=== PATIENT | male | born 1955 | race Caucasian/White ===

== ENCOUNTER 2016-08-08 22:10 | Inpatient (IN) | payer MEDICARE, MEDICAID ==
[~2016-08-08] VITALS: Ht 170.2 cm; Wt 73.7 kg
--- NOTE | 2016-08-08 22:36 | ED.ADGEN ---
Adult General HPI HPI Patient is a 61-year-old male brought to emergency department for medical clearance prior to admission to the geriatric psychiatric unit. Patient himself has no complaints. He does have a history of dementia. Review of Systems Review of Systems Constitutional: Denies fever or chills [] Eyes: Denies change in visual acuity, redness, or eye pain [] HENT: Denies nasal congestion or sore throat [] Respiratory: Denies cough or shortness of breath [] Cardiovascular: No additional information not addressed in HPI [] GI: Denies abdominal pain, nausea, vomiting, bloody stools or diarrhea [] : Denies dysuria or hematuria [] Musculoskeletal: Denies back pain or joint pain [] Integument: Denies rash or skin lesions [] Neurologic: Denies headache, focal weakness or sensory changes [] Endocrine: Denies polyuria or polydipsia [] Allergies Allergies Allergies Coded Allergies Type Severity Reaction Last Updated Verified No Known Drug Allergies 08/08/16 No Physical Exam Physical Exam Constitutional: Well developed, well nourished, no acute distress, non-toxic appearance. [] HENT: Normocephalic, atraumatic, bilateral external ears normal, oropharynx moist, no oral exudates, nose normal. [] Eyes: PERRLA, EOMI, conjunctiva normal, no discharge. [] Neck: Normal range of motion, no tenderness, supple, no stridor. [] Cardiovascular:Heart rate regular rhythm, no murmur [] Lungs & Thorax: Bilateral breath sounds clear to auscultation [] Abdomen: Bowel sounds normal, soft, no tenderness, no masses, no pulsatile masses. [] Skin: Warm, dry, no erythema, no rash. [] Back: No tenderness, no CVA tenderness. [] Extremities: No tenderness, no cyanosis, no clubbing, ROM intact, no edema. [] Neurologic: Alert and oriented X 1, normal motor function, normal sensory function, no focal deficits noted. [] Psychologic: Affect normal, judgement normal, mood normal. [] Current Patient Data Lab Results Laboratory Tests Test 08/08/16 22:57 08/08/16 23:05 08/08/16 23:24 Sodium Level 139mmol/L (136-145) Potassium Level 4.0mmol/L (3.5-5.1) Chloride Level 103mmol/L (98-107) Carbon Dioxide Level 27mmol/L (21-32) Anion Gap 9 (6-14) Blood Urea Nitrogen 11mg/dL (8-26) Creatinine 0.8mg/dL (0.7-1.3) Estimated GFR (Cockcroft-Gault) 98.9 Glucose Level 228mg/dL (70-99) H Calcium Level 8.7mg/dL (8.5-10.1) Magnesium Level 1.6mg/dL (1.8-2.4) L Troponin I Quantitative < 0.017ng/mL (0-0.055) White Blood Count 4.3x10^3/uL (4.0-11.0) Red Blood Count 4.41x10^6/uL (4.30-5.70) Hemoglobin 13.9g/dL (13.0-17.5) Hematocrit 41.0% (39.0-53.0) Mean Corpuscular Volume 93fL (79-100) Mean Corpuscular Hemoglobin 32pg (25-35) Mean Corpuscular Hemoglobin Concent 34g/dL (31-37) Red Cell Distribution Width 13.2% (11.5-14.5) Platelet Count 210x10^3/uL (140-400) Neutrophils (%) (Auto) 45% (31-73) Lymphocytes (%) (Auto) 40% (24-48) Monocytes (%) (Auto) 11% (0-9) H Eosinophils (%) (Auto) 4% (0-3) H Basophils (%) (Auto) 1% (0-3) Neutrophils # (Auto) 1.9x10^3uL (1.8-7.7) Lymphocytes # (Auto) 1.7x10^3/uL (1.0-4.8) Monocytes # (Auto) 0.5x10^3/uL (0.0-1.1) Eosinophils # (Auto) 0.1x10^3/uL (0.0-0.7) Basophils # (Auto) 0.0x10^3/uL (0.0-0.2) Urine Collection Type Unknown Urine Color Yellow Urine Clarity Clear Urine pH 8.5 Urine Specific [place] 1.015 Urine Protein Neg (NEG-TRACE) Urine Glucose (UA) Negmg/dL (NEG) Urine Ketones (Stick) Negmg/dL (NEG) Urine Blood Neg (NEG) Urine Nitrite Neg (NEG) Urine Bilirubin Neg (NEG) Urine Urobilinogen Dipstick 0.2mg/dL (0.2 mg/dL) Urine Leukocyte Esterase Neg (NEG) Urine RBC 0/HPF (0-2) Urine WBC Rare/HPF (0-4) Urine Squamous Epithelial Cells Occ/LPF Urine Bacteria 0/HPF (0-FEW) EKG EKG EKG interpreted by me, normal sinus rhythm, 89 bpm, no ST segment elevation, normal axis. [] Radiology/Procedures Radiology/Procedures [] Course & Med Decision Making Course & Med Decision Making Pertinent Labs and Imaging studies reviewed. (See chart for details) [] Final Impression Final Impression Dementia with behavioral disturbance [] Problems: Dragon Disclaimer Dragon Disclaimer This electronic medical record was generated, in whole or in part, using a voice recognition dictation system. YAO RASMUSSEN MD Aug 08, 2016 22:35
--- NOTE | 2016-08-08 22:42 | EKG ---
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
[2016-08-08 23:37] LABS: BASO % 1 % (0-3); EOS # 0.1 x10^3/uL (0.0-0.7); EOS % 4 % (0-3); HEMOGLOBIN 13.9 g/dL (13.0-17.5); LYMPH # 1.7 x10^3/uL (1.0-4.8); LYMPH % 40 % (24-48); MEAN CORPUSCULAR HEMOGLOBIN 32 pg (25-35); MEAN CORPUSCULAR HGB CONC 34 g/dL (31-37); MEAN CORPUSCULAR VOLUME 93 fL (79-100); MONO # 0.5 x10^3/uL (0.0-1.1); MONO % 11 % (0-9); NEUT # 1.9 x10^3uL (1.8-7.7); NEUT % 45 % (31-73); PLATELET COUNT 210 x10^3/uL (140-400); RED BLOOD COUNT 4.41 x10^6/uL (4.30-5.70); RED CELL DISTRIBUTION WIDTH 13.2 % (11.5-14.5); WHITE BLOOD COUNT 4.3 x10^3/uL (4.0-11.0)
[2016-08-08 23:49] LABS: CALCIUM 8.7 mg/dL (8.5-10.1); CREATININE 0.8 mg/dL (0.7-1.3); GFR 98.9
[2016-08-09 00:19] LABS: BILIRUBIN,URINE NEG (NEG); CLARITY,URINE CLEAR; COLOR,URINE YELLOW; GLUCOSE,URINE NEG (NEG); NITRITE,URINE NEG (NEG); UROBILINOGEN,URINE 0.2 mg/dL (0.2 mg/dL)
[2016-08-09 00:20] LABS: BACTERIA,URINE 0 /HPF (0-FEW); RBC,URINE 0 /HPF (0-2); SQUAMOUS EPITHELIAL CELL,UR OCC /LPF; WBC,URINE RARE /HPF (0-4)
[2016-08-09] MEDS ORDERED: ACETAMINOPHEN 325 MG TABLET PO PRN ×2 (01:30→09:15)
[2016-08-09] MEDS ORDERED: MAG HYDROX/AL HYDROX/SIMETH 30 ML ORAL.SUSP PO PRN (01:30)
[2016-08-09] MEDS ORDERED: METHYL SALICYLATE/MENTHOL TOPICAL OINTMENT 29GM TUBE. TP PRN (01:30)
--- NOTE | 2016-08-09 01:51 | ACF ---
Admission Criteria Forms PSYCHIATRIC DISORDERS Clinical Indications for Inpatient Care (Place 'X' for any and all applicable criteria): Ongoing inpatient care may be needed for ANY ONE of the following(1)(2)(3)(4)(6) (7)(8): [X]I. Danger to self or others not manageable at lower level of care. [ ]II. Grave disability (eg, inability to perform self care necessary at lower level of care) [ ]III. Agitation or inappropriate behavior interfering with care for primary condition (eg, attempting to discontinue lines or drains prematurely, unable to cooperate with respiratory care) [ ]IV. Severe disability or disorder indicated by ALL of the following: [ ]a) Severe behavioral health disorder-related symptoms or condition indicated by ANY ONE of the following: [ ]i) Severe problem with cognition, memory, judgment, or impulse control [ ]ii) Severe clinical manifestations (eg, hallucinations, delusions, other acute psychotic symptoms, varsha, extreme agitation or anxiety) [ ]b) Patient management at lower level of care is not feasible until acute intervention or modification is initiated. Extended stay beyond goal length of stay for the primary condition may be indicated when ANY ONE of the following is present: (1)(2)(3)(4): [ ]a) Patient is a danger to self or others and not manageable at lower level of care. [ ]b) Behavior crisis management, including physical or chemical restraints, is required and is not available at a lower level of care. [ ]c) Behavioral symptoms (e.g., agitation, somnolence, inappropriate behavior) are present, and are not manageable at a lower level of care. [ ]d) Patient cannot understand follow-up treatment and crisis plan. [ ]e) Provider and supports are not sufficiently available at lower level of care. [ ]f) Patient cannot participate (e.g., verify absence of plan for harm) and is in needed of monitoring. The original [facility] content created by [employer] has been revised. The portions of the content which have been revised are identified through the use of italic text or in bold, and [facility] has neither reviewed nor approved the modified material. All other unmodified content is copyright [facility] [employer]. Please see references footnoted in the original [facility] edition 2016 Admission Criteria Met?: Yes MATHEW BAREKR Aug 09, 2016 01:51
[2016-08-09] MEDS ORDERED: ESCI10TA PEG (01:59)
[2016-08-09] MEDS ORDERED: TAMS0.4C97 PEG (01:59)
[2016-08-09] MEDS ORDERED: LORA0.5T PEG ×2 (01:59)
[2016-08-09] MEDS ORDERED: INSU100I17 SQ (01:59)
[2016-08-09] MEDS ORDERED: RISP0.2519 PEG (01:59)
[2016-08-09] MEDS ORDERED: LOSA25TA PEG (01:59)
[2016-08-09] MEDS ORDERED: MIRT15TA PEG (01:59)
[2016-08-09] MEDS ORDERED: HYDR-971 PEG (01:59)
[2016-08-09] MEDS ORDERED: RANI150T6 PEG (01:59)
[2016-08-09] MEDS ORDERED: ONDA4TAB12 PEG (01:59)
[2016-08-09] MEDS ORDERED: VALP250D PEG (01:59)
[2016-08-09] MEDS ORDERED: MULT-245 PEG (01:59)
[2016-08-09] MEDS ORDERED: TRAZ100T12 PEG (01:59)
[2016-08-09] MEDS ORDERED: INSU100I27 SQ (01:59)
[2016-08-09] MEDS ORDERED: ACET325T21 PEG (01:59)
[2016-08-09] MEDS ORDERED: ERGO500012 PEG (01:59)
[2016-08-09 02:00] LABS: DIRECT BILIRUBIN 0.1 mg/dL (0.0-0.2); TOTAL BILIRUBIN 0.4 mg/dL (0.2-1.0)
[2016-08-09 02:15] LABS: VAL ACID 53 mcg/mL (50-100)
[2016-08-09] MEDS ORDERED: LORAZEPAM 0.5 MG TABLET PEG PRN (04:30)
[2016-08-09 06:24] VITALS: BP 123/65
[2016-08-09] MEDS ORDERED: HYDROCODONE/APAP 5/325MG TABLET. PEG PRN (09:15)
[2016-08-09] MEDS ORDERED: ONDANSETRON ODT 4 MG TAB.RAPDIS PEG PRN (09:15)
[2016-08-09] MEDS ORDERED: CHOLECALCIFEROL (VITAMIN D3) 50,000 UNIT CAPSULE PEG SCH (09:30)
[2016-08-09] MEDS: VALPROATE ACID 250 MG/5 ML ORAL SOLUTION PEG SCH ×2 (09:48→21:50)
[2016-08-09] MEDS: LOSARTAN 25 MG TABLET. PEG SCH (09:49)
[2016-08-09] MEDS: FAMOTIDINE 20 MG TABLET PEG SCH ×2 (09:49→21:54)
[2016-08-09] MEDS: MULTIVITAMIN with MINERAL TABLET. PEG SCH (09:49)
[2016-08-09] MEDS: MIRTAZAPINE 15 MG TABLET PEG SCH ×2 (09:49→21:50)
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
[2016-08-09] MEDS: INSULIN ASPART 300 UNITS/3 ML INSULN.PEN SQ SCH ×2 (12:57→17:20)
[2016-08-09 13:36] LABS: IRON,SERUM 85 ug/dL (65-175)
[2016-08-09 13:55] LABS: THYROID STIM HORMONE (TSH) 10.8 uIU/mL (0.358-3.740)
[2016-08-09 15:55] VITALS: BP 116/83
[2016-08-09] MEDS: ESCITALOPRAM 10 MG TABLET. PEG SCH ×2 (18:00→21:50)
[2016-08-09 18:10] LABS: T3 TOTAL 95 ng/dL (71-180); THYROXINE 6.8 ug/dL (4.5-12.0)
--- NOTE | 2016-08-09 20:50 | PDOC ---
Exam Chauncey Demential Exam: Chauncey Note: Please also refer to the separate dictated note~for this date of service dictated separately.~Patient seen individually. Discussed the patient with Nursing staff reviewed the chart.~Reviewed interim history and current functioning. Reviewed vital signs,~Labs/ Radiology~and current medications noted below. Continue current treatment with the changes noted in the dictated addendum note Assessment: Vital Signs: Vital Signs Date Time Temp Pulse Resp B/P Pulse Ox O2 Delivery O2 Flow Rate FiO2 08/09/16 15:55 97.8 74 18 116/83 98 08/08/16 22:10 Room Air Labs: Laboratory Tests Test 08/08/16 22:57 08/08/16 23:05 08/08/16 23:24 08/09/16 12:00 Sodium Level 139mmol/L (136-145) Potassium Level 4.0mmol/L (3.5-5.1) Chloride Level 103mmol/L (98-107) Carbon Dioxide Level 27mmol/L (21-32) Anion Gap 9 (6-14) Blood Urea Nitrogen 11mg/dL (8-26) Creatinine 0.8mg/dL (0.7-1.3) Estimated GFR (Cockcroft-Gault) 98.9 Glucose Level 228mg/dL (70-99) H Calcium Level 8.7mg/dL (8.5-10.1) Magnesium Level 1.6mg/dL (1.8-2.4) L Troponin I Quantitative < 0.017ng/mL (0-0.055) White Blood Count 4.3x10^3/uL (4.0-11.0) Red Blood Count 4.41x10^6/uL (4.30-5.70) Hemoglobin 13.9g/dL (13.0-17.5) Hematocrit 41.0% (39.0-53.0) Mean Corpuscular Volume 93fL (79-100) Mean Corpuscular Hemoglobin 32pg (25-35) Mean Corpuscular Hemoglobin Concent 34g/dL (31-37) Red Cell Distribution Width 13.2% (11.5-14.5) Platelet Count 210x10^3/uL (140-400) Neutrophils (%) (Auto) 45% (31-73) Lymphocytes (%) (Auto) 40% (24-48) Monocytes (%) (Auto) 11% (0-9) H Eosinophils (%) (Auto) 4% (0-3) H Basophils (%) (Auto) 1% (0-3) Neutrophils # (Auto) 1.9x10^3uL (1.8-7.7) Lymphocytes # (Auto) 1.7x10^3/uL (1.0-4.8) Monocytes # (Auto) 0.5x10^3/uL (0.0-1.1) Eosinophils # (Auto) 0.1x10^3/uL (0.0-0.7) Basophils # (Auto) 0.0x10^3/uL (0.0-0.2) Iron Level 85ug/dL (65-175) Total Iron Binding Capacity 259ug/dL (250-450) Iron Saturation 33% (15-34) Total Bilirubin 0.4mg/dL (0.2-1.0) Direct Bilirubin 0.1mg/dL (0.0-0.2) Aspartate Amino Transferase (AST) 37U/L (15-37) Alanine Aminotransferase (ALT) 42U/L (16-63) Alkaline Phosphatase 84U/L (46-116) Total Protein 7.0g/dL (6.4-8.2) Albumin 3.0g/dL (3.4-5.0) L Triglycerides Level 138mg/dL (0-150) Cholesterol Level 126mg/dL (0-200) LDL Cholesterol, Calculated 58mg/dL (0-100) VLDL Cholesterol, Calculated 27mg/dL (0-40) HDL Cholesterol 41mg/dL (40-60) Cholesterol/HDL Ratio 3.0 25-Hydroxy Vitamin D Total Pending Thyroid Stimulating Hormone (TSH) 10.800uIU/mL (0.358-3.740) Thyroxine (T4) 6.8ug/dL (4.5-12.0) Total Triiodothyronine (TT3) 95ng/dL (71-180) Valproic Acid Level 53mcg/mL (50-100) Valproic Acid Last Dose Date 08/08/2016 Valproic Acid Last Dose Time 0600 RPR Titer Additional Testing Pending Urine Collection Type Unknown Urine Color Yellow Urine Clarity Clear Urine pH 8.5 Urine Specific [place] 1.015 Urine Protein Neg (NEG-TRACE) Urine Glucose (UA) Negmg/dL (NEG) Urine Ketones (Stick) Negmg/dL (NEG) Urine Blood Neg (NEG) Urine Nitrite Neg (NEG) Urine Bilirubin Neg (NEG) Urine Urobilinogen Dipstick 0.2mg/dL (0.2 mg/dL) Urine Leukocyte Esterase Neg (NEG) Urine RBC 0/HPF (0-2) Urine WBC Rare/HPF (0-4) Urine Squamous Epithelial Cells Occ/LPF Urine Bacteria 0/HPF (0-FEW) Glucose (Fingerstick) 168mg/dL (70-99) H Test 08/09/16 16:14 08/09/16 19:08 Glucose (Fingerstick) 176mg/dL (70-99) H 178mg/dL (70-99) H Current Medications: Meds: Current Medications Acetaminophen (Tylenol) 650 mg PRN Q6HRS PRN PO PAIN / TEMP; Start 08/09/16 at 01:30; Status Cancel Multi-Ingredient Ointment (Analgesic [place]) 1 crispin PRN QID PRN TP MUSCLE PAIN; Start 08/09/16 at 01:30 Al Hydroxide/Mg Hydroxide (Mylanta Plus Xs) 15 ml PRN AFTMEALHC PRN PO DYSPEPSIA; Start 08/09/16 at 01:30 Magnesium Hydroxide (Milk Of Magnesia) 2,400 mg PRN QHS PRN PO CONSTIPATION; Start 08/09/16 at 01:30 Escitalopram Oxalate (Lexapro) 10 mg QEVNG PEG Last administered on 08/09/16 18:00; Start 08/09/16 at 18:00 Lorazepam (Ativan) 0.5 mg PRN Q6HRS PRN PEG ANXIETY; Start 08/09/16 at 04:30 Lorazepam (Ativan) 0.5 mg QHS PEG ; Start 08/09/16 at 21:00 Mirtazapine (Remeron) 15 mg BID PEG Last administered on 08/09/16 09:49; Start 08/09/16 at 09:00 Risperidone (Risperdal) 0.25 mg QHS PEG ; Start 08/09/16 at 21:00 Trazodone HCl (Desyrel) 100 mg QHS PEG ; Start 08/09/16 at 21:00 Valproic Acid (Depakene) 500 mg BID PEG convulsions Last administered on 09:48; Start 08/09/16 at 09:00 Acetaminophen (Tylenol) 650 mg PRN Q4HRS PRN PO PAIN / TEMP; Start 08/09/16 at 09:15 Vitamin D (Vitamin D3) 50,000 unit QMONTH PEG Last administered on 08/09/16 09 :50; Start 08/09/16 at 09:30 Acetaminophen/ Hydrocodone Bitart (Lortab 5/325) 1 tab PRN Q4HRS PRN PEG PAIN; Start 08/09/16 at 09:15 Insulin Aspart (Novolog) 4 units TIDBFRMEAL SQ Last administered on 08/09/16 17:20; Start 08/09/16 at 11:30 Insulin Detemir (Levemir) 40 units HS SQ ; Start 08/09/16 at 21:00 Losartan Potassium (Cozaar) 25 mg DAILY PEG Last administered on 08/09/16 09: 49; Start 08/09/16 at 09:30 Ondansetron HCl (Zofran Odt) 4 mg PRN Q8HRS PRN PEG NAUSEA/VOMITING; Start at 09:15 Tamsulosin HCl (Flomax) 0.4 mg QHS PO ; Start 08/09/16 at 21:00 Multivitamins/ Calcium (Thera-M Plus) 1 tab DAILY PEG Last administered on 08/09 09:49; Start 08/09/16 at 09:30 Famotidine (Pepcid) 20 mg BID PEG Last administered on 08/09/16 09:49; Start 08/09/16 at 09:30 Active Scripts Active Reported Valproic Acid (Valproate Sodium) 250 Mg/5 Ml Disp.syrin 10 Ml PEG BID Trazodone Hcl 100 Mg Tablet 100 Mg PEG QHS Lorazepam 0.5 Mg Tablet 0.5 Mg PEG QHS Escitalopram Oxalate 10 Mg Tablet 10 Mg PEG QEVNG Lorazepam 0.5 Mg Tablet 0.5 Mg PEG PRN Q6HRS PRN [place] 5-325 Tablet (Hydrocodone Bit/Acetaminophen) 1 Each Tablet 1 Tab PEG PRN Q4HRS PRN Flomax (Tamsulosin Hcl) 0.4 Mg Cap.er.24h 0.4 Mg PEG Remeron (Mirtazapine) 15 Mg Tablet 15 Mg PEG BID Risperdal (Risperidone) 0.25 Mg Tablet 0.25 Mg PEG QHS Ondansetron Odt (Ondansetron) 4 Mg Tab.rapdis 4 Mg PEG PRN Q8HRS PRN Acetaminophen 325 Mg Tablet 650 Mg PEG PRN Q4HRS PRN Multi Vitamin Daily (Multivitamin) 1 Each Tablet 1 Tab PEG DAILY Zantac (Ranitidine Hcl) 150 Mg Tablet 150 Mg PEG BID Cozaar (Losartan Potassium) 25 Mg Tablet 25 Mg PEG DAILY Levemir Flextouch (Insulin Detemir) 100 Unit/1 Ml Insuln.pen 40 Unit SQ HS Novolog Flexpen (Insulin Aspart) 100 Unit/1 Ml Insuln.pen 4 Unit SQ TIDBFRMEAL Diagnosis: Problems: (1) Dementia with behavioral disturbance VIANCA RODGERS MD Aug 09, 2016 20:50
[2016-08-09] MEDS ORDERED: risperiDONE 0.25 MG TABLET. PEG SCH (21:00)
[2016-08-09] MEDS: TAMSULOSIN 0.4 MG CAP.ER.24H. PO SCH (21:50)
[2016-08-09] MEDS: LORAZEPAM 0.5 MG TABLET PEG SCH (21:50)
[2016-08-09] MEDS: traZODone 100 MG TABLET. PEG SCH (21:50)
[2016-08-09] MEDS: INSULIN DETEMIR 300 UNITS/3 ML INSULN.PEN. SQ SCH (22:04)
[2016-08-10 01:11] LABS: VITAMIN D25(OH)TOTAL 36.4 ng/mL (30.0-100.0)
[2016-08-10 06:07] VITALS: BP 106/67
[2016-08-10] MEDS: INSULIN ASPART 300 UNITS/3 ML INSULN.PEN SQ SCH ×3 (07:30→16:30)
[2016-08-10] MEDS: MULTIVITAMIN with MINERAL TABLET. PEG SCH (07:40)
[2016-08-10] MEDS: FAMOTIDINE 20 MG TABLET PEG SCH ×2 (07:40→21:20)
[2016-08-10] MEDS: VALPROATE ACID 250 MG/5 ML ORAL SOLUTION PEG SCH ×2 (07:40→21:20)
[2016-08-10] MEDS: MIRTAZAPINE 15 MG TABLET PEG SCH (07:40)
[2016-08-10] MEDS: LOSARTAN 25 MG TABLET. PEG SCH (07:40)
[2016-08-10] MEDS ORDERED: ACETAMINOPHEN 650 MG/20.3 ML SOLUTION. PEG PRN (09:15)
--- NOTE | 2016-08-10 17:01 | HP ---
ADMIT DATE: 08/09/2016 PSYCHIATRIC ADMISSION HISTORY/EVALUATION This is a late entry for 08/09/2016 IDENTIFYING DATA: The patient is a 61-year-old male referred to us from [facility] by Dr. Field, his primary care physician Dr. Navarro, psychiatrist on account of increasing aggression towards other residents. Reportedly, he "singles out female residents." He has been pushing, aggressive, disruptive, potentially dangerous, having failed outpatient psychiatric interventions. He is referred for inpatient psychiatric stabilization for his impulse control disorder/intermittent explosive disorder within the context of his vascular dementia, status post CVA with depression, delusions. The patient seen individually evening of 08/09/2016. Discussed with nursing staff several times during the day, reviewed current past records. CHIEF COMPLAINT: "Okay." It is very difficult to hear the patient as he speaks in a very low tone, almost inaudible, at times seems oriented just to himself, but it is unclear at this stage. His above response was when I asked him if he knew where he was. He did respond that he was in [place] when I asked him where he came from. HISTORY OF PRESENT ILLNESS: The patient has a history of CVA and vascular dementia. He has been residing at the [facility] for some time. Over the past 7 to 10 days he is getting increasingly agitated, aggressive as noted above. This is particularly towards certain female residents. He has had some sleep and appetite changes. Appeared paranoid, depressed, angry, irritable, impulsive and explosive. No history of bipolar disorder, suicidal or homicidal ideation. PAST PSYCHIATRIC HISTORY: As above. PAST MEDICAL HISTORY: The patient was seen at the [facility] Emergency Room prior to admission by and found to be medically stable to be on a unit. EKG was unremarkable. He does have a G-tube in place since 05/2016, status post CVA, history of seizure disorder, hypertension, hyperlipidemia, diabetes mellitus, GERD. He has no teeth, history of chronic constipation, vitamin D deficiency, dysphagia, edema, insomnia. Diet, n.p.o., tube feeding, 8 ounces t.i.d. 175 mL, q. 4 hours, meds via G-tube, ambulates with a walker. UA was negative. DRUG ALLERGIES: Negative. CURRENT PSYCHOTROPICS: Lexapro 10 mg a day, vitamin D 50,000 units by PEG tube every month, Ativan 0.5 mg q.6h. p.r.n. PEG tube and 0.5 mg at bedtime PEG tube, Remeron 15 mg by PEG tube b.i.d., Risperdal 0.25 mg by PEG tube at bedtime, trazodone 100 mg at bedtime PEG tube, Depakene 500 b.i.d. by PEG tube. FAMILY HISTORY: Noncontributory. SOCIAL HISTORY: No alcohol, drug abuse, physical, sexual or elder abuse history is noted. He is not known to be a perpetrator. MENTAL STATUS EXAMINATION: The patient was seen individually the evening of 08/09/2016. He seems oriented to himself and perhaps to situation at times. He is not very verbal, very difficult to understand. Speech slow and rate and rhythm low in volume, often responses monosyllabic, difficult to assess his orientation. We will reassess as the hospitalization progresses. No active suicidal or homicidal ideation. No psychotic symptoms. Insight, judgment, recent memory is impaired. Language function intact. Mood and affect depressed. VITAL SIGNS: Temperature 97.8, pulse 74, BP 116/83. REVIEW OF SYSTEMS: Impaired ambulation, difficulty swallowing, tiredness, sedation. No CV, , GI, pulmonary, eye, ENT system symptoms on review, but the patient not very responsive for this questioning. IMPRESSION: Major neurocognitive disorder, probably vascular with depression, delusion, behavioral disturbance; anxiety disorder, unspecified; impulse control disorder, unspecified. Rest diagnoses as above. PLAN: Admit to geropsychiatry unit at [facility]. I will see the patient daily individually from a psychiatric standpoint, medical followup with Dr. Martins/Dr. Sullivan/Dr. Jameson. Continue current psychotropics. Check a valproic acid level, observe baseline and adjust psychotropics further as clinically indicated. MAN Theron RODGERS MD DR: VERENA/pily JOB#: [id number] / [id number]
[2016-08-10] MEDS: ESCITALOPRAM 5 MG/5 ML PEG SCH (17:11)
[2016-08-10] MEDS ORDERED: MIRTAZAPINE 15 MG TAB.RAPDIS PEG SCH (21:00)
[2016-08-10] MEDS: TAMSULOSIN 0.4 MG CAP.ER.24H. PO SCH (21:20)
[2016-08-10] MEDS: LORAZEPAM 0.5 MG TABLET PEG SCH (21:20)
[2016-08-10] MEDS: traZODone 100 MG TABLET. PEG SCH (21:20)
[2016-08-10] MEDS: risperiDONE ORAL 1 MG/ML 30ml BOTTLE. PEG SCH (21:22)
[2016-08-10] MEDS: MIRTAZAPINE 15 MG TAB.RAPDIS PEG SCH (21:24)
[2016-08-10] MEDS: INSULIN DETEMIR 300 UNITS/3 ML INSULN.PEN. SQ SCH (22:03)
--- NOTE | 2016-08-10 22:31 | PDOC ---
Exam Chauncey Demential Exam: Chauncey Note: Please also refer to the separate dictated note~for this date of service dictated separately.~Patient seen individually. Discussed the patient with Nursing staff reviewed the chart.~Reviewed interim history and current functioning. Reviewed vital signs,~Labs/ Radiology~and current medications noted below. Continue current treatment with the changes noted in the dictated addendum note Assessment: Vital Signs: Vital Signs Date Time Temp Pulse Resp B/P Pulse Ox O2 Delivery O2 Flow Rate FiO2 08/10/16 07:40 60 106/67 08/10/16 06:07 97.2 16 99 08/08/16 22:10 Room Air I&O Intake and Output 08/10/16 07:00 Intake Total 375 ml Balance 375 ml Intake Oral 0 ml Tube Feeding 375 ml Labs: Laboratory Tests Test 08/10/16 07:35 08/10/16 08:17 08/10/16 09:01 08/10/16 11:34 Glucose (Fingerstick) 50mg/dL (70-99) L 79mg/dL (70-99) 193mg/dL (70-99) H 231mg/dL (70-99) H Test 08/10/16 16:57 08/10/16 19:08 Glucose (Fingerstick) 204mg/dL (70-99) H 250mg/dL (70-99) H Current Medications: Meds: Current Medications Acetaminophen (Tylenol) 650 mg PRN Q6HRS PRN PO PAIN / TEMP; Start 08/09/16 at 01:30; Status Cancel Multi-Ingredient Ointment (Analgesic [place]) 1 crispin PRN QID PRN TP MUSCLE PAIN; Start 08/09/16 at 01:30 Al Hydroxide/Mg Hydroxide (Mylanta Plus Xs) 15 ml PRN AFTMEALHC PRN PO DYSPEPSIA; Start 08/09/16 at 01:30 Magnesium Hydroxide (Milk Of Magnesia) 2,400 mg PRN QHS PRN PO CONSTIPATION; Start 08/09/16 at 01:30 Escitalopram Oxalate (Lexapro) 10 mg QEVNG PEG Last administered on 08/09/16t 21:50; Start 08/09/16 at 18:00; Stop 08/10/16 at 09:08; Status DC Lorazepam (Ativan) 0.5 mg PRN Q6HRS PRN PEG ANXIETY; Start 08/09/16 at 04:30 Lorazepam (Ativan) 0.5 mg QHS PEG Last administered on 08/10/16 21:20; Start 08/09/16 at 21:00 Mirtazapine (Remeron) 15 mg BID PEG Last administered on 08/10/16 07:40; Start 08/09/16 at 09:00; Stop 08/10/16 at 09:09; Status DC Risperidone (Risperdal) 0.25 mg QHS PEG Last administered on 08/09/16 21:49; Start 08/09/16 at 21:00; Stop 08/10/16 at 09:09; Status DC Trazodone HCl (Desyrel) 100 mg QHS PEG Last administered on 08/10/16 21:20; Start 08/09/16 at 21:00 Valproic Acid (Depakene) 500 mg BID PEG convulsions Last administered on 21:20; Start 08/09/16 at 09:00 Acetaminophen (Tylenol) 650 mg PRN Q4HRS PRN PO PAIN / TEMP; Start 08/09/16 at 09:15; Stop 08/10/16 at 09:09; Status DC Vitamin D (Vitamin D3) 50,000 unit QMONTH PEG Last administered on 08/09/16 09 :50; Start 08/09/16 at 09:30 Acetaminophen/ Hydrocodone Bitart (Lortab 5/325) 1 tab PRN Q4HRS PRN PEG PAIN; Start 08/09/16 at 09:15 Insulin Aspart (Novolog) 4 units TIDBFRMEAL SQ Last administered on 08/10/16 16:30; Start 08/09/16 at 11:30 Insulin Detemir (Levemir) 40 units HS SQ Last administered on 08/10/16 22:03; Start 08/09/16 at 21:00 Losartan Potassium (Cozaar) 25 mg DAILY PEG Last administered on 08/10/16 07: 40; Start 08/09/16 at 09:30 Ondansetron HCl (Zofran Odt) 4 mg PRN Q8HRS PRN PEG NAUSEA/VOMITING; Start at 09:15 Tamsulosin HCl (Flomax) 0.4 mg QHS PO Last administered on 08/10/16 21:20; Start 08/09/16 at 21:00 Multivitamins/ Calcium (Thera-M Plus) 1 tab DAILY PEG Last administered on 08/10 07:40; Start 08/09/16 at 09:30; Stop 08/10/16 at 09:09; Status DC Famotidine (Pepcid) 20 mg BID PEG Last administered on 08/10/16 21:20; Start 08/09/16 at 09:30 Acetaminophen (Tylenol) 650 mg PRN Q4HRS PRN PEG PAIN / TEMP; Start 08/10/16 at 09:15 Escitalopram Oxalate (Lexapro) 10 mg QEVNG PEG Last administered on 08/10/16 17:11; Start 08/10/16 at 18:00 Mirtazapine (Remeron Debbie-Tab) 15 mg BID PEG ; Start 08/10/16 at 21:00; Stop at 21:00; Status DC Multivitamins (Thera-Plus) 5 ml DAILY PEG ; Start 08/11/16 at 09:00 Risperidone (Risperdal) 0.25 mg HS PEG Last administered on 08/10/16 21:22; Start 08/10/16 at 21:00 Mirtazapine (Remeron Debbie-Tab) 15 mg HS PEG Last administered on 08/10/16 21:24 ; Start 08/10/16 at 21:00 Levothyroxine Sodium (Synthroid) 25 mcg DAILY07 PEG ; Start 08/11/16 at 07:00 Active Scripts Active Reported Valproic Acid (Valproate Sodium) 250 Mg/5 Ml Disp.syrin 10 Ml PEG BID Trazodone Hcl 100 Mg Tablet 100 Mg PEG QHS Lorazepam 0.5 Mg Tablet 0.5 Mg PEG QHS Escitalopram Oxalate 10 Mg Tablet 10 Mg PEG QEVNG Lorazepam 0.5 Mg Tablet 0.5 Mg PEG PRN Q6HRS PRN [place] 5-325 Tablet (Hydrocodone Bit/Acetaminophen) 1 Each Tablet 1 Tab PEG PRN Q4HRS PRN Flomax (Tamsulosin Hcl) 0.4 Mg Cap.er.24h 0.4 Mg PEG Remeron (Mirtazapine) 15 Mg Tablet 15 Mg PEG BID Risperdal (Risperidone) 0.25 Mg Tablet 0.25 Mg PEG QHS Ondansetron Odt (Ondansetron) 4 Mg Tab.rapdis 4 Mg PEG PRN Q8HRS PRN Acetaminophen 325 Mg Tablet 650 Mg PEG PRN Q4HRS PRN Multi Vitamin Daily (Multivitamin) 1 Each Tablet 1 Tab PEG DAILY Zantac (Ranitidine Hcl) 150 Mg Tablet 150 Mg PEG BID Cozaar (Losartan Potassium) 25 Mg Tablet 25 Mg PEG DAILY Levemir Flextouch (Insulin Detemir) 100 Unit/1 Ml Insuln.pen 40 Unit SQ HS Novolog Flexpen (Insulin Aspart) 100 Unit/1 Ml Insuln.pen 4 Unit SQ TIDBFRMEAL Diagnosis: Problems: (1) Dementia with behavioral disturbance (2) Anxiety disorder (3) Dementia, vascular, with delusions (4) Dementia, vascular, with depression (5) Impulse control disorder VIANCA RODGERS MD Aug 10, 2016 22:31
[2016-08-11] MEDS: LEVOTHYROXINE 25 MCG TABLET. PEG SCH (05:36)
[2016-08-11 05:58] VITALS: BP 104/67
[2016-08-11] MEDS: INSULIN ASPART 300 UNITS/3 ML INSULN.PEN SQ SCH ×3 (07:30→16:30)
[2016-08-11] MEDS: LOSARTAN 25 MG TABLET. PEG SCH (07:42)
[2016-08-11] MEDS: MULTIVITAMINS,THERAPEUTIC 5 ML ORAL LIQUID. PEG SCH (07:43)
[2016-08-11] MEDS: FAMOTIDINE 20 MG TABLET PEG SCH ×2 (07:43→19:28)
[2016-08-11] MEDS: VALPROATE ACID 250 MG/5 ML ORAL SOLUTION PEG SCH ×2 (07:43→19:27)
--- NOTE | 2016-08-11 10:14 | PN ---
DATE: 08/10/2016 PSYCHIATRIC PROGRESS NOTE This is a late entry for 08/10/2016 covers elements not covered in my initial note. SUBJECTIVE: Nursing staff have called me a couple of times since my last visit with the patient on 08/09/2016. The patient fell the morning of 08/10/2016 as he tripped on his PEG tube. No injuries noted. REVIEW OF SYSTEMS: Difficulty with the swallowing. He is on G-tube feeding, impaired ambulation. No CV, , pulmonary, eye system symptoms on review. Reliability poor. MENTAL STATUS EXAM: Oriented to himself. Speech slow in rate and rhythm, low volume, often responses monosyllabic. Abstraction fair, computation impaired, language function intact. Attention span short. IMPRESSION: Major neurocognitive disorder, vascular with depression, delusions behavioral disturbance; anxiety disorder, unspecified; impulse control disorder, unspecified. PLAN: Reviewed patient's current psychotropics at length. Maintain Depakote, Lexapro at current dosage, Remeron is b.i.d. The daytime dosage sedates him we will stop it, continue with the h.s. dosage. Valproic acid level is 53, therapeutic will not change Depakote dosage for now. Adjust further as clinically indicated. MAN Theron RODGERS MD DR: VERENA/pily JOB#: [id number] / [id number]
--- NOTE | 2016-08-11 13:19 | PDOC ---
PROGRESS NOTES Assessment DM2 w/ hypoglycemia: BG down to 43 this AM. Pt on tube feeds, consistent calorie. Will decrease Levemir to 30 units nightly. Problems: Objective Vital Signs Date Time Temp Pulse Resp B/P Pulse Ox O2 Delivery O2 Flow Rate FiO2 08/11/16 07:42 74 104/67 08/11/16 05:58 97.3 17 99 08/08/16 22:10 Room Air Intake and Output 08/11/16 07:00 Intake Total 2285 ml Balance 2285 ml Intake Oral 120 ml Tube Feeding 2165 ml Review of Relevant I have reviewed the following items jhonny (where applicable) has been applied. Labs Laboratory Tests Test 08/09/16 16:14 08/09/16 19:08 08/10/16 07:35 08/10/16 08:17 Glucose (Fingerstick) 176mg/dL (70-99) 178mg/dL (70-99) 50mg/dL (70-99) 79mg/dL (70-99) Test 08/10/16 09:01 08/10/16 11:34 08/10/16 16:57 08/10/16 19:08 Glucose (Fingerstick) 193mg/dL (70-99) 231mg/dL (70-99) 204mg/dL (70-99) 250mg/dL (70-99) Test 08/11/16 07:07 08/11/16 07:47 08/11/16 11:22 Glucose (Fingerstick) 43mg/dL (70-99) 87mg/dL (70-99) 174mg/dL (70-99) Medications Current Medications Acetaminophen (Tylenol) 650 mg PRN Q6HRS PRN PO PAIN / TEMP; Start 08/09/16 at 01:30; Status Cancel Multi-Ingredient Ointment (Analgesic [place]) 1 crispin PRN QID PRN TP MUSCLE PAIN; Start 08/09/16 at 01:30 Al Hydroxide/Mg Hydroxide (Mylanta Plus Xs) 15 ml PRN AFTMEALHC PRN PO DYSPEPSIA; Start 08/09/16 at 01:30 Magnesium Hydroxide (Milk Of Magnesia) 2,400 mg PRN QHS PRN PO CONSTIPATION; Start 08/09/16 at 01:30 Escitalopram Oxalate (Lexapro) 10 mg QEVNG PEG Last administered on 08/09/16 21:50; Start 08/09/16 at 18:00; Stop 08/10/16 at 09:08; Status DC Lorazepam (Ativan) 0.5 mg PRN Q6HRS PRN PEG ANXIETY; Start 08/09/16 at 04:30 Lorazepam (Ativan) 0.5 mg QHS PEG Last administered on 08/10/16 21:20; Start 08/09/16 at 21:00 Mirtazapine (Remeron) 15 mg BID PEG Last administered on 08/10/16 07:40; Start 08/09/16 at 09:00; Stop 08/10/16 at 09:09; Status DC Risperidone (Risperdal) 0.25 mg QHS PEG Last administered on 08/09/16 21:49; Start 08/09/16 at 21:00; Stop 08/10/16 at 09:09; Status DC Trazodone HCl (Desyrel) 100 mg QHS PEG Last administered on 08/10/16 21:20; Start 08/09/16 at 21:00 Valproic Acid (Depakene) 500 mg BID PEG convulsions Last administered on 07:43; Start 08/09/16 at 09:00 Acetaminophen (Tylenol) 650 mg PRN Q4HRS PRN PO PAIN / TEMP; Start 08/09/16 at 09:15; Stop 08/10/16 at 09:09; Status DC Vitamin D (Vitamin D3) 50,000 unit QMONTH PEG Last administered on 08/09/16 09 :50; Start 08/09/16 at 09:30 Acetaminophen/ Hydrocodone Bitart (Lortab 5/325) 1 tab PRN Q4HRS PRN PEG PAIN; Start 08/09/16 at 09:15 Insulin Aspart (Novolog) 4 units TIDBFRMEAL SQ Last administered on 08/11/16 12:14; Start 08/09/16 at 11:30 Insulin Detemir (Levemir) 40 units HS SQ Last administered on 08/10/16 22:03; Start 08/09/16 at 21:00; Stop 08/11/16 at 13:15; Status DC Losartan Potassium (Cozaar) 25 mg DAILY PEG Last administered on 08/11/16 07: 42; Start 08/09/16 at 09:30 Ondansetron HCl (Zofran Odt) 4 mg PRN Q8HRS PRN PEG NAUSEA/VOMITING; Start at 09:15 Tamsulosin HCl (Flomax) 0.4 mg QHS PO Last administered on 08/10/16 21:20; Start 08/09/16 at 21:00 Multivitamins/ Calcium (Thera-M Plus) 1 tab DAILY PEG Last administered on 08/10 07:40; Start 08/09/16 at 09:30; Stop 08/10/16 at 09:09; Status DC Famotidine (Pepcid) 20 mg BID PEG Last administered on 08/11/16 07:43; Start 08/09/16 at 09:30 Acetaminophen (Tylenol) 650 mg PRN Q4HRS PRN PEG PAIN / TEMP; Start 08/10/16 at 09:15 Escitalopram Oxalate (Lexapro) 10 mg QEVNG PEG Last administered on 08/10/16 17:11; Start 08/10/16 at 18:00 Mirtazapine (Remeron Debbie-Tab) 15 mg BID PEG ; Start 08/10/16 at 21:00; Stop at 21:00; Status DC Multivitamins (Thera-Plus) 5 ml DAILY PEG Last administered on 08/11/16 07:43 ; Start 08/11/16 at 09:00 Risperidone (Risperdal) 0.25 mg HS PEG Last administered on 08/10/16 21:22; Start 08/10/16 at 21:00 Mirtazapine (Remeron Debbie-Tab) 15 mg HS PEG Last administered on 08/10/16 21:24 ; Start 08/10/16 at 21:00 Levothyroxine Sodium (Synthroid) 25 mcg DAILY07 PEG Last administered on 05:36; Start 08/11/16 at 07:00 Insulin Detemir (Levemir) 30 units HS SQ ; Start 08/11/16 at 21:00; Status UNV Active Scripts Active Reported Valproic Acid (Valproate Sodium) 250 Mg/5 Ml Disp.syrin 10 Ml PEG BID Trazodone Hcl 100 Mg Tablet 100 Mg PEG QHS Lorazepam 0.5 Mg Tablet 0.5 Mg PEG QHS Escitalopram Oxalate 10 Mg Tablet 10 Mg PEG QEVNG Lorazepam 0.5 Mg Tablet 0.5 Mg PEG PRN Q6HRS PRN [place] 5-325 Tablet (Hydrocodone Bit/Acetaminophen) 1 Each Tablet 1 Tab PEG PRN Q4HRS PRN Flomax (Tamsulosin Hcl) 0.4 Mg Cap.er.24h 0.4 Mg PEG Remeron (Mirtazapine) 15 Mg Tablet 15 Mg PEG BID Risperdal (Risperidone) 0.25 Mg Tablet 0.25 Mg PEG QHS Ondansetron Odt (Ondansetron) 4 Mg Tab.rapdis 4 Mg PEG PRN Q8HRS PRN Acetaminophen 325 Mg Tablet 650 Mg PEG PRN Q4HRS PRN Multi Vitamin Daily (Multivitamin) 1 Each Tablet 1 Tab PEG DAILY Zantac (Ranitidine Hcl) 150 Mg Tablet 150 Mg PEG BID Cozaar (Losartan Potassium) 25 Mg Tablet 25 Mg PEG DAILY Levemir Flextouch (Insulin Detemir) 100 Unit/1 Ml Insuln.pen 40 Unit SQ HS Novolog Flexpen (Insulin Aspart) 100 Unit/1 Ml Insuln.pen 4 Unit SQ TIDBFRMEAL Vitals/I & O Vital Sign - Last 24 Hours 08/11/16 08/11/16 05:58 07:42 Temp 97.3 Pulse 74 74 Resp 17 B/P 104/67 104/67 Pulse Ox 99 Intake and Output 08/10/16 08/10/16 08/11/16 15:00 23:00 07:00 Intake Total 1430 ml 855 ml Balance 1430 ml 855 ml PORSHA SARKAR MD Aug 11, 2016 13:19
[2016-08-11 15:50] VITALS: BP 119/77
[2016-08-11] MEDS: ESCITALOPRAM 5 MG/5 ML PEG SCH (16:58)
[2016-08-11] MEDS: MIRTAZAPINE 15 MG TAB.RAPDIS PEG SCH (19:28)
[2016-08-11] MEDS: LORAZEPAM 0.5 MG TABLET PEG SCH (19:28)
[2016-08-11] MEDS: traZODone 100 MG TABLET. PEG SCH (19:28)
[2016-08-11] MEDS: TAMSULOSIN 0.4 MG CAP.ER.24H. PO SCH (19:28)
[2016-08-11] MEDS: MAGNESIUM HYDROXIDE 2,400 MG/30 ML ORAL.SUSP. PO PRN (19:30)
[2016-08-11] MEDS: INSULIN DETEMIR 300 UNITS/3 ML INSULN.PEN. SQ SCH ×2 (19:33→21:00)
[2016-08-11] MEDS: risperiDONE ORAL 1 MG/ML 30ml BOTTLE. PEG SCH (19:35)
--- NOTE | 2016-08-11 20:50 | PDOC ---
Exam Chauncey Demential Exam: Chauncey Note: Please also refer to the separate dictated note~for this date of service dictated separately.~Patient seen individually. Discussed the patient with Nursing staff reviewed the chart.~Reviewed interim history and current functioning. Reviewed vital signs,~Labs/ Radiology~and current medications noted below. Continue current treatment with the changes noted in the dictated addendum note Assessment: Vital Signs: Vital Signs Date Time Temp Pulse Resp B/P Pulse Ox O2 Delivery O2 Flow Rate FiO2 08/11/16 15:50 97.5 78 18 119/77 98 08/08/16 22:10 Room Air I&O Intake and Output 08/11/16 07:00 Intake Total 2285 ml Balance 2285 ml Intake Oral 120 ml Tube Feeding 2165 ml Labs: Laboratory Tests Test 08/11/16 07:07 08/11/16 07:47 08/11/16 11:22 08/11/16 16:37 Glucose (Fingerstick) 43mg/dL (70-99) L 87mg/dL (70-99) 174mg/dL (70-99) H 164mg/dL (70-99) H Test 08/11/16 19:07 Glucose (Fingerstick) 222mg/dL (70-99) H Current Medications: Meds: Current Medications Acetaminophen (Tylenol) 650 mg PRN Q6HRS PRN PO PAIN / TEMP; Start 08/09/16 at 01:30; Status Cancel Multi-Ingredient Ointment (Analgesic [place]) 1 crispin PRN QID PRN TP MUSCLE PAIN; Start 08/09/16 at 01:30 Al Hydroxide/Mg Hydroxide (Mylanta Plus Xs) 15 ml PRN AFTMEALHC PRN PO DYSPEPSIA; Start 08/09/16 at 01:30 Magnesium Hydroxide (Milk Of Magnesia) 2,400 mg PRN QHS PRN PO CONSTIPATION Last administered on 08/11/16 19:30; Start 08/09/16 at 01:30 Escitalopram Oxalate (Lexapro) 10 mg QEVNG PEG Last administered on 08/09/16 21:50; Start 08/09/16 at 18:00; Stop 08/10/16 at 09:08; Status DC Lorazepam (Ativan) 0.5 mg PRN Q6HRS PRN PEG ANXIETY; Start 08/09/16 at 04:30 Lorazepam (Ativan) 0.5 mg QHS PEG Last administered on 08/11/16 19:28; Start 08/09/16 at 21:00 Mirtazapine (Remeron) 15 mg BID PEG Last administered on 08/10/16 07:40; Start 08/09/16 at 09:00; Stop 08/10/16 at 09:09; Status DC Risperidone (Risperdal) 0.25 mg QHS PEG Last administered on 08/09/16 21:49; Start 08/09/16 at 21:00; Stop 08/10/16 at 09:09; Status DC Trazodone HCl (Desyrel) 100 mg QHS PEG Last administered on 08/11/16 19:28; Start 08/09/16 at 21:00 Valproic Acid (Depakene) 500 mg BID PEG convulsions Last administered on 19:27; Start 08/09/16 at 09:00 Acetaminophen (Tylenol) 650 mg PRN Q4HRS PRN PO PAIN / TEMP; Start 08/09/16 at 09:15; Stop 08/10/16 at 09:09; Status DC Vitamin D (Vitamin D3) 50,000 unit QMONTH PEG Last administered on 08/09/16 09 :50; Start 08/09/16 at 09:30 Acetaminophen/ Hydrocodone Bitart (Lortab 5/325) 1 tab PRN Q4HRS PRN PEG PAIN; Start 08/09/16 at 09:15 Insulin Aspart (Novolog) 4 units TIDBFRMEAL SQ Last administered on 08/11/16 16:30; Start 08/09/16 at 11:30 Insulin Detemir (Levemir) 40 units HS SQ Last administered on 08/10/16 22:03; Start 08/09/16 at 21:00; Stop 08/11/16 at 13:15; Status DC Losartan Potassium (Cozaar) 25 mg DAILY PEG Last administered on 08/11/16 07: 42; Start 08/09/16 at 09:30 Ondansetron HCl (Zofran Odt) 4 mg PRN Q8HRS PRN PEG NAUSEA/VOMITING; Start at 09:15 Tamsulosin HCl (Flomax) 0.4 mg QHS PO Last administered on 08/11/16 19:28; Start 08/09/16 at 21:00 Multivitamins/ Calcium (Thera-M Plus) 1 tab DAILY PEG Last administered on 08/10 07:40; Start 08/09/16 at 09:30; Stop 08/10/16 at 09:09; Status DC Famotidine (Pepcid) 20 mg BID PEG Last administered on 08/11/16 19:28; Start 08/09/16 at 09:30 Acetaminophen (Tylenol) 650 mg PRN Q4HRS PRN PEG PAIN / TEMP; Start 08/10/16 at 09:15 Escitalopram Oxalate (Lexapro) 10 mg QEVNG PEG Last administered on 08/11/16 16:58; Start 08/10/16 at 18:00 Mirtazapine (Remeron Debbie-Tab) 15 mg BID PEG ; Start 08/10/16 at 21:00; Stop at 21:00; Status DC Multivitamins (Thera-Plus) 5 ml DAILY PEG Last administered on 08/11/16 07:43 ; Start 08/11/16 at 09:00 Risperidone (Risperdal) 0.25 mg HS PEG Last administered on 08/11/16 19:35; Start 08/10/16 at 21:00 Mirtazapine (Remeron Debbie-Tab) 15 mg HS PEG Last administered on 08/11/16 19:28 ; Start 08/10/16 at 21:00 Levothyroxine Sodium (Synthroid) 25 mcg DAILY07 PEG Last administered on 05:36; Start 08/11/16 at 07:00 Insulin Detemir (Levemir) 30 units HS SQ Last administered on 08/11/16 19:33; Start 08/11/16 at 21:00 Active Scripts Active Reported Valproic Acid (Valproate Sodium) 250 Mg/5 Ml Disp.syrin 10 Ml PEG BID Trazodone Hcl 100 Mg Tablet 100 Mg PEG QHS Lorazepam 0.5 Mg Tablet 0.5 Mg PEG QHS Escitalopram Oxalate 10 Mg Tablet 10 Mg PEG QEVNG Lorazepam 0.5 Mg Tablet 0.5 Mg PEG PRN Q6HRS PRN [place] 5-325 Tablet (Hydrocodone Bit/Acetaminophen) 1 Each Tablet 1 Tab PEG PRN Q4HRS PRN Flomax (Tamsulosin Hcl) 0.4 Mg Cap.er.24h 0.4 Mg PEG Remeron (Mirtazapine) 15 Mg Tablet 15 Mg PEG BID Risperdal (Risperidone) 0.25 Mg Tablet 0.25 Mg PEG QHS Ondansetron Odt (Ondansetron) 4 Mg Tab.rapdis 4 Mg PEG PRN Q8HRS PRN Acetaminophen 325 Mg Tablet 650 Mg PEG PRN Q4HRS PRN Multi Vitamin Daily (Multivitamin) 1 Each Tablet 1 Tab PEG DAILY Zantac (Ranitidine Hcl) 150 Mg Tablet 150 Mg PEG BID Cozaar (Losartan Potassium) 25 Mg Tablet 25 Mg PEG DAILY Levemir Flextouch (Insulin Detemir) 100 Unit/1 Ml Insuln.pen 40 Unit SQ HS Novolog Flexpen (Insulin Aspart) 100 Unit/1 Ml Insuln.pen 4 Unit SQ TIDBFRMEAL Diagnosis: Problems: (1) Dementia with behavioral disturbance (2) Anxiety disorder (3) Dementia, vascular, with delusions (4) Dementia, vascular, with depression (5) Impulse control disorder VIANCA RODGERS MD Aug 11, 2016 20:50
[2016-08-12] MEDS: LEVOTHYROXINE 25 MCG TABLET. PEG SCH (05:44)
[2016-08-12 06:12] VITALS: BP 120/89
[2016-08-12] MEDS: LOSARTAN 25 MG TABLET. PEG SCH (09:19)
[2016-08-12] MEDS: FAMOTIDINE 20 MG TABLET PEG SCH ×2 (09:19→20:35)
[2016-08-12] MEDS: VALPROATE ACID 250 MG/5 ML ORAL SOLUTION PEG SCH ×2 (09:19→20:35)
[2016-08-12] MEDS: ESCITALOPRAM 5 MG/5 ML PEG SCH (09:20)
[2016-08-12] MEDS: MULTIVITAMINS,THERAPEUTIC 5 ML ORAL LIQUID. PEG SCH (09:20)
[2016-08-12] MEDS: INSULIN ASPART 300 UNITS/3 ML INSULN.PEN SQ SCH ×3 (09:21→16:59)
--- NOTE | 2016-08-12 15:47 | RAD ---
EXAM: Chest, single view. HISTORY: Aspiration. COMPARISON: None. FINDINGS: A frontal view of the chest is obtained. There is increased opacity overlying the right upper lobe due to overlying soft tissue and osseous shadows. There is no infiltrate, effusion or pneumothorax. There is nodular density overlying the left upper lobe possibly due to a granuloma and overlying osseous shadows. There is a healed right rib fracture. IMPRESSION: No acute pulmonary finding.
--- NOTE | 2016-08-12 15:48 | RAD ---
EXAM: Abdomen, single view. HISTORY: Constipation. COMPARISON: None. FINDINGS: A frontal view of the abdomen is obtained. There is a moderate amount of stool within the distal colon extending to the rectal vault. There is no evidence of small bowel obstruction. IMPRESSION: Moderate distal colonic stool extending to the rectal vault, suggesting constipation.
[2016-08-12 16:08] VITALS: BP 129/79
[2016-08-12] MEDS: MAGNESIUM HYDROXIDE 2,400 MG/30 ML ORAL.SUSP. PO PRN (16:59)
[2016-08-12] MEDS: traZODone 100 MG TABLET. PEG SCH (20:35)
[2016-08-12] MEDS: MIRTAZAPINE 15 MG TAB.RAPDIS PEG SCH (20:35)
[2016-08-12] MEDS: TAMSULOSIN 0.4 MG CAP.ER.24H. PO SCH (20:36)
[2016-08-12] MEDS: risperiDONE ORAL 1 MG/ML 30ml BOTTLE. PEG SCH (20:37)
[2016-08-12] MEDS: INSULIN DETEMIR 300 UNITS/3 ML INSULN.PEN. SQ SCH (20:38)
--- NOTE | 2016-08-12 20:50 | PDOC ---
Exam Chauncey Demential Exam: Chauncey Note: Please also refer to the separate dictated note~for this date of service dictated separately.~Patient seen individually. Discussed the patient with Nursing staff reviewed the chart.~Reviewed interim history and current functioning. Reviewed vital signs,~Labs/ Radiology~and current medications noted below. Continue current treatment with the changes noted in the dictated addendum note Assessment: Vital Signs: Vital Signs Date Time Temp Pulse Resp B/P Pulse Ox O2 Delivery O2 Flow Rate FiO2 08/12/16 16:08 96.3 83 17 129/79 100 08/08/16 22:10 Room Air I&O Intake and Output 08/12/16 07:00 Intake Total 2820 ml Balance 2820 ml Intake Oral 200 ml Tube Feeding 2620 ml Labs: Laboratory Tests Test 08/12/16 05:34 08/12/16 07:20 08/12/16 11:32 08/12/16 16:18 Glucose (Fingerstick) 161mg/dL (70-99) H 170mg/dL (70-99) H 241mg/dL (70-99) H 234mg/dL (70-99) H Test 08/12/16 19:12 Glucose (Fingerstick) 272mg/dL (70-99) H Current Medications: Meds: Current Medications Acetaminophen (Tylenol) 650 mg PRN Q6HRS PRN PO PAIN / TEMP; Start 08/09/16 at 01:30; Status Cancel Multi-Ingredient Ointment (Analgesic [place]) 1 crispin PRN QID PRN TP MUSCLE PAIN; Start 08/09/16 at 01:30 Al Hydroxide/Mg Hydroxide (Mylanta Plus Xs) 15 ml PRN AFTMEALHC PRN PO DYSPEPSIA; Start 08/09/16 at 01:30 Magnesium Hydroxide (Milk Of Magnesia) 2,400 mg PRN QHS PRN PO CONSTIPATION Last administered on 08/12/16 16:59; Start 08/09/16 at 01:30 Escitalopram Oxalate (Lexapro) 10 mg QEVNG PEG Last administered on 08/09/16 21:50; Start 08/09/16 at 18:00; Stop 08/10/16 at 09:08; Status DC Lorazepam (Ativan) 0.5 mg PRN Q6HRS PRN PEG ANXIETY; Start 08/09/16 at 04:30 Lorazepam (Ativan) 0.5 mg QHS PEG Last administered on 08/11/16 19:28; Start 08/09/16 at 21:00; Stop 08/12/16 at 18:22; Status DC Mirtazapine (Remeron) 15 mg BID PEG Last administered on 08/10/16 07:40; Start 08/09/16 at 09:00; Stop 08/10/16 at 09:09; Status DC Risperidone (Risperdal) 0.25 mg QHS PEG Last administered on 08/09/16 21:49; Start 08/09/16 at 21:00; Stop 08/10/16 at 09:09; Status DC Trazodone HCl (Desyrel) 100 mg QHS PEG Last administered on 08/12/16 20:35; Start 08/09/16 at 21:00 Valproic Acid (Depakene) 500 mg BID PEG convulsions Last administered on 20:35; Start 08/09/16 at 09:00 Acetaminophen (Tylenol) 650 mg PRN Q4HRS PRN PO PAIN / TEMP; Start 08/09/16 at 09:15; Stop 08/10/16 at 09:09; Status DC Vitamin D (Vitamin D3) 50,000 unit QMONTH PEG Last administered on 08/09/16 09 :50; Start 08/09/16 at 09:30 Acetaminophen/ Hydrocodone Bitart (Lortab 5/325) 1 tab PRN Q4HRS PRN PEG PAIN; Start 08/09/16 at 09:15 Insulin Aspart (Novolog) 4 units TIDBFRMEAL SQ Last administered on 08/12/16 16:59; Start 08/09/16 at 11:30 Insulin Detemir (Levemir) 40 units HS SQ Last administered on 08/10/16 22:03; Start 08/09/16 at 21:00; Stop 08/11/16 at 13:15; Status DC Losartan Potassium (Cozaar) 25 mg DAILY PEG Last administered on 08/12/16 09: 19; Start 08/09/16 at 09:30 Ondansetron HCl (Zofran Odt) 4 mg PRN Q8HRS PRN PEG NAUSEA/VOMITING; Start at 09:15 Tamsulosin HCl (Flomax) 0.4 mg QHS PO Last administered on 08/12/16 20:36; Start 08/09/16 at 21:00 Multivitamins/ Calcium (Thera-M Plus) 1 tab DAILY PEG Last administered on 08/10 07:40; Start 08/09/16 at 09:30; Stop 08/10/16 at 09:09; Status DC Famotidine (Pepcid) 20 mg BID PEG Last administered on 08/12/16 20:35; Start 08/09/16 at 09:30 Acetaminophen (Tylenol) 650 mg PRN Q4HRS PRN PEG PAIN / TEMP; Start 08/10/16 at 09:15 Escitalopram Oxalate (Lexapro) 10 mg QEVNG PEG Last administered on 08/12/16 09:20; Start 08/10/16 at 18:00 Mirtazapine (Remeron Debbie-Tab) 15 mg BID PEG ; Start 08/10/16 at 21:00; Stop at 21:00; Status DC Multivitamins (Thera-Plus) 5 ml DAILY PEG Last administered on 08/12/16 09:20 ; Start 08/11/16 at 09:00 Risperidone (Risperdal) 0.25 mg HS PEG Last administered on 08/12/16 20:37; Start 08/10/16 at 21:00 Mirtazapine (Remeron Debbie-Tab) 15 mg HS PEG Last administered on 08/12/16 20:35 ; Start 08/10/16 at 21:00 Levothyroxine Sodium (Synthroid) 25 mcg DAILY07 PEG Last administered on 05:44; Start 08/11/16 at 07:00 Insulin Detemir (Levemir) 30 units HS SQ ; Start 08/11/16 at 21:00; Stop at 09:55; Status DC Insulin Detemir (Levemir) 20 units HS SQ Last administered on 08/12/16 20:38; Start 08/12/16 at 21:00 Active Scripts Active Reported Valproic Acid (Valproate Sodium) 250 Mg/5 Ml Disp.syrin 10 Ml PEG BID Trazodone Hcl 100 Mg Tablet 100 Mg PEG QHS Lorazepam 0.5 Mg Tablet 0.5 Mg PEG QHS Escitalopram Oxalate 10 Mg Tablet 10 Mg PEG QEVNG Lorazepam 0.5 Mg Tablet 0.5 Mg PEG PRN Q6HRS PRN [place] 5-325 Tablet (Hydrocodone Bit/Acetaminophen) 1 Each Tablet 1 Tab PEG PRN Q4HRS PRN Flomax (Tamsulosin Hcl) 0.4 Mg Cap.er.24h 0.4 Mg PEG Remeron (Mirtazapine) 15 Mg Tablet 15 Mg PEG BID Risperdal (Risperidone) 0.25 Mg Tablet 0.25 Mg PEG QHS Ondansetron Odt (Ondansetron) 4 Mg Tab.rapdis 4 Mg PEG PRN Q8HRS PRN Acetaminophen 325 Mg Tablet 650 Mg PEG PRN Q4HRS PRN Multi Vitamin Daily (Multivitamin) 1 Each Tablet 1 Tab PEG DAILY Zantac (Ranitidine Hcl) 150 Mg Tablet 150 Mg PEG BID Cozaar (Losartan Potassium) 25 Mg Tablet 25 Mg PEG DAILY Levemir Flextouch (Insulin Detemir) 100 Unit/1 Ml Insuln.pen 40 Unit SQ HS Novolog Flexpen (Insulin Aspart) 100 Unit/1 Ml Insuln.pen 4 Unit SQ TIDBFRMEAL Diagnosis: Problems: (1) Dementia with behavioral disturbance (2) Anxiety disorder (3) Dementia, vascular, with delusions (4) Dementia, vascular, with depression (5) Impulse control disorder VIANCA RODGERS MD Aug 12, 2016 20:50
--- NOTE | 2016-08-12 22:24 | PN ---
DATE: 08/11/2016 PSYCHIATRIC PROGRESS NOTE This is a late entry for 08/11/2016 covers elements not covered in my initial note. SUBJECTIVE: Per nursing report, the patient has been more awake during the day, had a good day, less agitated, but somewhat compulsive the previous night. Diet is n.p.o. and is on tube feeding boost for glucose control. REVIEW OF SYSTEMS: Ambulation impaired, difficulty with his swallowing. No CV, , pulmonary, eye system symptoms on review. Reliability poor. MENTAL STATUS EXAM: Oriented to himself. Speech slow in rate and rhythm, often responses monosyllabic. Abstraction fair, computation impaired, language function intact. Attention span short. Mood and affect somewhat withdrawn. LABORATORY DATA: Reviewed. 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 Rest diagnosis unchanged. PLAN: Valproic acid level is 53, continue Depakene 500 b.i.d., Ativan 0.5 at bedtime, trazodone, Remeron, Risperdal, and Lexapro along with Ativan p.r.n. Adjust further as clinically indicated. MAN Theron RODGERS MD DR: VERENA/pily JOB#: [id number] / [id number]
[2016-08-13 02:07] LABS: RPR REFLEX Non Reactive (Non Reactive)
[2016-08-13] MEDS: LEVOTHYROXINE 25 MCG TABLET. PEG SCH (05:46)
[2016-08-13 06:56] LABS: HEMATOCRIT 46.2 % (39.0-53.0); HEMOGLOBIN 15.5 g/dL (13.0-17.5); RED BLOOD COUNT 4.94 x10^6/uL (4.30-5.70); RED CELL DISTRIBUTION WIDTH 13.6 % (11.5-14.5); WHITE BLOOD COUNT 5.7 x10^3/uL (4.0-11.0)
[2016-08-13 07:05] LABS: ALBUMIN 3.1 g/dL (3.4-5.0); ALBUMIN/GLOBULIN RATIO 0.8 (1.0-1.7); CALCIUM 8.9 mg/dL (8.5-10.1); CREATININE 0.7 mg/dL (0.7-1.3); GFR 115.4; POTASSIUM 4.4 mmol/L (3.5-5.1); TOTAL BILIRUBIN 0.3 mg/dL (0.2-1.0); TOTAL PROTEIN 7.1 g/dL (6.4-8.2)
[2016-08-13] MEDS: ESCITALOPRAM 5 MG/5 ML PEG SCH (07:41)
[2016-08-13] MEDS: FAMOTIDINE 20 MG TABLET PEG SCH ×2 (07:42→22:09)
[2016-08-13] MEDS: VALPROATE ACID 250 MG/5 ML ORAL SOLUTION PEG SCH ×2 (07:42→22:09)
[2016-08-13] MEDS: MULTIVITAMINS,THERAPEUTIC 5 ML ORAL LIQUID. PEG SCH (07:42)
[2016-08-13] MEDS: LOSARTAN 25 MG TABLET. PEG SCH (07:42)
[2016-08-13] MEDS: INSULIN ASPART 300 UNITS/3 ML INSULN.PEN SQ SCH ×3 (07:44→17:01)
[2016-08-13 10:53] VITALS: BP 118/73
--- NOTE | 2016-08-13 14:17 | PN ---
DATE: 08/12/2016 PSYCHIATRIC PROGRESS NOTE This is a late entry 08/12/2016, covers elements not covered in my initial note. SUBJECTIVE: Per nursing report, the patient was drowsy till about 3:00 p.m. He has been somewhat constipated, received milk of magnesia, was having a cough. Chest x-ray was negative other than some nodules, KUB showed constipation. REVIEW OF SYSTEMS: Ambulation impaired, in a Broda chair, difficulty with his swallowing, is on PEG tube feeding. No CV, , pulmonary, eye system symptoms on review. Reliability poor. MENTAL STATUS EXAM: Oriented to himself, at times to situation. Speech, often responses monosyllabic. Abstraction fair, computation impaired, language function intact. Memory is impaired. He slept hours previous night. LABORATORY DATA: Reviewed. IMPRESSION: Major neurocognitive disorder, probably vascular with depression, delusion, behavioral disturbance; anxiety disorder, unspecified; impulse control disorder, unspecified. PLAN: Stop the Ativan 0.5 mg at bedtime. Continue Depakene 500 b.i.d., level therapeutic at 53, trazodone 100 at bedtime, Remeron 15 at bedtime, Risperdal 0.25 mg at bedtime, Lexapro 10 mg a day, Ativan p.r.n. Adjust further as clinically indicated. MAN Theron RODGERS MD DR: VERENA/pily JOB#: [id number] / [id number]
[2016-08-13 15:51] VITALS: BP 109/62
--- NOTE | 2016-08-13 21:03 | PDOC ---
Exam Chauncey Demential Exam: Chauncey Note: Please also refer to the separate dictated note~for this date of service dictated separately.~Patient seen individually. Discussed the patient with Nursing staff reviewed the chart.~Reviewed interim history and current functioning. Reviewed vital signs,~Labs/ Radiology~and current medications noted below. Continue current treatment with the changes noted in the dictated addendum note Assessment: Vital Signs: Vital Signs Date Time Temp Pulse Resp B/P Pulse Ox O2 Delivery O2 Flow Rate FiO2 08/13/16 15:51 97.5 83 18 109/62 100 08/08/16 22:10 Room Air I&O Intake and Output 08/13/16 07:00 Intake Total 1965 ml Balance 1965 ml Tube Feeding 1965 ml # Bowel Movements 1 Labs: Laboratory Tests Test 08/13/16 06:22 08/13/16 07:16 08/13/16 11:12 08/13/16 16:50 White Blood Count 5.7x10^3/uL (4.0-11.0) Red Blood Count 4.94x10^6/uL (4.30-5.70) Hemoglobin 15.5g/dL (13.0-17.5) Hematocrit 46.2% (39.0-53.0) Mean Corpuscular Volume 94fL (79-100) Mean Corpuscular Hemoglobin 31pg (25-35) Mean Corpuscular Hemoglobin Concent 34g/dL (31-37) Red Cell Distribution Width 13.6% (11.5-14.5) Platelet Count 202x10^3/uL (140-400) Sodium Level 140mmol/L (136-145) Potassium Level 4.4mmol/L (3.5-5.1) Chloride Level 103mmol/L (98-107) Carbon Dioxide Level 28mmol/L (21-32) Anion Gap 9 (6-14) Blood Urea Nitrogen 15mg/dL (8-26) Creatinine 0.7mg/dL (0.7-1.3) Estimated GFR (Cockcroft-Gault) 115.4 BUN/Creatinine Ratio 21 (6-20) H Glucose Level 179mg/dL (70-99) H Calcium Level 8.9mg/dL (8.5-10.1) Magnesium Level 2.1mg/dL (1.8-2.4) Total Bilirubin 0.3mg/dL (0.2-1.0) Aspartate Amino Transferase (AST) 35U/L (15-37) Alanine Aminotransferase (ALT) 55U/L (16-63) Alkaline Phosphatase 86U/L (46-116) Total Protein 7.1g/dL (6.4-8.2) Albumin 3.1g/dL (3.4-5.0) L Albumin/Globulin Ratio 0.8 (1.0-1.7) L Glucose (Fingerstick) 178mg/dL (70-99) H 290mg/dL (70-99) H 264mg/dL (70-99) H Current Medications: Meds: Current Medications Acetaminophen (Tylenol) 650 mg PRN Q6HRS PRN PO PAIN / TEMP; Start 08/09/16 at 01:30; Status Cancel Multi-Ingredient Ointment (Analgesic [place]) 1 crispin PRN QID PRN TP MUSCLE PAIN; Start 08/09/16 at 01:30 Al Hydroxide/Mg Hydroxide (Mylanta Plus Xs) 15 ml PRN AFTMEALHC PRN PO DYSPEPSIA; Start 08/09/16 at 01:30 Magnesium Hydroxide (Milk Of Magnesia) 2,400 mg PRN QHS PRN PO CONSTIPATION Last administered on 08/12/16 16:59; Start 08/09/16 at 01:30 Escitalopram Oxalate (Lexapro) 10 mg QEVNG PEG Last administered on 08/09/16 21:50; Start 08/09/16 at 18:00; Stop 08/10/16 at 09:08; Status DC Lorazepam (Ativan) 0.5 mg PRN Q6HRS PRN PEG ANXIETY; Start 08/09/16 at 04:30 Lorazepam (Ativan) 0.5 mg QHS PEG Last administered on 08/11/16 19:28; Start 08/09/16 at 21:00; Stop 08/12/16 at 18:22; Status DC Mirtazapine (Remeron) 15 mg BID PEG Last administered on 08/10/16 07:40; Start 08/09/16 at 09:00; Stop 08/10/16 at 09:09; Status DC Risperidone (Risperdal) 0.25 mg QHS PEG Last administered on 08/09/16 21:49; Start 08/09/16 at 21:00; Stop 08/10/16 at 09:09; Status DC Trazodone HCl (Desyrel) 100 mg QHS PEG Last administered on 08/12/16 20:35; Start 08/09/16 at 21:00 Valproic Acid (Depakene) 500 mg BID PEG convulsions Last administered on 07:42; Start 08/09/16 at 09:00 Acetaminophen (Tylenol) 650 mg PRN Q4HRS PRN PO PAIN / TEMP; Start 08/09/16 at 09:15; Stop 08/10/16 at 09:09; Status DC Vitamin D (Vitamin D3) 50,000 unit QMONTH PEG Last administered on 08/09/16 09 :50; Start 08/09/16 at 09:30 Acetaminophen/ Hydrocodone Bitart (Lortab 5/325) 1 tab PRN Q4HRS PRN PEG PAIN; Start 08/09/16 at 09:15 Insulin Aspart (Novolog) 4 units TIDBFRMEAL SQ Last administered on 08/13/16 17:01; Start 08/09/16 at 11:30 Insulin Detemir (Levemir) 40 units HS SQ Last administered on 08/10/16 22:03; Start 08/09/16 at 21:00; Stop 08/11/16 at 13:15; Status DC Losartan Potassium (Cozaar) 25 mg DAILY PEG Last administered on 08/13/16 07: 42; Start 08/09/16 at 09:30 Ondansetron HCl (Zofran Odt) 4 mg PRN Q8HRS PRN PEG NAUSEA/VOMITING; Start at 09:15 Tamsulosin HCl (Flomax) 0.4 mg QHS PO Last administered on 08/12/16 20:36; Start 08/09/16 at 21:00 Multivitamins/ Calcium (Thera-M Plus) 1 tab DAILY PEG Last administered on 08/10 07:40; Start 08/09/16 at 09:30; Stop 08/10/16 at 09:09; Status DC Famotidine (Pepcid) 20 mg BID PEG Last administered on 08/13/16 07:42; Start 08/09/16 at 09:30 Acetaminophen (Tylenol) 650 mg PRN Q4HRS PRN PEG PAIN / TEMP; Start 08/10/16 at 09:15 Escitalopram Oxalate (Lexapro) 10 mg QEVNG PEG Last administered on 08/13/16 07:41; Start 08/10/16 at 18:00 Mirtazapine (Remeron Debbie-Tab) 15 mg BID PEG ; Start 08/10/16 at 21:00; Stop at 21:00; Status DC Multivitamins (Thera-Plus) 5 ml DAILY PEG Last administered on 08/13/16 07:42 ; Start 08/11/16 at 09:00 Risperidone (Risperdal) 0.25 mg HS PEG Last administered on 08/12/16 20:37; Start 08/10/16 at 21:00 Mirtazapine (Remeron Debbie-Tab) 15 mg HS PEG Last administered on 08/12/16 20:35 ; Start 08/10/16 at 21:00 Levothyroxine Sodium (Synthroid) 25 mcg DAILY07 PEG Last administered on 05:46; Start 08/11/16 at 07:00 Insulin Detemir (Levemir) 30 units HS SQ ; Start 08/11/16 at 21:00; Stop at 09:55; Status DC Insulin Detemir (Levemir) 20 units HS SQ Last administered on 08/12/16 20:38; Start 08/12/16 at 21:00 Active Scripts Active Reported Valproic Acid (Valproate Sodium) 250 Mg/5 Ml Disp.syrin 10 Ml PEG BID Trazodone Hcl 100 Mg Tablet 100 Mg PEG QHS Lorazepam 0.5 Mg Tablet 0.5 Mg PEG QHS Escitalopram Oxalate 10 Mg Tablet 10 Mg PEG QEVNG Lorazepam 0.5 Mg Tablet 0.5 Mg PEG PRN Q6HRS PRN [place] 5-325 Tablet (Hydrocodone Bit/Acetaminophen) 1 Each Tablet 1 Tab PEG PRN Q4HRS PRN Flomax (Tamsulosin Hcl) 0.4 Mg Cap.er.24h 0.4 Mg PEG Remeron (Mirtazapine) 15 Mg Tablet 15 Mg PEG BID Risperdal (Risperidone) 0.25 Mg Tablet 0.25 Mg PEG QHS Ondansetron Odt (Ondansetron) 4 Mg Tab.rapdis 4 Mg PEG PRN Q8HRS PRN Acetaminophen 325 Mg Tablet 650 Mg PEG PRN Q4HRS PRN Multi Vitamin Daily (Multivitamin) 1 Each Tablet 1 Tab PEG DAILY Zantac (Ranitidine Hcl) 150 Mg Tablet 150 Mg PEG BID Cozaar (Losartan Potassium) 25 Mg Tablet 25 Mg PEG DAILY Levemir Flextouch (Insulin Detemir) 100 Unit/1 Ml Insuln.pen 40 Unit SQ HS Novolog Flexpen (Insulin Aspart) 100 Unit/1 Ml Insuln.pen 4 Unit SQ TIDBFRMEAL Diagnosis: Problems: (1) Dementia with behavioral disturbance (2) Anxiety disorder (3) Dementia, vascular, with delusions (4) Dementia, vascular, with depression (5) Impulse control disorder VIANCA RODGERS MD Aug 13, 2016 21:03
[2016-08-13] MEDS: traZODone 100 MG TABLET. PEG SCH (22:09)
[2016-08-13] MEDS: MIRTAZAPINE 15 MG TAB.RAPDIS PEG SCH (22:09)
[2016-08-13] MEDS: TAMSULOSIN 0.4 MG CAP.ER.24H. PO SCH (22:10)
[2016-08-13] MEDS: INSULIN DETEMIR 300 UNITS/3 ML INSULN.PEN. SQ SCH (22:11)
[2016-08-13] MEDS: risperiDONE ORAL 1 MG/ML 30ml BOTTLE. PEG SCH (22:11)
[2016-08-14] MEDS: LEVOTHYROXINE 25 MCG TABLET. PEG SCH (05:37)
[2016-08-14 06:10] VITALS: BP 137/96
[2016-08-14] MEDS: FAMOTIDINE 20 MG TABLET PEG SCH ×2 (08:02→20:24)
[2016-08-14] MEDS: LOSARTAN 25 MG TABLET. PEG SCH (08:02)
[2016-08-14] MEDS: VALPROATE ACID 250 MG/5 ML ORAL SOLUTION PEG SCH ×2 (08:02→20:24)
[2016-08-14] MEDS: INSULIN ASPART 300 UNITS/3 ML INSULN.PEN SQ SCH ×3 (08:04→16:54)
[2016-08-14] MEDS: ESCITALOPRAM 5 MG/5 ML PEG SCH (08:06)
[2016-08-14] MEDS: MULTIVITAMINS,THERAPEUTIC 5 ML ORAL LIQUID. PEG SCH (08:06)
[2016-08-14 16:12] VITALS: BP 106/73
[2016-08-14] MEDS: MIRTAZAPINE 15 MG TAB.RAPDIS PEG SCH (20:24)
[2016-08-14] MEDS: traZODone 100 MG TABLET. PEG SCH (20:24)
[2016-08-14] MEDS: TAMSULOSIN 0.4 MG CAP.ER.24H. PO SCH (20:24)
[2016-08-14] MEDS: risperiDONE ORAL 1 MG/ML 30ml BOTTLE. PEG SCH (20:25)
[2016-08-14] MEDS: INSULIN DETEMIR 300 UNITS/3 ML INSULN.PEN. SQ SCH (20:26)
--- NOTE | 2016-08-15 00:39 | PN ---
DATE: 08/13/2016 PSYCHIATRIC PROGRESS NOTE This is a late entry for 08/13/2016 covers elements not covered in my initial note. SUBJECTIVE: Overall, the patient is somewhat withdrawn, drowsy, does better with his agitation with headphones and music did have a bowel movement, slept 7 hours. REVIEW OF SYSTEMS: Ambulation impaired in a Broda chair. No CV, , pulmonary, eye, ENT system symptoms on review. Swallowing problems are evident he is on G-tube feeding. MENTAL STATUS EXAM: Oriented to himself. Insight, judgment, recent and remote memory, attention, concentration, fund of knowledge poor, consistent with his diagnoses mentioned in my initial note. PLAN: Continue current psychotropics. Ativan was discontinued. Continued Depakene, trazodone, Remeron, Risperdal, Lexapro, Ativan p.r.n. Adjust further as clinically indicated. MAN Theron RODGERS MD DR: VERENA/pily JOB#: [id number] / [id number]
[2016-08-15] MEDS: LEVOTHYROXINE 25 MCG TABLET. PEG SCH (05:27)
[2016-08-15 06:11] VITALS: BP 119/68
[2016-08-15 07:48] LABS: VAL ACID 45 mcg/mL (50-100)
[2016-08-15] MEDS: FAMOTIDINE 20 MG TABLET PEG SCH ×2 (08:40→20:32)
[2016-08-15] MEDS: VALPROATE ACID 250 MG/5 ML ORAL SOLUTION PEG SCH ×2 (08:40→20:31)
[2016-08-15] MEDS: INSULIN ASPART 300 UNITS/3 ML INSULN.PEN SQ SCH ×3 (08:40→17:11)
[2016-08-15] MEDS: LOSARTAN 25 MG TABLET. PEG SCH (08:41)
[2016-08-15] MEDS: MULTIVITAMINS,THERAPEUTIC 5 ML ORAL LIQUID. PEG SCH (08:42)
[2016-08-15 16:19] VITALS: BP 127/74
[2016-08-15] MEDS: ESCITALOPRAM 5 MG/5 ML PEG SCH (17:13)
[2016-08-15] MEDS: traZODone 100 MG TABLET. PEG SCH (20:32)
[2016-08-15] MEDS: MIRTAZAPINE 15 MG TAB.RAPDIS PEG SCH (20:32)
[2016-08-15] MEDS: TAMSULOSIN 0.4 MG CAP.ER.24H. PO SCH (20:32)
[2016-08-15] MEDS: risperiDONE ORAL 1 MG/ML 30ml BOTTLE. PEG SCH (20:34)
[2016-08-15] MEDS: INSULIN DETEMIR 300 UNITS/3 ML INSULN.PEN. SQ SCH (20:36)
[2016-08-16 05:44] VITALS: BP 161/88
[2016-08-16] MEDS: LEVOTHYROXINE 25 MCG TABLET. PEG SCH (05:46)
[2016-08-16] MEDS: LOSARTAN 25 MG TABLET. PEG SCH (09:13)
[2016-08-16] MEDS: FAMOTIDINE 20 MG TABLET PEG SCH ×2 (09:13→21:30)
[2016-08-16] MEDS: INSULIN ASPART 300 UNITS/3 ML INSULN.PEN SQ SCH ×3 (09:13→17:40)
[2016-08-16] MEDS: MULTIVITAMINS,THERAPEUTIC 5 ML ORAL LIQUID. PEG SCH (09:14)
[2016-08-16] MEDS: VALPROATE ACID 250 MG/5 ML ORAL SOLUTION PEG SCH ×2 (09:14→21:31)
--- NOTE | 2016-08-16 09:14 | PDOC ---
Exam Chauncey Demential Exam: Chauncey Note: Please also refer to the separate dictated note~for this date of service dictated separately.~Patient seen individually. Discussed the patient with Nursing staff reviewed the chart.~Reviewed interim history and current functioning. Reviewed vital signs,~Labs/ Radiology~and current medications noted below. Continue current treatment with the changes noted in the dictated addendum note Assessment: Vital Signs: Vital Signs Date Time Temp Pulse Resp B/P Pulse Ox O2 Delivery O2 Flow Rate FiO2 08/16/16 05:44 97.0 80 18 161/88 100 08/14/16 16:12 Room Air I&O Intake and Output 08/16/16 07:00 Intake Total 2185 ml Balance 2185 ml Tube Feeding 2185 ml # Bowel Movements 2 Labs: Laboratory Tests Test 08/15/16 11:28 08/15/16 16:38 08/15/16 19:08 08/16/16 07:24 Glucose (Fingerstick) 175mg/dL (70-99) H 219mg/dL (70-99) H 218mg/dL (70-99) H 106mg/dL (70-99) H Current Medications: Meds: Current Medications Acetaminophen (Tylenol) 650 mg PRN Q6HRS PRN PO PAIN / TEMP; Start 08/09/16 at 01:30; Status Cancel Multi-Ingredient Ointment (Analgesic [place]) 1 crispin PRN QID PRN TP MUSCLE PAIN; Start 08/09/16 at 01:30 Al Hydroxide/Mg Hydroxide (Mylanta Plus Xs) 15 ml PRN AFTMEALHC PRN PO DYSPEPSIA; Start 08/09/16 at 01:30 Magnesium Hydroxide (Milk Of Magnesia) 2,400 mg PRN QHS PRN PO CONSTIPATION Last administered on 08/12/16 16:59; Start 08/09/16 at 01:30 Escitalopram Oxalate (Lexapro) 10 mg QEVNG PEG Last administered on 08/09/16 21:50; Start 08/09/16 at 18:00; Stop 08/10/16 at 09:08; Status DC Lorazepam (Ativan) 0.5 mg PRN Q6HRS PRN PEG ANXIETY; Start 08/09/16 at 04:30 Lorazepam (Ativan) 0.5 mg QHS PEG Last administered on 08/11/16 19:28; Start 08/09/16 at 21:00; Stop 08/12/16 at 18:22; Status DC Mirtazapine (Remeron) 15 mg BID PEG Last administered on 08/10/16 07:40; Start 08/09/16 at 09:00; Stop 08/10/16 at 09:09; Status DC Risperidone (Risperdal) 0.25 mg QHS PEG Last administered on 08/09/16 21:49; Start 08/09/16 at 21:00; Stop 08/10/16 at 09:09; Status DC Trazodone HCl (Desyrel) 100 mg QHS PEG Last administered on 08/15/16 20:32; Start 08/09/16 at 21:00 Valproic Acid (Depakene) 500 mg BID PEG convulsions Last administered on 20:31; Start 08/09/16 at 09:00 Acetaminophen (Tylenol) 650 mg PRN Q4HRS PRN PO PAIN / TEMP; Start 08/09/16 at 09:15; Stop 08/10/16 at 09:09; Status DC Vitamin D (Vitamin D3) 50,000 unit QMONTH PEG Last administered on 08/09/16 09 :50; Start 08/09/16 at 09:30 Acetaminophen/ Hydrocodone Bitart (Lortab 5/325) 1 tab PRN Q4HRS PRN PEG PAIN; Start 08/09/16 at 09:15 Insulin Aspart (Novolog) 4 units TIDBFRMEAL SQ Last administered on 08/15/16 17:11; Start 08/09/16 at 11:30 Insulin Detemir (Levemir) 40 units HS SQ Last administered on 08/10/16 22:03; Start 08/09/16 at 21:00; Stop 08/11/16 at 13:15; Status DC Losartan Potassium (Cozaar) 25 mg DAILY PEG Last administered on 08/15/16 08: 41; Start 08/09/16 at 09:30 Ondansetron HCl (Zofran Odt) 4 mg PRN Q8HRS PRN PEG NAUSEA/VOMITING; Start at 09:15 Tamsulosin HCl (Flomax) 0.4 mg QHS PO Last administered on 08/15/16 20:32; Start 08/09/16 at 21:00 Multivitamins/ Calcium (Thera-M Plus) 1 tab DAILY PEG Last administered on 08/10 07:40; Start 08/09/16 at 09:30; Stop 08/10/16 at 09:09; Status DC Famotidine (Pepcid) 20 mg BID PEG Last administered on 08/15/16 20:32; Start 08/09/16 at 09:30 Acetaminophen (Tylenol) 650 mg PRN Q4HRS PRN PEG PAIN / TEMP; Start 08/10/16 at 09:15 Escitalopram Oxalate (Lexapro) 10 mg QEVNG PEG Last administered on 08/15/16 17:13; Start 08/10/16 at 18:00 Mirtazapine (Remeron Debbie-Tab) 15 mg BID PEG ; Start 08/10/16 at 21:00; Stop at 21:00; Status DC Multivitamins (Thera-Plus) 5 ml DAILY PEG Last administered on 08/15/16 08:42 ; Start 08/11/16 at 09:00 Risperidone (Risperdal) 0.25 mg HS PEG Last administered on 08/15/16 20:34; Start 08/10/16 at 21:00 Mirtazapine (Remeron Debbie-Tab) 15 mg HS PEG Last administered on 08/15/16 20:32 ; Start 08/10/16 at 21:00 Levothyroxine Sodium (Synthroid) 25 mcg DAILY07 PEG Last administered on 05:46; Start 08/11/16 at 07:00 Insulin Detemir (Levemir) 30 units HS SQ ; Start 08/11/16 at 21:00; Stop at 09:55; Status DC Insulin Detemir (Levemir) 20 units HS SQ Last administered on 08/15/16 20:36; Start 08/12/16 at 21:00 Active Scripts Active Reported Valproic Acid (Valproate Sodium) 250 Mg/5 Ml Disp.syrin 10 Ml PEG BID Trazodone Hcl 100 Mg Tablet 100 Mg PEG QHS Lorazepam 0.5 Mg Tablet 0.5 Mg PEG QHS Escitalopram Oxalate 10 Mg Tablet 10 Mg PEG QEVNG Lorazepam 0.5 Mg Tablet 0.5 Mg PEG PRN Q6HRS PRN [place] 5-325 Tablet (Hydrocodone Bit/Acetaminophen) 1 Each Tablet 1 Tab PEG PRN Q4HRS PRN Flomax (Tamsulosin Hcl) 0.4 Mg Cap.er.24h 0.4 Mg PEG Remeron (Mirtazapine) 15 Mg Tablet 15 Mg PEG BID Risperdal (Risperidone) 0.25 Mg Tablet 0.25 Mg PEG QHS Ondansetron Odt (Ondansetron) 4 Mg Tab.rapdis 4 Mg PEG PRN Q8HRS PRN Acetaminophen 325 Mg Tablet 650 Mg PEG PRN Q4HRS PRN Multi Vitamin Daily (Multivitamin) 1 Each Tablet 1 Tab PEG DAILY Zantac (Ranitidine Hcl) 150 Mg Tablet 150 Mg PEG BID Cozaar (Losartan Potassium) 25 Mg Tablet 25 Mg PEG DAILY Levemir Flextouch (Insulin Detemir) 100 Unit/1 Ml Insuln.pen 40 Unit SQ HS Novolog Flexpen (Insulin Aspart) 100 Unit/1 Ml Insuln.pen 4 Unit SQ TIDBFRMEAL Diagnosis: Problems: (1) Dementia with behavioral disturbance (2) Anxiety disorder (3) Dementia, vascular, with delusions (4) Dementia, vascular, with depression (5) Impulse control disorder VIANCA RODGERS MD Aug 16, 2016 09:14
[2016-08-16 15:58] VITALS: BP 117/58
[2016-08-16] MEDS: ESCITALOPRAM 5 MG/5 ML PEG SCH (17:40)
[2016-08-16] MEDS: TAMSULOSIN 0.4 MG CAP.ER.24H. PO SCH (21:30)
[2016-08-16] MEDS: traZODone 100 MG TABLET. PEG SCH (21:30)
[2016-08-16] MEDS: MIRTAZAPINE 15 MG TAB.RAPDIS PEG SCH (21:30)
[2016-08-16] MEDS: INSULIN DETEMIR 300 UNITS/3 ML INSULN.PEN. SQ SCH (21:36)
[2016-08-17] MEDS: risperiDONE ORAL 1 MG/ML 30ml BOTTLE. PEG SCH ×2 (00:10→20:53)
--- NOTE | 2016-08-17 01:38 | PN ---
DATE: 08/14/2016 PSYCHIATRIC PROGRESS NOTE This is a late entry for 08/14/2016, covers elements not covered in my initial note. SUBJECTIVE: The patient was seen individually on 08/14/2016. Also, staffed at treatment team meeting with the entire team and reviewed the patient's history, diagnosis, medications, progress, discharge, aftercare plans at length. He remains confused, withdrawn, less sedated during the day. REVIEW OF SYSTEMS: Ambulation impaired, in a Broda chair, difficulty expressing himself and the swallowing remains on G-tube feeding. No CV, , Pulmonary, eye system symptoms on review. MENTAL STATUS EXAM: Oriented to himself. Insight, judgment, recent memory is impaired. Language function intact. Attention span short. Mood and affect showing improvement. LABORATORY DATA: Reviewed. IMPRESSION: Unchanged from initial note. PLAN: Continue current psychotropics mentioned in my initial note. Valproic acid level is therapeutic. We will repeat it on 08/15/2016. Adjust further as clinically indicated. MAN Theron RODGERS MD DR: VERENA/pily JOB#: [id number] / [id number]
--- NOTE | 2016-08-17 01:42 | PN ---
DATE: 08/15/2016 PSYCHIATRIC PROGRESS NOTE This is a late entry of 08/15/2016. Covers elements not covered in my initial note. SUBJECTIVE: Temperature 96.8, pulse 85, BP 119/68. No CV, , pulmonary, eye, ENT system symptoms on review. Reliability poor. 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 He calms down when he walks with assistance from staff and after bowel movements. No PRNs were given. REVIEW OF SYSTEMS: Ambulation impaired, in a Broda chair, difficulty swallowing. No CV, , pulmonary, eye system symptoms on review. Reliability poor. MENTAL STATUS EXAM: Oriented to himself. Insight, judgment, recent memory is impaired. Language function is intact. Speech low in rate and rhythm, low in volume, often responses monosyllabic. No suicidal or homicidal ideation. LABORATORY DATA: Reviewed. IMPRESSION: Major neurocognitive disorder, vascular with depression, delusions; anxiety disorder, unspecified. Rest diagnoses unchanged. PLAN: Continue current psychotropics. Adjust further as clinically indicated. Valproic acid repeated 08/15/2016, level is awaited, may need to increase Lexapro depressive symptoms evident. MAN Theron RODGERS MD DR: VERENA/pily JOB#: [id number] / [id number]
[2016-08-17 05:57] VITALS: BP 130/88
[2016-08-17] MEDS: LEVOTHYROXINE 25 MCG TABLET. PEG SCH (06:05)
[2016-08-17] MEDS: INSULIN ASPART 300 UNITS/3 ML INSULN.PEN SQ SCH ×3 (07:30→16:30)
[2016-08-17] MEDS: LOSARTAN 25 MG TABLET. PEG SCH (08:05)
[2016-08-17] MEDS: VALPROATE ACID 250 MG/5 ML ORAL SOLUTION PEG SCH ×2 (08:05→20:53)
[2016-08-17] MEDS: FAMOTIDINE 20 MG TABLET PEG SCH ×2 (08:05→20:48)
[2016-08-17] MEDS: MULTIVITAMINS,THERAPEUTIC 5 ML ORAL LIQUID. PEG SCH (08:06)
[2016-08-17 16:09] VITALS: BP 95/63
[2016-08-17] MEDS: ESCITALOPRAM 5 MG/5 ML PEG SCH (18:00)
[2016-08-17] MEDS: traZODone 100 MG TABLET. PEG SCH (20:48)
[2016-08-17] MEDS: TAMSULOSIN 0.4 MG CAP.ER.24H. PO SCH (20:48)
[2016-08-17] MEDS: MIRTAZAPINE 15 MG TAB.RAPDIS PEG SCH (20:48)
[2016-08-17] MEDS: INSULIN DETEMIR 300 UNITS/3 ML INSULN.PEN. SQ SCH (21:06)
--- NOTE | 2016-08-17 21:55 | PDOC ---
Exam Chauncey Demential Exam: Chauncey Note: Please also refer to the separate dictated note~for this date of service dictated separately.~Patient seen individually. Discussed the patient with Nursing staff reviewed the chart.~Reviewed interim history and current functioning. Reviewed vital signs,~Labs/ Radiology~and current medications noted below. Continue current treatment with the changes noted in the dictated addendum note Assessment: Vital Signs: Vital Signs Date Time Temp Pulse Resp B/P Pulse Ox O2 Delivery O2 Flow Rate FiO2 08/17/16 16:09 97.5 82 18 95/63 99 08/17/16 05:57 Room Air I&O Intake and Output 08/17/16 07:00 Intake Total 1550 ml Balance 1550 ml Tube Feeding 1550 ml Labs: Laboratory Tests Test 08/17/16 07:15 08/17/16 07:58 08/17/16 11:46 08/17/16 17:13 Glucose (Fingerstick) 55mg/dL (70-99) L 91mg/dL (70-99) 199mg/dL (70-99) H 128mg/dL (70-99) H Test 08/17/16 19:31 Glucose (Fingerstick) 173mg/dL (70-99) H Current Medications: Meds: Current Medications Acetaminophen (Tylenol) 650 mg PRN Q6HRS PRN PO PAIN / TEMP; Start 08/09/16 at 01:30; Status Cancel Multi-Ingredient Ointment (Analgesic [place]) 1 crispin PRN QID PRN TP MUSCLE PAIN; Start 08/09/16 at 01:30 Al Hydroxide/Mg Hydroxide (Mylanta Plus Xs) 15 ml PRN AFTMEALHC PRN PO DYSPEPSIA; Start 08/09/16 at 01:30 Magnesium Hydroxide (Milk Of Magnesia) 2,400 mg PRN QHS PRN PO CONSTIPATION Last administered on 08/12/16 16:59; Start 08/09/16 at 01:30 Escitalopram Oxalate (Lexapro) 10 mg QEVNG PEG Last administered on 08/09/16 21:50; Start 08/09/16 at 18:00; Stop 08/10/16 at 09:08; Status DC Lorazepam (Ativan) 0.5 mg PRN Q6HRS PRN PEG ANXIETY; Start 08/09/16 at 04:30 Lorazepam (Ativan) 0.5 mg QHS PEG Last administered on 08/11/16 19:28; Start 08/09/16 at 21:00; Stop 08/12/16 at 18:22; Status DC Mirtazapine (Remeron) 15 mg BID PEG Last administered on 08/10/16 07:40; Start 08/09/16 at 09:00; Stop 08/10/16 at 09:09; Status DC Risperidone (Risperdal) 0.25 mg QHS PEG Last administered on 08/09/16 21:49; Start 08/09/16 at 21:00; Stop 08/10/16 at 09:09; Status DC Trazodone HCl (Desyrel) 100 mg QHS PEG Last administered on 08/17/16 20:48; Start 08/09/16 at 21:00 Valproic Acid (Depakene) 500 mg BID PEG convulsions Last administered on 08:05; Start 08/09/16 at 09:00; Stop 08/17/16 at 13:26; Status DC Acetaminophen (Tylenol) 650 mg PRN Q4HRS PRN PO PAIN / TEMP; Start 08/09/16 at 09:15; Stop 08/10/16 at 09:09; Status DC Vitamin D (Vitamin D3) 50,000 unit QMONTH PEG Last administered on 08/09/16 09 :50; Start 08/09/16 at 09:30 Acetaminophen/ Hydrocodone Bitart (Lortab 5/325) 1 tab PRN Q4HRS PRN PEG PAIN; Start 08/09/16 at 09:15 Insulin Aspart (Novolog) 4 units TIDBFRMEAL SQ Last administered on 08/17/16 16 :30; Start 08/09/16 at 11:30 Insulin Detemir (Levemir) 40 units HS SQ Last administered on 08/10/16 22:03; Start 08/09/16 at 21:00; Stop 08/11/16 at 13:15; Status DC Losartan Potassium (Cozaar) 25 mg DAILY PEG Last administered on 08/17/16 08:05 ; Start 08/09/16 at 09:30 Ondansetron HCl (Zofran Odt) 4 mg PRN Q8HRS PRN PEG NAUSEA/VOMITING; Start at 09:15 Tamsulosin HCl (Flomax) 0.4 mg QHS PO Last administered on 08/17/16 20:48; Start 08/09/16 at 21:00 Multivitamins/ Calcium (Thera-M Plus) 1 tab DAILY PEG Last administered on 08/10 07:40; Start 08/09/16 at 09:30; Stop 08/10/16 at 09:09; Status DC Famotidine (Pepcid) 20 mg BID PEG Last administered on 08/17/16 20:48; Start at 09:30 Acetaminophen (Tylenol) 650 mg PRN Q4HRS PRN PEG PAIN / TEMP; Start 08/10/16 at 09:15 Escitalopram Oxalate (Lexapro) 10 mg QEVNG PEG Last administered on 08/17/16 18 :00; Start 08/10/16 at 18:00 Mirtazapine (Remeron Debbie-Tab) 15 mg BID PEG ; Start 08/10/16 at 21:00; Stop at 21:00; Status DC Multivitamins (Thera-Plus) 5 ml DAILY PEG Last administered on 08/17/16 08:06; Start 08/11/16 at 09:00 Risperidone (Risperdal) 0.25 mg HS PEG Last administered on 08/17/16 20:53; Start 08/10/16 at 21:00 Mirtazapine (Remeron Debbie-Tab) 15 mg HS PEG Last administered on 08/17/16 20:48 ; Start 08/10/16 at 21:00 Levothyroxine Sodium (Synthroid) 25 mcg DAILY07 PEG Last administered on 06:05; Start 08/11/16 at 07:00 Insulin Detemir (Levemir) 30 units HS SQ ; Start 08/11/16 at 21:00; Stop at 09:55; Status DC Insulin Detemir (Levemir) 20 units HS SQ Last administered on 08/17/16 21:06; Start 08/12/16 at 21:00 Valproic Acid (Depakene) 650 mg BID PEG convulsions Last administered on 4/1/ 17at 20:53; Start 08/17/16 at 21:00 Active Scripts Active Reported Valproic Acid (Valproate Sodium) 250 Mg/5 Ml Disp.syrin 10 Ml PEG BID Trazodone Hcl 100 Mg Tablet 100 Mg PEG QHS Lorazepam 0.5 Mg Tablet 0.5 Mg PEG QHS Escitalopram Oxalate 10 Mg Tablet 10 Mg PEG QEVNG Lorazepam 0.5 Mg Tablet 0.5 Mg PEG PRN Q6HRS PRN [place] 5-325 Tablet (Hydrocodone Bit/Acetaminophen) 1 Each Tablet 1 Tab PEG PRN Q4HRS PRN Flomax (Tamsulosin Hcl) 0.4 Mg Cap.er.24h 0.4 Mg PEG Remeron (Mirtazapine) 15 Mg Tablet 15 Mg PEG BID Risperdal (Risperidone) 0.25 Mg Tablet 0.25 Mg PEG QHS Ondansetron Odt (Ondansetron) 4 Mg Tab.rapdis 4 Mg PEG PRN Q8HRS PRN Acetaminophen 325 Mg Tablet 650 Mg PEG PRN Q4HRS PRN Multi Vitamin Daily (Multivitamin) 1 Each Tablet 1 Tab PEG DAILY Zantac (Ranitidine Hcl) 150 Mg Tablet 150 Mg PEG BID Cozaar (Losartan Potassium) 25 Mg Tablet 25 Mg PEG DAILY Levemir Flextouch (Insulin Detemir) 100 Unit/1 Ml Insuln.pen 40 Unit SQ HS Novolog Flexpen (Insulin Aspart) 100 Unit/1 Ml Insuln.pen 4 Unit SQ TIDBFRMEAL Diagnosis: Problems: (1) Dementia with behavioral disturbance (2) Anxiety disorder (3) Dementia, vascular, with delusions (4) Dementia, vascular, with depression (5) Impulse control disorder VIANCA RODGERS MD Aug 17, 2016 21:55
[2016-08-18] MEDS: LEVOTHYROXINE 25 MCG TABLET. PEG SCH (05:23)
[2016-08-18 06:04] VITALS: BP 162/82
[2016-08-18] MEDS: INSULIN ASPART 300 UNITS/3 ML INSULN.PEN SQ SCH ×3 (07:30→16:30)
[2016-08-18] MEDS: LOSARTAN 25 MG TABLET. PEG SCH (08:46)
[2016-08-18] MEDS: FAMOTIDINE 20 MG TABLET PEG SCH ×2 (08:47→22:23)
[2016-08-18] MEDS: VALPROATE ACID 250 MG/5 ML ORAL SOLUTION PEG SCH ×2 (08:47→22:23)
[2016-08-18] MEDS: MULTIVITAMINS,THERAPEUTIC 5 ML ORAL LIQUID. PEG SCH (08:47)
[2016-08-18 15:41] VITALS: BP 122/73
[2016-08-18] MEDS: ESCITALOPRAM 5 MG/5 ML PEG SCH (17:17)
--- NOTE | 2016-08-18 20:33 | PDOC ---
Exam Chauncey Demential Exam: [place] Note: Please also refer to the separate dictated note~for this date of service dictated separately.~Patient seen individually. Discussed the patient with Nursing staff reviewed the chart.~Reviewed interim history and current functioning. Reviewed vital signs,~Labs/ Radiology~and current medications noted below. Continue current treatment with the changes noted in the dictated addendum note Assessment: Vital Signs: Vital Signs Date Time Temp Pulse Resp B/P Pulse Ox O2 Delivery O2 Flow Rate FiO2 08/18/16 15:41 97.2 87 19 122/73 99 08/17/16 05:57 Room Air I&O Intake and Output 08/18/16 07:00 Intake Total 2605 ml Balance 2605 ml Tube Feeding 2605 ml # Bowel Movements 1 Labs: Laboratory Tests Test 08/18/16 07:53 08/18/16 11:12 08/18/16 16:20 08/18/16 19:34 Glucose (Fingerstick) 63mg/dL (70-99) L 164mg/dL (70-99) H 94mg/dL (70-99) 208mg/dL (70-99) H Current Medications: Meds: Current Medications Acetaminophen (Tylenol) 650 mg PRN Q6HRS PRN PO PAIN / TEMP; Start 08/09/16 at 01:30; Status Cancel Multi-Ingredient Ointment (Analgesic [place]) 1 crispin PRN QID PRN TP MUSCLE PAIN; Start 08/09/16 at 01:30 Al Hydroxide/Mg Hydroxide (Mylanta Plus Xs) 15 ml PRN AFTMEALHC PRN PO DYSPEPSIA; Start 08/09/16 at 01:30 Magnesium Hydroxide (Milk Of Magnesia) 2,400 mg PRN QHS PRN PO CONSTIPATION Last administered on 08/12/16 16:59; Start 08/09/16 at 01:30 Escitalopram Oxalate (Lexapro) 10 mg QEVNG PEG Last administered on 08/09/16 21:50; Start 08/09/16 at 18:00; Stop 08/10/16 at 09:08; Status DC Lorazepam (Ativan) 0.5 mg PRN Q6HRS PRN PEG ANXIETY; Start 08/09/16 at 04:30 Lorazepam (Ativan) 0.5 mg QHS PEG Last administered on 08/11/16 19:28; Start 08/09/16 at 21:00; Stop 08/12/16 at 18:22; Status DC Mirtazapine (Remeron) 15 mg BID PEG Last administered on 08/10/16 07:40; Start 08/09/16 at 09:00; Stop 08/10/16 at 09:09; Status DC Risperidone (Risperdal) 0.25 mg QHS PEG Last administered on 08/09/16 21:49; Start 08/09/16 at 21:00; Stop 08/10/16 at 09:09; Status DC Trazodone HCl (Desyrel) 100 mg QHS PEG Last administered on 08/17/16 20:48; Start 08/09/16 at 21:00 Valproic Acid (Depakene) 500 mg BID PEG convulsions Last administered on 08:05; Start 08/09/16 at 09:00; Stop 08/17/16 at 13:26; Status DC Acetaminophen (Tylenol) 650 mg PRN Q4HRS PRN PO PAIN / TEMP; Start 08/09/16 at 09:15; Stop 08/10/16 at 09:09; Status DC Vitamin D (Vitamin D3) 50,000 unit QMONTH PEG Last administered on 08/09/16 09 :50; Start 08/09/16 at 09:30 Acetaminophen/ Hydrocodone Bitart (Lortab 5/325) 1 tab PRN Q4HRS PRN PEG PAIN; Start 08/09/16 at 09:15 Insulin Aspart (Novolog) 4 units TIDBFRMEAL SQ Last administered on 08/18/16 11 :30; Start 08/09/16 at 11:30 Insulin Detemir (Levemir) 40 units HS SQ Last administered on 08/10/16 22:03; Start 08/09/16 at 21:00; Stop 08/11/16 at 13:15; Status DC Losartan Potassium (Cozaar) 25 mg DAILY PEG Last administered on 08/18/16 08:46 ; Start 08/09/16 at 09:30 Ondansetron HCl (Zofran Odt) 4 mg PRN Q8HRS PRN PEG NAUSEA/VOMITING; Start at 09:15 Tamsulosin HCl (Flomax) 0.4 mg QHS PO Last administered on 08/17/16 20:48; Start 08/09/16 at 21:00 Multivitamins/ Calcium (Thera-M Plus) 1 tab DAILY PEG Last administered on 08/10 07:40; Start 08/09/16 at 09:30; Stop 08/10/16 at 09:09; Status DC Famotidine (Pepcid) 20 mg BID PEG Last administered on 08/18/16 08:47; Start at 09:30 Acetaminophen (Tylenol) 650 mg PRN Q4HRS PRN PEG PAIN / TEMP; Start 08/10/16 at 09:15 Escitalopram Oxalate (Lexapro) 10 mg QEVNG PEG Last administered on 08/18/16 17 :17; Start 08/10/16 at 18:00 Mirtazapine (Remeron Debbie-Tab) 15 mg BID PEG ; Start 08/10/16 at 21:00; Stop at 21:00; Status DC Multivitamins (Thera-Plus) 5 ml DAILY PEG Last administered on 08/18/16 08:47; Start 08/11/16 at 09:00 Risperidone (Risperdal) 0.25 mg HS PEG Last administered on 08/17/16 20:53; Start 08/10/16 at 21:00 Mirtazapine (Remeron Debbie-Tab) 15 mg HS PEG Last administered on 08/17/16 20:48 ; Start 08/10/16 at 21:00 Levothyroxine Sodium (Synthroid) 25 mcg DAILY07 PEG Last administered on 05:23; Start 08/11/16 at 07:00 Insulin Detemir (Levemir) 30 units HS SQ ; Start 08/11/16 at 21:00; Stop at 09:55; Status DC Insulin Detemir (Levemir) 20 units HS SQ Last administered on 08/17/16 21:06; Start 08/12/16 at 21:00 Valproic Acid (Depakene) 650 mg BID PEG convulsions Last administered on 08:47; Start 08/17/16 at 21:00 Active Scripts Active Reported Valproic Acid (Valproate Sodium) 250 Mg/5 Ml Disp.syrin 10 Ml PEG BID Trazodone Hcl 100 Mg Tablet 100 Mg PEG QHS Lorazepam 0.5 Mg Tablet 0.5 Mg PEG QHS Escitalopram Oxalate 10 Mg Tablet 10 Mg PEG QEVNG Lorazepam 0.5 Mg Tablet 0.5 Mg PEG PRN Q6HRS PRN [place] 5-325 Tablet (Hydrocodone Bit/Acetaminophen) 1 Each Tablet 1 Tab PEG PRN Q4HRS PRN Flomax (Tamsulosin Hcl) 0.4 Mg Cap.er.24h 0.4 Mg PEG Remeron (Mirtazapine) 15 Mg Tablet 15 Mg PEG BID Risperdal (Risperidone) 0.25 Mg Tablet 0.25 Mg PEG QHS Ondansetron Odt (Ondansetron) 4 Mg Tab.rapdis 4 Mg PEG PRN Q8HRS PRN Acetaminophen 325 Mg Tablet 650 Mg PEG PRN Q4HRS PRN Multi Vitamin Daily (Multivitamin) 1 Each Tablet 1 Tab PEG DAILY Zantac (Ranitidine Hcl) 150 Mg Tablet 150 Mg PEG BID Cozaar (Losartan Potassium) 25 Mg Tablet 25 Mg PEG DAILY Levemir Flextouch (Insulin Detemir) 100 Unit/1 Ml Insuln.pen 40 Unit SQ HS Novolog Flexpen (Insulin Aspart) 100 Unit/1 Ml Insuln.pen 4 Unit SQ TIDBFRMEAL Diagnosis: Problems: (1) Dementia with behavioral disturbance (2) Anxiety disorder (3) Dementia, vascular, with delusions (4) Dementia, vascular, with depression (5) Impulse control disorder VIANCA RODGERS MD Aug 18, 2016 20:33
[2016-08-18] MEDS: MIRTAZAPINE 15 MG TAB.RAPDIS PEG SCH (22:23)
[2016-08-18] MEDS: traZODone 100 MG TABLET. PEG SCH (22:23)
[2016-08-18] MEDS: TAMSULOSIN 0.4 MG CAP.ER.24H. PO SCH (22:26)
[2016-08-18] MEDS: risperiDONE ORAL 1 MG/ML 30ml BOTTLE. PEG SCH (22:26)
[2016-08-18] MEDS: INSULIN DETEMIR 300 UNITS/3 ML INSULN.PEN. SQ SCH (23:18)
[2016-08-19] MEDS: LEVOTHYROXINE 25 MCG TABLET. PEG SCH (05:40)
[2016-08-19 06:27] VITALS: BP 127/73
[2016-08-19] MEDS: INSULIN ASPART 300 UNITS/3 ML INSULN.PEN SQ SCH ×3 (07:30→16:30)
[2016-08-19] MEDS: LOSARTAN 25 MG TABLET. PEG SCH (07:56)
[2016-08-19] MEDS: VALPROATE ACID 250 MG/5 ML ORAL SOLUTION PEG SCH ×2 (07:57→20:02)
[2016-08-19] MEDS: FAMOTIDINE 20 MG TABLET PEG SCH ×2 (07:57→20:02)
[2016-08-19] MEDS: MULTIVITAMINS,THERAPEUTIC 5 ML ORAL LIQUID. PEG SCH (07:57)
--- NOTE | 2016-08-19 09:46 | PN ---
DATE: 08/17/2016 SUBJECTIVE: This is a late entry 08/17/2016 covers elements not covered in my initial note. The patient continues to get out of his Broda chair and walks on his own. Gait unsteady. Still has dysphagia and remains on PEG tube feeding. REVIEW OF SYSTEMS: No CV, , pulmonary, or eye system symptoms on review. MENTAL STATUS EXAM: Oriented to himself and situation. Speech often responses monosyllabic. Insight, judgment, recent and memory is impaired. Language function is intact. Attention span short. Mood and affect still anxious and labile. LABORATORY DATA: Reviewed. IMPRESSION: Unchanged from initial note. PLAN: Increase Depakene from 500 b.i.d. to 625 twice a day ____. Check labs level in 3 days. Maintain Ativan, trazodone, Remeron, Risperdal, and Lexapro along with Ativan p.r.n. for now. VIANCA RODGERS MD DR: VERENA/pily JOB#: [id number] / [id number]
--- NOTE | 2016-08-19 09:46 | PN ---
DATE: 08/16/2016 This is a late entry for 08/16/2016, covers elements not covered in my initial note. Per nursing report, the patient has been restless in his chair trying to get out and walk. Gait is unsteady. He remains on PEG tube feeding, not physically aggressive. REVIEW OF SYSTEMS: Impaired ambulation and difficulty with his swallowing. No CV, , Pulmonary, or eye system symptoms on review. Reliability poor. MENTAL STATUS EXAM: Oriented to himself and situations. Speech coherent. Insight, judgment, recent and remote memory, attention, concentration, fund of knowledge poor, consistent with his diagnosis. LABORATORY DATA: Reviewed. IMPRESSION: Unchanged from initial note. PLAN: Continue current psychotropics. Check valproic acid level and then adjust Depakote for mood lability and irritability. MAN Theron RODGERS MD DR: VERENA/pily JOB#: [id number] / [id number]
[2016-08-19 16:35] VITALS: BP 119/72
[2016-08-19] MEDS: ESCITALOPRAM 5 MG/5 ML PEG SCH (17:10)
[2016-08-19] MEDS: TAMSULOSIN 0.4 MG CAP.ER.24H. PO SCH (20:01)
[2016-08-19] MEDS: MIRTAZAPINE 15 MG TAB.RAPDIS PEG SCH (20:01)
[2016-08-19] MEDS: traZODone 100 MG TABLET. PEG SCH (20:02)
[2016-08-19] MEDS: INSULIN DETEMIR 300 UNITS/3 ML INSULN.PEN. SQ SCH (20:02)
[2016-08-19] MEDS: risperiDONE ORAL 1 MG/ML 30ml BOTTLE. PEG SCH (20:03)
--- NOTE | 2016-08-19 20:29 | PN ---
DATE: 08/18/2016 PSYCHIATRIC PROGRESS NOTE This is a late entry for 08/18/2016, covers elements not covered in my initial note. SUBJECTIVE: The patient has been compliant, picking up food and drinks from others. Remains n.p.o. on G-tube feeding. Another patient keeps giving him drinks, which he should not be having. Staff is addressing this. Valproic acid level will be repeated on 08/19/2016 together with CBC and CMP. REVIEW OF SYSTEMS: Ambulation impaired. Not very verbal. No CV, , pulmonary, eye, ENT system symptoms on review. Reliability poor. MENTAL STATUS EXAM: Oriented to himself. Insight, judgment, recent and remote memory, attention, concentration, fund of knowledge poor, consistent with his diagnosis mentioned in my initial note. PLAN: Continue current psychotropics. Check labs level for valproic acid 08/19/2016. Adjust further as clinically indicated. MAN Theron RODGERS MD DR: VERENA/pily JOB#: [id number] / [id number]
--- NOTE | 2016-08-19 21:01 | PDOC ---
Exam Chauncey Demential Exam: Chauncey Note: Please also refer to the separate dictated note~for this date of service dictated separately.~Patient seen individually. Discussed the patient with Nursing staff reviewed the chart.~Reviewed interim history and current functioning. Reviewed vital signs,~Labs/ Radiology~and current medications noted below. Continue current treatment with the changes noted in the dictated addendum note Assessment: Vital Signs: Vital Signs Date Time Temp Pulse Resp B/P Pulse Ox O2 Delivery O2 Flow Rate FiO2 08/19/16 16:35 97.9 80 18 119/72 97 08/17/16 05:57 Room Air I&O Intake and Output 08/19/16 06:59 Intake Total 2040 ml Balance 2040 ml Intake Oral 120 ml Tube Feeding 1920 ml # Voids 1 Labs: Laboratory Tests Test 08/19/16 07:23 08/19/16 08:19 08/19/16 10:02 08/19/16 11:44 Glucose (Fingerstick) 41mg/dL (70-99) L 101mg/dL (70-99) H 252mg/dL (70-99) H 201mg/dL (70-99) H Test 08/19/16 17:03 08/19/16 19:04 Glucose (Fingerstick) 111mg/dL (70-99) H 193mg/dL (70-99) H Current Medications: Meds: Current Medications Acetaminophen (Tylenol) 650 mg PRN Q6HRS PRN PO PAIN / TEMP; Start 08/09/16 at 01:30; Status Cancel Multi-Ingredient Ointment (Analgesic [place]) 1 crispin PRN QID PRN TP MUSCLE PAIN; Start 08/09/16 at 01:30 Al Hydroxide/Mg Hydroxide (Mylanta Plus Xs) 15 ml PRN AFTMEALHC PRN PO DYSPEPSIA; Start 08/09/16 at 01:30 Magnesium Hydroxide (Milk Of Magnesia) 2,400 mg PRN QHS PRN PO CONSTIPATION Last administered on 08/12/16 16:59; Start 08/09/16 at 01:30 Escitalopram Oxalate (Lexapro) 10 mg QEVNG PEG Last administered on 08/09/16 21:50; Start 08/09/16 at 18:00; Stop 08/10/16 at 09:08; Status DC Lorazepam (Ativan) 0.5 mg PRN Q6HRS PRN PEG ANXIETY; Start 08/09/16 at 04:30 Lorazepam (Ativan) 0.5 mg QHS PEG Last administered on 08/11/16 19:28; Start 08/09/16 at 21:00; Stop 08/12/16 at 18:22; Status DC Mirtazapine (Remeron) 15 mg BID PEG Last administered on 08/10/16 07:40; Start 08/09/16 at 09:00; Stop 08/10/16 at 09:09; Status DC Risperidone (Risperdal) 0.25 mg QHS PEG Last administered on 08/09/16 21:49; Start 08/09/16 at 21:00; Stop 08/10/16 at 09:09; Status DC Trazodone HCl (Desyrel) 100 mg QHS PEG Last administered on 08/19/16 20:02; Start 08/09/16 at 21:00 Valproic Acid (Depakene) 500 mg BID PEG convulsions Last administered on 08:05; Start 08/09/16 at 09:00; Stop 08/17/16 at 13:26; Status DC Acetaminophen (Tylenol) 650 mg PRN Q4HRS PRN PO PAIN / TEMP; Start 08/09/16 at 09:15; Stop 08/10/16 at 09:09; Status DC Vitamin D (Vitamin D3) 50,000 unit QMONTH PEG Last administered on 08/09/16 09 :50; Start 08/09/16 at 09:30 Acetaminophen/ Hydrocodone Bitart (Lortab 5/325) 1 tab PRN Q4HRS PRN PEG PAIN; Start 08/09/16 at 09:15 Insulin Aspart (Novolog) 4 units TIDBFRMEAL SQ Last administered on 08/19/16 16 :30; Start 08/09/16 at 11:30 Insulin Detemir (Levemir) 40 units HS SQ Last administered on 08/10/16 22:03; Start 08/09/16 at 21:00; Stop 08/11/16 at 13:15; Status DC Losartan Potassium (Cozaar) 25 mg DAILY PEG Last administered on 08/19/16 07:56 ; Start 08/09/16 at 09:30 Ondansetron HCl (Zofran Odt) 4 mg PRN Q8HRS PRN PEG NAUSEA/VOMITING; Start at 09:15 Tamsulosin HCl (Flomax) 0.4 mg QHS PO Last administered on 08/19/16 20:01; Start 08/09/16 at 21:00 Multivitamins/ Calcium (Thera-M Plus) 1 tab DAILY PEG Last administered on 08/10 07:40; Start 08/09/16 at 09:30; Stop 08/10/16 at 09:09; Status DC Famotidine (Pepcid) 20 mg BID PEG Last administered on 08/19/16 20:02; Start at 09:30 Acetaminophen (Tylenol) 650 mg PRN Q4HRS PRN PEG PAIN / TEMP; Start 08/10/16 at 09:15 Escitalopram Oxalate (Lexapro) 10 mg QEVNG PEG Last administered on 08/19/16 17 :10; Start 08/10/16 at 18:00 Mirtazapine (Remeron Debbie-Tab) 15 mg BID PEG ; Start 08/10/16 at 21:00; Stop at 21:00; Status DC Multivitamins (Thera-Plus) 5 ml DAILY PEG Last administered on 08/19/16 07:57; Start 08/11/16 at 09:00 Risperidone (Risperdal) 0.25 mg HS PEG Last administered on 08/19/16 20:03; Start 08/10/16 at 21:00 Mirtazapine (Remeron Debbie-Tab) 15 mg HS PEG Last administered on 08/19/16 20:01 ; Start 08/10/16 at 21:00 Levothyroxine Sodium (Synthroid) 25 mcg DAILY07 PEG Last administered on 05:40; Start 08/11/16 at 07:00 Insulin Detemir (Levemir) 30 units HS SQ ; Start 08/11/16 at 21:00; Stop at 09:55; Status DC Insulin Detemir (Levemir) 20 units HS SQ Last administered on 08/18/16 23:18; Start 08/12/16 at 21:00; Stop 08/19/16 at 08:57; Status DC Valproic Acid (Depakene) 650 mg BID PEG convulsions Last administered on 20:02; Start 08/17/16 at 21:00 Insulin Detemir (Levemir) 15 units HS SQ Last administered on 08/19/16 20:02; Start 08/19/16 at 21:00 Active Scripts Active Reported Valproic Acid (Valproate Sodium) 250 Mg/5 Ml Disp.syrin 10 Ml PEG BID Trazodone Hcl 100 Mg Tablet 100 Mg PEG QHS Lorazepam 0.5 Mg Tablet 0.5 Mg PEG QHS Escitalopram Oxalate 10 Mg Tablet 10 Mg PEG QEVNG Lorazepam 0.5 Mg Tablet 0.5 Mg PEG PRN Q6HRS PRN [place] 5-325 Tablet (Hydrocodone Bit/Acetaminophen) 1 Each Tablet 1 Tab PEG PRN Q4HRS PRN Flomax (Tamsulosin Hcl) 0.4 Mg Cap.er.24h 0.4 Mg PEG Remeron (Mirtazapine) 15 Mg Tablet 15 Mg PEG BID Risperdal (Risperidone) 0.25 Mg Tablet 0.25 Mg PEG QHS Ondansetron Odt (Ondansetron) 4 Mg Tab.rapdis 4 Mg PEG PRN Q8HRS PRN Acetaminophen 325 Mg Tablet 650 Mg PEG PRN Q4HRS PRN Multi Vitamin Daily (Multivitamin) 1 Each Tablet 1 Tab PEG DAILY Zantac (Ranitidine Hcl) 150 Mg Tablet 150 Mg PEG BID Cozaar (Losartan Potassium) 25 Mg Tablet 25 Mg PEG DAILY Levemir Flextouch (Insulin Detemir) 100 Unit/1 Ml Insuln.pen 40 Unit SQ HS Novolog Flexpen (Insulin Aspart) 100 Unit/1 Ml Insuln.pen 4 Unit SQ TIDBFRMEAL Diagnosis: Problems: (1) Dementia with behavioral disturbance (2) Anxiety disorder (3) Dementia, vascular, with delusions (4) Dementia, vascular, with depression (5) Impulse control disorder VIANCA RODGERS MD Aug 19, 2016 21:01
[2016-08-20] MEDS: LEVOTHYROXINE 25 MCG TABLET. PEG SCH (04:42)
[2016-08-20 05:41] VITALS: BP 136/83
[2016-08-20] MEDS: INSULIN ASPART 300 UNITS/3 ML INSULN.PEN SQ SCH ×3 (07:30→17:26)
[2016-08-20] MEDS: LOSARTAN 25 MG TABLET. PEG SCH (07:57)
[2016-08-20] MEDS: FAMOTIDINE 20 MG TABLET PEG SCH ×2 (07:59→21:04)
[2016-08-20] MEDS: VALPROATE ACID 250 MG/5 ML ORAL SOLUTION PEG SCH ×2 (08:01→21:02)
[2016-08-20] MEDS: MULTIVITAMINS,THERAPEUTIC 5 ML ORAL LIQUID. PEG SCH (08:06)
[2016-08-20 09:58] LABS: BASO # 0.1 x10^3/uL (0.0-0.2); BASO % 2 % (0-3); EOS # 0.2 x10^3/uL (0.0-0.7); EOS % 3 % (0-3); HEMATOCRIT 43.3 % (39.0-53.0); HEMOGLOBIN 14.5 g/dL (13.0-17.5); LYMPH # 2.1 x10^3/uL (1.0-4.8); LYMPH % 42 % (24-48); MEAN CORPUSCULAR HEMOGLOBIN 31 pg (25-35); MEAN CORPUSCULAR HGB CONC 34 g/dL (31-37); MEAN CORPUSCULAR VOLUME 94 fL (79-100); MONO # 0.5 x10^3/uL (0.0-1.1); MONO % 9 % (0-9); NEUT # 2.2 x10^3uL (1.8-7.7); NEUT % 44 % (31-73); PLATELET COUNT 180 x10^3/uL (140-400); RED BLOOD COUNT 4.64 x10^6/uL (4.30-5.70); RED CELL DISTRIBUTION WIDTH 13.4 % (11.5-14.5)
[2016-08-20 10:10] LABS: ALBUMIN 3.5 g/dL (3.4-5.0); ALBUMIN/GLOBULIN RATIO 0.9 (1.0-1.7); CREATININE 0.7 mg/dL (0.7-1.3); GFR 115.4; POTASSIUM 4.2 mmol/L (3.5-5.1); TOTAL BILIRUBIN 0.4 mg/dL (0.2-1.0); TOTAL PROTEIN 7.6 g/dL (6.4-8.2)
[2016-08-20 10:18] LABS: VAL ACID 89 mcg/mL (50-100)
[2016-08-20 16:12] VITALS: BP 114/81
[2016-08-20] MEDS: ESCITALOPRAM 5 MG/5 ML PEG SCH (17:25)
--- NOTE | 2016-08-20 20:59 | PDOC ---
Exam Chauncey Demential Exam: Chauncey Note: Please also refer to the separate dictated note~for this date of service dictated separately.~Patient seen individually. Discussed the patient with Nursing staff reviewed the chart.~Reviewed interim history and current functioning. Reviewed vital signs,~Labs/ Radiology~and current medications noted below. Continue current treatment with the changes noted in the dictated addendum note Assessment: Vital Signs: Vital Signs Date Time Temp Pulse Resp B/P Pulse Ox O2 Delivery O2 Flow Rate FiO2 08/20/16 16:12 98.0 71 18 114/81 98 08/17/16 05:57 Room Air I&O Intake and Output 08/20/16 07:00 Intake Total 1090 ml Balance 1090 ml Tube Feeding 1090 ml # Voids 2 Labs: Laboratory Tests Test 08/20/16 07:13 08/20/16 09:45 08/20/16 11:14 08/20/16 16:21 Glucose (Fingerstick) 76mg/dL (70-99) 214mg/dL (70-99) H 168mg/dL (70-99) H White Blood Count 5.0x10^3/uL (4.0-11.0) Red Blood Count 4.64x10^6/uL (4.30-5.70) Hemoglobin 14.5g/dL (13.0-17.5) Hematocrit 43.3% (39.0-53.0) Mean Corpuscular Volume 94fL (79-100) Mean Corpuscular Hemoglobin 31pg (25-35) Mean Corpuscular Hemoglobin Concent 34g/dL (31-37) Red Cell Distribution Width 13.4% (11.5-14.5) Platelet Count 180x10^3/uL (140-400) Neutrophils (%) (Auto) 44% (31-73) Lymphocytes (%) (Auto) 42% (24-48) Monocytes (%) (Auto) 9% (0-9) Eosinophils (%) (Auto) 3% (0-3) Basophils (%) (Auto) 2% (0-3) Neutrophils # (Auto) 2.2x10^3uL (1.8-7.7) Lymphocytes # (Auto) 2.1x10^3/uL (1.0-4.8) Monocytes # (Auto) 0.5x10^3/uL (0.0-1.1) Eosinophils # (Auto) 0.2x10^3/uL (0.0-0.7) Basophils # (Auto) 0.1x10^3/uL (0.0-0.2) Sodium Level 144mmol/L (136-145) Potassium Level 4.2mmol/L (3.5-5.1) Chloride Level 105mmol/L (98-107) Carbon Dioxide Level 32mmol/L (21-32) Anion Gap 7 (6-14) Blood Urea Nitrogen 16mg/dL (8-26) Creatinine 0.7mg/dL (0.7-1.3) Estimated GFR (Cockcroft-Gault) 115.4 BUN/Creatinine Ratio 23 (6-20) H Glucose Level 142mg/dL (70-99) H Calcium Level 9.0mg/dL (8.5-10.1) Magnesium Level 2.0mg/dL (1.8-2.4) Total Bilirubin 0.4mg/dL (0.2-1.0) Aspartate Amino Transferase (AST) 41U/L (15-37) H Alanine Aminotransferase (ALT) 67U/L (16-63) H Alkaline Phosphatase 87U/L (46-116) Total Protein 7.6g/dL (6.4-8.2) Albumin 3.5g/dL (3.4-5.0) Albumin/Globulin Ratio 0.9 (1.0-1.7) L Valproic Acid Level 89mcg/mL (50-100) Valproic Acid Last Dose Date 08/19/16 Valproic Acid Last Dose Time 2100 Test 08/20/16 19:11 Glucose (Fingerstick) 230mg/dL (70-99) H Current Medications: Meds: Current Medications Acetaminophen (Tylenol) 650 mg PRN Q6HRS PRN PO PAIN / TEMP; Start 08/09/16 at 01:30; Status Cancel Multi-Ingredient Ointment (Analgesic [place]) 1 crispin PRN QID PRN TP MUSCLE PAIN; Start 08/09/16 at 01:30 Al Hydroxide/Mg Hydroxide (Mylanta Plus Xs) 15 ml PRN AFTMEALHC PRN PO DYSPEPSIA; Start 08/09/16 at 01:30 Magnesium Hydroxide (Milk Of Magnesia) 2,400 mg PRN QHS PRN PO CONSTIPATION Last administered on 08/12/16 16:59; Start 08/09/16 at 01:30 Escitalopram Oxalate (Lexapro) 10 mg QEVNG PEG Last administered on 08/09/16 21:50; Start 08/09/16 at 18:00; Stop 08/10/16 at 09:08; Status DC Lorazepam (Ativan) 0.5 mg PRN Q6HRS PRN PEG ANXIETY; Start 08/09/16 at 04:30 Lorazepam (Ativan) 0.5 mg QHS PEG Last administered on 08/11/16 19:28; Start 08/09/16 at 21:00; Stop 08/12/16 at 18:22; Status DC Mirtazapine (Remeron) 15 mg BID PEG Last administered on 08/10/16 07:40; Start 08/09/16 at 09:00; Stop 08/10/16 at 09:09; Status DC Risperidone (Risperdal) 0.25 mg QHS PEG Last administered on 08/09/16 21:49; Start 08/09/16 at 21:00; Stop 08/10/16 at 09:09; Status DC Trazodone HCl (Desyrel) 100 mg QHS PEG Last administered on 08/19/16 20:02; Start 08/09/16 at 21:00 Valproic Acid (Depakene) 500 mg BID PEG convulsions Last administered on 08:05; Start 08/09/16 at 09:00; Stop 08/17/16 at 13:26; Status DC Acetaminophen (Tylenol) 650 mg PRN Q4HRS PRN PO PAIN / TEMP; Start 08/09/16 at 09:15; Stop 08/10/16 at 09:09; Status DC Vitamin D (Vitamin D3) 50,000 unit QMONTH PEG Last administered on 08/09/16 09 :50; Start 08/09/16 at 09:30 Acetaminophen/ Hydrocodone Bitart (Lortab 5/325) 1 tab PRN Q4HRS PRN PEG PAIN; Start 08/09/16 at 09:15 Insulin Aspart (Novolog) 4 units TIDBFRMEAL SQ Last administered on 08/20/16 17 :26; Start 08/09/16 at 11:30 Insulin Detemir (Levemir) 40 units HS SQ Last administered on 08/10/16 22:03; Start 08/09/16 at 21:00; Stop 08/11/16 at 13:15; Status DC Losartan Potassium (Cozaar) 25 mg DAILY PEG Last administered on 08/20/16 07:57 ; Start 08/09/16 at 09:30 Ondansetron HCl (Zofran Odt) 4 mg PRN Q8HRS PRN PEG NAUSEA/VOMITING; Start at 09:15 Tamsulosin HCl (Flomax) 0.4 mg QHS PO Last administered on 08/19/16 20:01; Start 08/09/16 at 21:00 Multivitamins/ Calcium (Thera-M Plus) 1 tab DAILY PEG Last administered on 08/10 07:40; Start 08/09/16 at 09:30; Stop 08/10/16 at 09:09; Status DC Famotidine (Pepcid) 20 mg BID PEG Last administered on 08/20/16 07:59; Start at 09:30 Acetaminophen (Tylenol) 650 mg PRN Q4HRS PRN PEG PAIN / TEMP; Start 08/10/16 at 09:15 Escitalopram Oxalate (Lexapro) 10 mg QEVNG PEG Last administered on 08/20/16 17 :25; Start 08/10/16 at 18:00 Mirtazapine (Remeron Debbie-Tab) 15 mg BID PEG ; Start 08/10/16 at 21:00; Stop at 21:00; Status DC Multivitamins (Thera-Plus) 5 ml DAILY PEG Last administered on 08/20/16 08:06; Start 08/11/16 at 09:00 Risperidone (Risperdal) 0.25 mg HS PEG Last administered on 08/19/16 20:03; Start 08/10/16 at 21:00 Mirtazapine (Remeron Debbie-Tab) 15 mg HS PEG Last administered on 08/19/16 20:01 ; Start 08/10/16 at 21:00 Levothyroxine Sodium (Synthroid) 25 mcg DAILY07 PEG Last administered on 04:42; Start 08/11/16 at 07:00 Insulin Detemir (Levemir) 30 units HS SQ ; Start 08/11/16 at 21:00; Stop at 09:55; Status DC Insulin Detemir (Levemir) 20 units HS SQ Last administered on 08/18/16 23:18; Start 08/12/16 at 21:00; Stop 08/19/16 at 08:57; Status DC Valproic Acid (Depakene) 650 mg BID PEG convulsions Last administered on 08:01; Start 08/17/16 at 21:00 Insulin Detemir (Levemir) 15 units HS SQ Last administered on 08/19/16 20:02; Start 08/19/16 at 21:00 Active Scripts Active Reported Valproic Acid (Valproate Sodium) 250 Mg/5 Ml Disp.syrin 10 Ml PEG BID Trazodone Hcl 100 Mg Tablet 100 Mg PEG QHS Lorazepam 0.5 Mg Tablet 0.5 Mg PEG QHS Escitalopram Oxalate 10 Mg Tablet 10 Mg PEG QEVNG Lorazepam 0.5 Mg Tablet 0.5 Mg PEG PRN Q6HRS PRN [place] 5-325 Tablet (Hydrocodone Bit/Acetaminophen) 1 Each Tablet 1 Tab PEG PRN Q4HRS PRN Flomax (Tamsulosin Hcl) 0.4 Mg Cap.er.24h 0.4 Mg PEG Remeron (Mirtazapine) 15 Mg Tablet 15 Mg PEG BID Risperdal (Risperidone) 0.25 Mg Tablet 0.25 Mg PEG QHS Ondansetron Odt (Ondansetron) 4 Mg Tab.rapdis 4 Mg PEG PRN Q8HRS PRN Acetaminophen 325 Mg Tablet 650 Mg PEG PRN Q4HRS PRN Multi Vitamin Daily (Multivitamin) 1 Each Tablet 1 Tab PEG DAILY Zantac (Ranitidine Hcl) 150 Mg Tablet 150 Mg PEG BID Cozaar (Losartan Potassium) 25 Mg Tablet 25 Mg PEG DAILY Levemir Flextouch (Insulin Detemir) 100 Unit/1 Ml Insuln.pen 40 Unit SQ HS Novolog Flexpen (Insulin Aspart) 100 Unit/1 Ml Insuln.pen 4 Unit SQ TIDBFRMEAL Diagnosis: Problems: (1) Dementia with behavioral disturbance (2) Anxiety disorder (3) Dementia, vascular, with delusions (4) Dementia, vascular, with depression (5) Impulse control disorder VIANCA RODGERS MD Aug 20, 2016 20:59
[2016-08-20] MEDS: MIRTAZAPINE 15 MG TAB.RAPDIS PEG SCH (21:02)
[2016-08-20] MEDS: traZODone 100 MG TABLET. PEG SCH (21:02)
[2016-08-20] MEDS: TAMSULOSIN 0.4 MG CAP.ER.24H. PO SCH (21:03)
[2016-08-20] MEDS: risperiDONE ORAL 1 MG/ML 30ml BOTTLE. PEG SCH (21:04)
[2016-08-20] MEDS: INSULIN DETEMIR 300 UNITS/3 ML INSULN.PEN. SQ SCH (21:05)
[2016-08-21 05:42] VITALS: BP 144/89
[2016-08-21] MEDS: LEVOTHYROXINE 25 MCG TABLET. PEG SCH (05:53)
[2016-08-21] MEDS: INSULIN ASPART 300 UNITS/3 ML INSULN.PEN SQ SCH ×3 (08:14→18:08)
[2016-08-21] MEDS: ESCITALOPRAM 5 MG/5 ML PEG SCH (08:15)
[2016-08-21] MEDS: FAMOTIDINE 20 MG TABLET PEG SCH ×2 (08:15→20:41)
[2016-08-21] MEDS: LOSARTAN 25 MG TABLET. PEG SCH (08:15)
[2016-08-21] MEDS: MULTIVITAMINS,THERAPEUTIC 5 ML ORAL LIQUID. PEG SCH (08:15)
[2016-08-21] MEDS: VALPROATE ACID 250 MG/5 ML ORAL SOLUTION PEG SCH ×2 (08:16→20:42)
--- NOTE | 2016-08-21 09:19 | PN ---
DATE: 08/19/2016 This is a late entry for 08/19/2016, covers elements not covered in my initial note. SUBJECTIVE: Overall, the patient put himself on the floor taking things from others trays to eat; oblivious of what he is doing that he is n.p.o. REVIEW OF SYSTEMS: Ambulation impaired, in a Broda chair. No CV, , pulmonary, or eye system symptoms on review. MENTAL STATUS EXAM: Oriented to himself. Insight, judgment, recent and remote memory, attention, concentration, fund of knowledge poor, consistent with his diagnosis mentioned in my initial note. PLAN: Continue current psychotropics. Check valproic acid level morning 08/20/2016. Adjust further as clinically indicated. MAN Theron RODGERS MD DR: VERENA/pily JOB#: [id number] / [id number]
[2016-08-21 16:17] VITALS: BP 129/79
[2016-08-21] MEDS: TAMSULOSIN 0.4 MG CAP.ER.24H. PO SCH (20:41)
[2016-08-21] MEDS: MIRTAZAPINE 15 MG TAB.RAPDIS PEG SCH (20:41)
[2016-08-21] MEDS: traZODone 100 MG TABLET. PEG SCH (20:41)
[2016-08-21] MEDS: risperiDONE ORAL 1 MG/ML 30ml BOTTLE. PEG SCH (20:42)
[2016-08-21] MEDS: INSULIN DETEMIR 300 UNITS/3 ML INSULN.PEN. SQ SCH (20:45)
--- NOTE | 2016-08-21 21:03 | PDOC ---
Exam Chauncey Demential Exam: Chauncey Note: Please also refer to the separate dictated note~for this date of service dictated separately.~Patient seen individually. Discussed the patient with Nursing staff reviewed the chart.~Reviewed interim history and current functioning. Reviewed vital signs,~Labs/ Radiology~and current medications noted below. Continue current treatment with the changes noted in the dictated addendum note Assessment: Vital Signs: Vital Signs Date Time Temp Pulse Resp B/P Pulse Ox O2 Delivery O2 Flow Rate FiO2 08/21/16 16: 98.3 78 16 129/79 99 08/17/16 05:57 Room Air I&O Intake and Output 08/21/16 07:00 Intake Total 2535 ml Balance 2535 ml Tube Feeding 2535 ml # Voids 1 Labs: Laboratory Tests Test 08/21/16 07:11 08/21/16 11:36 08/21/16 16:47 08/21/16 19:19 Glucose (Fingerstick) 84mg/dL (70-99) 198mg/dL (70-99) H 165mg/dL (70-99) H 188mg/dL (70-99) H Current Medications: Meds: Current Medications Acetaminophen (Tylenol) 650 mg PRN Q6HRS PRN PO PAIN / TEMP; Start 08/09/16 at 01:30; Status Cancel Multi-Ingredient Ointment (Analgesic [place]) 1 crispin PRN QID PRN TP MUSCLE PAIN; Start 08/09/16 at 01:30 Al Hydroxide/Mg Hydroxide (Mylanta Plus Xs) 15 ml PRN AFTMEALHC PRN PO DYSPEPSIA; Start 08/09/16 at 01:30 Magnesium Hydroxide (Milk Of Magnesia) 2,400 mg PRN QHS PRN PO CONSTIPATION Last administered on 08/12/16 16:59; Start 08/09/16 at 01:30 Escitalopram Oxalate (Lexapro) 10 mg QEVNG PEG Last administered on 08/09/16 21:50; Start 08/09/16 at 18:00; Stop 08/10/16 at 09:08; Status DC Lorazepam (Ativan) 0.5 mg PRN Q6HRS PRN PEG ANXIETY; Start 08/09/16 at 04:30 Lorazepam (Ativan) 0.5 mg QHS PEG Last administered on 08/11/16 19:28; Start 08/09/16 at 21:00; Stop 08/12/16 at 18:22; Status DC Mirtazapine (Remeron) 15 mg BID PEG Last administered on 08/10/16 07:40; Start 08/09/16 at 09:00; Stop 08/10/16 at 09:09; Status DC Risperidone (Risperdal) 0.25 mg QHS PEG Last administered on 08/09/16 21:49; Start 08/09/16 at 21:00; Stop 08/10/16 at 09:09; Status DC Trazodone HCl (Desyrel) 100 mg QHS PEG Last administered on 08/21/16 20:41; Start 08/09/16 at 21:00 Valproic Acid (Depakene) 500 mg BID PEG convulsions Last administered on 08:05; Start 08/09/16 at 09:00; Stop 08/17/16 at 13:26; Status DC Acetaminophen (Tylenol) 650 mg PRN Q4HRS PRN PO PAIN / TEMP; Start 08/09/16 at 09:15; Stop 08/10/16 at 09:09; Status DC Vitamin D (Vitamin D3) 50,000 unit QMONTH PEG Last administered on 08/09/16 09 :50; Start 08/09/16 at 09:30 Acetaminophen/ Hydrocodone Bitart (Lortab 5/325) 1 tab PRN Q4HRS PRN PEG PAIN; Start 08/09/16 at 09:15 Insulin Aspart (Novolog) 4 units TIDBFRMEAL SQ Last administered on 08/21/16 18 :08; Start 08/09/16 at 11:30 Insulin Detemir (Levemir) 40 units HS SQ Last administered on 08/10/16 22:03; Start 08/09/16 at 21:00; Stop 08/11/16 at 13:15; Status DC Losartan Potassium (Cozaar) 25 mg DAILY PEG Last administered on 08/21/16 08:15 ; Start 08/09/16 at 09:30 Ondansetron HCl (Zofran Odt) 4 mg PRN Q8HRS PRN PEG NAUSEA/VOMITING; Start at 09:15 Tamsulosin HCl (Flomax) 0.4 mg QHS PO Last administered on 08/21/16 20:41; Start 08/09/16 at 21:00 Multivitamins/ Calcium (Thera-M Plus) 1 tab DAILY PEG Last administered on 08/10 07:40; Start 08/09/16 at 09:30; Stop 08/10/16 at 09:09; Status DC Famotidine (Pepcid) 20 mg BID PEG Last administered on 08/21/16 20:41; Start at 09:30 Acetaminophen (Tylenol) 650 mg PRN Q4HRS PRN PEG PAIN / TEMP; Start 08/10/16 at 09:15 Escitalopram Oxalate (Lexapro) 10 mg QEVNG PEG Last administered on 08/21/16 08 :15; Start 08/10/16 at 18:00 Mirtazapine (Remeron Debbie-Tab) 15 mg BID PEG ; Start 08/10/16 at 21:00; Stop at 21:00; Status DC Multivitamins (Thera-Plus) 5 ml DAILY PEG Last administered on 08/21/16 08:15; Start 08/11/16 at 09:00 Risperidone (Risperdal) 0.25 mg HS PEG Last administered on 08/21/16 20:42; Start 08/10/16 at 21:00 Mirtazapine (Remeron Debbie-Tab) 15 mg HS PEG Last administered on 08/21/16 20:41 ; Start 08/10/16 at 21:00 Levothyroxine Sodium (Synthroid) 25 mcg DAILY07 PEG Last administered on 05:53; Start 08/11/16 at 07:00 Insulin Detemir (Levemir) 30 units HS SQ ; Start 08/11/16 at 21:00; Stop at 09:55; Status DC Insulin Detemir (Levemir) 20 units HS SQ Last administered on 08/18/16 23:18; Start 08/12/16 at 21:00; Stop 08/19/16 at 08:57; Status DC Valproic Acid (Depakene) 650 mg BID PEG convulsions Last administered on 20:42; Start 08/17/16 at 21:00 Insulin Detemir (Levemir) 15 units HS SQ Last administered on 08/21/16t 20:45; Start 08/19/16 at 21:00 Active Scripts Active Reported Valproic Acid (Valproate Sodium) 250 Mg/5 Ml Disp.syrin 10 Ml PEG BID Trazodone Hcl 100 Mg Tablet 100 Mg PEG QHS Lorazepam 0.5 Mg Tablet 0.5 Mg PEG QHS Escitalopram Oxalate 10 Mg Tablet 10 Mg PEG QEVNG Lorazepam 0.5 Mg Tablet 0.5 Mg PEG PRN Q6HRS PRN [place] 5-325 Tablet (Hydrocodone Bit/Acetaminophen) 1 Each Tablet 1 Tab PEG PRN Q4HRS PRN Flomax (Tamsulosin Hcl) 0.4 Mg Cap.er.24h 0.4 Mg PEG Remeron (Mirtazapine) 15 Mg Tablet 15 Mg PEG BID Risperdal (Risperidone) 0.25 Mg Tablet 0.25 Mg PEG QHS Ondansetron Odt (Ondansetron) 4 Mg Tab.rapdis 4 Mg PEG PRN Q8HRS PRN Acetaminophen 325 Mg Tablet 650 Mg PEG PRN Q4HRS PRN Multi Vitamin Daily (Multivitamin) 1 Each Tablet 1 Tab PEG DAILY Zantac (Ranitidine Hcl) 150 Mg Tablet 150 Mg PEG BID Cozaar (Losartan Potassium) 25 Mg Tablet 25 Mg PEG DAILY Levemir Flextouch (Insulin Detemir) 100 Unit/1 Ml Insuln.pen 40 Unit SQ HS Novolog Flexpen (Insulin Aspart) 100 Unit/1 Ml Insuln.pen 4 Unit SQ TIDBFRMEAL Diagnosis: Problems: (1) Dementia with behavioral disturbance (2) Anxiety disorder (3) Dementia, vascular, with delusions (4) Dementia, vascular, with depression (5) Impulse control disorder VIANCA RODGERS MD Aug 21, 2016 21:03
--- NOTE | 2016-08-21 22:35 | PN ---
DATE: 08/20/2016 PSYCHIATRIC PROGRESS NOTE This is a late entry 08/20/2016 covers elements not covered in my initial note. SUBJECTIVE: Per nursing report, the patient remains confused, restless, anxious at times, takes his clothes off wearing an onesie. Trying to steal food of the tray of other patients and he is n.p.o. Slept about 5 hours. REVIEW OF SYSTEMS: Ambulation impaired. No CV, , pulmonary, eye, ENT system symptoms on review. Reliability poor. MENTAL STATUS EXAM: Oriented to himself. Insight, judgment, recent and remote memory, attention, concentration, fund of knowledge poor, consistent with his diagnosis. He is not very verbal. Speech low in rate and rhythm, often responses monosyllabic. LABORATORY DATA: Reviewed. IMPRESSION: Unchanged from initial note. PLAN: Continue psychotropics mentioned in my initial note. Adjust further as clinically indicated. VIANCA RODGERS MD DR: VERENA/pily JOB#: [id number] / [id number]
[2016-08-22 05:05] VITALS: BP 117/69
[2016-08-22] MEDS: LEVOTHYROXINE 25 MCG TABLET. PEG SCH (05:31)
[2016-08-22] MEDS: INSULIN ASPART 300 UNITS/3 ML INSULN.PEN SQ SCH ×3 (07:30→17:02)
[2016-08-22] MEDS: MULTIVITAMINS,THERAPEUTIC 5 ML ORAL LIQUID. PEG SCH (08:35)
[2016-08-22] MEDS: FAMOTIDINE 20 MG TABLET PEG SCH ×2 (08:35→19:56)
[2016-08-22] MEDS: LOSARTAN 25 MG TABLET. PEG SCH (08:35)
[2016-08-22] MEDS: VALPROATE ACID 250 MG/5 ML ORAL SOLUTION PEG SCH ×2 (08:35→19:55)
[2016-08-22 15:42] VITALS: BP 119/77
[2016-08-22] MEDS: ESCITALOPRAM 5 MG/5 ML PEG SCH (17:01)
[2016-08-22] MEDS: traZODone 100 MG TABLET. PEG SCH (19:55)
[2016-08-22] MEDS: risperiDONE ORAL 1 MG/ML 30ml BOTTLE. PEG SCH (19:56)
[2016-08-22] MEDS: TAMSULOSIN 0.4 MG CAP.ER.24H. PO SCH (19:56)
[2016-08-22] MEDS: MIRTAZAPINE 15 MG TAB.RAPDIS PEG SCH (19:56)
[2016-08-22] MEDS: INSULIN DETEMIR 300 UNITS/3 ML INSULN.PEN. SQ SCH (20:00)
--- NOTE | 2016-08-22 21:17 | PDOC ---
Exam Chauncey Demential Exam: Chauncey Note: Please also refer to the separate dictated note~for this date of service dictated separately.~Patient seen individually. Discussed the patient with Nursing staff reviewed the chart.~Reviewed interim history and current functioning. Reviewed vital signs,~Labs/ Radiology~and current medications noted below. Continue current treatment with the changes noted in the dictated addendum note Assessment: Vital Signs: Vital Signs Date Time Temp Pulse Resp B/P Pulse Ox O2 Delivery O2 Flow Rate FiO2 08/22/16 15:42 97.8 77 20 119/77 96 08/17/16 05:57 Room Air I&O Intake and Output 08/22/16 07:00 Intake Total 2560 ml Balance 2560 ml Intake Oral 0 ml Tube Feeding 2560 ml Labs: Laboratory Tests Test 08/22/16 07:06 08/22/16 11:33 08/22/16 16:51 08/22/16 19:06 Glucose (Fingerstick) 97mg/dL (70-99) 163mg/dL (70-99) H 131mg/dL (70-99) H 183mg/dL (70-99) H Current Medications: Meds: Current Medications Acetaminophen (Tylenol) 650 mg PRN Q6HRS PRN PO PAIN / TEMP; Start 08/09/16 at 01:30; Status Cancel Multi-Ingredient Ointment (Analgesic [place]) 1 crispin PRN QID PRN TP MUSCLE PAIN; Start 08/09/16 at 01:30 Al Hydroxide/Mg Hydroxide (Mylanta Plus Xs) 15 ml PRN AFTMEALHC PRN PO DYSPEPSIA; Start 08/09/16 at 01:30 Magnesium Hydroxide (Milk Of Magnesia) 2,400 mg PRN QHS PRN PO CONSTIPATION Last administered on 08/12/16 16:59; Start 08/09/16 at 01:30 Escitalopram Oxalate (Lexapro) 10 mg QEVNG PEG Last administered on 08/09/16 21:50; Start 08/09/16 at 18:00; Stop 08/10/16 at 09:08; Status DC Lorazepam (Ativan) 0.5 mg PRN Q6HRS PRN PEG ANXIETY; Start 08/09/16 at 04:30 Lorazepam (Ativan) 0.5 mg QHS PEG Last administered on 08/11/16 19:28; Start 08/09/16 at 21:00; Stop 08/12/16 at 18:22; Status DC Mirtazapine (Remeron) 15 mg BID PEG Last administered on 08/10/16 07:40; Start 08/09/16 at 09:00; Stop 08/10/16 at 09:09; Status DC Risperidone (Risperdal) 0.25 mg QHS PEG Last administered on 08/09/16 21:49; Start 08/09/16 at 21:00; Stop 08/10/16 at 09:09; Status DC Trazodone HCl (Desyrel) 100 mg QHS PEG Last administered on 08/22/16 19:55; Start 08/09/16 at 21:00 Valproic Acid (Depakene) 500 mg BID PEG convulsions Last administered on 08:05; Start 08/09/16 at 09:00; Stop 08/17/16 at 13:26; Status DC Acetaminophen (Tylenol) 650 mg PRN Q4HRS PRN PO PAIN / TEMP; Start 08/09/16 at 09:15; Stop 08/10/16 at 09:09; Status DC Vitamin D (Vitamin D3) 50,000 unit QMONTH PEG Last administered on 08/09/16 09 :50; Start 08/09/16 at 09:30 Acetaminophen/ Hydrocodone Bitart (Lortab 5/325) 1 tab PRN Q4HRS PRN PEG PAIN; Start 08/09/16 at 09:15 Insulin Aspart (Novolog) 4 units TIDBFRMEAL SQ Last administered on 08/22/16 17 :02; Start 08/09/16 at 11:30 Insulin Detemir (Levemir) 40 units HS SQ Last administered on 08/10/16 22:03; Start 08/09/16 at 21:00; Stop 08/11/16 at 13:15; Status DC Losartan Potassium (Cozaar) 25 mg DAILY PEG Last administered on 08/22/16 08:35 ; Start 08/09/16 at 09:30 Ondansetron HCl (Zofran Odt) 4 mg PRN Q8HRS PRN PEG NAUSEA/VOMITING; Start at 09:15 Tamsulosin HCl (Flomax) 0.4 mg QHS PO Last administered on 08/22/16 19:56; Start 08/09/16 at 21:00 Multivitamins/ Calcium (Thera-M Plus) 1 tab DAILY PEG Last administered on 08/10 07:40; Start 08/09/16 at 09:30; Stop 08/10/16 at 09:09; Status DC Famotidine (Pepcid) 20 mg BID PEG Last administered on 08/22/16 19:56; Start at 09:30 Acetaminophen (Tylenol) 650 mg PRN Q4HRS PRN PEG PAIN / TEMP; Start 08/10/16 at 09:15 Escitalopram Oxalate (Lexapro) 10 mg QEVNG PEG Last administered on 08/22/16 17 :01; Start 08/10/16 at 18:00 Mirtazapine (Remeron Debbie-Tab) 15 mg BID PEG ; Start 08/10/16 at 21:00; Stop at 21:00; Status DC Multivitamins (Thera-Plus) 5 ml DAILY PEG Last administered on 08/22/16 08:35; Start 08/11/16 at 09:00 Risperidone (Risperdal) 0.25 mg HS PEG Last administered on 08/22/16 19:56; Start 08/10/16 at 21:00 Mirtazapine (Remeron Debbie-Tab) 15 mg HS PEG Last administered on 08/22/16 19:56 ; Start 08/10/16 at 21:00 Levothyroxine Sodium (Synthroid) 25 mcg DAILY07 PEG Last administered on 05:31; Start 08/11/16 at 07:00 Insulin Detemir (Levemir) 30 units HS SQ ; Start 08/11/16 at 21:00; Stop at 09:55; Status DC Insulin Detemir (Levemir) 20 units HS SQ Last administered on 08/18/16 23:18; Start 08/12/16 at 21:00; Stop 08/19/16 at 08:57; Status DC Valproic Acid (Depakene) 650 mg BID PEG convulsions Last administered on 19:55; Start 08/17/16 at 21:00 Insulin Detemir (Levemir) 15 units HS SQ Last administered on 08/22/16t 20:00; Start 08/19/16 at 21:00 Active Scripts Active Reported Valproic Acid (Valproate Sodium) 250 Mg/5 Ml Disp.syrin 10 Ml PEG BID Trazodone Hcl 100 Mg Tablet 100 Mg PEG QHS Lorazepam 0.5 Mg Tablet 0.5 Mg PEG QHS Escitalopram Oxalate 10 Mg Tablet 10 Mg PEG QEVNG Lorazepam 0.5 Mg Tablet 0.5 Mg PEG PRN Q6HRS PRN [place] 5-325 Tablet (Hydrocodone Bit/Acetaminophen) 1 Each Tablet 1 Tab PEG PRN Q4HRS PRN Flomax (Tamsulosin Hcl) 0.4 Mg Cap.er.24h 0.4 Mg PEG Remeron (Mirtazapine) 15 Mg Tablet 15 Mg PEG BID Risperdal (Risperidone) 0.25 Mg Tablet 0.25 Mg PEG QHS Ondansetron Odt (Ondansetron) 4 Mg Tab.rapdis 4 Mg PEG PRN Q8HRS PRN Acetaminophen 325 Mg Tablet 650 Mg PEG PRN Q4HRS PRN Multi Vitamin Daily (Multivitamin) 1 Each Tablet 1 Tab PEG DAILY Zantac (Ranitidine Hcl) 150 Mg Tablet 150 Mg PEG BID Cozaar (Losartan Potassium) 25 Mg Tablet 25 Mg PEG DAILY Levemir Flextouch (Insulin Detemir) 100 Unit/1 Ml Insuln.pen 40 Unit SQ HS Novolog Flexpen (Insulin Aspart) 100 Unit/1 Ml Insuln.pen 4 Unit SQ TIDBFRMEAL Diagnosis: Problems: (1) Dementia with behavioral disturbance (2) Anxiety disorder (3) Dementia, vascular, with delusions (4) Dementia, vascular, with depression (5) Impulse control disorder VIANCA RODGERS MD Aug 22, 2016 21:17
[2016-08-23] MEDS: LEVOTHYROXINE 25 MCG TABLET. PEG SCH (05:23)
[2016-08-23 05:45] VITALS: BP 110/71
[2016-08-23] MEDS: INSULIN ASPART 300 UNITS/3 ML INSULN.PEN SQ SCH ×3 (07:30→16:30)
[2016-08-23] MEDS: MULTIVITAMINS,THERAPEUTIC 5 ML ORAL LIQUID. PEG SCH (07:46)
[2016-08-23] MEDS: VALPROATE ACID 250 MG/5 ML ORAL SOLUTION PEG SCH ×2 (07:46→20:30)
[2016-08-23] MEDS: FAMOTIDINE 20 MG TABLET PEG SCH ×2 (07:46→20:30)
[2016-08-23] MEDS: LOSARTAN 25 MG TABLET. PEG SCH (07:46)
[2016-08-23] MEDS ORDERED: INSULIN DETEMIR 300 UNITS/3 ML INSULN.PEN. SQ ONE (13:00)
[2016-08-23 16:14] VITALS: BP 122/83
[2016-08-23] MEDS: ESCITALOPRAM 5 MG/5 ML PEG SCH (16:43)
[2016-08-23] MEDS: MIRTAZAPINE 15 MG TAB.RAPDIS PEG SCH (20:30)
[2016-08-23] MEDS: traZODone 100 MG TABLET. PEG SCH (20:31)
[2016-08-23] MEDS: TAMSULOSIN 0.4 MG CAP.ER.24H. PO SCH (20:31)
[2016-08-23] MEDS: risperiDONE ORAL 1 MG/ML 30ml BOTTLE. PEG SCH (20:36)
--- NOTE | 2016-08-23 21:09 | PDOC ---
Exam Chauncey Demential Exam: Chauncey Note: Please also refer to the separate dictated note~for this date of service dictated separately.~Patient seen individually. Discussed the patient with Nursing staff reviewed the chart.~Reviewed interim history and current functioning. Reviewed vital signs,~Labs/ Radiology~and current medications noted below. Continue current treatment with the changes noted in the dictated addendum note Assessment: Vital Signs: Vital Signs Date Time Temp Pulse Resp B/P Pulse Ox O2 Delivery O2 Flow Rate FiO2 08/23/16 16:14 97.4 79 18 122/83 100 08/23/16 05:45 Room Air I&O Intake and Output 08/23/16 07:00 Intake Total 1125 ml Balance 1125 ml Intake Oral 0 ml Tube Feeding 1125 ml # Voids 3 Labs: Laboratory Tests Test 08/23/16 07:13 08/23/16 08:48 08/23/16 11:33 08/23/16 16:16 Glucose (Fingerstick) 65mg/dL (70-99) L 223mg/dL (70-99) H 276mg/dL (70-99) H 150mg/dL (70-99) H Test 08/23/16 19:11 Glucose (Fingerstick) 177mg/dL (70-99) H Current Medications: Meds: Current Medications Acetaminophen (Tylenol) 650 mg PRN Q6HRS PRN PO PAIN / TEMP; Start 08/09/16 at 01:30; Status Cancel Multi-Ingredient Ointment (Analgesic [place]) 1 crispin PRN QID PRN TP MUSCLE PAIN; Start 08/09/16 at 01:30 Al Hydroxide/Mg Hydroxide (Mylanta Plus Xs) 15 ml PRN AFTMEALHC PRN PO DYSPEPSIA; Start 08/09/16 at 01:30 Magnesium Hydroxide (Milk Of Magnesia) 2,400 mg PRN QHS PRN PO CONSTIPATION Last administered on 08/12/16 16:59; Start 08/09/16 at 01:30 Escitalopram Oxalate (Lexapro) 10 mg QEVNG PEG Last administered on 08/09/16 21:50; Start 08/09/16 at 18:00; Stop 08/10/16 at 09:08; Status DC Lorazepam (Ativan) 0.5 mg PRN Q6HRS PRN PEG ANXIETY; Start 08/09/16 at 04:30 Lorazepam (Ativan) 0.5 mg QHS PEG Last administered on 08/11/16 19:28; Start 08/09/16 at 21:00; Stop 08/12/16 at 18:22; Status DC Mirtazapine (Remeron) 15 mg BID PEG Last administered on 08/10/16 07:40; Start 08/09/16 at 09:00; Stop 08/10/16 at 09:09; Status DC Risperidone (Risperdal) 0.25 mg QHS PEG Last administered on 08/09/16 21:49; Start 08/09/16 at 21:00; Stop 08/10/16 at 09:09; Status DC Trazodone HCl (Desyrel) 100 mg QHS PEG Last administered on 08/23/16 20:31; Start 08/09/16 at 21:00 Valproic Acid (Depakene) 500 mg BID PEG convulsions Last administered on 08:05; Start 08/09/16 at 09:00; Stop 08/17/16 at 13:26; Status DC Acetaminophen (Tylenol) 650 mg PRN Q4HRS PRN PO PAIN / TEMP; Start 08/09/16 at 09:15; Stop 08/10/16 at 09:09; Status DC Vitamin D (Vitamin D3) 50,000 unit QMONTH PEG Last administered on 08/09/16 09 :50; Start 08/09/16 at 09:30 Acetaminophen/ Hydrocodone Bitart (Lortab 5/325) 1 tab PRN Q4HRS PRN PEG PAIN; Start 08/09/16 at 09:15 Insulin Aspart (Novolog) 4 units TIDBFRMEAL SQ Last administered on 08/23/16 16 :30; Start 08/09/16 at 11:30 Insulin Detemir (Levemir) 40 units HS SQ Last administered on 08/10/16 22:03; Start 08/09/16 at 21:00; Stop 08/11/16 at 13:15; Status DC Losartan Potassium (Cozaar) 25 mg DAILY PEG Last administered on 08/23/16 07:46 ; Start 08/09/16 at 09:30 Ondansetron HCl (Zofran Odt) 4 mg PRN Q8HRS PRN PEG NAUSEA/VOMITING; Start at 09:15 Tamsulosin HCl (Flomax) 0.4 mg QHS PO Last administered on 08/23/16 20:31; Start 08/09/16 at 21:00 Multivitamins/ Calcium (Thera-M Plus) 1 tab DAILY PEG Last administered on 08/10 07:40; Start 08/09/16 at 09:30; Stop 08/10/16 at 09:09; Status DC Famotidine (Pepcid) 20 mg BID PEG Last administered on 08/23/16 20:30; Start at 09:30 Acetaminophen (Tylenol) 650 mg PRN Q4HRS PRN PEG PAIN / TEMP; Start 08/10/16 at 09:15 Escitalopram Oxalate (Lexapro) 10 mg QEVNG PEG Last administered on 08/23/16 16 :43; Start 08/10/16 at 18:00 Mirtazapine (Remeron Debbie-Tab) 15 mg BID PEG ; Start 08/10/16 at 21:00; Stop at 21:00; Status DC Multivitamins (Thera-Plus) 5 ml DAILY PEG Last administered on 08/23/16 07:46; Start 08/11/16 at 09:00 Risperidone (Risperdal) 0.25 mg HS PEG Last administered on 08/23/16 20:36; Start 08/10/16 at 21:00 Mirtazapine (Remeron Debbie-Tab) 15 mg HS PEG Last administered on 08/23/16 20:30 ; Start 08/10/16 at 21:00 Levothyroxine Sodium (Synthroid) 25 mcg DAILY07 PEG Last administered on 05:23; Start 08/11/16 at 07:00 Insulin Detemir (Levemir) 30 units HS SQ ; Start 08/11/16 at 21:00; Stop at 09:55; Status DC Insulin Detemir (Levemir) 20 units HS SQ Last administered on 08/18/16 23:18; Start 08/12/16 at 21:00; Stop 08/19/16 at 08:57; Status DC Valproic Acid (Depakene) 650 mg BID PEG convulsions Last administered on 20:30; Start 08/17/16 at 21:00 Insulin Detemir (Levemir) 15 units HS SQ Last administered on 08/22/16 20:00; Start 08/19/16 at 21:00; Stop 08/23/16 at 12:55; Status DC Insulin Detemir (Levemir) 15 units DAILY SQ ; Start 08/24/16 at 09:00 Insulin Detemir (Levemir) 15 units 1X ONCE SQ Last administered on 08/23/16 13 :00; Start 08/23/16 at 13:00; Stop 08/23/16 at 13:01; Status DC Active Scripts Active Reported Valproic Acid (Valproate Sodium) 250 Mg/5 Ml Disp.syrin 10 Ml PEG BID Trazodone Hcl 100 Mg Tablet 100 Mg PEG QHS Lorazepam 0.5 Mg Tablet 0.5 Mg PEG QHS Escitalopram Oxalate 10 Mg Tablet 10 Mg PEG QEVNG Lorazepam 0.5 Mg Tablet 0.5 Mg PEG PRN Q6HRS PRN [place] 5-325 Tablet (Hydrocodone Bit/Acetaminophen) 1 Each Tablet 1 Tab PEG PRN Q4HRS PRN Flomax (Tamsulosin Hcl) 0.4 Mg Cap.er.24h 0.4 Mg PEG Remeron (Mirtazapine) 15 Mg Tablet 15 Mg PEG BID Risperdal (Risperidone) 0.25 Mg Tablet 0.25 Mg PEG QHS Ondansetron Odt (Ondansetron) 4 Mg Tab.rapdis 4 Mg PEG PRN Q8HRS PRN Acetaminophen 325 Mg Tablet 650 Mg PEG PRN Q4HRS PRN Multi Vitamin Daily (Multivitamin) 1 Each Tablet 1 Tab PEG DAILY Zantac (Ranitidine Hcl) 150 Mg Tablet 150 Mg PEG BID Cozaar (Losartan Potassium) 25 Mg Tablet 25 Mg PEG DAILY Levemir Flextouch (Insulin Detemir) 100 Unit/1 Ml Insuln.pen 40 Unit SQ HS Novolog Flexpen (Insulin Aspart) 100 Unit/1 Ml Insuln.pen 4 Unit SQ TIDBFRMEAL Diagnosis: Problems: (1) Dementia with behavioral disturbance (2) Anxiety disorder (3) Dementia, vascular, with delusions (4) Dementia, vascular, with depression (5) Impulse control disorder VIANCA RODGERS MD Aug 23, 2016 21:09
[2016-08-24] MEDS: LEVOTHYROXINE 25 MCG TABLET. PEG SCH (04:02)
[2016-08-24 05:30] VITALS: BP 110/76
[2016-08-24] MEDS: INSULIN ASPART 300 UNITS/3 ML INSULN.PEN SQ SCH ×3 (07:30→17:21)
[2016-08-24] MEDS: MULTIVITAMINS,THERAPEUTIC 5 ML ORAL LIQUID. PEG SCH (07:36)
[2016-08-24] MEDS: VALPROATE ACID 250 MG/5 ML ORAL SOLUTION PEG SCH ×2 (07:36→19:47)
[2016-08-24] MEDS: FAMOTIDINE 20 MG TABLET PEG SCH ×2 (07:36→19:48)
[2016-08-24] MEDS: LOSARTAN 25 MG TABLET. PEG SCH (07:36)
[2016-08-24] MEDS: INSULIN DETEMIR 300 UNITS/3 ML INSULN.PEN. SQ SCH (07:38)
[2016-08-24 15:38] VITALS: BP 114/72
[2016-08-24] MEDS: ESCITALOPRAM 5 MG/5 ML PEG SCH (16:21)
[2016-08-24] MEDS: traZODone 100 MG TABLET. PEG SCH (19:47)
[2016-08-24] MEDS: risperiDONE ORAL 1 MG/ML 30ml BOTTLE. PEG SCH (19:48)
[2016-08-24] MEDS: MIRTAZAPINE 15 MG TAB.RAPDIS PEG SCH (19:48)
[2016-08-24] MEDS: TAMSULOSIN 0.4 MG CAP.ER.24H. PO SCH (19:48)
--- NOTE | 2016-08-24 21:56 | PDOC ---
Exam Chauncey Demential Exam: Chauncey Note: Please also refer to the separate dictated note~for this date of service dictated separately.~Patient seen individually. Discussed the patient with Nursing staff reviewed the chart.~Reviewed interim history and current functioning. Reviewed vital signs,~Labs/ Radiology~and current medications noted below. Continue current treatment with the changes noted in the dictated addendum note Assessment: Vital Signs: Vital Signs Date Time Temp Pulse Resp B/P Pulse Ox O2 Delivery O2 Flow Rate FiO2 08/24/16 15:38 98.7 84 20 114/72 100 08/23/16 05:45 Room Air I&O Intake and Output 08/24/16 07:00 Intake Total 865 ml Balance 865 ml Intake Oral 240 ml Tube Feeding 625 ml Labs: Laboratory Tests Test 08/24/16 07:05 08/24/16 08:03 08/24/16 11:05 08/24/16 16:58 Glucose (Fingerstick) 60mg/dL (70-99) L 83mg/dL (70-99) 113mg/dL (70-99) H 139mg/dL (70-99) H Test 08/24/16 18:59 Glucose (Fingerstick) 118mg/dL (70-99) H Current Medications: Meds: Current Medications Acetaminophen (Tylenol) 650 mg PRN Q6HRS PRN PO PAIN / TEMP; Start 08/09/16 at 01:30; Status Cancel Multi-Ingredient Ointment (Analgesic [place]) 1 crispin PRN QID PRN TP MUSCLE PAIN; Start 08/09/16 at 01:30 Al Hydroxide/Mg Hydroxide (Mylanta Plus Xs) 15 ml PRN AFTMEALHC PRN PO DYSPEPSIA; Start 08/09/16 at 01:30 Magnesium Hydroxide (Milk Of Magnesia) 2,400 mg PRN QHS PRN PO CONSTIPATION Last administered on 08/12/16 16:59; Start 08/09/16 at 01:30 Escitalopram Oxalate (Lexapro) 10 mg QEVNG PEG Last administered on 08/09/16 21:50; Start 08/09/16 at 18:00; Stop 08/10/16 at 09:08; Status DC Lorazepam (Ativan) 0.5 mg PRN Q6HRS PRN PEG ANXIETY; Start 08/09/16 at 04:30 Lorazepam (Ativan) 0.5 mg QHS PEG Last administered on 08/11/16 19:28; Start 08/09/16 at 21:00; Stop 08/12/16 at 18:22; Status DC Mirtazapine (Remeron) 15 mg BID PEG Last administered on 08/10/16 07:40; Start 08/09/16 at 09:00; Stop 08/10/16 at 09:09; Status DC Risperidone (Risperdal) 0.25 mg QHS PEG Last administered on 08/09/16 21:49; Start 08/09/16 at 21:00; Stop 08/10/16 at 09:09; Status DC Trazodone HCl (Desyrel) 100 mg QHS PEG Last administered on 08/24/16 19:47; Start 08/09/16 at 21:00 Valproic Acid (Depakene) 500 mg BID PEG convulsions Last administered on 08:05; Start 08/09/16 at 09:00; Stop 08/17/16 at 13:26; Status DC Acetaminophen (Tylenol) 650 mg PRN Q4HRS PRN PO PAIN / TEMP; Start 08/09/16 at 09:15; Stop 08/10/16 at 09:09; Status DC Vitamin D (Vitamin D3) 50,000 unit QMONTH PEG Last administered on 08/09/16 09 :50; Start 08/09/16 at 09:30 Acetaminophen/ Hydrocodone Bitart (Lortab 5/325) 1 tab PRN Q4HRS PRN PEG PAIN; Start 08/09/16 at 09:15 Insulin Aspart (Novolog) 4 units TIDBFRMEAL SQ Last administered on 08/24/16 17 :21; Start 08/09/16 at 11:30 Insulin Detemir (Levemir) 40 units HS SQ Last administered on 08/10/16 22:03; Start 08/09/16 at 21:00; Stop 08/11/16 at 13:15; Status DC Losartan Potassium (Cozaar) 25 mg DAILY PEG Last administered on 08/24/16 07:36 ; Start 08/09/16 at 09:30 Ondansetron HCl (Zofran Odt) 4 mg PRN Q8HRS PRN PEG NAUSEA/VOMITING; Start at 09:15 Tamsulosin HCl (Flomax) 0.4 mg QHS PO Last administered on 08/24/16 19:48; Start 08/09/16 at 21:00 Multivitamins/ Calcium (Thera-M Plus) 1 tab DAILY PEG Last administered on 08/10 07:40; Start 08/09/16 at 09:30; Stop 08/10/16 at 09:09; Status DC Famotidine (Pepcid) 20 mg BID PEG Last administered on 08/24/16 19:48; Start at 09:30 Acetaminophen (Tylenol) 650 mg PRN Q4HRS PRN PEG PAIN / TEMP Last administered on 08/24/16 04:02; Start 08/10/16 at 09:15 Escitalopram Oxalate (Lexapro) 10 mg QEVNG PEG Last administered on 08/24/16 16 :21; Start 08/10/16 at 18:00 Mirtazapine (Remeron Debbie-Tab) 15 mg BID PEG ; Start 08/10/16 at 21:00; Stop at 21:00; Status DC Multivitamins (Thera-Plus) 5 ml DAILY PEG Last administered on 08/24/16 07:36; Start 08/11/16 at 09:00 Risperidone (Risperdal) 0.25 mg HS PEG Last administered on 08/24/16 19:48; Start 08/10/16 at 21:00 Mirtazapine (Remeron Debbie-Tab) 15 mg HS PEG Last administered on 08/24/16 19:48 ; Start 08/10/16 at 21:00 Levothyroxine Sodium (Synthroid) 25 mcg DAILY07 PEG Last administered on 04:02; Start 08/11/16 at 07:00 Insulin Detemir (Levemir) 30 units HS SQ ; Start 08/11/16 at 21:00; Stop at 09:55; Status DC Insulin Detemir (Levemir) 20 units HS SQ Last administered on 08/18/16 23:18; Start 08/12/16 at 21:00; Stop 08/19/16 at 08:57; Status DC Valproic Acid (Depakene) 650 mg BID PEG convulsions Last administered on 19:47; Start 08/17/16 at 21:00 Insulin Detemir (Levemir) 15 units HS SQ Last administered on 08/22/16 20:00; Start 08/19/16 at 21:00; Stop 08/23/16 at 12:55; Status DC Insulin Detemir (Levemir) 15 units DAILY SQ Last administered on 08/24/16 07:38 ; Start 08/24/16 at 09:00 Insulin Detemir (Levemir) 15 units 1X ONCE SQ Last administered on 08/23/16 13 :00; Start 08/23/16 at 13:00; Stop 08/23/16 at 13:01; Status DC Active Scripts Active Reported Valproic Acid (Valproate Sodium) 250 Mg/5 Ml Disp.syrin 10 Ml PEG BID Trazodone Hcl 100 Mg Tablet 100 Mg PEG QHS Lorazepam 0.5 Mg Tablet 0.5 Mg PEG QHS Escitalopram Oxalate 10 Mg Tablet 10 Mg PEG QEVNG Lorazepam 0.5 Mg Tablet 0.5 Mg PEG PRN Q6HRS PRN [place] 5-325 Tablet (Hydrocodone Bit/Acetaminophen) 1 Each Tablet 1 Tab PEG PRN Q4HRS PRN Flomax (Tamsulosin Hcl) 0.4 Mg Cap.er.24h 0.4 Mg PEG Remeron (Mirtazapine) 15 Mg Tablet 15 Mg PEG BID Risperdal (Risperidone) 0.25 Mg Tablet 0.25 Mg PEG QHS Ondansetron Odt (Ondansetron) 4 Mg Tab.rapdis 4 Mg PEG PRN Q8HRS PRN Acetaminophen 325 Mg Tablet 650 Mg PEG PRN Q4HRS PRN Multi Vitamin Daily (Multivitamin) 1 Each Tablet 1 Tab PEG DAILY Zantac (Ranitidine Hcl) 150 Mg Tablet 150 Mg PEG BID Cozaar (Losartan Potassium) 25 Mg Tablet 25 Mg PEG DAILY Levemir Flextouch (Insulin Detemir) 100 Unit/1 Ml Insuln.pen 40 Unit SQ HS Novolog Flexpen (Insulin Aspart) 100 Unit/1 Ml Insuln.pen 4 Unit SQ TIDBFRMEAL Diagnosis: Problems: (1) Dementia with behavioral disturbance (2) Anxiety disorder (3) Dementia, vascular, with delusions (4) Dementia, vascular, with depression (5) Impulse control disorder VIANCA RODGERS MD Aug 24, 2016 21:56
[2016-08-25] MEDS: LEVOTHYROXINE 25 MCG TABLET. PEG SCH (05:18)
[2016-08-25 05:40] VITALS: BP 123/75
[2016-08-25] MEDS: VALPROATE ACID 250 MG/5 ML ORAL SOLUTION PEG SCH ×2 (07:20→20:32)
[2016-08-25] MEDS: FAMOTIDINE 20 MG TABLET PEG SCH ×2 (07:21→20:32)
[2016-08-25] MEDS: MULTIVITAMINS,THERAPEUTIC 5 ML ORAL LIQUID. PEG SCH (07:22)
[2016-08-25] MEDS: LOSARTAN 25 MG TABLET. PEG SCH (07:22)
[2016-08-25] MEDS: INSULIN DETEMIR 300 UNITS/3 ML INSULN.PEN. SQ SCH (08:06)
[2016-08-25] MEDS: INSULIN ASPART 300 UNITS/3 ML INSULN.PEN SQ SCH ×3 (08:07→16:30)
[2016-08-25 16:17] VITALS: BP 115/73
[2016-08-25] MEDS: ESCITALOPRAM 5 MG/5 ML PEG SCH (17:45)
[2016-08-25] MEDS: MIRTAZAPINE 15 MG TAB.RAPDIS PEG SCH (20:32)
[2016-08-25] MEDS: traZODone 100 MG TABLET. PEG SCH (20:32)
[2016-08-25] MEDS: TAMSULOSIN 0.4 MG CAP.ER.24H. PO SCH (20:33)
[2016-08-25] MEDS: risperiDONE ORAL 1 MG/ML 30ml BOTTLE. PEG SCH (20:37)
--- NOTE | 2016-08-25 20:54 | PDOC ---
Exam Chauncey Demential Exam: Chauncey Note: Please also refer to the separate dictated note~for this date of service dictated separately.~Patient seen individually. Discussed the patient with Nursing staff reviewed the chart.~Reviewed interim history and current functioning. Reviewed vital signs,~Labs/ Radiology~and current medications noted below. Continue current treatment with the changes noted in the dictated addendum note Assessment: Vital Signs: Vital Signs Date Time Temp Pulse Resp B/P Pulse Ox O2 Delivery O2 Flow Rate FiO2 08/25/16 16:17 97.8 73 16 115/73 99 Room Air I&O Intake and Output 08/25/16 07:00 Intake Total 1745 ml Balance 1745 ml Intake Oral 0 ml Tube Feeding 1745 ml # Voids 5 # Bowel Movements 2 Labs: Laboratory Tests Test 08/25/16 07:03 08/25/16 11:28 08/25/16 16:53 08/25/16 18:59 Glucose (Fingerstick) 117mg/dL (70-99) H 197mg/dL (70-99) H 118mg/dL (70-99) H 168mg/dL (70-99) H Current Medications: Meds: Current Medications Acetaminophen (Tylenol) 650 mg PRN Q6HRS PRN PO PAIN / TEMP; Start 08/09/16 at 01:30; Status Cancel Multi-Ingredient Ointment (Analgesic [place]) 1 crispin PRN QID PRN TP MUSCLE PAIN; Start 08/09/16 at 01:30 Al Hydroxide/Mg Hydroxide (Mylanta Plus Xs) 15 ml PRN AFTMEALHC PRN PO DYSPEPSIA; Start 08/09/16 at 01:30 Magnesium Hydroxide (Milk Of Magnesia) 2,400 mg PRN QHS PRN PO CONSTIPATION Last administered on 08/12/16 16:59; Start 08/09/16 at 01:30 Escitalopram Oxalate (Lexapro) 10 mg QEVNG PEG Last administered on 08/09/16 21:50; Start 08/09/16 at 18:00; Stop 08/10/16 at 09:08; Status DC Lorazepam (Ativan) 0.5 mg PRN Q6HRS PRN PEG ANXIETY; Start 08/09/16 at 04:30 Lorazepam (Ativan) 0.5 mg QHS PEG Last administered on 08/11/16 19:28; Start 08/09/16 at 21:00; Stop 08/12/16 at 18:22; Status DC Mirtazapine (Remeron) 15 mg BID PEG Last administered on 08/10/16 07:40; Start 08/09/16 at 09:00; Stop 08/10/16 at 09:09; Status DC Risperidone (Risperdal) 0.25 mg QHS PEG Last administered on 08/09/16 21:49; Start 08/09/16 at 21:00; Stop 08/10/16 at 09:09; Status DC Trazodone HCl (Desyrel) 100 mg QHS PEG Last administered on 08/25/16 20:32; Start 08/09/16 at 21:00 Valproic Acid (Depakene) 500 mg BID PEG convulsions Last administered on 08:05; Start 08/09/16 at 09:00; Stop 08/17/16 at 13:26; Status DC Acetaminophen (Tylenol) 650 mg PRN Q4HRS PRN PO PAIN / TEMP; Start 08/09/16 at 09:15; Stop 08/10/16 at 09:09; Status DC Vitamin D (Vitamin D3) 50,000 unit QMONTH PEG Last administered on 08/09/16 09 :50; Start 08/09/16 at 09:30 Acetaminophen/ Hydrocodone Bitart (Lortab 5/325) 1 tab PRN Q4HRS PRN PEG PAIN; Start 08/09/16 at 09:15 Insulin Aspart (Novolog) 4 units TIDBFRMEAL SQ Last administered on 08/25/16 16 :30; Start 08/09/16 at 11:30 Insulin Detemir (Levemir) 40 units HS SQ Last administered on 08/10/16 22:03; Start 08/09/16 at 21:00; Stop 08/11/16 at 13:15; Status DC Losartan Potassium (Cozaar) 25 mg DAILY PEG Last administered on 08/25/16 07:22 ; Start 08/09/16 at 09:30 Ondansetron HCl (Zofran Odt) 4 mg PRN Q8HRS PRN PEG NAUSEA/VOMITING; Start at 09:15 Tamsulosin HCl (Flomax) 0.4 mg QHS PO Last administered on 08/25/16 20:33; Start 08/09/16 at 21:00 Multivitamins/ Calcium (Thera-M Plus) 1 tab DAILY PEG Last administered on 08/10 07:40; Start 08/09/16 at 09:30; Stop 08/10/16 at 09:09; Status DC Famotidine (Pepcid) 20 mg BID PEG Last administered on 08/25/16 20:32; Start at 09:30 Acetaminophen (Tylenol) 650 mg PRN Q4HRS PRN PEG PAIN / TEMP Last administered on 08/24/16 04:02; Start 08/10/16 at 09:15 Escitalopram Oxalate (Lexapro) 10 mg QEVNG PEG Last administered on 08/25/16 17 :45; Start 08/10/16 at 18:00 Mirtazapine (Remeron Debbie-Tab) 15 mg BID PEG ; Start 08/10/16 at 21:00; Stop at 21:00; Status DC Multivitamins (Thera-Plus) 5 ml DAILY PEG Last administered on 08/25/16 07:22; Start 08/11/16 at 09:00 Risperidone (Risperdal) 0.25 mg HS PEG Last administered on 08/25/16 20:37; Start 08/10/16 at 21:00 Mirtazapine (Remeron Debbie-Tab) 15 mg HS PEG Last administered on 08/25/16 20:32 ; Start 08/10/16 at 21:00 Levothyroxine Sodium (Synthroid) 25 mcg DAILY07 PEG Last administered on 05:18; Start 08/11/16 at 07:00 Insulin Detemir (Levemir) 30 units HS SQ ; Start 08/11/16 at 21:00; Stop at 09:55; Status DC Insulin Detemir (Levemir) 20 units HS SQ Last administered on 08/18/16 23:18; Start 08/12/16 at 21:00; Stop 08/19/16 at 08:57; Status DC Valproic Acid (Depakene) 650 mg BID PEG convulsions Last administered on 20:32; Start 08/17/16 at 21:00 Insulin Detemir (Levemir) 15 units HS SQ Last administered on 08/22/16 20:00; Start 08/19/16 at 21:00; Stop 08/23/16 at 12:55; Status DC Insulin Detemir (Levemir) 15 units DAILY SQ Last administered on 08/25/16 08:06 ; Start 08/24/16 at 09:00 Insulin Detemir (Levemir) 15 units 1X ONCE SQ Last administered on 08/23/16 13 :00; Start 08/23/16 at 13:00; Stop 08/23/16 at 13:01; Status DC Active Scripts Active Reported Valproic Acid (Valproate Sodium) 250 Mg/5 Ml Disp.syrin 10 Ml PEG BID Trazodone Hcl 100 Mg Tablet 100 Mg PEG QHS Lorazepam 0.5 Mg Tablet 0.5 Mg PEG QHS Escitalopram Oxalate 10 Mg Tablet 10 Mg PEG QEVNG Lorazepam 0.5 Mg Tablet 0.5 Mg PEG PRN Q6HRS PRN [place] 5-325 Tablet (Hydrocodone Bit/Acetaminophen) 1 Each Tablet 1 Tab PEG PRN Q4HRS PRN Flomax (Tamsulosin Hcl) 0.4 Mg Cap.er.24h 0.4 Mg PEG Remeron (Mirtazapine) 15 Mg Tablet 15 Mg PEG BID Risperdal (Risperidone) 0.25 Mg Tablet 0.25 Mg PEG QHS Ondansetron Odt (Ondansetron) 4 Mg Tab.rapdis 4 Mg PEG PRN Q8HRS PRN Acetaminophen 325 Mg Tablet 650 Mg PEG PRN Q4HRS PRN Multi Vitamin Daily (Multivitamin) 1 Each Tablet 1 Tab PEG DAILY Zantac (Ranitidine Hcl) 150 Mg Tablet 150 Mg PEG BID Cozaar (Losartan Potassium) 25 Mg Tablet 25 Mg PEG DAILY Levemir Flextouch (Insulin Detemir) 100 Unit/1 Ml Insuln.pen 40 Unit SQ HS Novolog Flexpen (Insulin Aspart) 100 Unit/1 Ml Insuln.pen 4 Unit SQ TIDBFRMEAL Diagnosis: Problems: (1) Dementia with behavioral disturbance (2) Anxiety disorder (3) Dementia, vascular, with delusions (4) Dementia, vascular, with depression (5) Impulse control disorder VIANCA RODGERS MD Aug 25, 2016 20:54
[2016-08-26] MEDS: LEVOTHYROXINE 25 MCG TABLET. PEG SCH (05:29)
[2016-08-26 05:54] VITALS: BP 147/82
[2016-08-26] MEDS: VALPROATE ACID 250 MG/5 ML ORAL SOLUTION PEG SCH ×2 (08:20→21:17)
[2016-08-26] MEDS: LOSARTAN 25 MG TABLET. PEG SCH (08:21)
[2016-08-26] MEDS: FAMOTIDINE 20 MG TABLET PEG SCH ×2 (08:21→21:18)
[2016-08-26] MEDS: MULTIVITAMINS,THERAPEUTIC 5 ML ORAL LIQUID. PEG SCH (08:22)
[2016-08-26] MEDS: INSULIN ASPART 300 UNITS/3 ML INSULN.PEN SQ SCH ×3 (08:25→16:30)
[2016-08-26] MEDS: INSULIN DETEMIR 300 UNITS/3 ML INSULN.PEN. SQ SCH (08:26)
--- NOTE | 2016-08-26 10:36 | PN ---
DATE: 08/21/2016 Psychiatric Progress Note This is late entry for 08/21/2016 covers elements not covered in my initial note. SUBJECTIVE: The patient was staffed at a treatment team meeting with the entire team and also seen individually. Social service staff indicated the patient may be transferred to assisted facility in [place]. He got agitated morning of 08/21/2016 when his blood sugars were being drawn. He gets somewhat obsessive about his feeding times and obsesses about food, grabs it of the table of others. REVIEW OF SYSTEMS: Ambulation impaired. Difficulty swallowing. No CV, , pulmonary, eye system symptoms on review. MENTAL STATUS EXAMINATION: Oriented to himself. Insight, judgment, recent and remote memory, attention, concentration, fund of knowledge poor, and consistent with his diagnosis mentioned in my initial note. PLAN: Continue psychotropics mentioned in my initial note. Adjust further as clinically indicated. MAN Theron RODGERS MD DR: VERENA/pily JOB#: [id number] / [id number]
--- NOTE | 2016-08-26 10:44 | PN ---
DATE: 08/22/2016 Psychiatric Progress Note This is late entry of 08/22/2016 covers elements not covered in my initial note. Per nursing report, the patient has been restless in the [place] chair, tries to walk on his own. Gait is unsteady. At times, he throws "mild fits" per nursing report for example he threw his pencil at one time and frustrated about blood sugar draws. Rest of the time, he has done better. REVIEW OF SYSTEMS: No CV, , pulmonary, eye system symptoms on review. Reliability poor. He does have significant dysphagia. Ambulation impaired. MENTAL STATUS EXAMINATION: Oriented to himself. Insight, judgment, recent and remote memory, attention, concentration, fund of knowledge poor, and consistent with his diagnosis. LABORATORY DATA: Reviewed. IMPRESSION: Unchanged from initial note. PLAN: Continue current psychotropics. Valproic acid level therapeutic at 89 on Depakene 650 b.i.d. Adjust further as clinically indicated. VIANCA RODGERS MD DR: VERENA/pily JOB#: [id number] / [id number]
--- NOTE | 2016-08-26 10:55 | PN ---
DATE: 08/24/2016 PSYCHIATRIC PROGRESS NOTE This is a late entry of 08/24/2016, covers elements not covered in my initial note. Per nursing report, the patient is on one-on-one status because of his fall risk. He fell morning of 08/24/2016, hit his head, no injuries noted, compliant, had a good night, remains anxious. REVIEW OF SYSTEMS: Ambulation impaired. No CV, , pulmonary, eye, ENT system symptoms on review. Reliability poor. MENTAL STATUS EXAMINATION: Oriented to himself. Insight, judgment, recent and remote memory, attention, concentration, fund of knowledge poor, consistent with his diagnosis as mentioned in my initial note. PLAN: Continue current psychotropics. Defer adding BuSpar for now, we will reassess later. Medications mentioned in my initial note. MAN Theron RODGERS MD DR: VERENA/pily JOB#: [id number] / [id number]
[2016-08-26 15:23] VITALS: BP 108/69
[2016-08-26] MEDS: ESCITALOPRAM 5 MG/5 ML PEG SCH (17:18)
--- NOTE | 2016-08-26 20:51 | PDOC ---
Exam Chauncey Demential Exam: Chauncey Note: Please also refer to the separate dictated note~for this date of service dictated separately.~Patient seen individually. Discussed the patient with Nursing staff reviewed the chart.~Reviewed interim history and current functioning. Reviewed vital signs,~Labs/ Radiology~and current medications noted below. Continue current treatment with the changes noted in the dictated addendum note Assessment: Vital Signs: Vital Signs Date Time Temp Pulse Resp B/P Pulse Ox O2 Delivery O2 Flow Rate FiO2 08/26/16 15:23 97.6 69 20 108/69 99 Room Air I&O Intake and Output 08/26/16 07:00 Intake Total 1735 ml Balance 1735 ml Intake Oral 0 ml Tube Feeding 1735 ml # Voids 5 # Bowel Movements 3 Labs: Laboratory Tests Test 08/26/16 07:15 08/26/16 10:58 08/26/16 16:36 08/26/16 19:12 Glucose (Fingerstick) 132mg/dL (70-99) H 229mg/dL (70-99) H 129mg/dL (70-99) H 218mg/dL (70-99) H Current Medications: Meds: Current Medications Acetaminophen (Tylenol) 650 mg PRN Q6HRS PRN PO PAIN / TEMP; Start 08/09/16 at 01:30; Status Cancel Multi-Ingredient Ointment (Analgesic [place]) 1 crispin PRN QID PRN TP MUSCLE PAIN; Start 08/09/16 at 01:30 Al Hydroxide/Mg Hydroxide (Mylanta Plus Xs) 15 ml PRN AFTMEALHC PRN PO DYSPEPSIA; Start 08/09/16 at 01:30 Magnesium Hydroxide (Milk Of Magnesia) 2,400 mg PRN QHS PRN PO CONSTIPATION Last administered on 08/12/16 16:59; Start 08/09/16 at 01:30 Escitalopram Oxalate (Lexapro) 10 mg QEVNG PEG Last administered on 08/09/16 21:50; Start 08/09/16 at 18:00; Stop 08/10/16 at 09:08; Status DC Lorazepam (Ativan) 0.5 mg PRN Q6HRS PRN PEG ANXIETY; Start 08/09/16 at 04:30 Lorazepam (Ativan) 0.5 mg QHS PEG Last administered on 08/11/16 19:28; Start 08/09/16 at 21:00; Stop 08/12/16 at 18:22; Status DC Mirtazapine (Remeron) 15 mg BID PEG Last administered on 08/10/16 07:40; Start 08/09/16 at 09:00; Stop 08/10/16 at 09:09; Status DC Risperidone (Risperdal) 0.25 mg QHS PEG Last administered on 08/09/16 21:49; Start 08/09/16 at 21:00; Stop 08/10/16 at 09:09; Status DC Trazodone HCl (Desyrel) 100 mg QHS PEG Last administered on 08/25/16 20:32; Start 08/09/16 at 21:00 Valproic Acid (Depakene) 500 mg BID PEG convulsions Last administered on 08:05; Start 08/09/16 at 09:00; Stop 08/17/16 at 13:26; Status DC Acetaminophen (Tylenol) 650 mg PRN Q4HRS PRN PO PAIN / TEMP; Start 08/09/16 at 09:15; Stop 08/10/16 at 09:09; Status DC Vitamin D (Vitamin D3) 50,000 unit QMONTH PEG Last administered on 08/09/16 09 :50; Start 08/09/16 at 09:30 Acetaminophen/ Hydrocodone Bitart (Lortab 5/325) 1 tab PRN Q4HRS PRN PEG PAIN; Start 08/09/16 at 09:15 Insulin Aspart (Novolog) 4 units TIDBFRMEAL SQ Last administered on 08/26/16 16:30; Start 08/09/16 at 11:30 Insulin Detemir (Levemir) 40 units HS SQ Last administered on 08/10/16 22:03; Start 08/09/16 at 21:00; Stop 08/11/16 at 13:15; Status DC Losartan Potassium (Cozaar) 25 mg DAILY PEG Last administered on 08/26/16 08: 21; Start 08/09/16 at 09:30 Ondansetron HCl (Zofran Odt) 4 mg PRN Q8HRS PRN PEG NAUSEA/VOMITING; Start at 09:15 Tamsulosin HCl (Flomax) 0.4 mg QHS PO Last administered on 08/25/16 20:33; Start 08/09/16 at 21:00 Multivitamins/ Calcium (Thera-M Plus) 1 tab DAILY PEG Last administered on 08/10 07:40; Start 08/09/16 at 09:30; Stop 08/10/16 at 09:09; Status DC Famotidine (Pepcid) 20 mg BID PEG Last administered on 08/26/16 08:21; Start 08/09/16 at 09:30 Acetaminophen (Tylenol) 650 mg PRN Q4HRS PRN PEG PAIN / TEMP Last administered on 08/24/16 04:02; Start 08/10/16 at 09:15 Escitalopram Oxalate (Lexapro) 10 mg QEVNG PEG Last administered on 08/26/16 17:18; Start 08/10/16 at 18:00 Mirtazapine (Remeron Debbie-Tab) 15 mg BID PEG ; Start 08/10/16 at 21:00; Stop at 21:00; Status DC Multivitamins (Thera-Plus) 5 ml DAILY PEG Last administered on 08/26/16 08:22 ; Start 08/11/16 at 09:00 Risperidone (Risperdal) 0.25 mg HS PEG Last administered on 08/25/16 20:37; Start 08/10/16 at 21:00 Mirtazapine (Remeron Debbie-Tab) 15 mg HS PEG Last administered on 08/25/16 20:32 ; Start 08/10/16 at 21:00 Levothyroxine Sodium (Synthroid) 25 mcg DAILY07 PEG Last administered on 05:29; Start 08/11/16 at 07:00 Insulin Detemir (Levemir) 30 units HS SQ ; Start 08/11/16 at 21:00; Stop at 09:55; Status DC Insulin Detemir (Levemir) 20 units HS SQ Last administered on 08/18/16 23:18; Start 08/12/16 at 21:00; Stop 08/19/16 at 08:57; Status DC Valproic Acid (Depakene) 650 mg BID PEG convulsions Last administered on 08:20; Start 08/17/16 at 21:00 Insulin Detemir (Levemir) 15 units HS SQ Last administered on 08/22/16 20:00; Start 08/19/16 at 21:00; Stop 08/23/16 at 12:55; Status DC Insulin Detemir (Levemir) 15 units DAILY SQ Last administered on 08/26/16 08: 26; Start 08/24/16 at 09:00 Insulin Detemir (Levemir) 15 units 1X ONCE SQ Last administered on 08/23/16 13 :00; Start 08/23/16 at 13:00; Stop 08/23/16 at 13:01; Status DC Active Scripts Active Reported Valproic Acid (Valproate Sodium) 250 Mg/5 Ml Disp.syrin 10 Ml PEG BID Trazodone Hcl 100 Mg Tablet 100 Mg PEG QHS Lorazepam 0.5 Mg Tablet 0.5 Mg PEG QHS Escitalopram Oxalate 10 Mg Tablet 10 Mg PEG QEVNG Lorazepam 0.5 Mg Tablet 0.5 Mg PEG PRN Q6HRS PRN [place] 5-325 Tablet (Hydrocodone Bit/Acetaminophen) 1 Each Tablet 1 Tab PEG PRN Q4HRS PRN Flomax (Tamsulosin Hcl) 0.4 Mg Cap.er.24h 0.4 Mg PEG Remeron (Mirtazapine) 15 Mg Tablet 15 Mg PEG BID Risperdal (Risperidone) 0.25 Mg Tablet 0.25 Mg PEG QHS Ondansetron Odt (Ondansetron) 4 Mg Tab.rapdis 4 Mg PEG PRN Q8HRS PRN Acetaminophen 325 Mg Tablet 650 Mg PEG PRN Q4HRS PRN Multi Vitamin Daily (Multivitamin) 1 Each Tablet 1 Tab PEG DAILY Zantac (Ranitidine Hcl) 150 Mg Tablet 150 Mg PEG BID Cozaar (Losartan Potassium) 25 Mg Tablet 25 Mg PEG DAILY Levemir Flextouch (Insulin Detemir) 100 Unit/1 Ml Insuln.pen 40 Unit SQ HS Novolog Flexpen (Insulin Aspart) 100 Unit/1 Ml Insuln.pen 4 Unit SQ TIDBFRMEAL Diagnosis: Problems: (1) Dementia with behavioral disturbance (2) Anxiety disorder (3) Dementia, vascular, with delusions (4) Dementia, vascular, with depression (5) Impulse control disorder VIANCA RODGERS MD Aug 26, 2016 20:51
[2016-08-26] MEDS: TAMSULOSIN 0.4 MG CAP.ER.24H. PO SCH (21:17)
[2016-08-26] MEDS: risperiDONE ORAL 1 MG/ML 30ml BOTTLE. PEG SCH (21:17)
[2016-08-26] MEDS: MIRTAZAPINE 15 MG TAB.RAPDIS PEG SCH (21:17)
[2016-08-26] MEDS: traZODone 100 MG TABLET. PEG SCH (21:18)
[2016-08-27] MEDS: LEVOTHYROXINE 25 MCG TABLET. PEG SCH (05:52)
[2016-08-27 06:09] VITALS: BP 114/72
[2016-08-27] MEDS: INSULIN ASPART 300 UNITS/3 ML INSULN.PEN SQ SCH ×3 (07:32→16:34)
[2016-08-27] MEDS: LOSARTAN 25 MG TABLET. PEG SCH (07:58)
[2016-08-27] MEDS: VALPROATE ACID 250 MG/5 ML ORAL SOLUTION PEG SCH ×2 (07:59→19:43)
[2016-08-27] MEDS: MULTIVITAMINS,THERAPEUTIC 5 ML ORAL LIQUID. PEG SCH (07:59)
[2016-08-27] MEDS: FAMOTIDINE 20 MG TABLET PEG SCH ×2 (08:00→19:43)
[2016-08-27] MEDS: INSULIN DETEMIR 300 UNITS/3 ML INSULN.PEN. SQ SCH (08:02)
--- NOTE | 2016-08-27 08:33 | PN ---
DATE: 08/25/2016 PSYCHIATRIC PROGRESS NOTE This is late entry of 08/25/2016, covers elements not covered in my initial note. SUBJECTIVE: Per nursing report, the patient has been anxious, restless, trying to get out of his Broda chair, remains on one-on-one status for ambulation since he is a fall risk. We have requested a swallow study since he has been stealing food of the tray of others, has had no aspiration problems. REVIEW OF SYSTEMS: Impaired ambulation. No CV, , pulmonary, eye, ENT system symptoms on review. Reliability poor. As I met with him, he was watching a television show and when I asked him what show it was, he was able to respond accurately. He is less confused than he might appear on this surface. MENTAL STATUS EXAMINATION: Oriented to himself and situation. Speech low in rate and rhythm, low in volume. Abstraction fair. Computation impaired. Language function intact. Attention span short. Mood and affect somewhat withdrawn. LABORATORY DATA: Reviewed. IMPRESSION: Unchanged from initial note. PLAN: Continue current psychotropics. Valproic acid level therapeutic at 89. Adjust further as clinically indicated. MAN Theron RODGERS MD DR: VERENA/pily JOB#: [id number] / [id number]
[2016-08-27 15:39] VITALS: BP 117/78
[2016-08-27] MEDS: ESCITALOPRAM 5 MG/5 ML PEG SCH (16:54)
--- NOTE | 2016-08-27 17:08 | PN ---
DATE: 08/23/2016 PSYCHIATRIC PROGRESS NOTE This is a late entry of 08/23/2016, covers elements not covered in my initial note. Per nursing report, the patient has been disrobing, taking food and fluids from other's trays, more resistive. He does redirect. Gait somewhat unsteady. REVIEW OF SYSTEMS: No CV, , pulmonary, eye system symptoms on review. Reliability poor. MENTAL STATUS EXAMINATION: Oriented to himself. Insight, judgment, recent and remote memory, attention, concentration, fund of knowledge poor, consistent with his diagnosis mentioned in my initial note. PLAN: Continue current psychotropics. Valproic acid level therapeutic at 89, adjust as clinically indicated, may add BuSpar for anxiety. MAN Theron RODGERS MD DR: VERENA/pily JOB#: [id number] / [id number]
[2016-08-27] MEDS: MIRTAZAPINE 15 MG TAB.RAPDIS PEG SCH (19:43)
[2016-08-27] MEDS: traZODone 100 MG TABLET. PEG SCH (19:43)
[2016-08-27] MEDS: risperiDONE ORAL 1 MG/ML 30ml BOTTLE. PEG SCH (19:44)
[2016-08-27] MEDS: TAMSULOSIN 0.4 MG CAP.ER.24H. PO SCH (19:46)
--- NOTE | 2016-08-27 20:54 | PDOC ---
Exam Chauncey Demential Exam: Chauncey Note: Please also refer to the separate dictated note~for this date of service dictated separately.~Patient seen individually. Discussed the patient with Nursing staff reviewed the chart.~Reviewed interim history and current functioning. Reviewed vital signs,~Labs/ Radiology~and current medications noted below. Continue current treatment with the changes noted in the dictated addendum note Assessment: Vital Signs: Vital Signs Date Time Temp Pulse Resp B/P Pulse Ox O2 Delivery O2 Flow Rate FiO2 08/27/16 15:39 97.5 67 18 117/78 97 08/27/16 06:09 Room Air I&O Intake and Output 08/27/16 07:00 Intake Total 1880 ml Balance 1880 ml Intake Oral 0 ml Tube Feeding 1880 ml # Voids 2 Labs: Laboratory Tests Test 08/27/16 07:19 08/27/16 11:09 08/27/16 16:19 08/27/16 18:54 Glucose (Fingerstick) 112mg/dL (70-99) H 211mg/dL (70-99) H 184mg/dL (70-99) H 219mg/dL (70-99) H Current Medications: Meds: Current Medications Acetaminophen (Tylenol) 650 mg PRN Q6HRS PRN PO PAIN / TEMP; Start 08/09/16 at 01:30; Status Cancel Multi-Ingredient Ointment (Analgesic [place]) 1 crispin PRN QID PRN TP MUSCLE PAIN; Start 08/09/16 at 01:30 Al Hydroxide/Mg Hydroxide (Mylanta Plus Xs) 15 ml PRN AFTMEALHC PRN PO DYSPEPSIA; Start 08/09/16 at 01:30 Magnesium Hydroxide (Milk Of Magnesia) 2,400 mg PRN QHS PRN PO CONSTIPATION Last administered on 08/12/16 16:59; Start 08/09/16 at 01:30 Escitalopram Oxalate (Lexapro) 10 mg QEVNG PEG Last administered on 08/09/16 21:50; Start 08/09/16 at 18:00; Stop 08/10/16 at 09:08; Status DC Lorazepam (Ativan) 0.5 mg PRN Q6HRS PRN PEG ANXIETY; Start 08/09/16 at 04:30 Lorazepam (Ativan) 0.5 mg QHS PEG Last administered on 08/11/16 19:28; Start 08/09/16 at 21:00; Stop 08/12/16 at 18:22; Status DC Mirtazapine (Remeron) 15 mg BID PEG Last administered on 08/10/16 07:40; Start 08/09/16 at 09:00; Stop 08/10/16 at 09:09; Status DC Risperidone (Risperdal) 0.25 mg QHS PEG Last administered on 08/09/16 21:49; Start 08/09/16 at 21:00; Stop 08/10/16 at 09:09; Status DC Trazodone HCl (Desyrel) 100 mg QHS PEG Last administered on 08/27/16 19:43; Start 08/09/16 at 21:00 Valproic Acid (Depakene) 500 mg BID PEG convulsions Last administered on 08:05; Start 08/09/16 at 09:00; Stop 08/17/16 at 13:26; Status DC Acetaminophen (Tylenol) 650 mg PRN Q4HRS PRN PO PAIN / TEMP; Start 08/09/16 at 09:15; Stop 08/10/16 at 09:09; Status DC Vitamin D (Vitamin D3) 50,000 unit QMONTH PEG Last administered on 08/09/16 09 :50; Start 08/09/16 at 09:30 Acetaminophen/ Hydrocodone Bitart (Lortab 5/325) 1 tab PRN Q4HRS PRN PEG PAIN; Start 08/09/16 at 09:15 Insulin Aspart (Novolog) 4 units TIDBFRMEAL SQ Last administered on 08/27/16 16:34; Start 08/09/16 at 11:30 Insulin Detemir (Levemir) 40 units HS SQ Last administered on 08/10/16 22:03; Start 08/09/16 at 21:00; Stop 08/11/16 at 13:15; Status DC Losartan Potassium (Cozaar) 25 mg DAILY PEG Last administered on 08/27/16 07: 58; Start 08/09/16 at 09:30 Ondansetron HCl (Zofran Odt) 4 mg PRN Q8HRS PRN PEG NAUSEA/VOMITING; Start at 09:15 Tamsulosin HCl (Flomax) 0.4 mg QHS PO Last administered on 08/27/16 19:46; Start 08/09/16 at 21:00 Multivitamins/ Calcium (Thera-M Plus) 1 tab DAILY PEG Last administered on 08/10 07:40; Start 08/09/16 at 09:30; Stop 08/10/16 at 09:09; Status DC Famotidine (Pepcid) 20 mg BID PEG Last administered on 08/27/16 19:43; Start 08/09/16 at 09:30 Acetaminophen (Tylenol) 650 mg PRN Q4HRS PRN PEG PAIN / TEMP Last administered on 08/24/16 04:02; Start 08/10/16 at 09:15 Escitalopram Oxalate (Lexapro) 10 mg QEVNG PEG Last administered on 08/27/16 16:54; Start 08/10/16 at 18:00 Mirtazapine (Remeron Debbie-Tab) 15 mg BID PEG ; Start 08/10/16 at 21:00; Stop at 21:00; Status DC Multivitamins (Thera-Plus) 5 ml DAILY PEG Last administered on 08/27/16 07:59 ; Start 08/11/16 at 09:00 Risperidone (Risperdal) 0.25 mg HS PEG Last administered on 08/27/16 19:44; Start 08/10/16 at 21:00 Mirtazapine (Remeron Debbie-Tab) 15 mg HS PEG Last administered on 08/27/16 19:43 ; Start 08/10/16 at 21:00 Levothyroxine Sodium (Synthroid) 25 mcg DAILY07 PEG Last administered on 05:52; Start 08/11/16 at 07:00 Insulin Detemir (Levemir) 30 units HS SQ ; Start 08/11/16 at 21:00; Stop at 09:55; Status DC Insulin Detemir (Levemir) 20 units HS SQ Last administered on 08/18/16 23:18; Start 08/12/16 at 21:00; Stop 08/19/16 at 08:57; Status DC Valproic Acid (Depakene) 650 mg BID PEG convulsions Last administered on 19:43; Start 08/17/16 at 21:00 Insulin Detemir (Levemir) 15 units HS SQ Last administered on 08/22/16 20:00; Start 08/19/16 at 21:00; Stop 08/23/16 at 12:55; Status DC Insulin Detemir (Levemir) 15 units DAILY SQ Last administered on 08/27/16 08: 02; Start 08/24/16 at 09:00 Insulin Detemir (Levemir) 15 units 1X ONCE SQ Last administered on 08/23/16 13 :00; Start 08/23/16 at 13:00; Stop 08/23/16 at 13:01; Status DC Active Scripts Active Reported Valproic Acid (Valproate Sodium) 250 Mg/5 Ml Disp.syrin 10 Ml PEG BID Trazodone Hcl 100 Mg Tablet 100 Mg PEG QHS Lorazepam 0.5 Mg Tablet 0.5 Mg PEG QHS Escitalopram Oxalate 10 Mg Tablet 10 Mg PEG QEVNG Lorazepam 0.5 Mg Tablet 0.5 Mg PEG PRN Q6HRS PRN [place] 5-325 Tablet (Hydrocodone Bit/Acetaminophen) 1 Each Tablet 1 Tab PEG PRN Q4HRS PRN Flomax (Tamsulosin Hcl) 0.4 Mg Cap.er.24h 0.4 Mg PEG Remeron (Mirtazapine) 15 Mg Tablet 15 Mg PEG BID Risperdal (Risperidone) 0.25 Mg Tablet 0.25 Mg PEG QHS Ondansetron Odt (Ondansetron) 4 Mg Tab.rapdis 4 Mg PEG PRN Q8HRS PRN Acetaminophen 325 Mg Tablet 650 Mg PEG PRN Q4HRS PRN Multi Vitamin Daily (Multivitamin) 1 Each Tablet 1 Tab PEG DAILY Zantac (Ranitidine Hcl) 150 Mg Tablet 150 Mg PEG BID Cozaar (Losartan Potassium) 25 Mg Tablet 25 Mg PEG DAILY Levemir Flextouch (Insulin Detemir) 100 Unit/1 Ml Insuln.pen 40 Unit SQ HS Novolog Flexpen (Insulin Aspart) 100 Unit/1 Ml Insuln.pen 4 Unit SQ TIDBFRMEAL Diagnosis: Problems: (1) Dementia with behavioral disturbance (2) Anxiety disorder (3) Dementia, vascular, with delusions (4) Dementia, vascular, with depression (5) Impulse control disorder ANA MARIA,MAN M MD Aug 27, 2016 20:54
[2016-08-28 05:05] VITALS: BP 123/67
[2016-08-28] MEDS: LEVOTHYROXINE 25 MCG TABLET. PEG SCH (05:51)
[2016-08-28 06:52] LABS: BASO # 0.1 x10^3/uL (0.0-0.2); BASO % 1 % (0-3); EOS # 0.1 x10^3/uL (0.0-0.7); EOS % 1 % (0-3); HEMATOCRIT 45.2 % (39.0-53.0); HEMOGLOBIN 15.2 g/dL (13.0-17.5); LYMPH # 0.7 x10^3/uL (1.0-4.8); LYMPH % 9 % (24-48); MEAN CORPUSCULAR HEMOGLOBIN 31 pg (25-35); MEAN CORPUSCULAR HGB CONC 34 g/dL (31-37); MEAN CORPUSCULAR VOLUME 94 fL (79-100); MONO # 0.5 x10^3/uL (0.0-1.1); MONO % 6 % (0-9); NEUT # 6.6 x10^3uL (1.8-7.7); NEUT % 83 % (31-73); PLATELET COUNT 130 x10^3/uL (140-400); RED BLOOD COUNT 4.83 x10^6/uL (4.30-5.70); RED CELL DISTRIBUTION WIDTH 13.1 % (11.5-14.5)
[2016-08-28 07:07] LABS: ALBUMIN 3.5 g/dL (3.4-5.0); ALBUMIN/GLOBULIN RATIO 0.9 (1.0-1.7); CALCIUM 9.2 mg/dL (8.5-10.1); CREATININE 0.9 mg/dL (0.7-1.3); GFR 86.4; POTASSIUM 4.1 mmol/L (3.5-5.1); TOTAL BILIRUBIN 0.5 mg/dL (0.2-1.0); TOTAL PROTEIN 7.6 g/dL (6.4-8.2)
[2016-08-28] MEDS: LOSARTAN 25 MG TABLET. PEG SCH (07:44)
[2016-08-28] MEDS: FAMOTIDINE 20 MG TABLET PEG SCH (07:44)
[2016-08-28] MEDS: VALPROATE ACID 250 MG/5 ML ORAL SOLUTION PEG SCH (07:44)
[2016-08-28] MEDS: MULTIVITAMINS,THERAPEUTIC 5 ML ORAL LIQUID. PEG SCH (07:45)
[2016-08-28] MEDS: INSULIN ASPART 300 UNITS/3 ML INSULN.PEN SQ SCH (07:47)
[2016-08-28] MEDS: INSULIN DETEMIR 300 UNITS/3 ML INSULN.PEN. SQ SCH (07:48)
[2016-08-28 08:42] VITALS: BP 108/69
--- NOTE | 2016-08-28 08:44 | PN ---
DATE: 08/26/2016 PSYCHIATRIC PROGRESS NOTE This is late entry of 08/26/2016, covers elements not covered in my initial note. SUBJECTIVE: Per nursing report, the patient picks up food from others table and has not had any aspiration problems. Swallow study will be done on 08/27/2016 to decide further and I will defer to Dr. Martins. He remains confused, withdrawn, but at times tends to ambulate with some assistance. REVIEW OF SYSTEMS: Ambulation impaired, difficulty with the swallowing, though less so than before. No CV, , pulmonary, eye system symptoms on review. Reliability poor. MENTAL STATUS EXAMINATION: Oriented to himself. Insight, judgment, recent and remote memory, attention, concentration, fund of knowledge poor, consistent with his diagnosis mentioned in my initial note. PLAN: Continue current psychotropics mentioned in my initial note. Await swallow study, adjust further as clinically indicated. MAN Theron RODGERS MD DR: VERENA/pily JOB#: [id number] / [id number]
--- NOTE | 2016-08-28 09:29 | RAD ---
Portable chest, 08/28/2016: History: Possible aspiration Comparison is made to a study from 08/12/2016. The heart size and pulmonary vascularity are normal. A nodular density projected over the left upper chest on the previous study is again identified. It has changed relationship relative to the first rib end and therefore is not costochondral. It is likely due to old granulomatous disease. There are calcified mediastinal lymph nodes. No acute infiltrate is seen. There is no evidence of pleural fluid. IMPRESSION: 1. Persistent left upper lobe nodule which is probably a granuloma. Comparison with previous chest radiographs if available and/or radiographic follow-up is suggested to confirm stability. CT scanning would be a reasonable alternative. 2. No acute cardiopulmonary abnormality is detected.
[2016-08-28 09:30] VITALS: BP 95/50
[2016-08-28 10:50] LABS: BGAS PH 7.45 (7.35-7.46)
[2016-08-28 10:55] VITALS: BP 78/50
[2016-08-28] MEDS ORDERED: LEVO25TA4 PO (11:14)
[2016-08-28] MEDS ORDERED: MAG-83 PEG (11:19)
[2016-08-28] MEDS ORDERED: MAGN2400 PO (11:20)
[2016-08-28] MEDS ORDERED: METH29OI TP (11:21)
--- NOTE | 2016-08-28 21:09 | PN ---
DATE: 08/27/2016 PSYCHIATRIC PROGRESS NOTE This is late entry of 08/27/2016, covers elements not covered in my initial note. SUBJECTIVE: Overall, the patient remains somewhat withdrawn, drowsy, confused. REVIEW OF SYSTEMS: Ambulation impaired, in his Broda chair. No CV, , pulmonary, eye system symptoms on review. He has difficulties swallowing, but repeat swallow study is awaited. MENTAL STATUS EXAMINATION: Oriented to himself. Insight, judgment, recent and remote memory, attention, concentration, fund of knowledge poor, consistent with his diagnosis. LABORATORY DATA: Valproic acid level is 89, therapeutic. IMPRESSION: Unchanged from initial note. PLAN: Continue current psychotropics mentioned in my initial note. MAN Theron RODGERS MD DR: VERENA/pily JOB#: [id number] / [id number]
--- NOTE | 2016-08-29 19:32 | DS ---
DATE OF DISCHARGE: 08/28/2016 DISCHARGE SUMMARY/PSYCHIATRIC PROGRESS NOTE REASON FOR ADMISSION: Please refer to the admission history for details. Briefly, the patient is a 61-year-old male referred to us from [facility] by Dr. Field, his primary care physician, Dr. Navarro, psychiatrist on account of increasing aggression towards other residents. Reportedly, he would single out female residents. He was pushing aggressive, disruptive, potentially dangerous, having failed outpatient psychiatric interventions, was referred for inpatient stabilization. He has a past diagnosis of impulse control disorder, intermittent explosive disorder within the context of his vascular dementia, status post CVA with depression, delusions. SIGNIFICANT FINDINGS AND CLINICAL COURSE: Following admission, the patient was seen daily individually by myself, followed medically per Dr. Martins/Dr. Sullivan. Adjustments were made in the patient's psychotropics and he seemed to respond to a combination of Lexapro 10 mg a day, Risperdal, Ativan, Depakene and Remeron. At about this stage of his hospitalization, he was noted to be tachycardic, hypotensive, relatively unresponsive. He was therefore transferred to the ICU per Dr. Sullivan for workup and management medically. We may consider readmitting him once he is medically stable. Prior to discharge on 08/28/2016, temperature 99.5, pulse 104, BP 78/50 and O2 sats 96% on 2.5 liters. He remained in a Broda chair with PEG tube feeding, impaired ambulation. No specific CV, , pulmonary, eye system symptoms on review. Reliability poor. MENTAL STATUS EXAMINATION: The patient is oriented to himself, at times to situation, not very verbal. Speech, low in rate and rhythm, low in volume. Abstraction fair, computation impaired, language function intact. Mood and affect withdrawn. LABORATORY DATA: Reviewed. 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 Rest diagnoses as mentioned in my admission note. DISCHARGE MEDICATIONS: Please refer to the MRAD. We would be happy to reassess whether the patient needs to be back on the psychiatric unit once he is medically stable. If this is not felt necessary, [facility] after he is medically stable from [address] [place] [address]. Time for discharge day management greater than 30 minutes. VIANCA RODGERS MD DR: VERENA/pily JOB#: [id number] / [id number]
[2016-08-30] MEDS ORDERED: AMOX1TAB61 PO (12:54)
== END 2016-08-28 11:32 | disposition short-term general hospital (02) | DRG 884 ==
LOC: ER 22:10 → GEROPSY 08-09 00:10
PROVIDERS: ADMIT Psychiatry & Neurology Psychiatry; ATTEND Psychiatry & Neurology Psychiatry
DX: F01.51 Vascular dementia, unspecified severity, with behavioral disturbance (principal); E11.649 Type 2 diabetes mellitus with hypoglycemia without coma; E78.5 Hyperlipidemia, unspecified; F32.9 Major depressive disorder, single episode, unspecified; F41.9 Anxiety disorder, unspecified; F63.9 Impulse disorder, unspecified; G40.909 Epilepsy, unspecified, not intractable, without status epilepticus; I10 Essential (primary) hypertension; K21.9 Gastro-esophageal reflux disease without esophagitis; K59.00 Constipation, unspecified; N40.0 Benign prostatic hyperplasia without lower urinary tract symptoms; R13.10 Dysphagia, unspecified; Z91.81 History of falling; Z93.1 Gastrostomy status
CPT/HCPCS: 36415; 71010; 74000; 80048; 80053; 80061; 80076; 80164; 81001; 82306; 82607; 82803; 82947; 83036; 83540; 83550; 83735; 84436; 84443; 84480; 84484; 85027; 86592; 86593; 93005; J1815; 92610; 97116; 97530; 99285-25

== ENCOUNTER 2016-08-28 11:49 | Inpatient (IN) | payer MEDICARE, MEDICAID ==
[~2016-08-28] VITALS: Ht 177.8 cm; Wt 76.5 kg
[2016-08-28] VITALS (21 sets, daily range): BP systolic 72–124; BP diastolic 43–65
[~2016-08-28 11:49] MED LIST: ACET325T21 PEG; ERGO500012 PEG; ESCI10TA PEG; HYDR-971 PEG; INSU100I17 SQ; INSU100I27 SQ; LEVO25TA4 PO; LORA0.5T PEG; LOSA25TA PEG; MAG-83 PEG; MAGN2400 PO; METH29OI TP; MIRT15TA PEG; MULT-245 PEG; ONDA4TAB12 PEG; RANI150T6 PEG; RISP0.2519 PEG; TAMS0.4C97 PEG; TRAZ100T12 PEG; VALP250D PEG
[2016-08-28] MEDS ORDERED: IV NORMAL SALINE 1,000ML 1,000 ML ONE (11:58)
[2016-08-28 12:30] LABS: BASO # 0.1 x10^3/uL (0.0-0.2); BASO % 0 % (0-3); EOS % 0 % (0-3); HEMATOCRIT 43.4 % (39.0-53.0); HEMOGLOBIN 14.6 g/dL (13.0-17.5); LYMPH # 0.6 x10^3/uL (1.0-4.8); LYMPH % 6 % (24-48); MEAN CORPUSCULAR HEMOGLOBIN 31 pg (25-35); MEAN CORPUSCULAR HGB CONC 34 g/dL (31-37); MEAN CORPUSCULAR VOLUME 93 fL (79-100); MONO # 1.1 x10^3/uL (0.0-1.1); MONO % 10 % (0-9); NEUT # 9.8 x10^3uL (1.8-7.7); NEUT % 84 % (31-73); PLATELET COUNT 144 x10^3/uL (140-400); RED BLOOD COUNT 4.65 x10^6/uL (4.30-5.70); RED CELL DISTRIBUTION WIDTH 13.5 % (11.5-14.5); WHITE BLOOD COUNT 11.7 x10^3/uL (4.0-11.0)
[2016-08-28] MEDS ORDERED: NALOXONE 0.4 MG/ML VIAL. ONE (12:30)
[2016-08-28 12:43] LABS: ALBUMIN 3.3 g/dL (3.4-5.0); CALCIUM 8.7 mg/dL (8.5-10.1); CREATININE 1.3 mg/dL (0.7-1.3); GFR 56.5; POTASSIUM 4.3 mmol/L (3.5-5.1); TOTAL BILIRUBIN 0.5 mg/dL (0.2-1.0); TOTAL PROTEIN 6.7 g/dL (6.4-8.2)
[2016-08-28] MEDS ORDERED: NALOXONE 0.4 MG/ML VIAL. IV PRN (12:45)
[2016-08-28] MEDS ORDERED: ONDANSETRON PF 4 MG/2 ML VIAL. IV PRN (13:00)
[2016-08-28] MEDS ORDERED: PIP/TAZO PER PHARMACY MC PRN (13:15)
[2016-08-28] MEDS ORDERED: IV NORMAL SALINE 1,000ML 1,000 ML IV ONE ×2 (13:15)
[2016-08-28] MEDS ORDERED: IV NORMAL SALINE 250ML 250 ML ONE ×2 (13:29→15:20)
[2016-08-28] MEDS ORDERED: VANCOMYCIN 2 GM in IV NORMAL SALINE 500ML 500 ML IV ONE (13:30)
[2016-08-28] MEDS: PIPERACILLIN/TAZOBACTAM 4.5 GM in IV NORMAL SALINE 50ML 50 ML IV SCH ×3 (13:38→23:24)
[2016-08-28] MEDS: IV NORMAL SALINE 1,000ML 2,190 ML IV SCH ×7 (13:38→18:28)
[2016-08-28 13:42] LABS: % BANDS 15 % (0-9); % BASOS 1 % (0-3); % METAS 1 % (0-0); % SEGS 62 % (35-66)
[2016-08-28 13:43] LABS: % LYMPHS 8 % (24-48); % MONOS 13 % (0-10)
[2016-08-28 13:44] LABS: PLT ESTIMATE DECREASED (ADEQUATE)
[2016-08-28] MEDS ORDERED: INSULIN ASPART 300 UNITS/3 ML INSULN.PEN SQ PRN (13:45)
[2016-08-28] MEDS ORDERED: ACETAMINOPHEN 650 MG/20.3 ML SOLUTION. ONE (14:49)
[2016-08-28] MEDS ORDERED: ACETAMINOPHEN 650 MG/20.3 ML SOLUTION. PEG PRN (15:15)
[2016-08-28] MEDS: VANCOMYCIN PER PHARMACY MC PRN (15:35)
[2016-08-28] MEDS: IV NORMAL SALINE 1,000ML 1,000 ML IV SCH ×2 (15:54→20:00)
[2016-08-28] MEDS: INSULIN ASPART 300 UNITS/3 ML INSULN.PEN SQ SCH (16:51)
--- NOTE | 2016-08-28 17:11 | HP ---
ADMIT DATE: 08/28/2016 HISTORY OF PRESENT ILLNESS: The patient is a 61-year-old male patient with multiple medical problems, who was admitted recently to [facility] as a transfer from [facility] by his primary care physician, Dr. Navarro, his psychiatrist, on account of increasing aggression towards other resident. He reportedly single out female resident. He been pushing, aggressive, disruptive, potentially dangerous. Having failed outpatient psychiatric intervention and he was referred to [facility] for inpatient psychiatric stabilization for his impulse control disorder, intermittent explosive disorder within the context of his vascular dementia, status post CVA with depression and delusion. He was admitted there on 08/09/2016. This morning the nursing staff noted that he is tachycardic, hypotensive and he was unresponsive, so a decision was made to do some lab work and he was actually transferred to ICU despite the fact that all his lab works were within acceptable range. We did actually a CBC, a CMP, blood gases, and chest x-ray and none of them showed any abnormality. Given that he has CVA and he is also on valproic acid, a decision was made to transfer him down with also severity of sepsis given the hypotension and tachycardia. By the time he arrived to the ICU, he continues to be unresponsive. In fact, he has not responded to Narcan. He was given a liter of normal saline and we did repeat his labs and apparently his lactic acid was high. His white cell count also has risen to 11,700. His lactic acid was high at 3.5. His creatinine has risen slightly and basically we will continue with treating him for sepsis. He has received about 2 liters of fluid. We will continue at 100 mL per hour. We will start him on IV Zosyn and vancomycin as per pharmacy recommendations. We would also consult the neurology team and arrangement to have a CT scan of the head without contrast. PAST MEDICAL HISTORY: Significant for hyperlipidemia, cerebrovascular accident with seizure disorder, has gastroesophageal reflux disease, type 2 diabetes, benign prostatic hypertrophy. He has also had dysphagia. PAST SURGICAL HISTORY: Significant for percutaneous endoscopic gastrostomy tube placement. FAMILY HISTORY: Unremarkable. SOCIAL HISTORY: He is a [place] [facility] resident. He does not smoke, drink alcohol or use any recreational drugs. REVIEW OF SYSTEMS: Unobtainable. ALLERGIES: He has no known drug allergies. MEDICATIONS: He was on following medications: Acetaminophen 650 mg every 4 hours, ergocalciferol, vitamin D 50,000 units, feeding tube once a month, escitalopram oxalate 10 mg per feeding tube once a day, NovoLog insulin 4 units before meals and Levemir insulin 14 units subcutaneously at bedtime, levothyroxine sodium 25 mcg once a day, losartan potassium 25 mg once a day, Mylanta 15 mL every 4 hours, milk of magnesia 30 mL per feeding tube daily p.r.n. for constipation, mirtazapine 15 mg at bedtime, multivitamin 1 tablet once a day, ondansetron 4 mg every feeding tube every 8 hours, ranitidine 150 mg twice a day, Flomax 0.4 mg per feeding tube at bedtime and valproic acid 650 mg per feeding tube twice a day. PHYSICAL EXAMINATION: GENERAL: On arrival to the ICU, he was resting slightly propped up in bed, in no apparent respiratory distress, slightly pale. No jaundice, cyanosis, or thyromegaly. No jugular venous distension. No lower limb edema. VITAL SIGNS: His heart rate was 96, blood pressure was 72/50, temperature was 98.9, respiratory rate 24 and oxygen saturation was 94% on 2 liters of oxygen. HEAD, EYES, EARS, NOSE, THROAT: Showed normocephalic, atraumatic. NECK: Supple. HEART: Showed normal first and second heart sounds. No gallop, rub or murmur. CHEST: Shows central trachea, equal bilateral expansion, air entry, vesicular sounds. No crepitation or rhonchi. NEUROLOGIC: He is unresponsive. He did not open his eyes spontaneously but did move his left arm in response attempt with an IV line. LABORATORY DATA: His lab work done showed a white cell count of 11,700, hemoglobin 14.6, hematocrit 43.4, MCV 93, and platelet count 144,000 with differential showed 84% polymorphs, 6% lymphocytes, 10% monocytes. Serum sodium was 157, potassium 4.3, chloride 102, bicarbonate 27, and anion gap of 8. BUN 22, creatinine 1.3. Estimated GFR was 56 mL per minute. His blood sugar was 322 mg/dL. Lactic acid was 3.5. Calcium was 8.7. Total bilirubin, alkaline phosphatase are normal. AST, ALT were slightly elevated. His ammonia was only 29. Total protein was 6.7, albumin 3.3. His prothrombin time was 10.9 and INR 1.1. He has had a chest x-ray done, which showed upper lobe nodule, which is probably a granuloma comparison with previous chest radiograph is available and/or radiographic followup is suggested to confirm stability. CT scanning would be a reasonable alternative; however, there is no acute cardiopulmonary abnormalities detected. ASSESSMENT AND PLAN: The patient was admitted to the ICU with: 1. Altered mental status, most likely due to toxic metabolic encephalopathy and sepsis, the source of which is not clear. He is hypotensive, tachycardic. Has also lactic acidosis for which we will treat with IV fluid. Sent blood and urine for culture and sensitivity. Start him empirically on IV vancomycin and Zosyn. We and will continue with IV fluid at 100 mL per hour. We will consult Dr. Sterling for possible nonconvulsive seizures given the fact that he has had a seizure before. I will hold all the sedatives and will follow him closely and decide on further management according to the response. We will also arrange for him to have a CT scan of the head without contrast. KAELA MEAD MD DR: FRANCISCA/pily JOB#: [id number] / [id number]
[2016-08-28] MEDS ORDERED: PIPERACILLIN/TAZOBACTAM 4.5 GM in IV NORMAL SALINE 50ML 50 ML IV SCH (18:00)
[2016-08-28] MEDS: ESCITALOPRAM 5 MG/5 ML PEG SCH (18:13)
[2016-08-28] MEDS: FAMOTIDINE 20 MG TABLET PEG SCH (19:59)
[2016-08-28] MEDS: VALPROATE ACID 250 MG/5 ML ORAL SOLUTION PEG SCH (20:11)
[2016-08-28 20:47] LABS: VAL ACID 36 mcg/mL (50-100)
--- NOTE | 2016-08-28 20:53 | PDOC ---
Exam Chauncey Demential Exam: Chauncey Note: Please also refer to the separate dictated note~for this date of service dictated separately.~Patient seen individually. Discussed the patient with Nursing staff reviewed the chart.~Reviewed interim history and current functioning. Reviewed vital signs,~Labs/ Radiology~and current medications noted below. Continue current treatment with the changes noted in the dictated addendum note Assessment: Vital Signs: Vital Signs Date Time Temp Pulse Resp B/P Pulse Ox O2 Delivery O2 Flow Rate FiO2 08/28/16 19:00 102.3 95 28 112/54 95 Nasal Cannula 2.0 Labs: Laboratory Tests Test 08/28/16 12:15 08/28/16 16:33 08/28/16 16:55 08/28/16 20:20 White Blood Count 11.7x10^3/uL (4.0-11.0) H Red Blood Count 4.65x10^6/uL (4.30-5.70) Hemoglobin 14.6g/dL (13.0-17.5) Hematocrit 43.4% (39.0-53.0) Mean Corpuscular Volume 93fL (79-100) Mean Corpuscular Hemoglobin 31pg (25-35) Mean Corpuscular Hemoglobin Concent 34g/dL (31-37) Red Cell Distribution Width 13.5% (11.5-14.5) Platelet Count 144x10^3/uL (140-400) Neutrophils (%) (Auto) 84% (31-73) H Lymphocytes (%) (Auto) 6% (24-48) L Monocytes (%) (Auto) 10% (0-9) H Eosinophils (%) (Auto) 0% (0-3) Basophils (%) (Auto) 0% (0-3) Neutrophils # (Auto) 9.8x10^3uL (1.8-7.7) H Lymphocytes # (Auto) 0.6x10^3/uL (1.0-4.8) L Monocytes # (Auto) 1.1x10^3/uL (0.0-1.1) Eosinophils # (Auto) 0.0x10^3/uL (0.0-0.7) Basophils # (Auto) 0.1x10^3/uL (0.0-0.2) Segmented Neutrophils % 62% (35-66) Band Neutrophils % 15% (0-9) H Lymphocytes % 8% (24-48) L Monocytes % 13% (0-10) H Basophils % 1% (0-3) Metamyelocytes % 1% (0-0) H Platelet Estimate Decreased (ADEQUATE) Prothrombin Time 10.9SEC (9.4-11.4) Prothrombin Time INR 1.1 (0.9-1.1) Sodium Level 137mmol/L (136-145) Potassium Level 4.3mmol/L (3.5-5.1) Chloride Level 102mmol/L (98-107) Carbon Dioxide Level 27mmol/L (21-32) Anion Gap 8 (6-14) Blood Urea Nitrogen 22mg/dL (8-26) # Creatinine 1.3mg/dL (0.7-1.3) Estimated GFR (Cockcroft-Gault) 56.5 BUN/Creatinine Ratio 17 (6-20) Glucose Level 322mg/dL (70-99) H Lactic Acid Level 3.5mmol/L (0.4-2.0) H 3.5mmol/L (0.4-2.0) H Calcium Level 8.7mg/dL (8.5-10.1) Total Bilirubin 0.5mg/dL (0.2-1.0) Aspartate Amino Transferase (AST) 38U/L (15-37) H Alanine Aminotransferase (ALT) 64U/L (16-63) H Alkaline Phosphatase 78U/L (46-116) Ammonia 29mcmol/L (11-34) Total Protein 6.7g/dL (6.4-8.2) Albumin 3.3g/dL (3.4-5.0) L Albumin/Globulin Ratio 1.0 (1.0-1.7) Glucose (Fingerstick) 278mg/dL (70-99) H Lactate Dehydrogenase 156U/L (85-227) Valproic Acid Level 36mcg/mL (50-100) L Valproic Acid Last Dose Date 08/28/16 Valproic Acid Last Dose Time 0900 Current Medications: Meds: Current Medications Sodium Chloride (Iv Sodium Chloride 0.9% 1,000ml) 1,000 ml @ As Directed STK- MED ONCE .ROUTE Last administered on 08/28/16t 12:34; Start 08/28/16 at 11:58; Stop 08/28/16 at 11:59; Status DC Naloxone HCl 0.4 mg 0.4 mg STK-MED ONCE .ROUTE Last administered on 08/28/16 12:34; Start 08/28/16 at 12:30; Stop 08/28/16 at 12:31; Status DC Sodium Chloride (Iv Sodium Chloride 0.9% 1,000ml) 1,000 ml @ 1,000 mls/hr 1X ONCE IV ; Start 08/28/16 at 13:15; Stop 08/28/16 at 14:14; Status DC Naloxone HCl 0.4 mg 0.4 mg PRN Q2MIN PRN IV SEE COMMENTS Last administered on 13:45; Start 08/28/16 at 12:45 Sodium Chloride 1,000 ml @ 1,000 mls/hr 1X ONCE IV ; Start 08/28/16 at 13:15; Stop 08/28/16 at 14:14; Status DC Sodium Chloride 2,190 ml @ 2,190 mls/hr Q1H IV Last administered on 08/28/16 18:13; Start 08/28/16 at 13:00; Stop 08/28/16 at 18:28; Status DC Sodium Chloride (Iv Sodium Chloride 0.9% 1,000ml) 1,000 ml @ 150 mls/hr Q6H40M IV Last administered on 08/28/16 20:00; Start 08/28/16 at 15:00 Ondansetron HCl (Zofran) 4 mg PRN Q8HRS PRN IV NAUSEA/VOMITING; Start 08/28/16 at 13:00 Piperacillin Sod/ Tazobactam Sod (Zosyn Per Pharmacy) 1 each PRN DAILY PRN MC SEE COMMENTS; Start 08/28/16 at 13:15 Vancomycin HCl 1 each 1 each PRN DAILY PRN MC SEE COMMENTS Last administered on 08/28/16 15:35; Start 08/28/16 at 13:15 Piperacillin Sod/ Tazobactam Sod 4.5 gm/Sodium Chloride 50 ml @ 100 mls/hr Q6HRS IV ; Start 08/28/16 at 18:00; Stop 08/28/16 at 18:00; Status DC Vancomycin HCl 2 gm/Sodium Chloride 500 ml @ 250 mls/hr 1X ONCE IV Last administered on 08/28/16 13:38; Start 08/28/16 at 13:30; Stop 08/28/16 at 15:29 ; Status DC Piperacillin Sod/ Tazobactam Sod 4.5 gm/Sodium Chloride 50 ml @ 100 mls/hr Q6HRS IV Last administered on 08/28/16 17:23; Start 08/28/16 at 13:30 Sodium Chloride (Iv Sodium Chloride 0.9% 250ml) 250 ml @ As Directed STK-MED ONCE .ROUTE Last administered on 08/28/16 13:39; Start 08/28/16 at 13:29; Stop 08/28/16 at 13:30; Status DC Insulin Aspart (Novolog) 0-9 UNITS PRN Q4HRS PRN SQ hyperlycemia; Start at 13:45 Dextrose 12.5 gm PRN Q15MIN PRN IV SEE COMMENTS; Start 08/28/16 at 13:45 Acetaminophen (Tylenol) 650 mg PRN Q4HRS PRN PEG PAIN / TEMP Last administered on 08/28/16 19:58; Start 08/28/16 at 15:15 Ergocalciferol (Vitamin D2) 50,000 unit QMONTH PEG ; Start 09/27/16 at 09:00 Escitalopram Oxalate (Lexapro) 10 mg QEVNG PEG Last administered on 08/28/16 18:13; Start 08/28/16 at 18:00 Insulin Aspart (Novolog) 4 units TIDBFRMEAL SQ Last administered on 08/28/16 16:51; Start 08/28/16 at 16:30 Insulin Detemir (Levemir) 40 units HS SQ Last administered on 08/28/16 20:52; Start 08/28/16 at 21:00 Levothyroxine Sodium (Synthroid) 25 mcg DAILY06 PO ; Start 08/29/16 at 06:00 Losartan Potassium (Cozaar) 25 mg DAILY PEG ; Start 08/29/16 at 09:00 Famotidine (Pepcid) 20 mg BID PEG Last administered on 08/28/16 19:59; Start 08/28/16 at 21:00 Valproic Acid (Depakene) 650 mg BID PEG Last administered on 08/28/16 20:11; Start 08/28/16 at 21:00 Acetaminophen 650 mg 650 mg STK-MED ONCE .ROUTE Last administered on 08/28/16 14:51; Start 08/28/16 at 14:49; Stop 08/28/16 at 14:50; Status DC Vancomycin HCl 1 gm/Sodium Chloride 250 ml @ 250 mls/hr Q12H IV ; Start at 01:30 Sodium Chloride (Iv Sodium Chloride 0.9% 250ml) 250 ml @ As Directed STK-MED ONCE .ROUTE ; Start 08/28/16 at 15:20; Stop 08/28/16 at 15:21; Status DC Vancomycin HCl 1 each 1X ONCE MC ; Start 08/30/16 at 01:00; Stop 08/30/16 at 01 :01; Status UNV Vancomycin HCl 1 each 1X ONCE MC Last administered on 08/28/16 16:00; Start 08/28/16 at 16:00; Stop 08/28/16 at 16:01; Status DC Vancomycin HCl 1 each 1X ONCE MC ; Start 08/30/16 at 01:00; Stop 08/30/16 at 01 :01 Active Scripts Active Reported Analgesic [place] (Methyl Salicylate/Menthol) 29 Gm Oint...g. 29 Gm TP PRN QID PRN Milk Of Magnesia (Magnesium Hydroxide) 2,400 Mg/10 Ml Oral.susp 2,400 Mg PO PRN QHS PRN Adv Antacid-[place] Liquid (Mag Hydrox/Al Hydrox/Simeth) 355 Ml Oral.susp 15 Ml PEG PRN QHS PRN Levothyroxine Sodium 25 Mcg Tablet 1 Tab PO DAILY06 Vitamin D2 (Ergocalciferol (Vitamin D2)) 50,000 Unit Capsule 50,000 Unit PEG QMONTH Valproic Acid (Valproate Sodium) 250 Mg/5 Ml Disp.syrin 650 Mg PEG BID Escitalopram Oxalate 10 Mg Tablet 10 Mg PEG QEVNG Flomax (Tamsulosin Hcl) 0.4 Mg Cap.er.24h 0.4 Mg PEG Remeron (Mirtazapine) 15 Mg Tablet 15 Mg PEG HS Ondansetron Odt (Ondansetron) 4 Mg Tab.rapdis 4 Mg PEG PRN Q8HRS PRN Acetaminophen 325 Mg Tablet 650 Mg PEG PRN Q4HRS PRN Multi Vitamin Daily (Multivitamin) 1 Each Tablet 5 Ml PEG DAILY Zantac (Ranitidine Hcl) 150 Mg Tablet 150 Mg PEG BID Cozaar (Losartan Potassium) 25 Mg Tablet 25 Mg PEG DAILY Levemir Flextouch (Insulin Detemir) 100 Unit/1 Ml Insuln.pen 40 Unit SQ HS Novolog Flexpen (Insulin Aspart) 100 Unit/1 Ml Insuln.pen 4 Unit SQ TIDBFRMEAL Diagnosis: Problems: (1) Dementia with behavioral disturbance (2) Anxiety disorder (3) Dementia, vascular, with delusions (4) Dementia, vascular, with depression (5) Impulse control disorder VIANCA RODGERS MD Aug 28, 2016 20:53
[2016-08-28] MEDS ORDERED: INSULIN DETEMIR 300 UNITS/3 ML INSULN.PEN. SQ SCH (21:00)
[2016-08-29] VITALS (27 sets, daily range): BP systolic 84–146; BP diastolic 47–72
[2016-08-29] MEDS: IV NORMAL SALINE 1,000ML 1,000 ML IV SCH ×2 (00:05→12:47)
[2016-08-29] MEDS: VANCOMYCIN 1 GM in IV NORMAL SALINE 250ML 250 ML IV SCH ×2 (00:26→12:46)
[2016-08-29] MEDS: PIPERACILLIN/TAZOBACTAM 4.5 GM in IV NORMAL SALINE 50ML 50 ML IV SCH ×4 (05:42→22:59)
[2016-08-29] MEDS: LEVOTHYROXINE 25 MCG TABLET. PO SCH (05:46)
[2016-08-29 06:38] LABS: BASO % 0 % (0-3); EOS % 0 % (0-3); HEMATOCRIT 34.3 % (39.0-53.0); HEMOGLOBIN 11.6 g/dL (13.0-17.5); LYMPH # 1.3 x10^3/uL (1.0-4.8); LYMPH % 16 % (24-48); MEAN CORPUSCULAR HEMOGLOBIN 32 pg (25-35); MEAN CORPUSCULAR HGB CONC 34 g/dL (31-37); MEAN CORPUSCULAR VOLUME 94 fL (79-100); MONO # 0.7 x10^3/uL (0.0-1.1); MONO % 9 % (0-9); NEUT % 75 % (31-73); PLATELET COUNT 96 x10^3/uL (140-400); RED BLOOD COUNT 3.63 x10^6/uL (4.30-5.70); RED CELL DISTRIBUTION WIDTH 13.6 % (11.5-14.5); WHITE BLOOD COUNT 8.1 x10^3/uL (4.0-11.0)
[2016-08-29 06:48] LABS: ALBUMIN 2.3 g/dL (3.4-5.0); ALBUMIN/GLOBULIN RATIO 0.7 (1.0-1.7); CALCIUM 7.4 mg/dL (8.5-10.1); CREATININE 0.9 mg/dL (0.7-1.3); GFR 86.4; MAGNESIUM 1.7 mg/dL (1.8-2.4); POTASSIUM 3.4 mmol/L (3.5-5.1); TOTAL BILIRUBIN 0.7 mg/dL (0.2-1.0); TOTAL PROTEIN 5.5 g/dL (6.4-8.2)
[2016-08-29] MEDS: INSULIN ASPART 300 UNITS/3 ML INSULN.PEN SQ SCH ×3 (07:30→16:30)
--- NOTE | 2016-08-29 08:04 | CONS ---
DATE OF CONSULTATION: 08/28/2016 NEURO CONSULT REFERRING PHYSICIAN: Dr. Sullivan. REASON FOR CONSULTATION: Acute mental status changes and history of seizure disorder. HISTORY OF PRESENT ILLNESS: This is a 61-year-old male, who was transferred from [facility] today after he was found unresponsive with tachycardia and hypotension. Lab workup revealed evidence of mild leukocytosis with high lactic acid suggestive of possible systemic infections. Neuro consult was requested. The patient has acute mental status changes and has had longstanding history of seizure disorder of unknown etiology. The patient has not had any seizures since admission to [facility] on 08/09/2016. Currently, the patient responds to painful stimuli and unable to a carry on any conversation or answer any questions. PAST MEDICAL HISTORY: Significant for stroke, probably of vascular type affecting his left upper and lower extremities and possible speech, history of seizure disorder of unknown etiology, status post feeding tube placement, GERD, diabetes mellitus type 2, hyperlipidemia, benign prostate hypertrophy, and hypothyroidism. PAST SURGICAL HISTORY: Significant for feeding tube placement. FAMILY HISTORY: Not obtainable. SOCIAL HISTORY: The patient is a group home resident. There is no history of smoking, alcohol drinking, or illicit drug use. REVIEW OF SYSTEMS: Not obtainable. ALLERGIES: No known drug allergies. CURRENT MEDICATIONS: Currently, the patient is on intravenous antibiotics for possible sepsis, antibiotics of Zosyn and vancomycin, losartan 25 mg daily via G-tube, levothyroxine 25 mcg daily, valproic acid 650 mg b.i.d. per feeding tube, Pepcid 20 mg b.i.d., insulin , Lexapro 10 mg daily, insulin Humalog, Tylenol, and Zofran on p.r.n. PHYSICAL EXAMINATION: GENERAL: Well-developed, well-nourished male, not in acute distress. VITAL SIGNS: Blood pressure 102/44, respiratory rate is 31, pulse is 102, temperature is 99.5, and oxygen saturation 92% on 3 liters via nasal cannula. HEENT: Normocephalic, atraumatic; otherwise, unremarkable. NECK: Supple. Negative for carotid bruit, lymphadenopathy or thyromegaly. LUNGS: Diminished breath sounds. CARDIOVASCULAR: Regular rhythm, normal S1, S2. ABDOMEN: Soft. Bowel sounds positive. EXTREMITIES: Negative for cyanosis, clubbing or pitting edema. NEUROLOGICAL EXAM: MENTAL STATUS: The patient is drowsy and responsive only to painful stimuli and verbal commands, but does not follow any commands. The speech is garbled at this time. There is a left facial asymmetry, probably secondary to old stroke. Gag reflex is weak. The pupils are equal at 2 mm, sluggishly reactive to light. The extraocular movements are slow without nystagmus. There is left facial asymmetry of central type. The rest of cranial nerves evaluation is limited. MOTOR: The patient moves his upper extremities. The strength is 4/5. The patient squeezes my hands equally in both hands. He does not move his lower extremities. . SENSORY: Revealed normal pinprick senses throughout. The patient to noxious stimuli; otherwise, the deep tendon reflexes is 1/4 throughout. Deep tendon reflexes are symmetric and hypoactive without pathology responses. Gait not tested. LABORATORY DATA: CBC revealed white blood cells 11.7 thousand, hemoglobin 14.6, hematocrit 43.4, and platelet count 144,000, neutrophil is high with low lymphocytes. Chemistry: Sodium 137, potassium 4.3, chloride 102, CO2 of 23, BUN 22.4, creatinine 1.3, glucose 322. Hemoglobin A1c is elevated at 8. Lactic acid is high at 3.5. AST and ALT are elevated with normal troponin level and a normal lipid profile. TSH is markedly elevated consistent with hypothyroidism. Valproic acid level of 89. DIAGNOSTIC DATA: Chest x-ray revealed left upper lobe nodule suggestive of a granuloma; otherwise, no acute changes. KUB performed on 08/12/2016 revealed moderate distal colonic stool expanding. IMPRESSION: 1. Acute encephalopathy, probably metabolic and infectious type. 2. History of seizure disorder of unknown etiology -- stable with normal valproic acid. 3. Multiple medical problems include sepsis, history of stroke, gastroesophageal reflux disease, dementia, depressions, diabetes mellitus, anxiety, and history of alcohol in the past. RECOMMENDATIONS: 1. We will continue with current management initiated by Dr. Sullivan. 2. Await for head CT scan. M Fatoumata CHAPIN MD DR: SIMEON/pily JOB#: [id number] / [id number]
[2016-08-29] MEDS: FAMOTIDINE 20 MG TABLET PEG SCH ×2 (08:08→20:36)
[2016-08-29] MEDS: VALPROATE ACID 250 MG/5 ML ORAL SOLUTION PEG SCH ×2 (08:08→20:37)
[2016-08-29] MEDS ORDERED: LOSARTAN 25 MG TABLET. PEG SCH (09:00)
[2016-08-29] MEDS: DEXTROSE 50% 25 GM / 50ML DISP.SYRIN. IV PRN (11:14)
[2016-08-29] MEDS: IV 1/2 NORMAL SALINE 1,000 ML IV SCH (13:16)
[2016-08-29] MEDS ORDERED: POTASSIUM CHLORIDE 20 MEQ TABLET.ER. PO SCH (14:00)
[2016-08-29] MEDS ORDERED: POTASSIUM CHLORIDE 20 MEQ/15 ML ORAL LIQUID. ONE (14:22)
[2016-08-29] MEDS: POTASSIUM CHLORIDE 20 MEQ/15 ML ORAL LIQUID. PEG SCH ×2 (14:45→20:36)
[2016-08-29] MEDS ORDERED: OLANZAPINE ZYDIS 5 MG TAB.RAPDIS PO PRN ×2 (18:15→18:22)
[2016-08-29] MEDS: ESCITALOPRAM 5 MG/5 ML PEG SCH (18:20)
--- NOTE | 2016-08-29 20:14 | PN ---
DATE: SUBJECTIVE: The patient denies any new medical or neurological complaints. OBJECTIVE: GENERAL: Well-developed, well-nourished white male, not in acute distress. VITAL SIGNS: Afebrile, temperature 98.3, blood pressure 115/60, respiratory rate 20, pulse is 80 and oxygen saturation 94% on room air. HEENT: Normocephalic, atraumatic, otherwise unremarkable. NECK: Supple. Negative for carotid bruit, lymphadenopathy or thyromegaly. LUNGS: Clear to A and P. CARDIOVASCULAR: Regular rate and rhythm, normal S1 and S2. ABDOMEN: Soft, bowel sounds positive. EXTREMITIES: Negative for cyanosis, clubbing or pitting edema. NEUROLOGICAL EXAMINATION: 1. Mental Status: The patient is awake and follows commands. Speech is still gabbed and noncoherent. Further evaluation of his mental status is limited. 2. Cranial nerves: Pupils are equal and sluggishly reactive to light and accommodation. Extraocular movements are intact. There is no nystagmus. No facial motor or sensory deficit. Hearing is intact bilaterally. The palate is elevated symmetrically. Sternocleidomastoid muscles are powerful bilaterally. The patient shrugs his shoulders symmetrically, protrudes his tongue in the midline without fasciculation or atrophy. 3. Motor examination: Motor examination revealed no focal muscle bulk was seen. The tone is normal. The strength is 4/5 throughout. 4. Sensory examination: Revealed normal pinprick and light touch senses throughout. 5. Deep tendon reflexes are symmetric and hypoactive with absent Achilles responses. 6. Gait not tested. LABORATORY DATA: CBC revealed white blood cells of 8100, hemoglobin 11.6, hematocrit 34.3 and platelet count 96,000. Chemistry revealed sodium of 146, potassium 3.4, chloride 114. BUN 14, creatinine 0.9, glucose 105 and calcium is 7.4. Valproic acid is low at 36. IMPRESSION: 1. Acute encephalopathy, probably metabolic versus infectious type. 2. History of seizure disorder of unknown etiology with subtherapeutic valproic acid at 36. 3. Multiple medical problems include possible sepsis, history of stroke, GERD, depression, dementia, diabetes mellitus and anxiety. 4. Hypernatremia and hypokalemia. RECOMMENDATIONS: 1. Adjust valproic acid to the therapeutic level. 2. Treat the underlying metabolic derangement for hypernatremia and hypokalemia. 3. Continue with current management initiated by Dr. Sullivan. 4. We will hold on head CT scan as the patient shows some neurological improvements. M Fatoumata CHAPIN MD DR: SIMEON/pily JOB#: [id number] / [id number]
--- NOTE | 2016-08-29 20:58 | PDOC ---
Exam Chauncey Demential Exam: Chauncey Note: Please also refer to the separate dictated note~for this date of service dictated separately.~Patient seen individually. Discussed the patient with Nursing staff reviewed the chart.~Reviewed interim history and current functioning. Reviewed vital signs,~Labs/ Radiology~and current medications noted below. Continue current treatment with the changes noted in the dictated addendum note Assessment: Vital Signs: Vital Signs Date Time Temp Pulse Resp B/P Pulse Ox O2 Delivery O2 Flow Rate FiO2 08/29/16 20:39 84 20 146/70 97 Room Air 08/29/16 19:05 99.3 08/29/16 16:05 3.0 I&O Intake and Output 08/29/16 07:00 Intake Total 6550 ml Output Total 1100 ml Balance 5450 ml Intake Oral 0 ml IV Total 6100 ml Tube Feeding 250 ml Other 200 ml Output Urine Total 1100 ml # Bowel Movements 2 Labs: Laboratory Tests Test 08/29/16 06:05 08/29/16 07:12 08/29/16 11:11 08/29/16 15:58 White Blood Count 8.1x10^3/uL (4.0-11.0) Red Blood Count 3.63x10^6/uL (4.30-5.70) L Hemoglobin 11.6g/dL (13.0-17.5) L Hematocrit 34.3% (39.0-53.0) L Mean Corpuscular Volume 94fL (79-100) Mean Corpuscular Hemoglobin 32pg (25-35) Mean Corpuscular Hemoglobin Concent 34g/dL (31-37) Red Cell Distribution Width 13.6% (11.5-14.5) Platelet Count 96x10^3/uL (140-400) L Neutrophils (%) (Auto) 75% (31-73) H Lymphocytes (%) (Auto) 16% (24-48) L Monocytes (%) (Auto) 9% (0-9) Eosinophils (%) (Auto) 0% (0-3) Basophils (%) (Auto) 0% (0-3) Neutrophils # (Auto) 6.0x10^3uL (1.8-7.7) Lymphocytes # (Auto) 1.3x10^3/uL (1.0-4.8) Monocytes # (Auto) 0.7x10^3/uL (0.0-1.1) Eosinophils # (Auto) 0.0x10^3/uL (0.0-0.7) Basophils # (Auto) 0.0x10^3/uL (0.0-0.2) Sodium Level 146mmol/L (136-145) H Potassium Level 3.4mmol/L (3.5-5.1) L Chloride Level 114mmol/L (98-107) H Carbon Dioxide Level 25mmol/L (21-32) Anion Gap 7 (6-14) Blood Urea Nitrogen 14mg/dL (8-26) Creatinine 0.9mg/dL (0.7-1.3) Estimated GFR (Cockcroft-Gault) 86.4 BUN/Creatinine Ratio 16 (6-20) Glucose Level 105mg/dL (70-99) H Lactic Acid Level 1.4mmol/L (0.4-2.0) Calcium Level 7.4mg/dL (8.5-10.1) #L Magnesium Level 1.7mg/dL (1.8-2.4) L Total Bilirubin 0.7mg/dL (0.2-1.0) Aspartate Amino Transferase (AST) 29U/L (15-37) Alanine Aminotransferase (ALT) 41U/L (16-63) Alkaline Phosphatase 50U/L (46-116) Total Protein 5.5g/dL (6.4-8.2) L Albumin 2.3g/dL (3.4-5.0) L Albumin/Globulin Ratio 0.7 (1.0-1.7) L Glucose (Fingerstick) 84mg/dL (70-99) 59mg/dL (70-99) L 105mg/dL (70-99) H Test 08/29/16 18:52 08/29/16 20:54 Glucose (Fingerstick) 102mg/dL (70-99) H 141mg/dL (70-99) H Current Medications: Meds: Current Medications Sodium Chloride (Iv Sodium Chloride 0.9% 1,000ml) 1,000 ml @ As Directed STK- MED ONCE .ROUTE Last administered on 08/28/16t 12:34; Start 08/28/16 at 11:58; Stop 08/28/16 at 11:59; Status DC Naloxone HCl 0.4 mg 0.4 mg STK-MED ONCE .ROUTE Last administered on 08/28/16 12:34; Start 08/28/16 at 12:30; Stop 08/28/16 at 12:31; Status DC Sodium Chloride (Iv Sodium Chloride 0.9% 1,000ml) 1,000 ml @ 1,000 mls/hr 1X ONCE IV ; Start 08/28/16 at 13:15; Stop 08/28/16 at 14:14; Status DC Naloxone HCl 0.4 mg 0.4 mg PRN Q2MIN PRN IV SEE COMMENTS Last administered on 13:45; Start 08/28/16 at 12:45 Sodium Chloride 1,000 ml @ 1,000 mls/hr 1X ONCE IV ; Start 08/28/16 at 13:15; Stop 08/28/16 at 14:14; Status DC Sodium Chloride 2,190 ml @ 2,190 mls/hr Q1H IV Last administered on 08/28/16 18:13; Start 08/28/16 at 13:00; Stop 08/28/16 at 18:28; Status DC Sodium Chloride (Iv Sodium Chloride 0.9% 1,000ml) 1,000 ml @ 150 mls/hr Q6H40M IV Last administered on 08/29/16 12:47; Start 08/28/16 at 15:00; Stop at 13:10; Status DC Ondansetron HCl (Zofran) 4 mg PRN Q8HRS PRN IV NAUSEA/VOMITING; Start 08/28/16 at 13:00 Piperacillin Sod/ Tazobactam Sod (Zosyn Per Pharmacy) 1 each PRN DAILY PRN MC SEE COMMENTS; Start 08/28/16 at 13:15 Vancomycin HCl 1 each 1 each PRN DAILY PRN MC SEE COMMENTS Last administered on 08/28/16 15:35; Start 08/28/16 at 13:15 Piperacillin Sod/ Tazobactam Sod 4.5 gm/Sodium Chloride 50 ml @ 100 mls/hr Q6HRS IV ; Start 08/28/16 at 18:00; Stop 08/28/16 at 18:00; Status DC Vancomycin HCl 2 gm/Sodium Chloride 500 ml @ 250 mls/hr 1X ONCE IV Last administered on 08/28/16 13:38; Start 08/28/16 at 13:30; Stop 08/28/16 at 15:29 ; Status DC Piperacillin Sod/ Tazobactam Sod 4.5 gm/Sodium Chloride 50 ml @ 100 mls/hr Q6HRS IV Last administered on 08/29/16 18:20; Start 08/28/16 at 13:30 Sodium Chloride (Iv Sodium Chloride 0.9% 250ml) 250 ml @ As Directed STK-MED ONCE .ROUTE Last administered on 08/28/16 13:39; Start 08/28/16 at 13:29; Stop 08/28/16 at 13:30; Status DC Insulin Aspart (Novolog) 0-9 UNITS PRN Q4HRS PRN SQ hyperlycemia; Start at 13:45 Dextrose 12.5 gm PRN Q15MIN PRN IV SEE COMMENTS Last administered on 08/29/16 11:14; Start 08/28/16 at 13:45 Acetaminophen (Tylenol) 650 mg PRN Q4HRS PRN PEG PAIN / TEMP Last administered on 08/28/16 19:58; Start 08/28/16 at 15:15 Ergocalciferol (Vitamin D2) 50,000 unit QMONTH PEG ; Start 09/27/16 at 09:00 Escitalopram Oxalate (Lexapro) 10 mg QEVNG PEG Last administered on 08/29/16 18:20; Start 08/28/16 at 18:00 Insulin Aspart (Novolog) 4 units TIDBFRMEAL SQ Last administered on 08/28/16 16:51; Start 08/28/16 at 16:30 Insulin Detemir (Levemir) 40 units HS SQ Last administered on 08/28/16 20:52; Start 08/28/16 at 21:00; Stop 08/29/16 at 13:05; Status DC Levothyroxine Sodium (Synthroid) 25 mcg DAILY06 PO Last administered on 05:46; Start 08/29/16 at 06:00 Losartan Potassium (Cozaar) 25 mg DAILY PEG Last administered on 08/29/16 08: 08; Start 08/29/16 at 09:00; Stop 08/29/16 at 13:04; Status DC Famotidine (Pepcid) 20 mg BID PEG Last administered on 08/29/16 20:36; Start 08/28/16 at 21:00 Valproic Acid (Depakene) 650 mg BID PEG Last administered on 08/29/16 08:08; Start 08/28/16 at 21:00; Stop 08/29/16 at 13:09; Status DC Acetaminophen 650 mg 650 mg STK-MED ONCE .ROUTE Last administered on 08/28/16 14:51; Start 08/28/16 at 14:49; Stop 08/28/16 at 14:50; Status DC Vancomycin HCl 1 gm/Sodium Chloride 250 ml @ 250 mls/hr Q12H IV Last administered on 08/29/16 12:46; Start 08/29/16 at 01:30 Sodium Chloride (Iv Sodium Chloride 0.9% 250ml) 250 ml @ As Directed STK-MED ONCE .ROUTE ; Start 08/28/16 at 15:20; Stop 08/28/16 at 15:21; Status DC Vancomycin HCl 1 each 1X ONCE MC ; Start 08/30/16 at 01:00; Stop 08/30/16 at 01 :01; Status UNV Vancomycin HCl 1 each 1X ONCE MC Last administered on 08/28/16 16:00; Start 08/28/16 at 16:00; Stop 08/28/16 at 16:01; Status DC Vancomycin HCl 1 each 1X ONCE MC ; Start 08/30/16 at 01:00; Stop 08/30/16 at 01 :01 Insulin Detemir (Levemir) 25 units HS SQ ; Start 08/29/16 at 21:00 Valproic Acid 750 mg 750 mg BID PEG Last administered on 08/29/16 20:37; Start 08/29/16 at 21:00 Sodium Chloride (Iv Sodium Chloride 0.45%) 1,000 ml @ 75 mls/hr [id number] IV Last administered on 08/29/16 13:16; Start 08/29/16 at 13:40 Potassium Chloride (Klor-Con) 20 meq TID PO ; Start 08/29/16 at 14:00; Stop at 14:25; Status DC Potassium Chloride (KCl Oral Soln) 20 meq STK-MED ONCE .ROUTE ; Start 08/29/16 at 14:22; Stop 08/29/16 at 14:23; Status DC Potassium Chloride (KCl Oral Soln) 20 meq TID PEG Last administered on 20:36; Start 08/29/16 at 14:45 Risperidone (Risperdal) 0.25 mg HS PEG Last administered on 08/29/16 20:36; Start 08/29/16 at 21:00 Olanzapine (Zyprexa Zydis) 1.25 mg Q2HR PRN PO agitation Last administered on 18:20; Start 08/29/16 at 18:15; Stop 08/29/16 at 18:23; Status DC Olanzapine (Zyprexa Zydis) 1.25 mg PRN Q2HR PRN PO agitation; Start 08/29/16 at 18:22 Active Scripts Active Reported Analgesic [place] (Methyl Salicylate/Menthol) 29 Gm Oint...g. 29 Gm TP PRN QID PRN Milk Of Magnesia (Magnesium Hydroxide) 2,400 Mg/10 Ml Oral.susp 2,400 Mg PO PRN QHS PRN Adv Antacid-[place] Liquid (Mag Hydrox/Al Hydrox/Simeth) 355 Ml Oral.susp 15 Ml PEG PRN QHS PRN Levothyroxine Sodium 25 Mcg Tablet 1 Tab PO DAILY06 Vitamin D2 (Ergocalciferol (Vitamin D2)) 50,000 Unit Capsule 50,000 Unit PEG QMONTH Valproic Acid (Valproate Sodium) 250 Mg/5 Ml Disp.syrin 650 Mg PEG BID Escitalopram Oxalate 10 Mg Tablet 10 Mg PEG QEVNG Flomax (Tamsulosin Hcl) 0.4 Mg Cap.er.24h 0.4 Mg PEG Remeron (Mirtazapine) 15 Mg Tablet 15 Mg PEG HS Ondansetron Odt (Ondansetron) 4 Mg Tab.rapdis 4 Mg PEG PRN Q8HRS PRN Acetaminophen 325 Mg Tablet 650 Mg PEG PRN Q4HRS PRN Multi Vitamin Daily (Multivitamin) 1 Each Tablet 5 Ml PEG DAILY Zantac (Ranitidine Hcl) 150 Mg Tablet 150 Mg PEG BID Cozaar (Losartan Potassium) 25 Mg Tablet 25 Mg PEG DAILY Levemir Flextouch (Insulin Detemir) 100 Unit/1 Ml Insuln.pen 40 Unit SQ HS Novolog Flexpen (Insulin Aspart) 100 Unit/1 Ml Insuln.pen 4 Unit SQ TIDBFRMEAL Diagnosis: Problems: (1) Dementia with behavioral disturbance (2) Anxiety disorder (3) Dementia, vascular, with delusions (4) Dementia, vascular, with depression (5) Impulse control disorder VIANCA RODGERS MD Aug 29, 2016 20:58
[2016-08-29] MEDS ORDERED: risperiDONE ORAL 1 MG/ML 30ml BOTTLE. PEG SCH (21:00)
[2016-08-29] MEDS ORDERED: INSULIN DETEMIR 300 UNITS/3 ML INSULN.PEN. SQ SCH (21:00)
--- NOTE | 2016-08-29 21:27 | PN ---
DATE: 08/29/2016 SUBJECTIVE: The patient is sitting in his recliner, definitely more awake, alert, although somewhat confused. OBJECTIVE: GENERAL: On examining him, he looked pale, no jaundice, cyanosis, or thyromegaly. No jugular venous distention. No limb edema. VITAL SIGNS: His heart rate was 60, blood pressure was 96/49, temperature was 97.4, respiratory rate was 20 and oxygen saturation was 94% on room air. HEAD, EYES, EARS, NOSE AND THROAT: Normocephalic, atraumatic. NECK: Supple. HEART: Showed normal first and second heart sounds with no gallop, rub or murmur. CHEST: Clear to auscultation. No crepitation or rhonchi. ABDOMEN: Distended, soft, nontender. No guarding or rigidity. No organomegaly. Hernial orifices intact. Bowel sounds normal. NEUROLOGIC: He was definitely more awake, alert, responding at times appropriately. Cranial nerves intact. He continues to be mostly bedbound, chair bound. His intake over the last 24 hours was 6500, output was 1100. LABORATORY DATA: His lab work this morning showed a white cell count of 8100, hemoglobin 11.6, hematocrit 34.3, MCV 94 and platelet count of 96,000. Chemistry showed a serum sodium 146, potassium 3.4, chloride 114, anion gap of 7, BUN 14, creatinine 0.9, estimated GFR was 86 mL per minute. His glucose was 105. His lactic acid was down to 1.4 from 3.5. His calcium was 7.4. Magnesium was 1.7. Total bilirubin, AST, ALT, alkaline phosphatase were normal. Total protein was 5.5, albumin 2.3. His prothrombin time was 10.9, INR 1.1. Toxic screen showed that his valproic acid was low, 36. His blood cultures are so far negative. Urine culture is still pending at the time of this dictation. Did have a chest x-ray done yesterday, which basically showed that there is persistent left upper lobe nodule which is probably a granuloma comparison with the previous chest radiograph available and/or radiographic followup is suggested to confirm stability. CT scan would be reasonable alternative. No acute cardiopulmonary abnormalities detected. PLAN: My plan is to increase his valproic acid to 750 mg twice a day and discontinue his losartan as his blood pressure continued to be somewhat low ____ all the amount of fluid that we have given him. He has also hypernatremia and I will change his fluid to half normal saline. We will supplement his potassium by giving the potassium through his gastrostomy tube. We will repeat all his labs tomorrow. KAELA MEAD MD DR: FRANCISCA/pily JOB#: [id number] / [id number]
[2016-08-30] VITALS (9 sets, daily range): BP systolic 107–159; BP diastolic 57–84
[2016-08-30] MEDS: VANCOMYCIN 1 GM in IV NORMAL SALINE 250ML 250 ML IV SCH (01:16)
[2016-08-30 01:46] LABS: CALCIUM 7.9 mg/dL (8.5-10.1); CREATININE 0.7 mg/dL (0.7-1.3); GFR 115.4; POTASSIUM 3.3 mmol/L (3.5-5.1)
[2016-08-30 01:52] LABS: VANC TR 8.5 mcg/mL (10.0-20.0)
[2016-08-30] MEDS: IV 1/2 NORMAL SALINE 1,000 ML IV SCH (03:15)
[2016-08-30] MEDS: LEVOTHYROXINE 25 MCG TABLET. PO SCH (05:20)
[2016-08-30] MEDS: PIPERACILLIN/TAZOBACTAM 4.5 GM in IV NORMAL SALINE 50ML 50 ML IV SCH ×2 (05:20→12:00)
[2016-08-30] MEDS: DEXTROSE 50% 25 GM / 50ML DISP.SYRIN. IV PRN (05:57)
[2016-08-30 06:48] LABS: BASO % 0 % (0-3); EOS # 0.3 x10^3/uL (0.0-0.7); EOS % 4 % (0-3); HEMATOCRIT 36.4 % (39.0-53.0); HEMOGLOBIN 12.2 g/dL (13.0-17.5); LYMPH # 1.2 x10^3/uL (1.0-4.8); LYMPH % 14 % (24-48); MEAN CORPUSCULAR HEMOGLOBIN 32 pg (25-35); MEAN CORPUSCULAR HGB CONC 34 g/dL (31-37); MEAN CORPUSCULAR VOLUME 94 fL (79-100); MONO # 0.7 x10^3/uL (0.0-1.1); MONO % 8 % (0-9); NEUT # 6.4 x10^3uL (1.8-7.7); NEUT % 74 % (31-73); PLATELET COUNT 94 x10^3/uL (140-400); RED BLOOD COUNT 3.87 x10^6/uL (4.30-5.70); RED CELL DISTRIBUTION WIDTH 13.8 % (11.5-14.5); WHITE BLOOD COUNT 8.7 x10^3/uL (4.0-11.0)
[2016-08-30] MEDS: VANCOMYCIN PER PHARMACY MC PRN (07:53)
[2016-08-30] MEDS: POTASSIUM CHLORIDE 20 MEQ/15 ML ORAL LIQUID. PEG SCH (08:43)
[2016-08-30] MEDS: VALPROATE ACID 250 MG/5 ML ORAL SOLUTION PEG SCH (08:44)
[2016-08-30] MEDS: FAMOTIDINE 20 MG TABLET PEG SCH (08:44)
[2016-08-30] MEDS: INSULIN ASPART 300 UNITS/3 ML INSULN.PEN SQ SCH ×2 (09:07→12:12)
[2016-08-30] MEDS ORDERED: VANCOMYCIN 1 GM in IV NORMAL SALINE 250ML 250 ML IV SCH (10:00)
--- NOTE | 2016-08-30 11:24 | PN ---
DATE: SUBJECTIVE: The patient denies any new medical or neurological complains. The patient is awake, but disoriented and somewhat confused. Speech is still intelligible. He follows 1-step commands. Memory, judgment, and abstract thinking are impaired. OBJECTIVE: GENERAL: Well-developed, well-nourished white male, not in acute distress. VITAL SIGNS: Blood pressure 128/66, respiratory rate 20, pulse 72 and regular, temperature 97.8 and oxygen saturation 97% on room air. HEENT: Normocephalic, atraumatic, otherwise unremarkable. NECK: Supple. Negative for carotid bruit, lymphadenopathy or thyromegaly. LUNGS: Clear to A and P. CARDIOVASCULAR: Regular rate and rhythm, normal S1, S2. ABDOMEN: Soft. Bowel sounds positive. EXTREMITIES: Negative for cyanosis, clubbing or pitting edema. NEUROLOGICAL EXAMINATION: Mental Status: The patient is awake, but disoriented. Cranial nerves are grossly intact. The patient moves his upper and lower extremities equally. The strength is 4/5 throughout. Sensory examination revealed normal pinprick and light touch senses throughout. Deep tendon reflexes were symmetric and hypoactive without pathologic responses. Gait not tested. LABORATORY DATA: CBC revealed white blood cells of 8700, hemoglobin 12.2, hematocrit 36.4 and platelet count 94,000. Chemistry revealed sodium is 143, potassium 3.3, chloride 109, CO2 of 27, BUN 12, creatinine 0.7 and glucose ____ and calcium is 7.9. Valproic acid from 08/30/2016 is pending. IMPRESSION: 1. Acute encephalopathy. 2. Possible sepsis. 3. Multiple medical problems include stroke with mild left hemiparesis, GERD, history of seizure, depression, dementia, anxiety, diabetes mellitus and hypokalemia. RECOMMENDATION: Continue with current management initiated by Dr. Sullivan and correct the underlying metabolic derangement. M Fatoumata CHAPIN MD DR: SIMEON/pily JOB#: [id number] / [id number]
[2016-08-30] MEDS ORDERED: AMOX1TAB61 PO (12:54)
[2016-08-30] MEDS ORDERED: FAMO20TA5 PEG (13:33)
[2016-08-30] MEDS ORDERED: OLAN5TAB5 PO (13:36)
[2016-08-30] MEDS ORDERED: POTA20LI PEG (13:38)
[2016-08-30] MEDS ORDERED: RISP0.2519 PEG (13:41)
--- NOTE | 2016-08-30 18:02 | DS ---
DATE OF DISCHARGE: 08/30/2016 HOSPITAL COURSE: The patient is 61-year-old male patient who was transferred from [facility] on account of altered mental status as well as marked sepsis-induced hypotension. He was admitted to Intensive Care Unit and after obtaining appropriate blood and urine culture he was given large amount of IV fluid. His lactic acid was high at 3.5. His white cell count was also elevated and we started him empirically on IV Zosyn and vancomycin and he did actually very well. His level of consciousness improved. His lactic acid came back down to normal to 1.4. He has been afebrile. White cell count has normalized and his acute kidney injury resolved. His creatinine came down from 1.3 to 0.7 and his BUN came down from 22 down to 14 and he is back to his normal baseline. A decision was made to transfer him back to [facility] to continue with inpatient psychiatric stabilization. We did hold on admission some of his sedatives and antipsychotics ____ might be contributing to his impaired level of consciousness; however, he became very agitated, restless and we did put him back on Risperdal. We increased his valproic acid to 750 mg twice a day. PHYSICAL EXAMINATION: GENERAL: When I saw him today, he looked well and was clearly in no apparent respiratory distress, slightly pale, but no jaundice, cyanosis, or thyromegaly. No jugular venous distension. No lower limb edema. VITAL SIGNS: His heart rate was 66, blood pressure 125/57, temperature was 97.4, respiratory rate was 17 and oxygen saturation was 94%. HEAD, EYES, EARS, NOSE AND THROAT: Showed normocephalic, atraumatic. NECK: Supple. HEART: Showed normal first and second heart sounds with no gallop, rub or murmur. CHEST: Clear to auscultation. No crepitation or rhonchi. ABDOMEN: Distended, soft, nontender. No guarding or rigidity. No organomegaly. All hernial orifices intact. Bowel sounds normal. NEUROLOGIC: He is demented; however, he is definitely more awake and alert, responsive. All his cranial nerves are intact. He moves extremities without difficulty. His intake over the last 24 hours was 1200, output was 4550. LABORATORY DATA: As of this morning showed a white cell count of 8700, hemoglobin 12, hematocrit 36, MCV 94 and platelet count of 94,000. His chemistry showed a serum sodium of 143, potassium 3.3, chloride 109, bicarbonate 27, anion gap of 7, BUN 12, creatinine 0.7. Estimated GFR was 115 mL per minute. His glucose was 150. Calcium was 7.9. His blood cultures and urine culture all were negative. FINAL DISCHARGE DIAGNOSES: Sepsis with marked hypotension and lactic acidosis, resolved; acute kidney injury, resolved; toxic metabolic encephalopathy, resolved; type 2 diabetes and dysphagia, on tube feeding. KAELA MEAD MD DR: FRANCISCA/pily JOB#: [id number] / [id number]
--- NOTE | 2016-08-30 19:59 | PDOC ---
Exam Chauncey Demential Exam: Chauncey Note: Please also refer to the separate dictated note~for this date of service dictated separately.~Patient seen individually. Discussed the patient with Nursing staff reviewed the chart.~Reviewed interim history and current functioning. Reviewed vital signs,~Labs/ Radiology~and current medications noted below. Continue current treatment with the changes noted in the dictated addendum note Assessment: Vital Signs: Vital Signs Date Time Temp Pulse Resp B/P Pulse Ox O2 Delivery O2 Flow Rate FiO2 08/30/16 11:04 97.4 66 17 125/57 94 Room Air 08/29/16 23:59 3.0 I&O Intake and Output 08/30/16 07:00 Intake Total 1200 ml Output Total 4550 ml Balance -3350 ml Intake Oral 0 ml IV Total 600 ml Tube Feeding 500 ml Other 100 ml Output Urine Total 4550 ml # Bowel Movements 3 Labs: Laboratory Tests Test 08/29/16 20:54 08/29/16 23:00 08/30/16 01:15 08/30/16 02:25 Glucose (Fingerstick) 141mg/dL (70-99) H 153mg/dL (70-99) H 128mg/dL (70-99) H Sodium Level 143mmol/L (136-145) Potassium Level 3.3mmol/L (3.5-5.1) L Chloride Level 109mmol/L (98-107) H Carbon Dioxide Level 27mmol/L (21-32) Anion Gap 7 (6-14) Blood Urea Nitrogen 12mg/dL (8-26) Creatinine 0.7mg/dL (0.7-1.3) Estimated GFR (Cockcroft-Gault) 115.4 Glucose Level 150mg/dL (70-99) H Calcium Level 7.9mg/dL (8.5-10.1) L Vancomycin Level Trough 8.5mcg/mL (10.0-20.0) L Vancomycin Last Dose Date 08/29/2016 Vancomycin Last Dose Time 1330 Test 08/30/16 05:22 08/30/16 05:55 08/30/16 06:05 08/30/16 06:33 Glucose (Fingerstick) 83mg/dL (70-99) 101mg/dL (70-99) H 110mg/dL (70-99) H White Blood Count 8.7x10^3/uL (4.0-11.0) Red Blood Count 3.87x10^6/uL (4.30-5.70) L Hemoglobin 12.2g/dL (13.0-17.5) L Hematocrit 36.4% (39.0-53.0) L Mean Corpuscular Volume 94fL (79-100) Mean Corpuscular Hemoglobin 32pg (25-35) Mean Corpuscular Hemoglobin Concent 34g/dL (31-37) Red Cell Distribution Width 13.8% (11.5-14.5) Platelet Count 94x10^3/uL (140-400) L Neutrophils (%) (Auto) 74% (31-73) H Lymphocytes (%) (Auto) 14% (24-48) L Monocytes (%) (Auto) 8% (0-9) Eosinophils (%) (Auto) 4% (0-3) H Basophils (%) (Auto) 0% (0-3) Neutrophils # (Auto) 6.4x10^3uL (1.8-7.7) Lymphocytes # (Auto) 1.2x10^3/uL (1.0-4.8) Monocytes # (Auto) 0.7x10^3/uL (0.0-1.1) Eosinophils # (Auto) 0.3x10^3/uL (0.0-0.7) Basophils # (Auto) 0.0x10^3/uL (0.0-0.2) Magnesium Level 1.8mg/dL (1.8-2.4) Test 08/30/16 07:45 08/30/16 11:22 Glucose (Fingerstick) 94mg/dL (70-99) 178mg/dL (70-99) H Current Medications: Meds: Current Medications Sodium Chloride (Iv Sodium Chloride 0.9% 1,000ml) 1,000 ml @ As Directed STK- MED ONCE .ROUTE Last administered on 08/28/16 12:34; Start 08/28/16 at 11:58; Stop 08/28/16 at 11:59; Status DC Naloxone HCl 0.4 mg 0.4 mg STK-MED ONCE .ROUTE Last administered on 08/28/16 12:34; Start 08/28/16 at 12:30; Stop 08/28/16 at 12:31; Status DC Sodium Chloride (Iv Sodium Chloride 0.9% 1,000ml) 1,000 ml @ 1,000 mls/hr 1X ONCE IV ; Start 08/28/16 at 13:15; Stop 08/28/16 at 14:14; Status DC Naloxone HCl 0.4 mg 0.4 mg PRN Q2MIN PRN IV SEE COMMENTS Last administered on 13:45; Start 08/28/16 at 12:45 Sodium Chloride 1,000 ml @ 1,000 mls/hr 1X ONCE IV ; Start 08/28/16 at 13:15; Stop 08/28/16 at 14:14; Status DC Sodium Chloride 2,190 ml @ 2,190 mls/hr Q1H IV Last administered on 08/28/16 18:13; Start 08/28/16 at 13:00; Stop 08/28/16 at 18:28; Status DC Sodium Chloride (Iv Sodium Chloride 0.9% 1,000ml) 1,000 ml @ 150 mls/hr Q6H40M IV Last administered on 08/29/16 12:47; Start 08/28/16 at 15:00; Stop at 13:10; Status DC Ondansetron HCl (Zofran) 4 mg PRN Q8HRS PRN IV NAUSEA/VOMITING; Start 08/28/16 at 13:00 Piperacillin Sod/ Tazobactam Sod (Zosyn Per Pharmacy) 1 each PRN DAILY PRN MC SEE COMMENTS; Start 08/28/16 at 13:15 Vancomycin HCl 1 each 1 each PRN DAILY PRN MC SEE COMMENTS Last administered on 08/30/16 07:53; Start 08/28/16 at 13:15 Piperacillin Sod/ Tazobactam Sod 4.5 gm/Sodium Chloride 50 ml @ 100 mls/hr Q6HRS IV ; Start 08/28/16 at 18:00; Stop 08/28/16 at 18:00; Status DC Vancomycin HCl 2 gm/Sodium Chloride 500 ml @ 250 mls/hr 1X ONCE IV Last administered on 08/28/16 13:38; Start 08/28/16 at 13:30; Stop 08/28/16 at 15:29 ; Status DC Piperacillin Sod/ Tazobactam Sod 4.5 gm/Sodium Chloride 50 ml @ 100 mls/hr Q6HRS IV Last administered on 08/30/16 05:20; Start 08/28/16 at 13:30 Sodium Chloride (Iv Sodium Chloride 0.9% 250ml) 250 ml @ As Directed STK-MED ONCE .ROUTE Last administered on 08/28/16 13:39; Start 08/28/16 at 13:29; Stop 08/28/16 at 13:30; Status DC Insulin Aspart (Novolog) 0-9 UNITS PRN Q4HRS PRN SQ hyperlycemia; Start at 13:45 Dextrose 12.5 gm PRN Q15MIN PRN IV SEE COMMENTS Last administered on 08/30/16 05:57; Start 08/28/16 at 13:45 Acetaminophen (Tylenol) 650 mg PRN Q4HRS PRN PEG PAIN / TEMP Last administered on 08/28/16 19:58; Start 08/28/16 at 15:15 Ergocalciferol (Vitamin D2) 50,000 unit QMONTH PEG ; Start 09/27/16 at 09:00 Escitalopram Oxalate (Lexapro) 10 mg QEVNG PEG Last administered on 08/29/16 18:20; Start 08/28/16 at 18:00 Insulin Aspart (Novolog) 4 units TIDBFRMEAL SQ Last administered on 08/30/16 12:12; Start 08/28/16 at 16:30 Insulin Detemir (Levemir) 40 units HS SQ Last administered on 08/28/16 20:52; Start 08/28/16 at 21:00; Stop 08/29/16 at 13:05; Status DC Levothyroxine Sodium (Synthroid) 25 mcg DAILY06 PO Last administered on 05:20; Start 08/29/16 at 06:00 Losartan Potassium (Cozaar) 25 mg DAILY PEG Last administered on 08/29/16 08: 08; Start 08/29/16 at 09:00; Stop 08/29/16 at 13:04; Status DC Famotidine (Pepcid) 20 mg BID PEG Last administered on 08/30/16 08:44; Start 08/28/16 at 21:00 Valproic Acid (Depakene) 650 mg BID PEG Last administered on 08/29/16 08:08; Start 08/28/16 at 21:00; Stop 08/29/16 at 13:09; Status DC Acetaminophen 650 mg 650 mg STK-MED ONCE .ROUTE Last administered on 08/28/16 14:51; Start 08/28/16 at 14:49; Stop 08/28/16 at 14:50; Status DC Vancomycin HCl 1 gm/Sodium Chloride 250 ml @ 250 mls/hr Q12H IV Last administered on 08/30/16 01:16; Start 08/29/16 at 01:30; Stop 08/30/16 at 07:47 ; Status DC Sodium Chloride (Iv Sodium Chloride 0.9% 250ml) 250 ml @ As Directed STK-MED ONCE .ROUTE ; Start 08/28/16 at 15:20; Stop 08/28/16 at 15:21; Status DC Vancomycin HCl 1 each 1X ONCE MC ; Start 08/30/16 at 01:00; Stop 08/30/16 at 01 :01; Status UNV Vancomycin HCl 1 each 1X ONCE MC Last administered on 08/28/16 16:00; Start 08/28/16 at 16:00; Stop 08/28/16 at 16:01; Status DC Vancomycin HCl 1 each 1X ONCE MC ; Start 08/30/16 at 01:00; Stop 08/30/16 at 01 :02; Status DC Insulin Detemir (Levemir) 25 units HS SQ ; Start 08/29/16 at 21:00 Valproic Acid 750 mg 750 mg BID PEG Last administered on 08/30/16 08:44; Start 08/29/16 at 21:00 Sodium Chloride (Iv Sodium Chloride 0.45%) 1,000 ml @ 75 mls/hr [id number] IV Last administered on 08/30/16 03:15; Start 08/29/16 at 13:40 Potassium Chloride (Klor-Con) 20 meq TID PO ; Start 08/29/16 at 14:00; Stop at 14:25; Status DC Potassium Chloride (KCl Oral Soln) 20 meq STK-MED ONCE .ROUTE ; Start 08/29/16 at 14:22; Stop 08/29/16 at 14:23; Status DC Potassium Chloride (KCl Oral Soln) 20 meq TID PEG Last administered on 08:43; Start 08/29/16 at 14:45 Risperidone (Risperdal) 0.25 mg HS PEG Last administered on 08/29/16 20:36; Start 08/29/16 at 21:00 Olanzapine (Zyprexa Zydis) 1.25 mg Q2HR PRN PO agitation Last administered on 18:20; Start 08/29/16 at 18:15; Stop 08/29/16 at 18:23; Status DC Olanzapine 1.25 mg 1.25 mg PRN Q2HR PRN PO agitation; Start 08/29/16 at 18:22 Vancomycin HCl/ Sodium Chloride (Iv Sodium Chloride 0.9% 250ml) 250 ml @ 250 mls/hr Q8H IV Last administered on 08/30/16 10:39; Start 08/30/16 at 10:00 Vancomycin HCl 1 each 1X ONCE MC ; Start 08/31/16 at 09:30; Stop 08/31/16 at 09 :31 Active Scripts Active Augmentin 875-125 Tablet (Amoxicillin/Potassium Clav) 1 Each Tablet 1 Tab PO BID Reported Risperdal (Risperidone) 0.25 Mg Tablet 0.25 Mg PEG QHS Potassium Chloride Oral Liquid (Potassium Chloride) 20 Meq/15 Ml Liquid 20 Meq PEG DAILY Zyprexa Zydis (Olanzapine) 5 Mg Tab.rapdis 1.25 Mg PO PRN Q2HR PRN Famotidine 20 Mg Tablet 20 Mg PEG BID Levothyroxine Sodium 25 Mcg Tablet 25 Mcg PO DAILY06 Vitamin D2 (Ergocalciferol (Vitamin D2)) 50,000 Unit Capsule 50,000 Unit PEG QMONTH Valproic Acid (Valproate Sodium) 250 Mg/5 Ml Disp.syrin 750 Mg PEG BID Escitalopram Oxalate 10 Mg Tablet 10 Mg PEG QEVNG Acetaminophen 325 Mg Tablet 650 Mg PEG PRN Q4HRS PRN Levemir Flextouch (Insulin Detemir) 100 Unit/1 Ml Insuln.pen 25 Unit SQ HS Novolog Flexpen (Insulin Aspart) 100 Unit/1 Ml Insuln.pen 4 Unit SQ TIDBFRMEAL Diagnosis: Problems: (1) Dementia with behavioral disturbance (2) Sepsis associated hypotension (3) HCAP (healthcare-associated pneumonia) (4) Anxiety disorder (5) Dementia, vascular, with delusions (6) Dementia, vascular, with depression (7) Impulse control disorder VIANCA RODGERS MD Aug 30, 2016 19:59
--- NOTE | 2016-08-31 02:06 | PN ---
DATE: 08/29/2016 PSYCHIATRIC CONSULTATION/PSYCHIATRIC PROGRESS NOTE SUBJECTIVE: The patient is a 61-year-old male seen in ICU bed 5, as requested by Dr. Sullivan after the patient was [facility] to the ICU consequent to sepsis. The patient was initially referred to the [facility] for increased agitation, aggression, disruptive behaviors at the nursing facility. He was being psychiatrically stabilized in fact was doing better till deterioration in the transfer downstairs. I have been asked to consult and follow him from a psychiatric standpoint while he is in the ICU. Per nursing report, his psychotropics have been discontinued once he was transferred to ICU and he has been much more agitated, restless, disruptive, and anxious. REVIEW OF SYSTEMS: Ambulation impaired lying in bed. No CV, , Pulmonary, eye system symptoms on review difficult to understand him given his dementia. At times he seems cognitively more intact than at other times. MENTAL STATUS EXAM: Insight, judgment, recent memory is impaired. Language function, impaired. Mood and affect remains labile. LABORATORY DATA: Reviewed. IMPRESSION: Major depressive disorder with psychotic features; anxiety disorder, unspecified; major neurocognitive disorder, probably vascular with depression, delusions. Rest diagnosis unchanged. PLAN: From a psychiatric standpoint, we will start Zyprexa 1.25 mg q.2 hours p.r.n. psychosis, agitation, max 10 mg in 24 hours. Continue Risperdal 0.25 mg at bedtime, trazodone may not be needed for now. Once he is medically stable, we will consider whether he meets criteria to return back to the [facility]; otherwise, [facility]. MAN Theron RODGERS MD DR: VERENA/pily JOB#: [id number] / [id number]
[2016-09-27] MEDS ORDERED: ERGOCALCIFEROL (VITAMIN D2) 50,000 UNIT CAPSULE PEG SCH (09:00)
== END 2016-08-30 13:18 | DRG 871 ==
LOC: ICU 11:49
PROVIDERS: ADMIT Internal Medicine; ATTEND Internal Medicine
DX: A41.9 Sepsis, unspecified organism (principal); G92 Toxic encephalopathy; E87.0 Hyperosmolality and hypernatremia; F32.3 Major depressive disorder, single episode, severe with psychotic features; F01.51 Vascular dementia, unspecified severity, with behavioral disturbance; G81.94 Hemiplegia, unspecified affecting left nondominant side; N17.9 Acute kidney failure, unspecified; E87.2 Acidosis; E87.6 Hypokalemia; E78.5 Hyperlipidemia, unspecified; E11.9 Type 2 diabetes mellitus without complications; F41.9 Anxiety disorder, unspecified; G40.909 Epilepsy, unspecified, not intractable, without status epilepticus; K21.9 Gastro-esophageal reflux disease without esophagitis; N40.0 Benign prostatic hyperplasia without lower urinary tract symptoms; Z86.73 Personal history of transient ischemic attack (TIA), and cerebral infarction without residual deficits; R13.10 Dysphagia, unspecified; Z93.1 Gastrostomy status
CPT/HCPCS: 36415; 80048; 80053; 80164; 80202; 82140; 82947; 83605; 83615; 83735; 85007; 85027; 85610; 87040; 87086; 87641; J1815; J2310; J2543; J3370; J7030; J7040; J7050

== ENCOUNTER 2016-08-30 13:19 | Inpatient (IN) | payer MEDICARE, MEDICAID ==
[~2016-08-30] VITALS: Ht 177.8 cm; Wt 73.5 kg
[~2016-08-30 13:19] MED LIST changes: +AMOX1TAB61 PO
[2016-08-30] MEDS ORDERED: FAMO20TA5 PEG (13:33)
[2016-08-30] MEDS ORDERED: OLAN5TAB5 PO (13:36)
[2016-08-30] MEDS ORDERED: POTA20LI PEG (13:38)
[2016-08-30] MEDS ORDERED: RISP0.2519 PEG (13:41)
[2016-08-30] MEDS ORDERED: ACETAMINOPHEN 325 MG TABLET PO PRN (15:15)
[2016-08-30] MEDS ORDERED: OLANZAPINE ZYDIS 5 MG TAB.RAPDIS PO PRN (15:15)
[2016-08-30 15:50] VITALS: BP 151/71
[2016-08-30] MEDS: INSULIN ASPART 300 UNITS/3 ML INSULN.PEN SQ SCH (17:07)
[2016-08-30] MEDS: ESCITALOPRAM 10 MG TABLET. PEG SCH (17:36)
--- NOTE | 2016-08-30 20:02 | PDOC ---
Exam Chauncey Demential Exam: Chauncey Note: Please also refer to the separate dictated note~for this date of service dictated separately.~Patient seen individually. Discussed the patient with Nursing staff reviewed the chart.~Reviewed interim history and current functioning. Reviewed vital signs,~Labs/ Radiology~and current medications noted below. Continue current treatment with the changes noted in the dictated addendum note Assessment: Vital Signs: Vital Signs Date Time Temp Pulse Resp B/P Pulse Ox O2 Delivery O2 Flow Rate FiO2 08/30/16 15:50 97.0 66 16 151/71 97 Labs: Laboratory Tests Test 08/30/16 17:00 08/30/16 19:15 Glucose (Fingerstick) 177mg/dL (70-99) H 189mg/dL (70-99) H Current Medications: Meds: Current Medications Acetaminophen (Tylenol) 650 mg PRN Q4HRS PRN PO PAIN / TEMP; Start 08/30/16 at 15:15 Amoxicillin/ Clavulanate Potassium (Augmentin 875/ 125mg) 1 tab BID PO ; Start 08/30/16 at 21:00 Ergocalciferol (Vitamin D2) 50,000 unit QMONTH PEG ; Start 09/29/16 at 09:00 Escitalopram Oxalate (Lexapro) 10 mg QEVNG PEG Last administered on 08/30/16t 17:36; Start 08/30/16 at 18:00 Famotidine (Pepcid) 20 mg BID PEG ; Start 08/30/16 at 21:00 Insulin Aspart (Novolog) 4 units TIDBFRMEAL SQ Last administered on 08/30/16t 17:07; Start 08/30/16 at 16:30 Insulin Detemir (Levemir) 25 units HS SQ ; Start 08/30/16 at 21:00 Levothyroxine Sodium (Synthroid) 25 mcg DAILY06 PO ; Start 08/31/16 at 06:00 Olanzapine (Zyprexa Zydis) 1.25 mg PRN Q2HR PRN PO ANXIETY / AGITATION; Start 08/30/16 at 15:15 Potassium Chloride (KCl Oral Soln) 20 meq DAILY PEG ; Start 08/31/16 at 09:00 Risperidone (Risperdal) 0.25 mg QHS PEG ; Start 08/30/16 at 21:00 Valproic Acid (Depakene) 750 mg BID PEG ; Start 08/30/16 at 21:00 Active Scripts Active Augmentin 875-125 Tablet (Amoxicillin/Potassium Clav) 1 Each Tablet 1 Tab PO BID Reported Risperdal (Risperidone) 0.25 Mg Tablet 0.25 Mg PEG QHS Potassium Chloride Oral Liquid (Potassium Chloride) 20 Meq/15 Ml Liquid 20 Meq PEG DAILY Zyprexa Zydis (Olanzapine) 5 Mg Tab.rapdis 1.25 Mg PO PRN Q2HR PRN Famotidine 20 Mg Tablet 20 Mg PEG BID Levothyroxine Sodium 25 Mcg Tablet 25 Mcg PO DAILY06 Vitamin D2 (Ergocalciferol (Vitamin D2)) 50,000 Unit Capsule 50,000 Unit PEG QMONTH Valproic Acid (Valproate Sodium) 250 Mg/5 Ml Disp.syrin 750 Mg PEG BID Escitalopram Oxalate 10 Mg Tablet 10 Mg PEG QEVNG Acetaminophen 325 Mg Tablet 650 Mg PEG PRN Q4HRS PRN Levemir Flextouch (Insulin Detemir) 100 Unit/1 Ml Insuln.pen 25 Unit SQ HS Novolog Flexpen (Insulin Aspart) 100 Unit/1 Ml Insuln.pen 4 Unit SQ TIDBFRMEAL Diagnosis: Problems: (1) Dementia with behavioral disturbance (2) Sepsis associated hypotension (3) HCAP (healthcare-associated pneumonia) (4) Anxiety disorder (5) Dementia, vascular, with delusions (6) Dementia, vascular, with depression (7) Impulse control disorder VIANCA RODGERS MD Aug 30, 2016 20:02
[2016-08-30] MEDS: risperiDONE 0.25 MG TABLET. PEG SCH (20:56)
[2016-08-30] MEDS: FAMOTIDINE 20 MG TABLET PEG SCH (20:56)
[2016-08-30] MEDS: AMOXICILLIN/K CLAV 875/125MG TABLET. PO SCH (20:56)
[2016-08-30] MEDS: VALPROATE ACID 250 MG/5 ML ORAL SOLUTION PEG SCH (20:56)
[2016-08-30] MEDS: INSULIN DETEMIR 300 UNITS/3 ML INSULN.PEN. SQ SCH (21:00)
[2016-08-31 06:28] VITALS: BP 121/69
[2016-08-31] MEDS: INSULIN ASPART 300 UNITS/3 ML INSULN.PEN SQ SCH ×3 (07:30→17:43)
[2016-08-31] MEDS: FAMOTIDINE 20 MG TABLET PEG SCH ×2 (07:34→21:26)
[2016-08-31] MEDS: AMOXICILLIN/K CLAV 875/125MG TABLET. PO SCH ×2 (07:34→21:26)
[2016-08-31] MEDS: VALPROATE ACID 250 MG/5 ML ORAL SOLUTION PEG SCH ×2 (07:35→21:25)
[2016-08-31] MEDS: POTASSIUM CHLORIDE 20 MEQ/15 ML ORAL LIQUID. PEG SCH (07:39)
[2016-08-31] MEDS: LEVOTHYROXINE 25 MCG TABLET. PO SCH (07:39)
[2016-08-31 15:48] VITALS: BP 128/74
[2016-08-31] MEDS: ESCITALOPRAM 10 MG TABLET. PEG SCH (17:41)
[2016-08-31] MEDS: INSULIN DETEMIR 300 UNITS/3 ML INSULN.PEN. SQ SCH (20:39)
[2016-08-31] MEDS: risperiDONE 0.25 MG TABLET. PEG SCH (21:26)
--- NOTE | 2016-08-31 22:00 | PDOC ---
Exam Chauncey Demential Exam: Chauncey Note: Please also refer to the separate dictated note~for this date of service dictated separately.~Patient seen individually. Discussed the patient with Nursing staff reviewed the chart.~Reviewed interim history and current functioning. Reviewed vital signs,~Labs/ Radiology~and current medications noted below. Continue current treatment with the changes noted in the dictated addendum note Assessment: Vital Signs: Vital Signs Date Time Temp Pulse Resp B/P Pulse Ox O2 Delivery O2 Flow Rate FiO2 08/31/16 15:48 97.3 70 16 128/74 97 Room Air Labs: Laboratory Tests Test 08/31/16 07:26 08/31/16 11:46 08/31/16 17:11 08/31/16 19:51 Glucose (Fingerstick) 48mg/dL (70-99) L 161mg/dL (70-99) H 183mg/dL (70-99) H 211mg/dL (70-99) H Current Medications: Meds: Current Medications Acetaminophen (Tylenol) 650 mg PRN Q4HRS PRN PO PAIN / TEMP; Start 08/30/16 at 15:15 Amoxicillin/ Clavulanate Potassium (Augmentin 875/ 125mg) 1 tab BID PO Last administered on 08/31/16 21:26; Start 08/30/16 at 21:00 Ergocalciferol (Vitamin D2) 50,000 unit QMONTH PEG ; Start 09/29/16 at 09:00 Escitalopram Oxalate (Lexapro) 10 mg QEVNG PEG Last administered on 08/31/16 17:41; Start 08/30/16 at 18:00 Famotidine (Pepcid) 20 mg BID PEG Last administered on 08/31/16 21:26; Start 08/30/16 at 21:00 Insulin Aspart (Novolog) 4 units TIDBFRMEAL SQ Last administered on 08/31/16 17:43; Start 08/30/16 at 16:30 Insulin Detemir (Levemir) 25 units HS SQ Last administered on 08/31/16 20:39; Start 08/30/16 at 21:00 Levothyroxine Sodium (Synthroid) 25 mcg DAILY06 PO Last administered on 07:39; Start 08/31/16 at 06:00 Olanzapine (Zyprexa Zydis) 1.25 mg PRN Q2HR PRN PO ANXIETY / AGITATION; Start 08/30/16 at 15:15 Potassium Chloride (KCl Oral Soln) 20 meq DAILY PEG Last administered on 07:39; Start 08/31/16 at 09:00 Risperidone (Risperdal) 0.25 mg QHS PEG Last administered on 08/31/16 21:26; Start 08/30/16 at 21:00 Valproic Acid (Depakene) 750 mg BID PEG Last administered on 08/31/16 21:25; Start 08/30/16 at 21:00 Active Scripts Active Augmentin 875-125 Tablet (Amoxicillin/Potassium Clav) 1 Each Tablet 1 Tab PO BID Reported Risperdal (Risperidone) 0.25 Mg Tablet 0.25 Mg PEG QHS Potassium Chloride Oral Liquid (Potassium Chloride) 20 Meq/15 Ml Liquid 20 Meq PEG DAILY Zyprexa Zydis (Olanzapine) 5 Mg Tab.rapdis 1.25 Mg PO PRN Q2HR PRN Famotidine 20 Mg Tablet 20 Mg PEG BID Levothyroxine Sodium 25 Mcg Tablet 25 Mcg PO DAILY06 Vitamin D2 (Ergocalciferol (Vitamin D2)) 50,000 Unit Capsule 50,000 Unit PEG QMONTH Valproic Acid (Valproate Sodium) 250 Mg/5 Ml Disp.syrin 750 Mg PEG BID Escitalopram Oxalate 10 Mg Tablet 10 Mg PEG QEVNG Acetaminophen 325 Mg Tablet 650 Mg PEG PRN Q4HRS PRN Levemir Flextouch (Insulin Detemir) 100 Unit/1 Ml Insuln.pen 25 Unit SQ HS Novolog Flexpen (Insulin Aspart) 100 Unit/1 Ml Insuln.pen 4 Unit SQ TIDBFRMEAL Diagnosis: Problems: (1) Impulse control disorder (2) Dementia, vascular, with depression (3) Dementia, vascular, with delusions (4) Anxiety disorder (5) HCAP (healthcare-associated pneumonia) (6) Dementia with behavioral disturbance (7) Sepsis associated hypotension VIANCA RODGERS MD Aug 31, 2016 22:00
--- NOTE | 2016-08-31 23:25 | HP ---
ADMIT DATE: 08/30/2016 PSYCHIATRIC ADMISSION HISTORY/EVALUATION IDENTIFYING DATA: The patient is a 61-year-old male who returns back to us after he was medically stabilized in the ICU because he was tachycardic, hypotensive, unresponsive. Given his past CVA and sepsis consequent to hypotension and tachycardia, it was felt by Dr. Sullivan that he would be best stabilized in the ICU. He has been medically stabilized, but continues to be quite labile in his mood intermittently psychotic, agitated and returns back to us for further psychiatric stabilization. The lactic acid which was elevated has returned back to normal. CHIEF COMPLAINT: "I'm okay." She is very difficult to understand the patient because speech is low consequent to a CVA. He is in a Broda chair. HISTORY OF PRESENT ILLNESS: The patient normally resides at [facility] this is in [place], [place]. Symptoms prompting his initial admission to [facility] were physical aggression towards other residents, pushing, and targeting the female patients. He was also noted to be depressed, confused with memory deficits, status post CVA, referred for inpatient psychiatric stabilization. During that admission, he was treated and stabilized on a combination of Depakene, trazodone, Remeron, Risperdal, Lexapro along with Ativan p.r.n. He developed sepsis as noted resulting in the transfer and now back again with us. No clear symptoms of bipolar disorder, suicidal, or homicidal ideation. PAST PSYCHIATRIC HISTORY: As above. MEDICAL HISTORY: Status post sepsis, dehydration, G-tube placement in 2017, status post cerebrovascular accident, hypertension, seizure disorder, hyperlipidemia, diabetes mellitus, GERD, no teeth, chronic constipation, vitamin D deficiency, dysphagia, edema, seizures, insomnia, and history of alcohol abuse. FAMILY HISTORY: Noncontributory. SOCIAL HISTORY: Alcohol abuse noted above. No physical, sexual, or elder abuse noted. He has been physically aggressive as noted. MENTAL STATUS EXAMINATION: The patient was seen individually evening of 08/30/2016. He is oriented to himself and at times to situation. Speech low in rate and rhythm, low in volume, often responses monosyllabic. Insight, judgment, recent memory is impaired. Language function is somewhat impaired, status post CVA. No active suicidal or homicidal ideation. Attention span short. LABORATORY DATA: Reviewed. IMPRESSION: Major depressive disorder with psychotic features in partial remission: Major neurocognitive disorder, vascular with delusion, depression, behavioral disturbance; anxiety disorder, unspecified; impulse control disorder, unspecified. VITAL SIGNS: Temperature 97, pulse 66, BP 151/71. TREATMENT PLAN: Admit to the geropsychiatry unit at . I will see the patient daily individually from a psychiatric standpoint, followed medically per Dr. Martins/Dr. Sullivan. Continue current psychotropics. Make further adjustments as clinically indicated. MAN Theron RODGERS MD DR: VERENA/pily JOB#: [id number] / [id number]
[2016-09-01] MEDS: LEVOTHYROXINE 25 MCG TABLET. PO SCH (05:07)
[2016-09-01 06:11] VITALS: BP 121/73
[2016-09-01] MEDS: INSULIN ASPART 300 UNITS/3 ML INSULN.PEN SQ SCH ×3 (07:30→17:24)
[2016-09-01 07:42] LABS: ALBUMIN 2.6 g/dL (3.4-5.0); ALBUMIN/GLOBULIN RATIO 0.6 (1.0-1.7); CALCIUM 8.8 mg/dL (8.5-10.1); CREATININE 0.6 mg/dL (0.7-1.3); GFR 137.9; POTASSIUM 3.5 mmol/L (3.5-5.1); TOTAL BILIRUBIN 0.4 mg/dL (0.2-1.0); TOTAL PROTEIN 6.7 g/dL (6.4-8.2)
[2016-09-01 07:45] LABS: BASO % 1 % (0-3); EOS # 0.4 x10^3/uL (0.0-0.7); EOS % 6 % (0-3); HEMATOCRIT 39.3 % (39.0-53.0); HEMOGLOBIN 13.2 g/dL (13.0-17.5); LYMPH # 1.6 x10^3/uL (1.0-4.8); LYMPH % 25 % (24-48); MEAN CORPUSCULAR HEMOGLOBIN 31 pg (25-35); MEAN CORPUSCULAR HGB CONC 34 g/dL (31-37); MEAN CORPUSCULAR VOLUME 93 fL (79-100); MONO # 0.6 x10^3/uL (0.0-1.1); MONO % 10 % (0-9); NEUT # 3.7 x10^3uL (1.8-7.7); NEUT % 59 % (31-73); PLATELET COUNT 132 x10^3/uL (140-400); RED BLOOD COUNT 4.25 x10^6/uL (4.30-5.70); RED CELL DISTRIBUTION WIDTH 13.3 % (11.5-14.5); WHITE BLOOD COUNT 6.3 x10^3/uL (4.0-11.0)
[2016-09-01] MEDS: POTASSIUM CHLORIDE 20 MEQ/15 ML ORAL LIQUID. PEG SCH (07:47)
[2016-09-01] MEDS: FAMOTIDINE 20 MG TABLET PEG SCH ×2 (07:48→20:26)
[2016-09-01] MEDS: AMOXICILLIN/K CLAV 875/125MG TABLET. PO SCH ×2 (07:48→20:26)
[2016-09-01] MEDS: VALPROATE ACID 250 MG/5 ML ORAL SOLUTION PEG SCH ×2 (07:48→20:25)
--- NOTE | 2016-09-01 10:21 | CONS ---
DATE OF CONSULTATION: 08/31/2016 REASON FOR CONSULTATION: Medical management. HISTORY OF PRESENT ILLNESS: This is a 61-year-old male patient, who was transferred to ICU as he was unresponsive, hypotensive and he was septic with markedly elevated white cell count and lactic acidosis. He was treated with IV fluids aggressively and was also started empirically on IV antibiotic for possible healthcare-associated pneumonia. He did actually very well. His level of consciousness improved and his blood pressure normalized as well as his lactic acid and white count. All his cultures including blood and urine were all negative and as he became stable hemodynamically, afebrile with a normal white cell count a decision was made to transfer him back to [facility] to continue with the inpatient psychiatric stabilization as he was originally admitted from [facility] on the account of increasing aggression towards other residents, he reportedly he singled out female resident, he has been pushing, aggressive, disruptive, potentially dangerous, having failed outpatient psychiatric stabilization and was referred for inpatient psychiatric stabilization with impulse control disorder, intermittent explosive disorder within the context of his vascular dementia, status post CVA, depression, and delusion. PAST MEDICAL HISTORY: Significant for hyperlipidemia, type 2 diabetes, cerebrovascular accident, gastroesophageal reflux disease, seizure disorder, and benign prostatic hypertrophy. PAST SURGICAL HISTORY: Significant for percutaneous endoscopic gastrostomy tube placement. FAMILY HISTORY: Unremarkable. SOCIAL HISTORY: He is a snf resident. He does not smoke, drink alcohol or use any recreational drugs. REVIEW OF SYSTEMS: Unobtainable. ALLERGIES: He has no known drug allergies. MEDICATIONS: He is currently on acetaminophen 650 mg every 4 hours as needed, Augmentin 875 mg twice a day for 7 more days, vitamin D 50,000 units per feeding tube once a month, escitalopram oxalate 10 mg per feeding tube once a day, famotidine 20 mg twice a day, NovoLog Flexpen 4 units before meals and Levemir insulin 25 units at bedtime, levothyroxine 25 mcg once a day, olanzapine 1.25 mg every 2 hours, potassium chloride 20 mEq once a day, risperidone 0.25 mg feeding tube at bedtime, and valproic acid 750 mg per feeding tube b.i.d. PHYSICAL EXAMINATION: GENERAL: On examining him today, he looked well and was clearly in no apparent distress. He is in his chair, pale, but no jaundice, cyanosis or thyromegaly. No jugular venous distension. No limb edema. VITAL SIGNS: His heart rate was 70, blood pressure 128/74, temperature was 97.3, respiratory rate was 16, and oxygen saturation was 97% on room air. HEAD, EYES, EARS, NOSE, AND THROAT: Showed normocephalic, atraumatic. NECK: Supple. HEART: Showed normal first and second heart sounds with no gallop, rub or murmur. CHEST: Clear to auscultation. No crepitation or rhonchi. ABDOMEN: Distended, soft with gastrostomy tube in place. No guarding or rigidity. No organomegaly. All hernial orifices are intact. Bowel sounds are normal. NEUROLOGIC: He was demented. He is status post CVA and dysphagia. LABORATORY DATA: He has no lab work done today. ASSESSMENT AND PLAN: In summary, this is a 61-year-old male patient with multiple medical problems, who was admitted to our ICU with sepsis, marked hypotension, leukocytosis and lactic acidosis. He was treated aggressively with IV fluid and they started empirically on antibiotic in the form of Zosyn and vancomycin. He stabilized hemodynamically. His lactic acid has normalized as well as white cell count, although all his cultures remained negative so far and therefore, a decision was made to transfer him back to continue treatment with oral Augmentin 875 mg twice a day for 7 more days. Meanwhile, we will continue to monitor his blood sugar, continue nutritional support and obviously follow him closely medically. Thank you, Dr. Luu for allowing me to participate in the care of this patient. KAELA MEAD MD DR: FRANCISCA/pily JOB#: [id number] / [id number]
[2016-09-01 16:08] VITALS: BP 117/67
[2016-09-01] MEDS: ESCITALOPRAM 10 MG TABLET. PEG SCH (17:24)
--- NOTE | 2016-09-01 20:13 | PN ---
DATE: 08/31/2016 PSYCHIATRIC PROGRESS NOTE This is late entry of 08/31/2016, covers elements not covered in my initial note. SUBJECTIVE: The patient slept 3 hours previous night, remains somewhat withdrawn, otherwise calm, mostly nonverbal. REVIEW OF SYSTEMS: Ambulation impaired, in a Broda chair. No CV, , pulmonary, eye system symptoms on review. Reliability poor. MENTAL STATUS EXAMINATION: Oriented to himself. Speech, low in rate and rhythm, low in volume, difficult to understand. Insight, judgment, recent memory is impaired. Language function is intact. Mood and affect remains withdrawn. LABORATORY DATA: Reviewed. IMPRESSION: Unchanged from initial note. PLAN: Continue Lexapro 10 mg a day, Risperdal 0.25 mg at bedtime, Depakene 750 b.i.d., start Remeron 7.5 mg at bedtime. Adjust further as clinically indicated. VIANCA RODGERS MD DR: VERENA/pily JOB#: [id number] / [id number]
[2016-09-01] MEDS: risperiDONE 0.25 MG TABLET. PEG SCH (20:25)
[2016-09-01] MEDS: MIRTAZAPINE 7.5 MG TABLET. PO SCH (20:27)
[2016-09-01] MEDS: INSULIN DETEMIR 300 UNITS/3 ML INSULN.PEN. SQ SCH (20:38)
--- NOTE | 2016-09-01 21:20 | PDOC ---
Exam Chauncey Demential Exam: Chauncey Note: Please also refer to the separate dictated note~for this date of service dictated separately.~Patient seen individually. Discussed the patient with Nursing staff reviewed the chart.~Reviewed interim history and current functioning. Reviewed vital signs,~Labs/ Radiology~and current medications noted below. Continue current treatment with the changes noted in the dictated addendum note Assessment: Vital Signs: Vital Signs Date Time Temp Pulse Resp B/P Pulse Ox O2 Delivery O2 Flow Rate FiO2 09/01/16 16:08 97.8 64 17 117/67 97 09/01/16 06:11 Room Air I&O Intake and Output 09/01/16 07:00 Intake Total 2190 ml Balance 2190 ml Intake Oral 1500 ml Tube Feeding 690 ml # Bowel Movements 1 Labs: Laboratory Tests Test 09/01/16 07:20 09/01/16 07:25 09/01/16 08:22 09/01/16 11:21 White Blood Count 6.3x10^3/uL (4.0-11.0) Red Blood Count 4.25x10^6/uL (4.30-5.70) L Hemoglobin 13.2g/dL (13.0-17.5) Hematocrit 39.3% (39.0-53.0) Mean Corpuscular Volume 93fL (79-100) Mean Corpuscular Hemoglobin 31pg (25-35) Mean Corpuscular Hemoglobin Concent 34g/dL (31-37) Red Cell Distribution Width 13.3% (11.5-14.5) Platelet Count 132x10^3/uL (140-400) L Neutrophils (%) (Auto) 59% (31-73) Lymphocytes (%) (Auto) 25% (24-48) Monocytes (%) (Auto) 10% (0-9) H Eosinophils (%) (Auto) 6% (0-3) H Basophils (%) (Auto) 1% (0-3) Neutrophils # (Auto) 3.7x10^3uL (1.8-7.7) Lymphocytes # (Auto) 1.6x10^3/uL (1.0-4.8) Monocytes # (Auto) 0.6x10^3/uL (0.0-1.1) Eosinophils # (Auto) 0.4x10^3/uL (0.0-0.7) Basophils # (Auto) 0.0x10^3/uL (0.0-0.2) Sodium Level 142mmol/L (136-145) Potassium Level 3.5mmol/L (3.5-5.1) Chloride Level 105mmol/L (98-107) Carbon Dioxide Level 29mmol/L (21-32) Anion Gap 8 (6-14) Blood Urea Nitrogen 11mg/dL (8-26) Creatinine 0.6mg/dL (0.7-1.3) L Estimated GFR (Cockcroft-Gault) 137.9 BUN/Creatinine Ratio 18 (6-20) Glucose Level 64mg/dL (70-99) L Calcium Level 8.8mg/dL (8.5-10.1) Total Bilirubin 0.4mg/dL (0.2-1.0) Aspartate Amino Transferase (AST) 25U/L (15-37) Alanine Aminotransferase (ALT) 40U/L (16-63) Alkaline Phosphatase 74U/L (46-116) Total Protein 6.7g/dL (6.4-8.2) Albumin 2.6g/dL (3.4-5.0) L Albumin/Globulin Ratio 0.6 (1.0-1.7) L Glucose (Fingerstick) 58mg/dL (70-99) L 67mg/dL (70-99) L 146mg/dL (70-99) H Test 09/01/16 16:24 09/01/16 19:16 Glucose (Fingerstick) 138mg/dL (70-99) H 173mg/dL (70-99) H Current Medications: Meds: Current Medications Acetaminophen (Tylenol) 650 mg PRN Q4HRS PRN PO PAIN / TEMP; Start 08/30/16 at 15:15 Amoxicillin/ Clavulanate Potassium (Augmentin 875/ 125mg) 1 tab BID PO Last administered on 09/01/16t 20:26; Start 08/30/16 at 21:00 Ergocalciferol (Vitamin D2) 50,000 unit QMONTH PEG ; Start 09/29/16 at 09:00 Escitalopram Oxalate (Lexapro) 10 mg QEVNG PEG Last administered on 09/01/16t 17:24; Start 08/30/16 at 18:00 Famotidine (Pepcid) 20 mg BID PEG Last administered on 09/01/16 20:26; Start 08/30/16 at 21:00 Insulin Aspart (Novolog) 4 units TIDBFRMEAL SQ Last administered on 09/01/16 17:24; Start 08/30/16 at 16:30 Insulin Detemir (Levemir) 25 units HS SQ Last administered on 08/31/16 20:39; Start 08/30/16 at 21:00; Stop 09/01/16 at 14:23; Status DC Levothyroxine Sodium (Synthroid) 25 mcg DAILY06 PO Last administered on 05:07; Start 08/31/16 at 06:00 Olanzapine (Zyprexa Zydis) 1.25 mg PRN Q2HR PRN PO ANXIETY / AGITATION; Start 08/30/16 at 15:15 Potassium Chloride (KCl Oral Soln) 20 meq DAILY PEG Last administered on 07:47; Start 08/31/16 at 09:00 Risperidone (Risperdal) 0.25 mg QHS PEG Last administered on 09/01/16 20:25; Start 08/30/16 at 21:00 Valproic Acid (Depakene) 750 mg BID PEG Last administered on 09/01/16 20:25; Start 08/30/16 at 21:00 Mirtazapine (Remeron) 7.5 mg QHS PO Last administered on 09/01/16 20:27; Start 09/01/16 at 21:00 Insulin Detemir (Levemir) 18 units HS SQ Last administered on 09/01/16 20:38; Start 09/01/16 at 21:00 Active Scripts Active Augmentin 875-125 Tablet (Amoxicillin/Potassium Clav) 1 Each Tablet 1 Tab PO BID Reported Risperdal (Risperidone) 0.25 Mg Tablet 0.25 Mg PEG QHS Potassium Chloride Oral Liquid (Potassium Chloride) 20 Meq/15 Ml Liquid 20 Meq PEG DAILY Zyprexa Zydis (Olanzapine) 5 Mg Tab.rapdis 1.25 Mg PO PRN Q2HR PRN Famotidine 20 Mg Tablet 20 Mg PEG BID Levothyroxine Sodium 25 Mcg Tablet 25 Mcg PO DAILY06 Vitamin D2 (Ergocalciferol (Vitamin D2)) 50,000 Unit Capsule 50,000 Unit PEG QMONTH Valproic Acid (Valproate Sodium) 250 Mg/5 Ml Disp.syrin 750 Mg PEG BID Escitalopram Oxalate 10 Mg Tablet 10 Mg PEG QEVNG Acetaminophen 325 Mg Tablet 650 Mg PEG PRN Q4HRS PRN Levemir Flextouch (Insulin Detemir) 100 Unit/1 Ml Insuln.pen 25 Unit SQ HS Novolog Flexpen (Insulin Aspart) 100 Unit/1 Ml Insuln.pen 4 Unit SQ TIDBFRMEAL Diagnosis: Problems: (1) Sepsis associated hypotension (2) Dementia with behavioral disturbance (3) HCAP (healthcare-associated pneumonia) (4) Anxiety disorder (5) Dementia, vascular, with delusions (6) Dementia, vascular, with depression (7) Impulse control disorder VIANCA RODGERS MD Sep 01, 2016 21:20
[2016-09-02] MEDS: LEVOTHYROXINE 25 MCG TABLET. PO SCH (05:53)
[2016-09-02 06:16] VITALS: BP 114/57
[2016-09-02] MEDS: AMOXICILLIN/K CLAV 875/125MG TABLET. PO SCH (08:19)
[2016-09-02] MEDS: POTASSIUM CHLORIDE 20 MEQ/15 ML ORAL LIQUID. PEG SCH (08:19)
[2016-09-02] MEDS: FAMOTIDINE 20 MG TABLET PEG SCH ×2 (08:20→20:44)
[2016-09-02] MEDS: VALPROATE ACID 250 MG/5 ML ORAL SOLUTION PEG SCH ×2 (08:20→20:44)
[2016-09-02 08:52] LABS: VAL ACID 51 mcg/mL (50-100)
[2016-09-02] MEDS: INSULIN ASPART 300 UNITS/3 ML INSULN.PEN SQ SCH ×3 (09:25→17:33)
[2016-09-02 15:22] VITALS: BP 131/90
[2016-09-02] MEDS: ESCITALOPRAM 10 MG TABLET. PEG SCH (17:32)
[2016-09-02] MEDS: MIRTAZAPINE 7.5 MG TABLET. PO SCH (20:44)
[2016-09-02] MEDS: risperiDONE 0.25 MG TABLET. PEG SCH (20:45)
[2016-09-02] MEDS: INSULIN DETEMIR 300 UNITS/3 ML INSULN.PEN. SQ SCH (20:49)
--- NOTE | 2016-09-02 20:53 | PDOC ---
Exam Chauncey Demential Exam: Chauncey Note: Please also refer to the separate dictated note~for this date of service dictated separately.~Patient seen individually. Discussed the patient with Nursing staff reviewed the chart.~Reviewed interim history and current functioning. Reviewed vital signs,~Labs/ Radiology~and current medications noted below. Continue current treatment with the changes noted in the dictated addendum note Assessment: Vital Signs: Vital Signs Date Time Temp Pulse Resp B/P Pulse Ox O2 Delivery O2 Flow Rate FiO2 09/02/16 15:22 97.4 66 20 131/90 99.0 09/02/16 06:16 99 09/01/16 06:11 Room Air I&O Intake and Output 09/02/16 07:00 Intake Total 2650 ml Balance 2650 ml Tube Feeding 2650 ml # Bowel Movements 1 Labs: Laboratory Tests Test 09/02/16 07:06 09/02/16 08:24 09/02/16 08:48 09/02/16 11:50 Glucose (Fingerstick) 61mg/dL (70-99) L 85mg/dL (70-99) 158mg/dL (70-99) H Valproic Acid Level 51mcg/mL (50-100) Valproic Acid Last Dose Date 09/01/2016 Valproic Acid Last Dose Time 2100 Test 09/02/16 16:59 09/02/16 19:05 Glucose (Fingerstick) 162mg/dL (70-99) H 236mg/dL (70-99) H Current Medications: Meds: Current Medications Acetaminophen (Tylenol) 650 mg PRN Q4HRS PRN PO PAIN / TEMP; Start 08/30/16 at 15:15 Amoxicillin/ Clavulanate Potassium (Augmentin 875/ 125mg) 1 tab BID PO Last administered on 09/02/16 08:19; Start 08/30/16 at 21:00; Stop 09/02/16 at 11:09 ; Status DC Ergocalciferol (Vitamin D2) 50,000 unit QMONTH PEG ; Start 09/29/16 at 09:00 Escitalopram Oxalate (Lexapro) 10 mg QEVNG PEG Last administered on 09/02/16 17:32; Start 08/30/16 at 18:00 Famotidine (Pepcid) 20 mg BID PEG Last administered on 09/02/16 20:44; Start 08/30/16 at 21:00 Insulin Aspart (Novolog) 4 units TIDBFRMEAL SQ Last administered on 09/02/16 17:33; Start 08/30/16 at 16:30 Insulin Detemir (Levemir) 25 units HS SQ Last administered on 08/31/16 20:39; Start 08/30/16 at 21:00; Stop 09/01/16 at 14:23; Status DC Levothyroxine Sodium (Synthroid) 25 mcg DAILY06 PO Last administered on 05:53; Start 08/31/16 at 06:00 Olanzapine (Zyprexa Zydis) 1.25 mg PRN Q2HR PRN PO ANXIETY / AGITATION; Start 08/30/16 at 15:15 Potassium Chloride (KCl Oral Soln) 20 meq DAILY PEG Last administered on 08:19; Start 08/31/16 at 09:00 Risperidone (Risperdal) 0.25 mg QHS PEG Last administered on 09/02/16 20:45; Start 08/30/16 at 21:00 Valproic Acid (Depakene) 750 mg BID PEG Last administered on 09/02/16 20:44; Start 08/30/16 at 21:00 Mirtazapine (Remeron) 7.5 mg QHS PO Last administered on 09/02/16 20:44; Start 09/01/16 at 21:00 Insulin Detemir (Levemir) 18 units HS SQ Last administered on 09/02/16 20:49; Start 09/01/16 at 21:00 Active Scripts Active Augmentin 875-125 Tablet (Amoxicillin/Potassium Clav) 1 Each Tablet 1 Tab PO BID Reported Risperdal (Risperidone) 0.25 Mg Tablet 0.25 Mg PEG QHS Potassium Chloride Oral Liquid (Potassium Chloride) 20 Meq/15 Ml Liquid 20 Meq PEG DAILY Zyprexa Zydis (Olanzapine) 5 Mg Tab.rapdis 1.25 Mg PO PRN Q2HR PRN Famotidine 20 Mg Tablet 20 Mg PEG BID Levothyroxine Sodium 25 Mcg Tablet 25 Mcg PO DAILY06 Vitamin D2 (Ergocalciferol (Vitamin D2)) 50,000 Unit Capsule 50,000 Unit PEG QMONTH Valproic Acid (Valproate Sodium) 250 Mg/5 Ml Disp.syrin 750 Mg PEG BID Escitalopram Oxalate 10 Mg Tablet 10 Mg PEG QEVNG Acetaminophen 325 Mg Tablet 650 Mg PEG PRN Q4HRS PRN Levemir Flextouch (Insulin Detemir) 100 Unit/1 Ml Insuln.pen 25 Unit SQ HS Novolog Flexpen (Insulin Aspart) 100 Unit/1 Ml Insuln.pen 4 Unit SQ TIDBFRMEAL Diagnosis: Problems: (1) Impulse control disorder (2) Dementia, vascular, with depression (3) Dementia, vascular, with delusions (4) Anxiety disorder (5) HCAP (healthcare-associated pneumonia) (6) Dementia with behavioral disturbance (7) Sepsis associated hypotension VIANCA RODGERS MD Sep 02, 2016 20:53
--- NOTE | 2016-09-02 21:15 | PN ---
DATE: 09/01/2016 PSYCHIATRIC PROGRESS NOTE This is late entry of 09/01/2016, covers elements not covered in my initial note. SUBJECTIVE: Overall, the patient remains withdrawn, confused. Otherwise, calm, mostly nonverbal, still restless in Broda but redirectable. REVIEW OF SYSTEMS: Ambulation impaired. Difficulty with swallowing. No CV, , pulmonary, eye system symptoms on review. Reliability poor. MENTAL STATUS EXAMINATION: Oriented to himself, at times to situation. Insight, judgment, recent and remote memory, attention, concentration, fund of knowledge poor, consistent with his diagnosis, not very verbal. LABORATORY DATA: Reviewed. IMPRESSION: Major neurocognitive disorder, possibly vascular with depression, delusion, behavioral disturbance, rest diagnoses unchanged from initial note. PLAN: Continue Remeron 7.5 at bedtime, Lexapro 10 mg a day, Zyprexa p.r.n., Risperdal 0.25 mg at bedtime, Depakene 750 b.i.d., adjust further as clinically indicated. MAN Theron RODGERS MD DR: VERENA/pily JOB#: [id number] / [id number]
[2016-09-03] MEDS: LEVOTHYROXINE 25 MCG TABLET. PO SCH (05:15)
[2016-09-03 05:36] VITALS: BP 118/76
[2016-09-03] MEDS: FAMOTIDINE 20 MG TABLET PEG SCH ×2 (07:51→20:24)
[2016-09-03] MEDS: POTASSIUM CHLORIDE 20 MEQ/15 ML ORAL LIQUID. PEG SCH (07:51)
[2016-09-03] MEDS: VALPROATE ACID 250 MG/5 ML ORAL SOLUTION PEG SCH ×2 (07:51→20:24)
[2016-09-03] MEDS: INSULIN ASPART 300 UNITS/3 ML INSULN.PEN SQ SCH ×3 (09:03→16:50)
[2016-09-03 15:12] VITALS: BP 114/69
[2016-09-03] MEDS: ESCITALOPRAM 10 MG TABLET. PEG SCH (16:49)
--- NOTE | 2016-09-03 19:05 | PN ---
DATE: 09/02/2016 PSYCHIATRIC PROGRESS NOTE This is late entry of 09/02/2016, covers elements not covered in my initial note. SUBJECTIVE: Per nursing report, the patient remains somewhat withdrawn, difficult to understand due to his language deficits and speech deficits, still somewhat depressed, but not agitated, aggressive. He is quite redirectable, remains in a Broda chair. He continues to have difficulty with swallowing and remains on the G-tube feeding. REVIEW OF SYSTEMS: Ambulation impaired. No CV, pulmonary, eye system symptoms on review. MENTAL STATUS EXAMINATION: Oriented to himself, at times to situation. Speech slow in rate and rhythm, low in volume, often responses monosyllabic. Insight, judgment, recent memory is impaired. Language function intact. Attention span short. Mood and affect somewhat withdrawn. LABORATORY DATA: Reviewed. IMPRESSION: Unchanged from initial note. PLAN: Continue Lexapro, Zyprexa p.r.n., Risperdal, Depakene and Remeron. Adjust further as clinically indicated. VIANCA RODGERS MD DR: VERENA/pily JOB#: [id number] / [id number]
[2016-09-03] MEDS: risperiDONE 0.25 MG TABLET. PEG SCH (20:24)
[2016-09-03] MEDS: MIRTAZAPINE 7.5 MG TABLET. PO SCH (20:24)
[2016-09-03] MEDS: INSULIN DETEMIR 300 UNITS/3 ML INSULN.PEN. SQ SCH (20:26)
--- NOTE | 2016-09-03 20:52 | PDOC ---
Exam Chauncey Demential Exam: Chauncey Note: Please also refer to the separate dictated note~for this date of service dictated separately.~Patient seen individually. Discussed the patient with Nursing staff reviewed the chart.~Reviewed interim history and current functioning. Reviewed vital signs,~Labs/ Radiology~and current medications noted below. Continue current treatment with the changes noted in the dictated addendum note Assessment: Vital Signs: Vital Signs Date Time Temp Pulse Resp B/P Pulse Ox O2 Delivery O2 Flow Rate FiO2 09/03/16 15:12 97.7 66 20 114/69 96 09/02/16 15:22 99.0 09/01/16 06:11 Room Air I&O Intake and Output 09/03/16 07:00 Intake Total 2225 ml Balance 2225 ml Tube Feeding 2225 ml # Voids 3 # Bowel Movements 1 Labs: Laboratory Tests Test 09/03/16 07:01 09/03/16 08:56 09/03/16 11:03 09/03/16 16:41 Glucose (Fingerstick) 64mg/dL (70-99) L 114mg/dL (70-99) H 198mg/dL (70-99) H 125mg/dL (70-99) H Test 09/03/16 18:59 Glucose (Fingerstick) 214mg/dL (70-99) H Current Medications: Meds: Current Medications Acetaminophen (Tylenol) 650 mg PRN Q4HRS PRN PO PAIN / TEMP; Start 08/30/16 at 15:15 Amoxicillin/ Clavulanate Potassium (Augmentin 875/ 125mg) 1 tab BID PO Last administered on 09/02/16 08:19; Start 08/30/16 at 21:00; Stop 09/02/16 at 11:09 ; Status DC Ergocalciferol (Vitamin D2) 50,000 unit QMONTH PEG ; Start 09/29/16 at 09:00 Escitalopram Oxalate (Lexapro) 10 mg QEVNG PEG Last administered on 09/03/16 16:49; Start 08/30/16 at 18:00 Famotidine (Pepcid) 20 mg BID PEG Last administered on 09/03/16 20:24; Start 08/30/16 at 21:00 Insulin Aspart (Novolog) 4 units TIDBFRMEAL SQ Last administered on 09/03/16 16:50; Start 08/30/16 at 16:30 Insulin Detemir (Levemir) 25 units HS SQ Last administered on 08/31/16 20:39; Start 08/30/16 at 21:00; Stop 09/01/16 at 14:23; Status DC Levothyroxine Sodium (Synthroid) 25 mcg DAILY06 PO Last administered on 05:15; Start 08/31/16 at 06:00 Olanzapine (Zyprexa Zydis) 1.25 mg PRN Q2HR PRN PO ANXIETY / AGITATION; Start 08/30/16 at 15:15 Potassium Chloride (KCl Oral Soln) 20 meq DAILY PEG Last administered on 07:51; Start 08/31/16 at 09:00 Risperidone (Risperdal) 0.25 mg QHS PEG Last administered on 09/03/16 20:24; Start 08/30/16 at 21:00 Valproic Acid (Depakene) 750 mg BID PEG Last administered on 09/03/16 20:24; Start 08/30/16 at 21:00 Mirtazapine (Remeron) 7.5 mg QHS PO Last administered on 09/03/16 20:24; Start 09/01/16 at 21:00 Insulin Detemir (Levemir) 18 units HS SQ Last administered on 09/03/16 20:26; Start 09/01/16 at 21:00 Active Scripts Active Augmentin 875-125 Tablet (Amoxicillin/Potassium Clav) 1 Each Tablet 1 Tab PO BID Reported Risperdal (Risperidone) 0.25 Mg Tablet 0.25 Mg PEG QHS Potassium Chloride Oral Liquid (Potassium Chloride) 20 Meq/15 Ml Liquid 20 Meq PEG DAILY Zyprexa Zydis (Olanzapine) 5 Mg Tab.rapdis 1.25 Mg PO PRN Q2HR PRN Famotidine 20 Mg Tablet 20 Mg PEG BID Levothyroxine Sodium 25 Mcg Tablet 25 Mcg PO DAILY06 Vitamin D2 (Ergocalciferol (Vitamin D2)) 50,000 Unit Capsule 50,000 Unit PEG QMONTH Valproic Acid (Valproate Sodium) 250 Mg/5 Ml Disp.syrin 750 Mg PEG BID Escitalopram Oxalate 10 Mg Tablet 10 Mg PEG QEVNG Acetaminophen 325 Mg Tablet 650 Mg PEG PRN Q4HRS PRN Levemir Flextouch (Insulin Detemir) 100 Unit/1 Ml Insuln.pen 25 Unit SQ HS Novolog Flexpen (Insulin Aspart) 100 Unit/1 Ml Insuln.pen 4 Unit SQ TIDBFRMEAL Diagnosis: Problems: (1) Impulse control disorder (2) Dementia, vascular, with depression (3) Dementia, vascular, with delusions (4) Anxiety disorder (5) HCAP (healthcare-associated pneumonia) (6) Dementia with behavioral disturbance (7) Sepsis associated hypotension VIANCA RODGERS MD Sep 03, 2016 20:52
[2016-09-04] MEDS: LEVOTHYROXINE 25 MCG TABLET. PO SCH (05:39)
[2016-09-04 07:08] VITALS: BP 121/73
[2016-09-04] MEDS: INSULIN ASPART 300 UNITS/3 ML INSULN.PEN SQ SCH ×3 (07:30→17:17)
[2016-09-04] MEDS: VALPROATE ACID 250 MG/5 ML ORAL SOLUTION PEG SCH ×2 (07:37→20:02)
[2016-09-04] MEDS: FAMOTIDINE 20 MG TABLET PEG SCH ×2 (07:37→20:02)
[2016-09-04] MEDS: POTASSIUM CHLORIDE 20 MEQ/15 ML ORAL LIQUID. PEG SCH (07:38)
[2016-09-04 16:09] VITALS: BP 113/78
[2016-09-04] MEDS: ESCITALOPRAM 10 MG TABLET. PEG SCH (17:14)
--- NOTE | 2016-09-04 19:56 | PN ---
DATE: 09/03/2016 PSYCHIATRIC PROGRESS NOTE This is late entry of 09/03/2016, covers elements not covered in my initial note. SUBJECTIVE: The patient fell at 7:05 in the morning, restless, trying to get out of bed, restless in the Broda chair. No injuries noted. He is unable to ambulate, but believes he can, which is problematic. REVIEW OF SYSTEMS: Ambulation impaired, in his Broda chair. No CV, , pulmonary, eye, ENT system symptoms on review. Reliability poor. MENTAL STATUS EXAMINATION: Oriented to himself. Insight, judgment, recent and remote memory, attention, concentration, fund of knowledge poor, consistent with his diagnosis mentioned in my initial note. PLAN: Continue current psychotropics mentioned in my initial note. Adjust further as clinically indicated. MAN Theron RODGERS MD DR: VERENA/pily JOB#: [id number] / [id number]
[2016-09-04] MEDS: risperiDONE 0.25 MG TABLET. PEG SCH (20:02)
[2016-09-04] MEDS: MIRTAZAPINE 7.5 MG TABLET. PO SCH (20:02)
[2016-09-04] MEDS: INSULIN DETEMIR 300 UNITS/3 ML INSULN.PEN. SQ SCH (20:03)
--- NOTE | 2016-09-04 20:52 | PDOC ---
Exam Chauncey Demential Exam: Chauncey Note: Please also refer to the separate dictated note~for this date of service dictated separately.~Patient seen individually. Discussed the patient with Nursing staff reviewed the chart.~Reviewed interim history and current functioning. Reviewed vital signs,~Labs/ Radiology~and current medications noted below. Continue current treatment with the changes noted in the dictated addendum note Assessment: Vital Signs: Vital Signs Date Time Temp Pulse Resp B/P Pulse Ox O2 Delivery O2 Flow Rate FiO2 09/04/16 16:09 96.7 61 15 113/78 95 09/02/16 15:22 99.0 09/01/16 06:11 Room Air I&O Intake and Output 09/04/16 07:00 Intake Total 2050 ml Balance 2050 ml Intake Oral 250 ml Tube Feeding 1800 ml # Bowel Movements 1 Labs: Laboratory Tests Test 09/04/16 07:11 09/04/16 08:07 09/04/16 08:30 09/04/16 11:50 Glucose (Fingerstick) 52mg/dL (70-99) L 70mg/dL (70-99) 117mg/dL (70-99) H 186mg/dL (70-99) H Test 09/04/16 16:46 09/04/16 19:09 Glucose (Fingerstick) 141mg/dL (70-99) H 184mg/dL (70-99) H Current Medications: Meds: Current Medications Acetaminophen (Tylenol) 650 mg PRN Q4HRS PRN PO PAIN / TEMP; Start 08/30/16 at 15:15 Amoxicillin/ Clavulanate Potassium (Augmentin 875/ 125mg) 1 tab BID PO Last administered on 09/02/16 08:19; Start 08/30/16 at 21:00; Stop 09/02/16 at 11:09 ; Status DC Ergocalciferol (Vitamin D2) 50,000 unit QMONTH PEG ; Start 09/29/16 at 09:00 Escitalopram Oxalate (Lexapro) 10 mg QEVNG PEG Last administered on 09/04/16 17:14; Start 08/30/16 at 18:00 Famotidine (Pepcid) 20 mg BID PEG Last administered on 09/04/16 20:02; Start 08/30/16 at 21:00 Insulin Aspart (Novolog) 4 units TIDBFRMEAL SQ Last administered on 09/04/16 17:17; Start 08/30/16 at 16:30 Insulin Detemir (Levemir) 25 units HS SQ Last administered on 08/31/16 20:39; Start 08/30/16 at 21:00; Stop 09/01/16 at 14:23; Status DC Levothyroxine Sodium (Synthroid) 25 mcg DAILY06 PO Last administered on 05:39; Start 08/31/16 at 06:00 Olanzapine (Zyprexa Zydis) 1.25 mg PRN Q2HR PRN PO ANXIETY / AGITATION; Start 08/30/16 at 15:15 Potassium Chloride (KCl Oral Soln) 20 meq DAILY PEG Last administered on 07:38; Start 08/31/16 at 09:00 Risperidone (Risperdal) 0.25 mg QHS PEG Last administered on 09/04/16 20:02; Start 08/30/16 at 21:00 Valproic Acid (Depakene) 750 mg BID PEG Last administered on 09/04/16 20:02; Start 08/30/16 at 21:00 Mirtazapine (Remeron) 7.5 mg QHS PO Last administered on 09/04/16 20:02; Start 09/01/16 at 21:00 Insulin Detemir (Levemir) 18 units HS SQ Last administered on 09/04/16 20:03; Start 09/01/16 at 21:00 Active Scripts Active Augmentin 875-125 Tablet (Amoxicillin/Potassium Clav) 1 Each Tablet 1 Tab PO BID Reported Risperdal (Risperidone) 0.25 Mg Tablet 0.25 Mg PEG QHS Potassium Chloride Oral Liquid (Potassium Chloride) 20 Meq/15 Ml Liquid 20 Meq PEG DAILY Zyprexa Zydis (Olanzapine) 5 Mg Tab.rapdis 1.25 Mg PO PRN Q2HR PRN Famotidine 20 Mg Tablet 20 Mg PEG BID Levothyroxine Sodium 25 Mcg Tablet 25 Mcg PO DAILY06 Vitamin D2 (Ergocalciferol (Vitamin D2)) 50,000 Unit Capsule 50,000 Unit PEG QMONTH Valproic Acid (Valproate Sodium) 250 Mg/5 Ml Disp.syrin 750 Mg PEG BID Escitalopram Oxalate 10 Mg Tablet 10 Mg PEG QEVNG Acetaminophen 325 Mg Tablet 650 Mg PEG PRN Q4HRS PRN Levemir Flextouch (Insulin Detemir) 100 Unit/1 Ml Insuln.pen 25 Unit SQ HS Novolog Flexpen (Insulin Aspart) 100 Unit/1 Ml Insuln.pen 4 Unit SQ TIDBFRMEAL Diagnosis: Problems: (1) Impulse control disorder (2) Dementia, vascular, with depression (3) Dementia, vascular, with delusions (4) Anxiety disorder (5) Dementia with behavioral disturbance VIANCA RODGERS MD Sep 04, 2016 20:52
[2016-09-05] MEDS: LEVOTHYROXINE 25 MCG TABLET. PO SCH (05:00)
[2016-09-05 05:36] VITALS: BP 123/74
[2016-09-05 06:51] LABS: HEMATOCRIT 43.8 % (39.0-53.0); HEMOGLOBIN 14.6 g/dL (13.0-17.5); RED BLOOD COUNT 4.64 x10^6/uL (4.30-5.70); RED CELL DISTRIBUTION WIDTH 13.8 % (11.5-14.5); WHITE BLOOD COUNT 4.8 x10^3/uL (4.0-11.0)
[2016-09-05 07:06] LABS: ALBUMIN 3.1 g/dL (3.4-5.0); ALBUMIN/GLOBULIN RATIO 0.7 (1.0-1.7); CALCIUM 9.2 mg/dL (8.5-10.1); CREATININE 0.7 mg/dL (0.7-1.3); GFR 115.4; MAGNESIUM 1.9 mg/dL (1.8-2.4); TOTAL BILIRUBIN 0.4 mg/dL (0.2-1.0); TOTAL PROTEIN 7.4 g/dL (6.4-8.2)
[2016-09-05] MEDS: INSULIN ASPART 300 UNITS/3 ML INSULN.PEN SQ SCH ×3 (07:30→17:31)
[2016-09-05] MEDS: FAMOTIDINE 20 MG TABLET PEG SCH ×2 (07:53→20:23)
[2016-09-05] MEDS: POTASSIUM CHLORIDE 20 MEQ/15 ML ORAL LIQUID. PEG SCH (07:53)
[2016-09-05] MEDS: VALPROATE ACID 250 MG/5 ML ORAL SOLUTION PEG SCH ×2 (07:53→20:23)
[2016-09-05 15:28] VITALS: BP 98/67
[2016-09-05] MEDS: ESCITALOPRAM 10 MG TABLET. PEG SCH (18:00)
[2016-09-05] MEDS: risperiDONE 0.25 MG TABLET. PEG SCH (20:23)
[2016-09-05] MEDS: MIRTAZAPINE 7.5 MG TABLET. PO SCH (20:23)
[2016-09-05] MEDS: INSULIN DETEMIR 300 UNITS/3 ML INSULN.PEN. SQ SCH (20:29)
--- NOTE | 2016-09-05 20:58 | PDOC ---
Exam Chauncey Demential Exam: Chauncey Note: Please also refer to the separate dictated note~for this date of service dictated separately.~Patient seen individually. Discussed the patient with Nursing staff reviewed the chart.~Reviewed interim history and current functioning. Reviewed vital signs,~Labs/ Radiology~and current medications noted below. Continue current treatment with the changes noted in the dictated addendum note Assessment: Vital Signs: Vital Signs Date Time Temp Pulse Resp B/P Pulse Ox O2 Delivery O2 Flow Rate FiO2 09/05/16 15:28 97.2 70 20 98/67 93 09/02/16 15:22 99.0 09/01/16 06:11 Room Air I&O Intake and Output 09/05/16 07:00 Intake Total 2100 ml Balance 2100 ml Intake Oral 0 ml Tube Feeding 2100 ml # Bowel Movements 2 Labs: Laboratory Tests Test 09/05/16 06:13 09/05/16 07:08 09/05/16 11:08 09/05/16 16:25 White Blood Count 4.8x10^3/uL (4.0-11.0) Red Blood Count 4.64x10^6/uL (4.30-5.70) Hemoglobin 14.6g/dL (13.0-17.5) Hematocrit 43.8% (39.0-53.0) Mean Corpuscular Volume 94fL (79-100) Mean Corpuscular Hemoglobin 31pg (25-35) Mean Corpuscular Hemoglobin Concent 33g/dL (31-37) Red Cell Distribution Width 13.8% (11.5-14.5) Platelet Count 113x10^3/uL (140-400) L Sodium Level 143mmol/L (136-145) Potassium Level 4.0mmol/L (3.5-5.1) Chloride Level 103mmol/L (98-107) Carbon Dioxide Level 33mmol/L (21-32) H Anion Gap 7 (6-14) Blood Urea Nitrogen 17mg/dL (8-26) Creatinine 0.7mg/dL (0.7-1.3) Estimated GFR (Cockcroft-Gault) 115.4 BUN/Creatinine Ratio 24 (6-20) H Glucose Level 70mg/dL (70-99) Calcium Level 9.2mg/dL (8.5-10.1) Magnesium Level 1.9mg/dL (1.8-2.4) Total Bilirubin 0.4mg/dL (0.2-1.0) Aspartate Amino Transferase (AST) 36U/L (15-37) Alanine Aminotransferase (ALT) 64U/L (16-63) H Alkaline Phosphatase 83U/L (46-116) Total Protein 7.4g/dL (6.4-8.2) Albumin 3.1g/dL (3.4-5.0) L Albumin/Globulin Ratio 0.7 (1.0-1.7) L Glucose (Fingerstick) 78mg/dL (70-99) 197mg/dL (70-99) H 181mg/dL (70-99) H Test 09/05/16 19:14 Glucose (Fingerstick) 203mg/dL (70-99) H Current Medications: Meds: Current Medications Acetaminophen (Tylenol) 650 mg PRN Q4HRS PRN PO PAIN / TEMP; Start 08/30/16 at 15:15 Amoxicillin/ Clavulanate Potassium (Augmentin 875/ 125mg) 1 tab BID PO Last administered on 09/02/16 08:19; Start 08/30/16 at 21:00; Stop 09/02/16 at 11:09 ; Status DC Ergocalciferol (Vitamin D2) 50,000 unit QMONTH PEG ; Start 09/29/16 at 09:00 Escitalopram Oxalate (Lexapro) 10 mg QEVNG PEG Last administered on 09/05/16 18:00; Start 08/30/16 at 18:00 Famotidine (Pepcid) 20 mg BID PEG Last administered on 09/05/16 20:23; Start 08/30/16 at 21:00 Insulin Aspart (Novolog) 4 units TIDBFRMEAL SQ Last administered on 09/05/16 17:31; Start 08/30/16 at 16:30 Insulin Detemir (Levemir) 25 units HS SQ Last administered on 08/31/16 20:39; Start 08/30/16 at 21:00; Stop 09/01/16 at 14:23; Status DC Levothyroxine Sodium (Synthroid) 25 mcg DAILY06 PO Last administered on 05:00; Start 08/31/16 at 06:00 Olanzapine (Zyprexa Zydis) 1.25 mg PRN Q2HR PRN PO ANXIETY / AGITATION; Start 08/30/16 at 15:15 Potassium Chloride (KCl Oral Soln) 20 meq DAILY PEG Last administered on 07:53; Start 08/31/16 at 09:00 Risperidone (Risperdal) 0.25 mg QHS PEG Last administered on 09/05/16 20:23; Start 08/30/16 at 21:00 Valproic Acid (Depakene) 750 mg BID PEG Last administered on 09/05/16 20:23; Start 08/30/16 at 21:00 Mirtazapine (Remeron) 7.5 mg QHS PO Last administered on 09/05/16 20:23; Start 09/01/16 at 21:00 Insulin Detemir (Levemir) 18 units HS SQ Last administered on 09/04/16 20:03; Start 09/01/16 at 21:00; Stop 09/05/16 at 08:38; Status DC Insulin Detemir (Levemir) 10 units HS SQ Last administered on 09/05/16 20:29; Start 09/05/16 at 21:00 Active Scripts Active Augmentin 875-125 Tablet (Amoxicillin/Potassium Clav) 1 Each Tablet 1 Tab PO BID Reported Risperdal (Risperidone) 0.25 Mg Tablet 0.25 Mg PEG QHS Potassium Chloride Oral Liquid (Potassium Chloride) 20 Meq/15 Ml Liquid 20 Meq PEG DAILY Zyprexa Zydis (Olanzapine) 5 Mg Tab.rapdis 1.25 Mg PO PRN Q2HR PRN Famotidine 20 Mg Tablet 20 Mg PEG BID Levothyroxine Sodium 25 Mcg Tablet 25 Mcg PO DAILY06 Vitamin D2 (Ergocalciferol (Vitamin D2)) 50,000 Unit Capsule 50,000 Unit PEG QMONTH Valproic Acid (Valproate Sodium) 250 Mg/5 Ml Disp.syrin 750 Mg PEG BID Escitalopram Oxalate 10 Mg Tablet 10 Mg PEG QEVNG Acetaminophen 325 Mg Tablet 650 Mg PEG PRN Q4HRS PRN Levemir Flextouch (Insulin Detemir) 100 Unit/1 Ml Insuln.pen 25 Unit SQ HS Novolog Flexpen (Insulin Aspart) 100 Unit/1 Ml Insuln.pen 4 Unit SQ TIDBFRMEAL Diagnosis: Problems: (1) Sepsis associated hypotension (2) Dementia with behavioral disturbance (3) HCAP (healthcare-associated pneumonia) (4) Anxiety disorder (5) Dementia, vascular, with delusions (6) Dementia, vascular, with depression (7) Impulse control disorder VIANCA RODGERS MD Sep 05, 2016 20:58
[2016-09-06] MEDS: LEVOTHYROXINE 25 MCG TABLET. PO SCH (06:14)
[2016-09-06 06:37] VITALS: BP 129/65
[2016-09-06] MEDS: VALPROATE ACID 250 MG/5 ML ORAL SOLUTION PEG SCH ×2 (08:11→19:25)
[2016-09-06] MEDS: POTASSIUM CHLORIDE 20 MEQ/15 ML ORAL LIQUID. PEG SCH (08:11)
[2016-09-06] MEDS: FAMOTIDINE 20 MG TABLET PEG SCH ×2 (08:11→19:25)
[2016-09-06] MEDS: INSULIN ASPART 300 UNITS/3 ML INSULN.PEN SQ SCH ×3 (08:11→17:26)
[2016-09-06 15:20] VITALS: BP 113/61
[2016-09-06] MEDS: ESCITALOPRAM 10 MG TABLET. PEG SCH (17:27)
[2016-09-06] MEDS: MIRTAZAPINE 7.5 MG TABLET. PO SCH (19:26)
[2016-09-06] MEDS: risperiDONE 0.25 MG TABLET. PEG SCH (19:26)
[2016-09-06] MEDS: INSULIN DETEMIR 300 UNITS/3 ML INSULN.PEN. SQ SCH (19:28)
--- NOTE | 2016-09-06 20:19 | PN ---
DATE: 09/04/2016 PSYCHIATRIC PROGRESS NOTE This is late entry of 09/04/2016, covers elements not covered in my initial note. SUBJECTIVE: The patient attempts to walk, gait is unsteady, but he is less anxious, restless, less trying to jump out of the Broda chair, blood sugar was low on morning of 09/04/2016. REVIEW OF SYSTEMS: Ambulation impaired. No CV, , pulmonary, eye system symptoms on review. Reliability poor. MENTAL STATUS EXAMINATION: Oriented to himself. Insight, judgment, recent memory is impaired. Language function, impaired consequent to CVA. Mood and affect still withdrawn, but better, less labile. LABORATORY DATA: Reviewed. IMPRESSION: Unchanged from initial note. PLAN: Continue psychotropics mentioned in my initial note, adjust as indicated. MAN Theron RODGERS MD DR: VERENA/pily JOB#: [id number] / [id number]
--- NOTE | 2016-09-06 20:22 | PN ---
DATE: 09/05/2016 PSYCHIATRIC PROGRESS NOTE This is late entry of 09/05/2016, covers elements not covered in my initial note. SUBJECTIVE: The patient was staffed at treatment team meeting with the entire team, later seen individually. He is fed by G-tube, sleeping 5-7 hours. REVIEW OF SYSTEMS: Ambulation impaired, in a Broda chair, difficulty with the swallowing as noted, status post CVA. No CV, , pulmonary system symptoms on review. Reliability poor. MENTAL STATUS EXAMINATION: Oriented to himself and situation at times. Speech moderate latency, difficult to understand, often responses monosyllabic. Insight, judgment, recent and remote memory, attention, concentration, fund of knowledge poor, consistent with his diagnosis mentioned in my initial note. PLAN: Continue current psychotropics, adjust further as clinically indicated. MAN Theron RODGERS MD DR: VERENA/pily JOB#: [id number] / [id number]
--- NOTE | 2016-09-06 20:50 | PDOC ---
Exam Chauncey Demential Exam: Chauncey Note: Please also refer to the separate dictated note~for this date of service dictated separately.~Patient seen individually. Discussed the patient with Nursing staff reviewed the chart.~Reviewed interim history and current functioning. Reviewed vital signs,~Labs/ Radiology~and current medications noted below. Continue current treatment with the changes noted in the dictated addendum note Assessment: Vital Signs: Vital Signs Date Time Temp Pulse Resp B/P Pulse Ox O2 Delivery O2 Flow Rate FiO2 09/06/16 15:20 98.2 66 18 113/61 95 09/02/16 15:22 99.0 09/01/16 06:11 Room Air I&O Intake and Output 09/06/16 07:00 Intake Total 3200 ml Balance 3200 ml Intake Oral 0 ml Tube Feeding 3200 ml # Voids 3 # Bowel Movements 1 Labs: Laboratory Tests Test 09/06/16 07:01 09/06/16 11:24 09/06/16 16:03 09/06/16 19:07 Glucose (Fingerstick) 119mg/dL (70-99) H 157mg/dL (70-99) H 181mg/dL (70-99) H 263mg/dL (70-99) H Current Medications: Meds: Current Medications Acetaminophen (Tylenol) 650 mg PRN Q4HRS PRN PO PAIN / TEMP; Start 08/30/16 at 15:15 Amoxicillin/ Clavulanate Potassium (Augmentin 875/ 125mg) 1 tab BID PO Last administered on 09/02/16 08:19; Start 08/30/16 at 21:00; Stop 09/02/16 at 11:09 ; Status DC Ergocalciferol (Vitamin D2) 50,000 unit QMONTH PEG ; Start 09/29/16 at 09:00 Escitalopram Oxalate (Lexapro) 10 mg QEVNG PEG Last administered on 09/06/16 17:27; Start 08/30/16 at 18:00 Famotidine (Pepcid) 20 mg BID PEG Last administered on 09/06/16 19:25; Start 08/30/16 at 21:00 Insulin Aspart (Novolog) 4 units TIDBFRMEAL SQ Last administered on 09/06/16 17:26; Start 08/30/16 at 16:30 Insulin Detemir (Levemir) 25 units HS SQ Last administered on 08/31/16 20:39; Start 08/30/16 at 21:00; Stop 09/01/16 at 14:23; Status DC Levothyroxine Sodium (Synthroid) 25 mcg DAILY06 PO Last administered on 06:14; Start 08/31/16 at 06:00 Olanzapine (Zyprexa Zydis) 1.25 mg PRN Q2HR PRN PO ANXIETY / AGITATION; Start 08/30/16 at 15:15 Potassium Chloride (KCl Oral Soln) 20 meq DAILY PEG Last administered on 08:11; Start 08/31/16 at 09:00 Risperidone (Risperdal) 0.25 mg QHS PEG Last administered on 09/06/16 19:26; Start 08/30/16 at 21:00 Valproic Acid (Depakene) 750 mg BID PEG Last administered on 09/06/16 19:25; Start 08/30/16 at 21:00 Mirtazapine (Remeron) 7.5 mg QHS PO Last administered on 09/06/16 19:26; Start 09/01/16 at 21:00 Insulin Detemir (Levemir) 18 units HS SQ Last administered on 09/04/16 20:03; Start 09/01/16 at 21:00; Stop 09/05/16 at 08:38; Status DC Insulin Detemir (Levemir) 10 units HS SQ Last administered on 09/06/16 19:28; Start 09/05/16 at 21:00 Active Scripts Active Augmentin 875-125 Tablet (Amoxicillin/Potassium Clav) 1 Each Tablet 1 Tab PO BID Reported Risperdal (Risperidone) 0.25 Mg Tablet 0.25 Mg PEG QHS Potassium Chloride Oral Liquid (Potassium Chloride) 20 Meq/15 Ml Liquid 20 Meq PEG DAILY Zyprexa Zydis (Olanzapine) 5 Mg Tab.rapdis 1.25 Mg PO PRN Q2HR PRN Famotidine 20 Mg Tablet 20 Mg PEG BID Levothyroxine Sodium 25 Mcg Tablet 25 Mcg PO DAILY06 Vitamin D2 (Ergocalciferol (Vitamin D2)) 50,000 Unit Capsule 50,000 Unit PEG QMONTH Valproic Acid (Valproate Sodium) 250 Mg/5 Ml Disp.syrin 750 Mg PEG BID Escitalopram Oxalate 10 Mg Tablet 10 Mg PEG QEVNG Acetaminophen 325 Mg Tablet 650 Mg PEG PRN Q4HRS PRN Levemir Flextouch (Insulin Detemir) 100 Unit/1 Ml Insuln.pen 25 Unit SQ HS Novolog Flexpen (Insulin Aspart) 100 Unit/1 Ml Insuln.pen 4 Unit SQ TIDBFRMEAL Diagnosis: Problems: (1) Sepsis associated hypotension (2) Dementia with behavioral disturbance (3) HCAP (healthcare-associated pneumonia) (4) Anxiety disorder (5) Dementia, vascular, with delusions (6) Dementia, vascular, with depression (7) Impulse control disorder VIANCA RODGERS MD Sep 06, 2016 20:50
[2016-09-07] MEDS: LEVOTHYROXINE 25 MCG TABLET. PO SCH (05:55)
[2016-09-07 06:22] VITALS: BP 130/73
[2016-09-07] MEDS: FAMOTIDINE 20 MG TABLET PEG SCH ×2 (07:49→22:39)
[2016-09-07] MEDS: VALPROATE ACID 250 MG/5 ML ORAL SOLUTION PEG SCH ×2 (07:49→22:39)
[2016-09-07] MEDS: POTASSIUM CHLORIDE 20 MEQ/15 ML ORAL LIQUID. PEG SCH (07:49)
[2016-09-07] MEDS: INSULIN ASPART 300 UNITS/3 ML INSULN.PEN SQ SCH ×3 (07:50→17:29)
[2016-09-07 16:05] VITALS: BP 107/65
[2016-09-07] MEDS: ESCITALOPRAM 10 MG TABLET. PEG SCH (17:29)
--- NOTE | 2016-09-07 21:01 | PDOC ---
Exam Chauncey Demential Exam: Chauncey Note: Please also refer to the separate dictated note~for this date of service dictated separately.~Patient seen individually. Discussed the patient with Nursing staff reviewed the chart.~Reviewed interim history and current functioning. Reviewed vital signs,~Labs/ Radiology~and current medications noted below. Continue current treatment with the changes noted in the dictated addendum note Assessment: Vital Signs: Vital Signs Date Time Temp Pulse Resp B/P Pulse Ox O2 Delivery O2 Flow Rate FiO2 09/07/16 16:05 97.1 91 16 107/65 98 09/07/16 06:22 Room Air 09/02/16 15:22 99.0 I&O Intake and Output 09/07/16 07:00 Intake Total 2200 ml Balance 2200 ml Intake Oral 0 ml Tube Feeding 2200 ml Labs: Laboratory Tests Test 09/07/16 07:07 09/07/16 11:38 09/07/16 16:45 09/07/16 19:16 Glucose (Fingerstick) 131mg/dL (70-99) H 193mg/dL (70-99) H 193mg/dL (70-99) H 213mg/dL (70-99) H Current Medications: Meds: Current Medications Acetaminophen (Tylenol) 650 mg PRN Q4HRS PRN PO PAIN / TEMP; Start 08/30/16 at 15:15 Amoxicillin/ Clavulanate Potassium (Augmentin 875/ 125mg) 1 tab BID PO Last administered on 09/02/16 08:19; Start 08/30/16 at 21:00; Stop 09/02/16 at 11:09 ; Status DC Ergocalciferol (Vitamin D2) 50,000 unit QMONTH PEG ; Start 09/29/16 at 09:00 Escitalopram Oxalate (Lexapro) 10 mg QEVNG PEG Last administered on 09/07/16 17:29; Start 08/30/16 at 18:00 Famotidine (Pepcid) 20 mg BID PEG Last administered on 09/07/16 07:49; Start 08/30/16 at 21:00 Insulin Aspart (Novolog) 4 units TIDBFRMEAL SQ Last administered on 09/07/16 17:29; Start 08/30/16 at 16:30 Insulin Detemir (Levemir) 25 units HS SQ Last administered on 08/31/16 20:39; Start 08/30/16 at 21:00; Stop 09/01/16 at 14:23; Status DC Levothyroxine Sodium (Synthroid) 25 mcg DAILY06 PO Last administered on 05:55; Start 08/31/16 at 06:00 Olanzapine (Zyprexa Zydis) 1.25 mg PRN Q2HR PRN PO ANXIETY / AGITATION; Start 08/30/16 at 15:15 Potassium Chloride (KCl Oral Soln) 20 meq DAILY PEG Last administered on 07:49; Start 08/31/16 at 09:00 Risperidone (Risperdal) 0.25 mg QHS PEG Last administered on 09/06/16 19:26; Start 08/30/16 at 21:00 Valproic Acid (Depakene) 750 mg BID PEG Last administered on 09/07/16 07:49; Start 08/30/16 at 21:00 Mirtazapine (Remeron) 7.5 mg QHS PO Last administered on 09/06/16 19:26; Start 09/01/16 at 21:00 Insulin Detemir (Levemir) 18 units HS SQ Last administered on 09/04/16 20:03; Start 09/01/16 at 21:00; Stop 09/05/16 at 08:38; Status DC Insulin Detemir (Levemir) 10 units HS SQ Last administered on 09/06/16 19:28; Start 09/05/16 at 21:00 Active Scripts Active Augmentin 875-125 Tablet (Amoxicillin/Potassium Clav) 1 Each Tablet 1 Tab PO BID Reported Risperdal (Risperidone) 0.25 Mg Tablet 0.25 Mg PEG QHS Potassium Chloride Oral Liquid (Potassium Chloride) 20 Meq/15 Ml Liquid 20 Meq PEG DAILY Zyprexa Zydis (Olanzapine) 5 Mg Tab.rapdis 1.25 Mg PO PRN Q2HR PRN Famotidine 20 Mg Tablet 20 Mg PEG BID Levothyroxine Sodium 25 Mcg Tablet 25 Mcg PO DAILY06 Vitamin D2 (Ergocalciferol (Vitamin D2)) 50,000 Unit Capsule 50,000 Unit PEG QMONTH Valproic Acid (Valproate Sodium) 250 Mg/5 Ml Disp.syrin 750 Mg PEG BID Escitalopram Oxalate 10 Mg Tablet 10 Mg PEG QEVNG Acetaminophen 325 Mg Tablet 650 Mg PEG PRN Q4HRS PRN Levemir Flextouch (Insulin Detemir) 100 Unit/1 Ml Insuln.pen 25 Unit SQ HS Novolog Flexpen (Insulin Aspart) 100 Unit/1 Ml Insuln.pen 4 Unit SQ TIDBFRMEAL Diagnosis: Problems: (1) Sepsis associated hypotension (2) Dementia with behavioral disturbance (3) HCAP (healthcare-associated pneumonia) (4) Anxiety disorder (5) Dementia, vascular, with delusions (6) Dementia, vascular, with depression (7) Impulse control disorder VIANCA RODGERS MD Sep 07, 2016 21:01
[2016-09-07] MEDS: MIRTAZAPINE 7.5 MG TABLET. PO SCH (22:39)
[2016-09-07] MEDS: risperiDONE 0.25 MG TABLET. PEG SCH (22:40)
[2016-09-07] MEDS: INSULIN DETEMIR 300 UNITS/3 ML INSULN.PEN. SQ SCH (22:42)
[2016-09-08] MEDS: LEVOTHYROXINE 25 MCG TABLET. PO SCH (06:00)
[2016-09-08 06:53] VITALS: BP 118/85
[2016-09-08] MEDS: INSULIN ASPART 300 UNITS/3 ML INSULN.PEN SQ SCH ×4 (07:30→17:50)
[2016-09-08] MEDS: POTASSIUM CHLORIDE 20 MEQ/15 ML ORAL LIQUID. PEG SCH (08:11)
[2016-09-08] MEDS: VALPROATE ACID 250 MG/5 ML ORAL SOLUTION PEG SCH ×2 (08:11→19:39)
[2016-09-08] MEDS: FAMOTIDINE 20 MG TABLET PEG SCH ×2 (08:12→19:39)
--- NOTE | 2016-09-08 08:36 | PN ---
DATE: 09/06/2016 PSYCHIATRIC PROGRESS NOTE This is a late entry of 09/06/2016 covers elements not covered in my initial note. SUBJECTIVE: The patient remains withdrawn, refuses to answer questions, but did talk about having worked for 35 years. Agitation is better, unsteady gait, remains on PEG tube feeding. REVIEW OF SYSTEMS: He is in a Broda chair, difficulty with the swallowing. No CV, , eye, ENT system symptoms on review. Reliability poor. MENTAL STATUS EXAM: Oriented to himself. Insight, judgment, recent memory is impaired. Language function, impaired. Mood and affect somewhat withdrawn, but improved. LABORATORY DATA: Reviewed. IMPRESSION: Unchanged from initial note. PLAN: Continue psychotropics mentioned in my initial note. MAN Theron RODGERS MD DR: VERENA/pily JOB#: [id number] / [id number]
--- NOTE | 2016-09-08 08:39 | PN ---
DATE: 09/07/2016 PSYCHIATRIC PROGRESS NOTE This is a late entry of 09/07/2016 covers elements not covered in my initial note. SUBJECTIVE: Per nursing report, the patient remains withdrawn, somewhat dysphoric, but not aggressive. REVIEW OF SYSTEMS: Ambulation impaired in a Broda chair, difficulty with his swallowing on PEG tube feeding. No eye, ENT or pulmonary system symptoms on review. MENTAL STATUS EXAM: Oriented to himself and situation. Speech, low in rate and rhythm, low in volume, often responses monosyllabic. Abstraction fair, computation impaired, language function intact. Mood and affect withdrawn. No clear psychotic symptoms noted. DIAGNOSIS: Mentioned in my initial note. PLAN: Change Risperdal 0.25 mg at bedtime to Abilify 2.5 mg a day to augment the Lexapro 10 mg a day and continue Zyprexa p.r.n., Depakene 750 b.i.d., Remeron 7.5 at bedtime. Valproic acid level is therapeutic at 51. VIANCA RODGERS MD DR: VERENA/pily JOB#: [id number] / [id number]
[2016-09-08 16:57] VITALS: BP 120/81
[2016-09-08] MEDS: ESCITALOPRAM 10 MG TABLET. PEG SCH (17:50)
[2016-09-08] MEDS: MIRTAZAPINE 7.5 MG TABLET. PO SCH (19:39)
[2016-09-08] MEDS: INSULIN DETEMIR 300 UNITS/3 ML INSULN.PEN. SQ SCH (20:21)
[2016-09-08] MEDS: ARIPIPRAZOLE 5 MG TABLET PO SCH (20:22)
--- NOTE | 2016-09-08 20:51 | PDOC ---
Exam Chauncey Demential Exam: Chauncey Note: Please also refer to the separate dictated note~for this date of service dictated separately.~Patient seen individually. Discussed the patient with Nursing staff reviewed the chart.~Reviewed interim history and current functioning. Reviewed vital signs,~Labs/ Radiology~and current medications noted below. Continue current treatment with the changes noted in the dictated addendum note Assessment: Vital Signs: Vital Signs Date Time Temp Pulse Resp B/P Pulse Ox O2 Delivery O2 Flow Rate FiO2 09/08/16 16:57 97.1 66 17 120/81 97 09/07/16 06:22 Room Air 09/02/16 15:22 99.0 I&O Intake and Output 09/08/16 07:00 Intake Total 2425 ml Balance 2425 ml Intake Oral 0 ml Tube Feeding 2425 ml Labs: Laboratory Tests Test 09/08/16 07:12 09/08/16 11:36 09/08/16 17:13 09/08/16 19:08 Glucose (Fingerstick) 131mg/dL (70-99) H 55mg/dL (70-99) L 245mg/dL (70-99) H 281mg/dL (70-99) H Current Medications: Meds: Current Medications Acetaminophen (Tylenol) 650 mg PRN Q4HRS PRN PO PAIN / TEMP; Start 08/30/16 at 15:15 Amoxicillin/ Clavulanate Potassium (Augmentin 875/ 125mg) 1 tab BID PO Last administered on 09/02/16 08:19; Start 08/30/16 at 21:00; Stop 09/02/16 at 11:09 ; Status DC Ergocalciferol (Vitamin D2) 50,000 unit QMONTH PEG ; Start 09/29/16 at 09:00 Escitalopram Oxalate (Lexapro) 10 mg QEVNG PEG Last administered on 09/08/16 17:50; Start 08/30/16 at 18:00 Famotidine (Pepcid) 20 mg BID PEG Last administered on 09/08/16 19:39; Start 08/30/16 at 21:00 Insulin Aspart (Novolog) 4 units TIDBFRMEAL SQ Last administered on 09/08/16 17:50; Start 08/30/16 at 16:30 Insulin Detemir (Levemir) 25 units HS SQ Last administered on 08/31/16 20:39; Start 08/30/16 at 21:00; Stop 09/01/16 at 14:23; Status DC Levothyroxine Sodium (Synthroid) 25 mcg DAILY06 PO Last administered on 06:00; Start 08/31/16 at 06:00 Olanzapine (Zyprexa Zydis) 1.25 mg PRN Q2HR PRN PO ANXIETY / AGITATION; Start 08/30/16 at 15:15 Potassium Chloride (KCl Oral Soln) 20 meq DAILY PEG Last administered on 08:11; Start 08/31/16 at 09:00 Risperidone (Risperdal) 0.25 mg QHS PEG Last administered on 09/07/16 22:40; Start 08/30/16 at 21:00; Stop 09/08/16 at 11:06; Status DC Valproic Acid (Depakene) 750 mg BID PEG Last administered on 09/08/16 19:39; Start 08/30/16 at 21:00 Mirtazapine (Remeron) 7.5 mg QHS PO Last administered on 09/08/16 19:39; Start 09/01/16 at 21:00 Insulin Detemir (Levemir) 18 units HS SQ Last administered on 09/04/16 20:03; Start 09/01/16 at 21:00; Stop 09/05/16 at 08:38; Status DC Insulin Detemir (Levemir) 10 units HS SQ Last administered on 09/08/16 20:21; Start 09/05/16 at 21:00 Aripiprazole (Abilify) 2.5 mg HS PO Last administered on 09/08/16 20:22; Start 09/08/16 at 21:00 Active Scripts Active Augmentin 875-125 Tablet (Amoxicillin/Potassium Clav) 1 Each Tablet 1 Tab PO BID Reported Risperdal (Risperidone) 0.25 Mg Tablet 0.25 Mg PEG QHS Potassium Chloride Oral Liquid (Potassium Chloride) 20 Meq/15 Ml Liquid 20 Meq PEG DAILY Zyprexa Zydis (Olanzapine) 5 Mg Tab.rapdis 1.25 Mg PO PRN Q2HR PRN Famotidine 20 Mg Tablet 20 Mg PEG BID Levothyroxine Sodium 25 Mcg Tablet 25 Mcg PO DAILY06 Vitamin D2 (Ergocalciferol (Vitamin D2)) 50,000 Unit Capsule 50,000 Unit PEG QMONTH Valproic Acid (Valproate Sodium) 250 Mg/5 Ml Disp.syrin 750 Mg PEG BID Escitalopram Oxalate 10 Mg Tablet 10 Mg PEG QEVNG Acetaminophen 325 Mg Tablet 650 Mg PEG PRN Q4HRS PRN Levemir Flextouch (Insulin Detemir) 100 Unit/1 Ml Insuln.pen 25 Unit SQ HS Novolog Flexpen (Insulin Aspart) 100 Unit/1 Ml Insuln.pen 4 Unit SQ TIDBFRMEAL Diagnosis: Problems: (1) Sepsis associated hypotension (2) Dementia with behavioral disturbance (3) HCAP (healthcare-associated pneumonia) (4) Anxiety disorder (5) Dementia, vascular, with delusions (6) Dementia, vascular, with depression (7) Impulse control disorder VIANCA RODGERS MD Sep 08, 2016 20:51
[2016-09-09] MEDS: LEVOTHYROXINE 25 MCG TABLET. PO SCH (04:58)
[2016-09-09 06:46] VITALS: BP 94/51
[2016-09-09] MEDS: FAMOTIDINE 20 MG TABLET PEG SCH ×2 (08:57→20:59)
[2016-09-09] MEDS: POTASSIUM CHLORIDE 20 MEQ/15 ML ORAL LIQUID. PEG SCH (08:57)
[2016-09-09] MEDS: VALPROATE ACID 250 MG/5 ML ORAL SOLUTION PEG SCH ×2 (08:57→20:59)
[2016-09-09] MEDS: INSULIN ASPART 300 UNITS/3 ML INSULN.PEN SQ SCH ×3 (08:58→17:44)
--- NOTE | 2016-09-09 12:55 | PN ---
DATE: 09/08/2016 PSYCHIATRIC PROGRESS NOTE This is late entry of 09/08/2016, covers elements not covered in my initial note. SUBJECTIVE: Overall, the patient has been calm, mostly nonverbal, slightly restless in the Broda chair, but redirectable. REVIEW OF SYSTEMS: No CV, , pulmonary system symptoms on review. Reliability poor. He continues to have dysphagia, is on G-tube feeding. Impaired ambulation in a Broda chair. MENTAL STATUS EXAMINATION: Oriented to himself. Speech, often responses monosyllabic, low in rate and rhythm, low in volume. Abstraction fair, computation impaired, language function intact. Mood and affect somewhat withdrawn. LABORATORY DATA: Reviewed. IMPRESSION: Unchanged from initial note. PLAN: Continue psychotropics mentioned in my initial note. MAN Theron RODGERS MD DR: VERENA/pily JOB#: [id number] / [id number]
[2016-09-09 16:26] VITALS: BP 107/67
[2016-09-09] MEDS: ESCITALOPRAM 10 MG TABLET. PEG SCH (17:43)
[2016-09-09] MEDS: MIRTAZAPINE 7.5 MG TABLET. PO SCH (20:58)
[2016-09-09] MEDS: ARIPIPRAZOLE 5 MG TABLET PO SCH (20:58)
[2016-09-09] MEDS: INSULIN DETEMIR 300 UNITS/3 ML INSULN.PEN. SQ SCH (21:01)
--- NOTE | 2016-09-09 23:38 | PDOC ---
Exam Chauncey Demential Exam: Chauncey Note: Please also refer to the separate dictated note~for this date of service dictated separately.~Patient seen individually. Discussed the patient with Nursing staff reviewed the chart.~Reviewed interim history and current functioning. Reviewed vital signs,~Labs/ Radiology~and current medications noted below. Continue current treatment with the changes noted in the dictated addendum note Assessment: Vital Signs: Vital Signs Date Time Temp Pulse Resp B/P Pulse Ox O2 Delivery O2 Flow Rate FiO2 09/09/16 16:26 97.8 83 16 107/67 98 09/07/16 06:22 Room Air I&O Intake and Output 09/09/16 07:00 # Bowel Movements 2 Labs: Laboratory Tests Test 09/09/16 07:27 09/09/16 11:48 09/09/16 17:00 09/09/16 19:20 Glucose (Fingerstick) 102mg/dL (70-99) H 237mg/dL (70-99) H 256mg/dL (70-99) H 287mg/dL (70-99) H Current Medications: Meds: Current Medications Acetaminophen (Tylenol) 650 mg PRN Q4HRS PRN PO PAIN / TEMP; Start 08/30/16 at 15:15 Amoxicillin/ Clavulanate Potassium (Augmentin 875/ 125mg) 1 tab BID PO Last administered on 09/02/16 08:19; Start 08/30/16 at 21:00; Stop 09/02/16 at 11:09 ; Status DC Ergocalciferol (Vitamin D2) 50,000 unit QMONTH PEG ; Start 09/29/16 at 09:00 Escitalopram Oxalate (Lexapro) 10 mg QEVNG PEG Last administered on 09/09/16 17:43; Start 08/30/16 at 18:00 Famotidine (Pepcid) 20 mg BID PEG Last administered on 09/09/16 20:59; Start 08/30/16 at 21:00 Insulin Aspart (Novolog) 4 units TIDBFRMEAL SQ Last administered on 09/09/16 17:44; Start 08/30/16 at 16:30 Insulin Detemir (Levemir) 25 units HS SQ Last administered on 08/31/16 20:39; Start 08/30/16 at 21:00; Stop 09/01/16 at 14:23; Status DC Levothyroxine Sodium (Synthroid) 25 mcg DAILY06 PO Last administered on 04:58; Start 08/31/16 at 06:00 Olanzapine (Zyprexa Zydis) 1.25 mg PRN Q2HR PRN PO ANXIETY / AGITATION; Start 08/30/16 at 15:15 Potassium Chloride (KCl Oral Soln) 20 meq DAILY PEG Last administered on 08:57; Start 08/31/16 at 09:00 Risperidone (Risperdal) 0.25 mg QHS PEG Last administered on 09/07/16 22:40; Start 08/30/16 at 21:00; Stop 09/08/16 at 11:06; Status DC Valproic Acid (Depakene) 750 mg BID PEG Last administered on 09/09/16 20:59; Start 08/30/16 at 21:00 Mirtazapine (Remeron) 7.5 mg QHS PO Last administered on 09/09/16 20:58; Start 09/01/16 at 21:00 Insulin Detemir (Levemir) 18 units HS SQ Last administered on 09/04/16 20:03; Start 09/01/16 at 21:00; Stop 09/05/16 at 08:38; Status DC Insulin Detemir (Levemir) 10 units HS SQ Last administered on 09/09/16 21:01; Start 09/05/16 at 21:00 Aripiprazole (Abilify) 2.5 mg HS PO Last administered on 09/09/16 20:58; Start 09/08/16 at 21:00 Active Scripts Active Augmentin 875-125 Tablet (Amoxicillin/Potassium Clav) 1 Each Tablet 1 Tab PO BID Reported Risperdal (Risperidone) 0.25 Mg Tablet 0.25 Mg PEG QHS Potassium Chloride Oral Liquid (Potassium Chloride) 20 Meq/15 Ml Liquid 20 Meq PEG DAILY Zyprexa Zydis (Olanzapine) 5 Mg Tab.rapdis 1.25 Mg PO PRN Q2HR PRN Famotidine 20 Mg Tablet 20 Mg PEG BID Levothyroxine Sodium 25 Mcg Tablet 25 Mcg PO DAILY06 Vitamin D2 (Ergocalciferol (Vitamin D2)) 50,000 Unit Capsule 50,000 Unit PEG QMONTH Valproic Acid (Valproate Sodium) 250 Mg/5 Ml Disp.syrin 750 Mg PEG BID Escitalopram Oxalate 10 Mg Tablet 10 Mg PEG QEVNG Acetaminophen 325 Mg Tablet 650 Mg PEG PRN Q4HRS PRN Levemir Flextouch (Insulin Detemir) 100 Unit/1 Ml Insuln.pen 25 Unit SQ HS Novolog Flexpen (Insulin Aspart) 100 Unit/1 Ml Insuln.pen 4 Unit SQ TIDBFRMEAL Diagnosis: Problems: (1) Dementia with behavioral disturbance (2) Anxiety disorder (3) Dementia, vascular, with delusions (4) Dementia, vascular, with depression (5) Impulse control disorder VIANCA RODGERS MD Sep 09, 2016 23:38
[2016-09-10] MEDS: LEVOTHYROXINE 25 MCG TABLET. PO SCH (05:21)
[2016-09-10 06:05] VITALS: BP 127/68
[2016-09-10] MEDS: POTASSIUM CHLORIDE 20 MEQ/15 ML ORAL LIQUID. PEG SCH (09:37)
[2016-09-10] MEDS: VALPROATE ACID 250 MG/5 ML ORAL SOLUTION PEG SCH ×2 (09:37→21:41)
[2016-09-10] MEDS: FAMOTIDINE 20 MG TABLET PEG SCH ×2 (09:37→21:42)
[2016-09-10] MEDS: INSULIN ASPART 300 UNITS/3 ML INSULN.PEN SQ SCH ×3 (09:39→17:16)
[2016-09-10 16:04] VITALS: BP 115/73
[2016-09-10] MEDS: ESCITALOPRAM 10 MG TABLET. PEG SCH (16:47)
--- NOTE | 2016-09-10 21:35 | PDOC ---
Exam Chauncey Demential Exam: Chauncey Note: Please also refer to the separate dictated note~for this date of service dictated separately.~Patient seen individually. Discussed the patient with Nursing staff reviewed the chart.~Reviewed interim history and current functioning. Reviewed vital signs,~Labs/ Radiology~and current medications noted below. Continue current treatment with the changes noted in the dictated addendum note Assessment: Vital Signs: Vital Signs Date Time Temp Pulse Resp B/P Pulse Ox O2 Delivery O2 Flow Rate FiO2 09/10/16 16:04 97.6 68 16 115/73 99 09/07/16 06:22 Room Air I&O Intake and Output 09/10/16 07:00 Intake Total 1725 ml Balance 1725 ml Tube Feeding 1725 ml # Bowel Movements 2 Labs: Laboratory Tests Test 09/10/16 07:11 09/10/16 11:10 09/10/16 16:41 09/10/16 19:02 Glucose (Fingerstick) 118mg/dL (70-99) H 187mg/dL (70-99) H 169mg/dL (70-99) H 238mg/dL (70-99) H Current Medications: Meds: Current Medications Acetaminophen (Tylenol) 650 mg PRN Q4HRS PRN PO PAIN / TEMP; Start 08/30/16 at 15:15 Amoxicillin/ Clavulanate Potassium (Augmentin 875/ 125mg) 1 tab BID PO Last administered on 09/02/16 08:19; Start 08/30/16 at 21:00; Stop 09/02/16 at 11:09 ; Status DC Ergocalciferol (Vitamin D2) 50,000 unit QMONTH PEG ; Start 09/29/16 at 09:00 Escitalopram Oxalate (Lexapro) 10 mg QEVNG PEG Last administered on 09/10/16 16:47; Start 08/30/16 at 18:00 Famotidine (Pepcid) 20 mg BID PEG Last administered on 09/10/16 09:37; Start 08/30/16 at 21:00 Insulin Aspart (Novolog) 4 units TIDBFRMEAL SQ Last administered on 09/10/16 17:16; Start 08/30/16 at 16:30 Insulin Detemir (Levemir) 25 units HS SQ Last administered on 08/31/16 20:39; Start 08/30/16 at 21:00; Stop 09/01/16 at 14:23; Status DC Levothyroxine Sodium (Synthroid) 25 mcg DAILY06 PO Last administered on 05:21; Start 08/31/16 at 06:00 Olanzapine (Zyprexa Zydis) 1.25 mg PRN Q2HR PRN PO ANXIETY / AGITATION; Start 08/30/16 at 15:15 Potassium Chloride (KCl Oral Soln) 20 meq DAILY PEG Last administered on 09:37; Start 08/31/16 at 09:00 Risperidone (Risperdal) 0.25 mg QHS PEG Last administered on 09/07/16 22:40; Start 08/30/16 at 21:00; Stop 09/08/16 at 11:06; Status DC Valproic Acid (Depakene) 750 mg BID PEG Last administered on 09/10/16 09:37; Start 08/30/16 at 21:00 Mirtazapine (Remeron) 7.5 mg QHS PO Last administered on 09/09/16 20:58; Start 09/01/16 at 21:00 Insulin Detemir (Levemir) 18 units HS SQ Last administered on 09/04/16 20:03; Start 09/01/16 at 21:00; Stop 09/05/16 at 08:38; Status DC Insulin Detemir (Levemir) 10 units HS SQ Last administered on 09/09/16 21:01; Start 09/05/16 at 21:00 Aripiprazole (Abilify) 2.5 mg HS PO Last administered on 09/09/16 20:58; Start 09/08/16 at 21:00 Active Scripts Active Augmentin 875-125 Tablet (Amoxicillin/Potassium Clav) 1 Each Tablet 1 Tab PO BID Reported Risperdal (Risperidone) 0.25 Mg Tablet 0.25 Mg PEG QHS Potassium Chloride Oral Liquid (Potassium Chloride) 20 Meq/15 Ml Liquid 20 Meq PEG DAILY Zyprexa Zydis (Olanzapine) 5 Mg Tab.rapdis 1.25 Mg PO PRN Q2HR PRN Famotidine 20 Mg Tablet 20 Mg PEG BID Levothyroxine Sodium 25 Mcg Tablet 25 Mcg PO DAILY06 Vitamin D2 (Ergocalciferol (Vitamin D2)) 50,000 Unit Capsule 50,000 Unit PEG QMONTH Valproic Acid (Valproate Sodium) 250 Mg/5 Ml Disp.syrin 750 Mg PEG BID Escitalopram Oxalate 10 Mg Tablet 10 Mg PEG QEVNG Acetaminophen 325 Mg Tablet 650 Mg PEG PRN Q4HRS PRN Levemir Flextouch (Insulin Detemir) 100 Unit/1 Ml Insuln.pen 25 Unit SQ HS Novolog Flexpen (Insulin Aspart) 100 Unit/1 Ml Insuln.pen 4 Unit SQ TIDBFRMEAL Diagnosis: Problems: (1) Sepsis associated hypotension (2) Dementia with behavioral disturbance (3) HCAP (healthcare-associated pneumonia) (4) Anxiety disorder (5) Dementia, vascular, with delusions (6) Dementia, vascular, with depression (7) Impulse control disorder VIANCA RODGERS MD Sep 10, 2016 21:35
[2016-09-10] MEDS: MIRTAZAPINE 7.5 MG TABLET. PO SCH (21:41)
[2016-09-10] MEDS: ARIPIPRAZOLE 5 MG TABLET PO SCH (21:42)
[2016-09-10] MEDS: INSULIN DETEMIR 300 UNITS/3 ML INSULN.PEN. SQ SCH (21:43)
--- NOTE | 2016-09-11 02:03 | PN ---
DATE: 09/09/2016 PSYCHIATRIC PROGRESS NOTE This is a late entry for 09/09/2016, covers elements not covered in my initial note. SUBJECTIVE: Per nursing report, the patient has been calm, mostly nonverbal, slightly restless in Broda, but redirectable. REVIEW OF SYSTEMS: Difficulty with his ambulation and swallowing. No CV, , Pulmonary, eye system symptoms on review. MENTAL STATUS EXAM: Oriented to himself. Speech low in rate and rhythm, often responses monosyllabic. Insight, judgment, recent and remote memory, attention, concentration, fund of knowledge poor, consistent with his diagnosis. When I directly questioned him about being depressed, he denied it, though much of his response was nonverbal. LABORATORY DATA: Reviewed. IMPRESSION: Unchanged from initial note. PLAN: Continue psychotropics mentioned in my initial note Lexapro 10 mg a day, Zyprexa p.r.n., Abilify 2.5 mg a day, Depakene 750 mg b.i.d., level is 51, therapeutic, and Remeron 7.5 mg at bedtime. MAN Theron RODGERS MD DR: VERENA/pily JOB#: [id number] / [id number]
[2016-09-11] MEDS: LEVOTHYROXINE 25 MCG TABLET. PO SCH (05:32)
[2016-09-11 06:25] VITALS: BP 115/78
[2016-09-11] MEDS: INSULIN ASPART 300 UNITS/3 ML INSULN.PEN SQ SCH ×3 (09:45→17:16)
[2016-09-11] MEDS: FAMOTIDINE 20 MG TABLET PEG SCH ×2 (09:46→20:30)
[2016-09-11] MEDS: POTASSIUM CHLORIDE 20 MEQ/15 ML ORAL LIQUID. PEG SCH (09:46)
[2016-09-11] MEDS: VALPROATE ACID 250 MG/5 ML ORAL SOLUTION PEG SCH ×2 (09:46→20:32)
[2016-09-11 10:39] LABS: BASO % 1 % (0-3); EOS # 0.2 x10^3/uL (0.0-0.7); EOS % 3 % (0-3); HEMATOCRIT 45.7 % (39.0-53.0); HEMOGLOBIN 15.4 g/dL (13.0-17.5); LYMPH % 35 % (24-48); MEAN CORPUSCULAR HEMOGLOBIN 32 pg (25-35); MEAN CORPUSCULAR HGB CONC 34 g/dL (31-37); MEAN CORPUSCULAR VOLUME 94 fL (79-100); MONO # 0.6 x10^3/uL (0.0-1.1); MONO % 10 % (0-9); NEUT # 2.9 x10^3uL (1.8-7.7); NEUT % 51 % (31-73); PLATELET COUNT 141 x10^3/uL (140-400); RED BLOOD COUNT 4.86 x10^6/uL (4.30-5.70); RED CELL DISTRIBUTION WIDTH 13.5 % (11.5-14.5); WHITE BLOOD COUNT 5.7 x10^3/uL (4.0-11.0)
[2016-09-11 11:11] LABS: ALBUMIN 3.3 g/dL (3.4-5.0); ALBUMIN/GLOBULIN RATIO 0.8 (1.0-1.7); CALCIUM 9.2 mg/dL (8.5-10.1); CREATININE 0.8 mg/dL (0.7-1.3); GFR 98.9; MAGNESIUM 1.9 mg/dL (1.8-2.4); POTASSIUM 4.5 mmol/L (3.5-5.1); TOTAL BILIRUBIN 0.5 mg/dL (0.2-1.0); TOTAL PROTEIN 7.6 g/dL (6.4-8.2)
[2016-09-11 15:48] VITALS: BP 112/71
[2016-09-11] MEDS: ESCITALOPRAM 10 MG TABLET. PEG SCH (17:15)
[2016-09-11] MEDS: ARIPIPRAZOLE 5 MG TABLET PO SCH (20:31)
[2016-09-11] MEDS: MIRTAZAPINE 7.5 MG TABLET. PO SCH (20:31)
[2016-09-11] MEDS: INSULIN DETEMIR 300 UNITS/3 ML INSULN.PEN. SQ SCH (20:34)
--- NOTE | 2016-09-11 21:00 | PDOC ---
Exam Chauncey Demential Exam: Chauncey Note: Please also refer to the separate dictated note~for this date of service dictated separately.~Patient seen individually. Discussed the patient with Nursing staff reviewed the chart.~Reviewed interim history and current functioning. Reviewed vital signs,~Labs/ Radiology~and current medications noted below. Continue current treatment with the changes noted in the dictated addendum note Assessment: Vital Signs: Vital Signs Date Time Temp Pulse Resp B/P Pulse Ox O2 Delivery O2 Flow Rate FiO2 09/11/16 15:48 97.9 73 18 112/71 99 09/07/16 06:22 Room Air I&O Intake and Output 09/11/16 07:00 Intake Total 1100 ml Balance 1100 ml Intake Oral 0 ml Tube Feeding 1100 ml # Bowel Movements 1 Labs: Laboratory Tests Test 09/11/16 07:57 09/11/16 10:26 09/11/16 12:25 09/11/16 16:43 Glucose (Fingerstick) 109mg/dL (70-99) H 201mg/dL (70-99) H 220mg/dL (70-99) H White Blood Count 5.7x10^3/uL (4.0-11.0) Red Blood Count 4.86x10^6/uL (4.30-5.70) Hemoglobin 15.4g/dL (13.0-17.5) Hematocrit 45.7% (39.0-53.0) Mean Corpuscular Volume 94fL (79-100) Mean Corpuscular Hemoglobin 32pg (25-35) Mean Corpuscular Hemoglobin Concent 34g/dL (31-37) Red Cell Distribution Width 13.5% (11.5-14.5) Platelet Count 141x10^3/uL (140-400) Neutrophils (%) (Auto) 51% (31-73) Lymphocytes (%) (Auto) 35% (24-48) Monocytes (%) (Auto) 10% (0-9) H Eosinophils (%) (Auto) 3% (0-3) Basophils (%) (Auto) 1% (0-3) Neutrophils # (Auto) 2.9x10^3uL (1.8-7.7) Lymphocytes # (Auto) 2.0x10^3/uL (1.0-4.8) Monocytes # (Auto) 0.6x10^3/uL (0.0-1.1) Eosinophils # (Auto) 0.2x10^3/uL (0.0-0.7) Basophils # (Auto) 0.0x10^3/uL (0.0-0.2) Sodium Level 141mmol/L (136-145) Potassium Level 4.5mmol/L (3.5-5.1) Chloride Level 103mmol/L (98-107) Carbon Dioxide Level 32mmol/L (21-32) Anion Gap 6 (6-14) Blood Urea Nitrogen 15mg/dL (8-26) Creatinine 0.8mg/dL (0.7-1.3) Estimated GFR (Cockcroft-Gault) 98.9 BUN/Creatinine Ratio 19 (6-20) Glucose Level 115mg/dL (70-99) H Calcium Level 9.2mg/dL (8.5-10.1) Magnesium Level 1.9mg/dL (1.8-2.4) Total Bilirubin 0.5mg/dL (0.2-1.0) Aspartate Amino Transferase (AST) 30U/L (15-37) Alanine Aminotransferase (ALT) 60U/L (16-63) Alkaline Phosphatase 97U/L (46-116) Total Protein 7.6g/dL (6.4-8.2) Albumin 3.3g/dL (3.4-5.0) L Albumin/Globulin Ratio 0.8 (1.0-1.7) L Test 09/11/16 19:07 Glucose (Fingerstick) 243mg/dL (70-99) H Current Medications: Meds: Current Medications Acetaminophen (Tylenol) 650 mg PRN Q4HRS PRN PO PAIN / TEMP; Start 08/30/16 at 15:15 Amoxicillin/ Clavulanate Potassium (Augmentin 875/ 125mg) 1 tab BID PO Last administered on 09/02/16 08:19; Start 08/30/16 at 21:00; Stop 09/02/16 at 11:09 ; Status DC Ergocalciferol (Vitamin D2) 50,000 unit QMONTH PEG ; Start 09/29/16 at 09:00 Escitalopram Oxalate (Lexapro) 10 mg QEVNG PEG Last administered on 09/11/16t 17:15; Start 08/30/16 at 18:00 Famotidine (Pepcid) 20 mg BID PEG Last administered on 09/11/16 20:30; Start 08/30/16 at 21:00 Insulin Aspart (Novolog) 4 units TIDBFRMEAL SQ Last administered on 09/11/16 17:16; Start 08/30/16 at 16:30 Insulin Detemir (Levemir) 25 units HS SQ Last administered on 08/31/16 20:39; Start 08/30/16 at 21:00; Stop 09/01/16 at 14:23; Status DC Levothyroxine Sodium (Synthroid) 25 mcg DAILY06 PO Last administered on 05:32; Start 08/31/16 at 06:00 Olanzapine (Zyprexa Zydis) 1.25 mg PRN Q2HR PRN PO ANXIETY / AGITATION; Start 08/30/16 at 15:15 Potassium Chloride (KCl Oral Soln) 20 meq DAILY PEG Last administered on 09:46; Start 08/31/16 at 09:00 Risperidone (Risperdal) 0.25 mg QHS PEG Last administered on 09/07/16 22:40; Start 08/30/16 at 21:00; Stop 09/08/16 at 11:06; Status DC Valproic Acid (Depakene) 750 mg BID PEG Last administered on 09/11/16 20:32; Start 08/30/16 at 21:00 Mirtazapine (Remeron) 7.5 mg QHS PO Last administered on 09/11/16 20:31; Start 09/01/16 at 21:00 Insulin Detemir (Levemir) 18 units HS SQ Last administered on 09/04/16 20:03; Start 09/01/16 at 21:00; Stop 09/05/16 at 08:38; Status DC Insulin Detemir (Levemir) 10 units HS SQ Last administered on 09/11/16 20:34; Start 09/05/16 at 21:00 Aripiprazole (Abilify) 2.5 mg HS PO Last administered on 09/11/16 20:31; Start 09/08/16 at 21:00 Active Scripts Active Augmentin 875-125 Tablet (Amoxicillin/Potassium Clav) 1 Each Tablet 1 Tab PO BID Reported Risperdal (Risperidone) 0.25 Mg Tablet 0.25 Mg PEG QHS Potassium Chloride Oral Liquid (Potassium Chloride) 20 Meq/15 Ml Liquid 20 Meq PEG DAILY Zyprexa Zydis (Olanzapine) 5 Mg Tab.rapdis 1.25 Mg PO PRN Q2HR PRN Famotidine 20 Mg Tablet 20 Mg PEG BID Levothyroxine Sodium 25 Mcg Tablet 25 Mcg PO DAILY06 Vitamin D2 (Ergocalciferol (Vitamin D2)) 50,000 Unit Capsule 50,000 Unit PEG QMONTH Valproic Acid (Valproate Sodium) 250 Mg/5 Ml Disp.syrin 750 Mg PEG BID Escitalopram Oxalate 10 Mg Tablet 10 Mg PEG QEVNG Acetaminophen 325 Mg Tablet 650 Mg PEG PRN Q4HRS PRN Levemir Flextouch (Insulin Detemir) 100 Unit/1 Ml Insuln.pen 25 Unit SQ HS Novolog Flexpen (Insulin Aspart) 100 Unit/1 Ml Insuln.pen 4 Unit SQ TIDBFRMEAL Diagnosis: Problems: (1) Sepsis associated hypotension (2) Dementia with behavioral disturbance (3) HCAP (healthcare-associated pneumonia) (4) Anxiety disorder (5) Dementia, vascular, with delusions (6) Dementia, vascular, with depression (7) Impulse control disorder VIANCA RODGERS MD Sep 11, 2016 21:00
--- NOTE | 2016-09-12 03:06 | PN ---
DATE: 09/10/2016 PSYCHIATRIC PROGRESS NOTE This is a late entry for 09/10/2016, covers elements not covered in my initial note. SUBJECTIVE: Overall, the patient has been calm, withdrawn, confused, did not sleep well previous night, just about 3 hours. Rest items mentioned in my initial note including current diagnosis and plan to discharge back to correction in the next day or so. MAN Theron RODGERS MD DR: VERENA/pily JOB#: [id number] / [id number]
[2016-09-12] MEDS: LEVOTHYROXINE 25 MCG TABLET. PO SCH (06:03)
[2016-09-12 06:29] VITALS: BP 135/85
[2016-09-12] MEDS: INSULIN ASPART 300 UNITS/3 ML INSULN.PEN SQ SCH ×3 (07:39→17:06)
[2016-09-12] MEDS: FAMOTIDINE 20 MG TABLET PEG SCH ×2 (10:24→20:28)
[2016-09-12] MEDS: VALPROATE ACID 250 MG/5 ML ORAL SOLUTION PEG SCH ×2 (10:24→20:29)
[2016-09-12] MEDS: POTASSIUM CHLORIDE 20 MEQ/15 ML ORAL LIQUID. PEG SCH (10:24)
[2016-09-12 15:45] VITALS: BP 124/70
[2016-09-12] MEDS: ESCITALOPRAM 10 MG TABLET. PEG SCH ×2 (17:05→20:28)
[2016-09-12] MEDS: MIRTAZAPINE 7.5 MG TABLET. PO SCH (20:29)
[2016-09-12] MEDS: ARIPIPRAZOLE 5 MG TABLET PO SCH (20:29)
[2016-09-12] MEDS: INSULIN DETEMIR 300 UNITS/3 ML INSULN.PEN. SQ SCH (20:36)
--- NOTE | 2016-09-12 21:01 | PDOC ---
Exam Chauncey Demential Exam: Chauncey Note: Please also refer to the separate dictated note~for this date of service dictated separately.~Patient seen individually. Discussed the patient with Nursing staff reviewed the chart.~Reviewed interim history and current functioning. Reviewed vital signs,~Labs/ Radiology~and current medications noted below. Continue current treatment with the changes noted in the dictated addendum note Assessment: Vital Signs: Vital Signs Date Time Temp Pulse Resp B/P Pulse Ox O2 Delivery O2 Flow Rate FiO2 09/12/16 15:45 97.6 66 20 124/70 100 09/12/16 06:29 Room Air I&O Intake and Output 09/12/16 07:00 Intake Total 1425 ml Balance 1425 ml Tube Feeding 1425 ml # Bowel Movements 1 Labs: Laboratory Tests Test 09/12/16 07:11 09/12/16 11:11 09/12/16 16:13 09/12/16 19:08 Glucose (Fingerstick) 129mg/dL (70-99) H 92mg/dL (70-99) 223mg/dL (70-99) H 280mg/dL (70-99) H Current Medications: Meds: Current Medications Acetaminophen (Tylenol) 650 mg PRN Q4HRS PRN PO PAIN / TEMP; Start 08/30/16 at 15:15 Amoxicillin/ Clavulanate Potassium (Augmentin 875/ 125mg) 1 tab BID PO Last administered on 09/02/16 08:19; Start 08/30/16 at 21:00; Stop 09/02/16 at 11:09 ; Status DC Ergocalciferol (Vitamin D2) 50,000 unit QMONTH PEG ; Start 09/29/16 at 09:00 Escitalopram Oxalate (Lexapro) 10 mg QEVNG PEG Last administered on 09/12/16 20:28; Start 08/30/16 at 18:00 Famotidine (Pepcid) 20 mg BID PEG Last administered on 09/12/16 20:28; Start 08/30/16 at 21:00 Insulin Aspart (Novolog) 4 units TIDBFRMEAL SQ Last administered on 09/12/16 17:06; Start 08/30/16 at 16:30 Insulin Detemir (Levemir) 25 units HS SQ Last administered on 08/31/16 20:39; Start 08/30/16 at 21:00; Stop 09/01/16 at 14:23; Status DC Levothyroxine Sodium (Synthroid) 25 mcg DAILY06 PO Last administered on 06:03; Start 08/31/16 at 06:00 Olanzapine (Zyprexa Zydis) 1.25 mg PRN Q2HR PRN PO ANXIETY / AGITATION; Start 08/30/16 at 15:15 Potassium Chloride (KCl Oral Soln) 20 meq DAILY PEG Last administered on 10:24; Start 08/31/16 at 09:00 Risperidone (Risperdal) 0.25 mg QHS PEG Last administered on 09/07/16 22:40; Start 08/30/16 at 21:00; Stop 09/08/16 at 11:06; Status DC Valproic Acid (Depakene) 750 mg BID PEG Last administered on 09/12/16 20:29; Start 08/30/16 at 21:00 Mirtazapine (Remeron) 7.5 mg QHS PO Last administered on 09/12/16 20:29; Start 09/01/16 at 21:00 Insulin Detemir (Levemir) 18 units HS SQ Last administered on 09/04/16 20:03; Start 09/01/16 at 21:00; Stop 09/05/16 at 08:38; Status DC Insulin Detemir (Levemir) 10 units HS SQ Last administered on 09/12/16 20:36; Start 09/05/16 at 21:00 Aripiprazole (Abilify) 2.5 mg HS PO Last administered on 09/12/16 20:29; Start 09/08/16 at 21:00 Active Scripts Active Augmentin 875-125 Tablet (Amoxicillin/Potassium Clav) 1 Each Tablet 1 Tab PO BID Reported Risperdal (Risperidone) 0.25 Mg Tablet 0.25 Mg PEG QHS Potassium Chloride Oral Liquid (Potassium Chloride) 20 Meq/15 Ml Liquid 20 Meq PEG DAILY Zyprexa Zydis (Olanzapine) 5 Mg Tab.rapdis 1.25 Mg PO PRN Q2HR PRN Famotidine 20 Mg Tablet 20 Mg PEG BID Levothyroxine Sodium 25 Mcg Tablet 25 Mcg PO DAILY06 Vitamin D2 (Ergocalciferol (Vitamin D2)) 50,000 Unit Capsule 50,000 Unit PEG QMONTH Valproic Acid (Valproate Sodium) 250 Mg/5 Ml Disp.syrin 750 Mg PEG BID Escitalopram Oxalate 10 Mg Tablet 10 Mg PEG QEVNG Acetaminophen 325 Mg Tablet 650 Mg PEG PRN Q4HRS PRN Levemir Flextouch (Insulin Detemir) 100 Unit/1 Ml Insuln.pen 25 Unit SQ HS Novolog Flexpen (Insulin Aspart) 100 Unit/1 Ml Insuln.pen 4 Unit SQ TIDBFRMEAL Diagnosis: Problems: (1) Sepsis associated hypotension (2) Dementia with behavioral disturbance (3) HCAP (healthcare-associated pneumonia) (4) Anxiety disorder (5) Dementia, vascular, with delusions (6) Dementia, vascular, with depression (7) Impulse control disorder VIANCA RODGERS MD Sep 12, 2016 21:01
[2016-09-13] MEDS: LEVOTHYROXINE 25 MCG TABLET. PO SCH (05:07)
[2016-09-13 05:39] VITALS: BP 100/69
[2016-09-13] MEDS: VALPROATE ACID 250 MG/5 ML ORAL SOLUTION PEG SCH ×2 (09:30→20:15)
[2016-09-13] MEDS: POTASSIUM CHLORIDE 20 MEQ/15 ML ORAL LIQUID. PEG SCH (09:31)
[2016-09-13] MEDS: FAMOTIDINE 20 MG TABLET PEG SCH ×2 (09:31→20:16)
[2016-09-13] MEDS: INSULIN ASPART 300 UNITS/3 ML INSULN.PEN SQ SCH ×3 (09:32→17:08)
[2016-09-13 15:30] VITALS: BP 113/74
[2016-09-13] MEDS: ESCITALOPRAM 10 MG TABLET. PEG SCH (18:40)
[2016-09-13] MEDS: ARIPIPRAZOLE 5 MG TABLET PO SCH (20:16)
[2016-09-13] MEDS: MIRTAZAPINE 7.5 MG TABLET. PO SCH (20:17)
[2016-09-13] MEDS: INSULIN DETEMIR 300 UNITS/3 ML INSULN.PEN. SQ SCH (20:19)
--- NOTE | 2016-09-13 20:52 | PDOC ---
Exam Chauncey Demential Exam: Chauncey Note: Please also refer to the separate dictated note~for this date of service dictated separately.~Patient seen individually. Discussed the patient with Nursing staff reviewed the chart.~Reviewed interim history and current functioning. Reviewed vital signs,~Labs/ Radiology~and current medications noted below. Continue current treatment with the changes noted in the dictated addendum note Assessment: Vital Signs: Vital Signs Date Time Temp Pulse Resp B/P Pulse Ox O2 Delivery O2 Flow Rate FiO2 09/13/16 15:30 97.4 68 16 113/74 99 Room Air I&O Intake and Output 09/13/16 07:00 Intake Total 530 ml Balance 530 ml Intake Oral 0 ml Tube Feeding 530 ml # Voids 1 # Bowel Movements 2 Labs: Laboratory Tests Test 09/13/16 06:56 09/13/16 11:14 09/13/16 16:48 09/13/16 19:03 Glucose (Fingerstick) 130mg/dL (70-99) H 205mg/dL (70-99) H 182mg/dL (70-99) H 261mg/dL (70-99) H Current Medications: Meds: Current Medications Acetaminophen (Tylenol) 650 mg PRN Q4HRS PRN PO PAIN / TEMP; Start 08/30/16 at 15:15 Amoxicillin/ Clavulanate Potassium (Augmentin 875/ 125mg) 1 tab BID PO Last administered on 09/02/16 08:19; Start 08/30/16 at 21:00; Stop 09/02/16 at 11:09 ; Status DC Ergocalciferol (Vitamin D2) 50,000 unit QMONTH PEG ; Start 09/29/16 at 09:00 Escitalopram Oxalate (Lexapro) 10 mg QEVNG PEG Last administered on 09/12/16 20:28; Start 08/30/16 at 18:00; Stop 09/13/16 at 16:48; Status DC Famotidine (Pepcid) 20 mg BID PEG Last administered on 09/13/16 20:16; Start 08/30/16 at 21:00 Insulin Aspart (Novolog) 4 units TIDBFRMEAL SQ Last administered on 09/13/16 17:08; Start 08/30/16 at 16:30 Insulin Detemir (Levemir) 25 units HS SQ Last administered on 08/31/16 20:39; Start 08/30/16 at 21:00; Stop 09/01/16 at 14:23; Status DC Levothyroxine Sodium (Synthroid) 25 mcg DAILY06 PO Last administered on 05:07; Start 08/31/16 at 06:00 Olanzapine (Zyprexa Zydis) 1.25 mg PRN Q2HR PRN PO ANXIETY / AGITATION; Start 08/30/16 at 15:15 Potassium Chloride (KCl Oral Soln) 20 meq DAILY PEG Last administered on 09:31; Start 08/31/16 at 09:00 Risperidone (Risperdal) 0.25 mg QHS PEG Last administered on 09/07/16 22:40; Start 08/30/16 at 21:00; Stop 09/08/16 at 11:06; Status DC Valproic Acid (Depakene) 750 mg BID PEG Last administered on 09/13/16 20:15; Start 08/30/16 at 21:00 Mirtazapine (Remeron) 7.5 mg QHS PO Last administered on 09/13/16 20:17; Start 09/01/16 at 21:00 Insulin Detemir (Levemir) 18 units HS SQ Last administered on 09/04/16 20:03; Start 09/01/16 at 21:00; Stop 09/05/16 at 08:38; Status DC Insulin Detemir (Levemir) 10 units HS SQ Last administered on 09/13/16 20:19; Start 09/05/16 at 21:00 Aripiprazole (Abilify) 2.5 mg HS PO Last administered on 09/13/16 20:16; Start 09/08/16 at 21:00 Escitalopram Oxalate (Lexapro) 15 mg QEVNG PEG Last administered on 09/13/16 18:40; Start 09/13/16 at 18:00 Active Scripts Active Augmentin 875-125 Tablet (Amoxicillin/Potassium Clav) 1 Each Tablet 1 Tab PO BID Reported Risperdal (Risperidone) 0.25 Mg Tablet 0.25 Mg PEG QHS Potassium Chloride Oral Liquid (Potassium Chloride) 20 Meq/15 Ml Liquid 20 Meq PEG DAILY Zyprexa Zydis (Olanzapine) 5 Mg Tab.rapdis 1.25 Mg PO PRN Q2HR PRN Famotidine 20 Mg Tablet 20 Mg PEG BID Levothyroxine Sodium 25 Mcg Tablet 25 Mcg PO DAILY06 Vitamin D2 (Ergocalciferol (Vitamin D2)) 50,000 Unit Capsule 50,000 Unit PEG QMONTH Valproic Acid (Valproate Sodium) 250 Mg/5 Ml Disp.syrin 750 Mg PEG BID Escitalopram Oxalate 10 Mg Tablet 10 Mg PEG QEVNG Acetaminophen 325 Mg Tablet 650 Mg PEG PRN Q4HRS PRN Levemir Flextouch (Insulin Detemir) 100 Unit/1 Ml Insuln.pen 25 Unit SQ HS Novolog Flexpen (Insulin Aspart) 100 Unit/1 Ml Insuln.pen 4 Unit SQ TIDBFRMEAL Diagnosis: Problems: (1) Sepsis associated hypotension (2) Dementia with behavioral disturbance (3) HCAP (healthcare-associated pneumonia) (4) Anxiety disorder (5) Dementia, vascular, with delusions (6) Dementia, vascular, with depression (7) Impulse control disorder VIANAC RODGERS MD Sep 13, 2016 20:52
--- NOTE | 2016-09-14 01:37 | PN ---
DATE: 09/11/2016 PSYCHIATRIC PROGRESS NOTE This is late entry of 09/11/2016, covers elements not covered in my initial note. SUBJECTIVE: The patient slept 5-1/2 hours previous night, walked somewhat with physical therapy staff, still remains otherwise withdrawn in his Broda chair, somewhat depressed. REVIEW OF SYSTEMS: Ambulation impaired. Difficulty swallowing, on G-tube feeding. No CV, , pulmonary, eye system symptoms on review. Reliability poor. MENTAL STATUS EXAMINATION: Oriented to himself. Insight, judgment, recent and remote memory, attention, concentration, fund of knowledge poor, consistent with his diagnosis. LABORATORY DATA: Reviewed. IMPRESSION: Major neurocognitive disorder, Alzheimer, vascular with depression, delusion and behavioral disturbance; anxiety disorder, unspecified; impulse control disorder, unspecified. Rest diagnoses unchanged. PLAN: Continue Lexapro 10 mg a day, Zyprexa p.r.n., Abilify 2.5 mg at bedtime, Depakene 750 b.i.d., Remeron 7.5 at bedtime. Valproic acid level therapeutic at 51. Adjust further as clinically indicated. MAN Theron RODGERS MD DR: VERENA/pily JOB#: [id number] / [id number]
--- NOTE | 2016-09-14 01:37 | PN ---
DATE: 09/12/2016 PSYCHIATRIC PROGRESS NOTE This is late entry of 09/12/2016, covers elements not covered in my initial note. SUBJECTIVE: The patient was staffed at treatment team meeting with the entire team morning 09/12/2016, reviewed the patient's history, discharge plans, current psychotropics, placement being awaited. He has not been aggressive. REVIEW OF SYSTEMS: In a Broda chair, impaired ambulation only with physical therapy staff, difficulty swallowing, on G-tube feeding. No CV, , pulmonary, eye system symptoms on review. Reliability poor. MENTAL STATUS EXAMINATION: Oriented to himself. Insight, judgment, recent and remote memory, attention, concentration, fund of knowledge poor, consistent with his diagnosis mentioned in my initial note. PLAN: Continue current psychotropics mentioned in my initial note. Increase Lexapro to 15 mg a day. Adjust further as clinically indicated. MAN Theron RODGERS MD DR: VERENA/pily JOB#: [id number] / [id number]
[2016-09-14] MEDS: LEVOTHYROXINE 25 MCG TABLET. PO SCH (04:55)
[2016-09-14 05:50] VITALS: BP 115/77
[2016-09-14] MEDS: POTASSIUM CHLORIDE 20 MEQ/15 ML ORAL LIQUID. PEG SCH (08:28)
[2016-09-14] MEDS: FAMOTIDINE 20 MG TABLET PEG SCH ×2 (08:28→20:21)
[2016-09-14] MEDS: VALPROATE ACID 250 MG/5 ML ORAL SOLUTION PEG SCH ×2 (08:28→20:15)
[2016-09-14] MEDS: INSULIN ASPART 300 UNITS/3 ML INSULN.PEN SQ SCH ×3 (09:16→17:30)
[2016-09-14 16:19] VITALS: BP 113/76
[2016-09-14] MEDS: ESCITALOPRAM 10 MG TABLET. PEG SCH (17:31)
[2016-09-14] MEDS: MIRTAZAPINE 7.5 MG TABLET. PO SCH (20:15)
[2016-09-14] MEDS: ARIPIPRAZOLE 5 MG TABLET PO SCH (20:15)
[2016-09-14] MEDS: INSULIN DETEMIR 300 UNITS/3 ML INSULN.PEN. SQ SCH (20:19)
--- NOTE | 2016-09-14 22:17 | PDOC ---
Exam Chauncey Demential Exam: Chauncey Note: Please also refer to the separate dictated note~for this date of service dictated separately.~Patient seen individually. Discussed the patient with Nursing staff reviewed the chart.~Reviewed interim history and current functioning. Reviewed vital signs,~Labs/ Radiology~and current medications noted below. Continue current treatment with the changes noted in the dictated addendum note Assessment: Vital Signs: Vital Signs Date Time Temp Pulse Resp B/P Pulse Ox O2 Delivery O2 Flow Rate FiO2 09/14/16 16:19 97.8 67 15 113/76 99 09/13/16 15:30 Room Air I&O Intake and Output 09/14/16 07:00 Intake Total 1340 ml Balance 1340 ml Intake Oral 0 ml Tube Feeding 810 ml TPN/PPN 530 ml Labs: Laboratory Tests Test 09/14/16 07:04 09/14/16 11:38 09/14/16 17:00 09/14/16 19:18 Glucose (Fingerstick) 162mg/dL (70-99) H 239mg/dL (70-99) H 212mg/dL (70-99) H 246mg/dL (70-99) H Current Medications: Meds: Current Medications Acetaminophen (Tylenol) 650 mg PRN Q4HRS PRN PO PAIN / TEMP Last administered on 09/14/16 20:17; Start 08/30/16 at 15:15 Amoxicillin/ Clavulanate Potassium (Augmentin 875/ 125mg) 1 tab BID PO Last administered on 09/02/16 08:19; Start 08/30/16 at 21:00; Stop 09/02/16 at 11:09 ; Status DC Ergocalciferol (Vitamin D2) 50,000 unit QMONTH PEG ; Start 09/29/16 at 09:00 Escitalopram Oxalate (Lexapro) 10 mg QEVNG PEG Last administered on 09/12/16 20:28; Start 08/30/16 at 18:00; Stop 09/13/16 at 16:48; Status DC Famotidine (Pepcid) 20 mg BID PEG Last administered on 09/14/16 20:21; Start 08/30/16 at 21:00 Insulin Aspart (Novolog) 4 units TIDBFRMEAL SQ Last administered on 09/14/16 17:30; Start 08/30/16 at 16:30 Insulin Detemir (Levemir) 25 units HS SQ Last administered on 08/31/16 20:39; Start 08/30/16 at 21:00; Stop 09/01/16 at 14:23; Status DC Levothyroxine Sodium (Synthroid) 25 mcg DAILY06 PO Last administered on 04:55; Start 08/31/16 at 06:00 Olanzapine (Zyprexa Zydis) 1.25 mg PRN Q2HR PRN PO ANXIETY / AGITATION; Start 08/30/16 at 15:15 Potassium Chloride (KCl Oral Soln) 20 meq DAILY PEG Last administered on 08:28; Start 08/31/16 at 09:00 Risperidone (Risperdal) 0.25 mg QHS PEG Last administered on 09/07/16 22:40; Start 08/30/16 at 21:00; Stop 09/08/16 at 11:06; Status DC Valproic Acid (Depakene) 750 mg BID PEG Last administered on 09/14/16 20:15; Start 08/30/16 at 21:00 Mirtazapine (Remeron) 7.5 mg QHS PO Last administered on 09/14/16 20:15; Start 09/01/16 at 21:00 Insulin Detemir (Levemir) 18 units HS SQ Last administered on 09/04/16 20:03; Start 09/01/16 at 21:00; Stop 09/05/16 at 08:38; Status DC Insulin Detemir (Levemir) 10 units HS SQ Last administered on 09/14/16 20:19; Start 09/05/16 at 21:00 Aripiprazole (Abilify) 2.5 mg HS PO Last administered on 09/14/16 20:15; Start 09/08/16 at 21:00 Escitalopram Oxalate (Lexapro) 15 mg QEVNG PEG Last administered on 09/14/16 17:31; Start 09/13/16 at 18:00 Active Scripts Active Augmentin 875-125 Tablet (Amoxicillin/Potassium Clav) 1 Each Tablet 1 Tab PO BID Reported Risperdal (Risperidone) 0.25 Mg Tablet 0.25 Mg PEG QHS Potassium Chloride Oral Liquid (Potassium Chloride) 20 Meq/15 Ml Liquid 20 Meq PEG DAILY Zyprexa Zydis (Olanzapine) 5 Mg Tab.rapdis 1.25 Mg PO PRN Q2HR PRN Famotidine 20 Mg Tablet 20 Mg PEG BID Levothyroxine Sodium 25 Mcg Tablet 25 Mcg PO DAILY06 Vitamin D2 (Ergocalciferol (Vitamin D2)) 50,000 Unit Capsule 50,000 Unit PEG QMONTH Valproic Acid (Valproate Sodium) 250 Mg/5 Ml Disp.syrin 750 Mg PEG BID Escitalopram Oxalate 10 Mg Tablet 10 Mg PEG QEVNG Acetaminophen 325 Mg Tablet 650 Mg PEG PRN Q4HRS PRN Levemir Flextouch (Insulin Detemir) 100 Unit/1 Ml Insuln.pen 25 Unit SQ HS Novolog Flexpen (Insulin Aspart) 100 Unit/1 Ml Insuln.pen 4 Unit SQ TIDBFRMEAL Diagnosis: Problems: (1) Sepsis associated hypotension (2) Dementia with behavioral disturbance (3) HCAP (healthcare-associated pneumonia) (4) Anxiety disorder (5) Dementia, vascular, with delusions (6) Dementia, vascular, with depression (7) Impulse control disorder VIANCA RODGERS MD Sep 14, 2016 22:17
[2016-09-15] MEDS: LEVOTHYROXINE 25 MCG TABLET. PO SCH (05:03)
[2016-09-15 06:03] VITALS: BP 132/77
[2016-09-15] MEDS: VALPROATE ACID 250 MG/5 ML ORAL SOLUTION PEG SCH ×2 (07:51→19:45)
[2016-09-15] MEDS: POTASSIUM CHLORIDE 20 MEQ/15 ML ORAL LIQUID. PEG SCH (07:52)
[2016-09-15] MEDS: FAMOTIDINE 20 MG TABLET PEG SCH ×2 (07:52→19:46)
[2016-09-15] MEDS: INSULIN ASPART 300 UNITS/3 ML INSULN.PEN SQ SCH ×3 (07:52→17:42)
[2016-09-15 17:37] VITALS: BP 137/70
[2016-09-15] MEDS: ESCITALOPRAM 10 MG TABLET. PEG SCH (17:40)
[2016-09-15] MEDS: MIRTAZAPINE 7.5 MG TABLET. PO SCH (19:46)
[2016-09-15] MEDS: ARIPIPRAZOLE 5 MG TABLET PO SCH (19:46)
[2016-09-15] MEDS: INSULIN DETEMIR 300 UNITS/3 ML INSULN.PEN. SQ SCH (19:48)
[2016-09-16 01:54] LABS: BASO # 0.1 x10^3/uL (0.0-0.2); BASO % 1 % (0-3); EOS % 0 % (0-3); HEMATOCRIT 47.3 % (39.0-53.0); HEMOGLOBIN 15.8 g/dL (13.0-17.5); LYMPH # 1.7 x10^3/uL (1.0-4.8); LYMPH % 15 % (24-48); MEAN CORPUSCULAR HEMOGLOBIN 31 pg (25-35); MEAN CORPUSCULAR HGB CONC 34 g/dL (31-37); MEAN CORPUSCULAR VOLUME 94 fL (79-100); MONO # 0.9 x10^3/uL (0.0-1.1); MONO % 8 % (0-9); NEUT # 8.8 x10^3uL (1.8-7.7); NEUT % 77 % (31-73); PLATELET COUNT 172 x10^3/uL (140-400); RED BLOOD COUNT 5.04 x10^6/uL (4.30-5.70); RED CELL DISTRIBUTION WIDTH 13.6 % (11.5-14.5); WHITE BLOOD COUNT 11.4 x10^3/uL (4.0-11.0)
[2016-09-16 02:04] LABS: ALBUMIN 3.3 g/dL (3.4-5.0); ALBUMIN/GLOBULIN RATIO 0.8 (1.0-1.7); CALCIUM 9.1 mg/dL (8.5-10.1); CREATININE 0.9 mg/dL (0.7-1.3); GFR 86.4; POTASSIUM 4.2 mmol/L (3.5-5.1); TOTAL BILIRUBIN 0.7 mg/dL (0.2-1.0); TOTAL PROTEIN 7.7 g/dL (6.4-8.2)
[2016-09-16] MEDS ORDERED: ARIP5TAB6 PEG (02:27)
[2016-09-16] MEDS ORDERED: MIRT15TA PEG (02:30)
[2016-09-16] MEDS ORDERED: ACET160O49 PEG (02:35)
--- NOTE | 2016-09-16 02:46 | RAD ---
ONE-VIEW CHEST 1:54 A.M. HISTORY Dyspnea and weakness Portable AP view chest COMPARISON August 28, 2016 The heart and pulmonary vessels appear normal. Linear opacities in the lung bases left worse than right are likely discoid atelectasis. Impression No acute findings. Electronically signed by: Bernardo Langston MD (September 16, 2016 02:45:12)
[2016-09-16] MEDS ORDERED: IV NORMAL SALINE 1,000ML 1,000 ML ONE (03:21)
[2016-09-16 05:09] LABS: BACTERIA,URINE FEW /HPF (0-FEW); BILIRUBIN,URINE NEG (NEG); CLARITY,URINE CLEAR; COLOR,URINE YELLOW; GLUCOSE,URINE >=1000 mg/dL (NEG); NITRITE,URINE NEG (NEG); RBC,URINE 0 /HPF (0-2); UROBILINOGEN,URINE 1 mg/dL (0.2 mg/dL); WBC,URINE OCC /HPF (0-4)
--- NOTE | 2016-09-17 01:30 | PN ---
DATE: 09/15/2016 PSYCHIATRIC PROGRESS NOTE This is late entry of 09/15/2016. SUBJECTIVE: The patient was seen individually on evening of 09/15/2016. Temperature 96.8, pulse 88 and respirations 20. The patient remains confused, withdrawn, but not agitated. He is not very verbal. REVIEW OF SYSTEMS: Ambulation impaired, in a Broda chair. No CV, , pulmonary, eye system symptoms on review, feeding is G-tube. MENTAL STATUS EXAMINATION: Oriented to himself. Insight, judgment, recent and remote memory, attention, concentration, fund of knowledge poor, consistent with his diagnosis. IMPRESSION: Major neurocognitive disorder, vascular with depression, rest unchanged. PLAN: Continue Lexapro, Zyprexa p.r.n., Abilify, Depakene, Remeron at current dosage. Valproic acid level therapeutic at 51. MAN AngelMeg RODGERS MD DR: VERENA/pily JOB#: [id number] / [id number]
[2016-09-29] MEDS ORDERED: ERGOCALCIFEROL (VITAMIN D2) 50,000 UNIT CAPSULE PEG SCH (09:00)
== END 2016-09-16 03:44 | disposition short-term general hospital (02) | DRG 56 ==
LOC: GEROPSY 14:24
PROVIDERS: ADMIT Psychiatry & Neurology Psychiatry; ATTEND Psychiatry & Neurology Psychiatry
DX: G30.9 Alzheimer's disease, unspecified (principal); E43 Unspecified severe protein-calorie malnutrition; J18.9 Pneumonia, unspecified organism; F01.51 Vascular dementia, unspecified severity, with behavioral disturbance; F33.3 Major depressive disorder, recurrent, severe with psychotic symptoms; F02.81 Dementia in other diseases classified elsewhere, unspecified severity, with behavioral disturbance; E11.9 Type 2 diabetes mellitus without complications; E78.5 Hyperlipidemia, unspecified; F10.10 Alcohol abuse, uncomplicated; F41.9 Anxiety disorder, unspecified; F63.9 Impulse disorder, unspecified; G40.909 Epilepsy, unspecified, not intractable, without status epilepticus; I10 Essential (primary) hypertension; K21.9 Gastro-esophageal reflux disease without esophagitis; N40.0 Benign prostatic hyperplasia without lower urinary tract symptoms; Y95 Nosocomial condition; Z86.73 Personal history of transient ischemic attack (TIA), and cerebral infarction without residual deficits; Z68.23 Body mass index [BMI] 23.0-23.9, adult; Z93.1 Gastrostomy status
CPT/HCPCS: 36415; 71010; 80053; 80164; 81001; 82947; 83605; 83735; 85027; 87040; 97116; 97530; J7030

== ENCOUNTER 2016-09-16 03:51 | Inpatient (IN) | payer MEDICARE, MEDICAID ==
[~2016-09-16] VITALS: Ht 177.8 cm; Wt 72.3 kg
[2016-09-16] VITALS (19 sets, daily range): BP systolic 91–134; BP diastolic 48–79
[~2016-09-16 03:51] MED LIST changes: +ACET160O49 PEG; +ARIP5TAB13 PEG; -ERGO500012 PEG; +ERGO500027 PEG; +FAMO20TA5 PEG; +OLAN5TAB5 PO; +POTA20LI27 PEG; +TRAZ-90 PEG; -TRAZ100T12 PEG
[2016-09-16] MEDS ORDERED: IV NORMAL SALINE 1,000ML 1,000 ML IV PRN (04:15)
[2016-09-16] MEDS ORDERED: VANCOMYCIN PER PHARMACY MC PRN (04:15)
[2016-09-16] MEDS ORDERED: VANCOMYCIN 750 MG VIAL. IV ONE (04:56)
[2016-09-16] MEDS ORDERED: VANCOMYCIN 1 GM VIAL. ONE (04:56)
--- NOTE | 2016-09-16 04:56 | NUR ---
Pharmacy Vancomycin Dosing Note S:Consulted to monitor and dose vancomycin started 09/16/16. O:BROOKLYN ARGUETA is a 61 year old M with Sepsis . Height: 5 feet, 10 inches Weight: 72.713179 kg [place] Body Weight: 73.00 Adjusted Body Weight: 72.88 Dosing Weight: Actual Other Antibiotics: LEVOFLOXACIN 750 MG Q24H ZOSYN 3.375 Q8 LABS: Last BUN: 14 Last Creatinine: 0.9 Creatinine Clearance: 91 Last WBC: 11.4 Last Platelets: 172 Tmax (past 24 hours): Microbiology: I/O: Drug Levels: Last level: on at Last dose given at Vancomycin Dosing: Loading Dose: 1750 mg x1 Dosing Weight: Actual Target Trough: 15-20 A: Based on: WT AND CRCL P: 1. Begin Vancomycin 1000 mg IV q12h 2. Follow up Trough level on 09/17/16 at 1630 3. Pharmacy will continue to monitor, follow and adjust therapy as needed. SUSAN BONILLA RPH, 09/16/16 0456 Signed: 09/16/16 at 0456 by SUSAN BONILLA RPH PHA
[2016-09-16] MEDS ORDERED: IV NORMAL SALINE 50ML 0 ML ONE (04:57)
[2016-09-16] MEDS ORDERED: PIPERACILLIN/TAZOBACTAM 3.375 GM VIAL IV ONE (04:58)
[2016-09-16] MEDS ORDERED: IV NORMAL SALINE 50ML 50 ML ONE (04:58)
[2016-09-16] MEDS ORDERED: VANCOMYCIN 1.75 GM in IV NORMAL SALINE 500ML 500 ML IV ONE (05:00)
--- NOTE | 2016-09-16 05:00 | NUR ---
Pt admitted via wheelchair from [facility] to ICU bed 5 for suspected sepsis. Pt presents alert, can follow some basic commands, but not really answering any questions verbally at this time. Vitals stable, tele-ST. oriented pt to unit, nurse, call light and plan of care. no response from pt. Will monitor and address orders.
[2016-09-16] MEDS ORDERED: IV NORMAL SALINE 250ML 500 ML ONE (05:11)
[2016-09-16] MEDS ORDERED: VANCOMYCIN 1 GM in IV NORMAL SALINE 250ML 250 ML IV ONE (05:15)
[2016-09-16] MEDS: PIPERACILLIN/TAZOBACTAM 3.375 GM in IV NORMAL SALINE 50ML 50 ML IV SCH ×3 (06:00→21:10)
[2016-09-16] MEDS ORDERED: VANCOMYCIN 750 MG in IV NORMAL SALINE 250ML 250 ML IV ONE (06:15)
[2016-09-16] MEDS ORDERED: ACETAMINOPHEN 650 MG/20.3 ML SOLUTION. PEG PRN (14:45)
[2016-09-16] MEDS: ESCITALOPRAM 10 MG TABLET. PEG SCH (17:04)
[2016-09-16] MEDS: VANCOMYCIN 1 GM in IV NORMAL SALINE 250ML 250 ML IV SCH (17:06)
[2016-09-16] MEDS: INSULIN ASPART 300 UNITS/3 ML INSULN.PEN SQ SCH (17:06)
--- NOTE | 2016-09-16 19:04 | HP ---
ADMIT DATE: 09/16/2016 REASON FOR TRANSFER: Possible sepsis. HISTORY OF PRESENT ILLNESS: This is a 61-year-old male who was transferred down from the [facility] with change in I believe his mental status, some hypotension and tachycardia and elevated white count. This is the second transfer down from the [facility]. The previous one was on 08/09/2016. At that time also had lactic acidosis, white count and did not find anything severely septic and eventually made back upstairs to [facility]. At this time, he had somewhat of a similar picture and I have to go between the other admission and this one. PAST MEDICAL HISTORY: Hyperlipidemia, type 2 diabetes, CVA, gastroesophageal reflux, chronic aspiration, seizure disorder, BPH and he also has a PEG tube and psych diagnosis of major neurocognitive disorder, probably vascular with depression, delusions, anxiety, impulse control disorder. ALLERGIES: No known allergies. MEDICATIONS: Reviewed and are available on the MAR. PAST SURGICAL HISTORY: G-tube placement in 05/2016. REVIEW OF SYSTEMS: The patient does not say a whole lot and could not answer my questions. OBJECTIVE: VITAL SIGNS: Blood pressure, this morning when I saw him, was 113/70, pulse 97, respirations 20, pulse ox is 97% on room air and his temperature is 98.2. HEENT: Hearing is normal. His eyes were clear. His nose was patent. His throat was clear. His tongue was moist. NECK: Supple. LUNGS: Clear. CARDIOVASCULAR: Regular rhythm and rate without murmur. ABDOMEN: Soft, nontender. The patient did not grimace. G-tube was in place. EXTREMITIES: Without edema. LABORATORY DATA: Laboratory which is being pulled from the admission upstairs. His white count was 11.4, slightly left shift, no bands. Chemistry: Glucose is slightly elevated, did have a lactic acid of 4, repeated 2.2, then 1.8. Urinalysis is essentially negative for infection. IMAGING STUDIES: His chest x-ray with some discoid atelectasis, but no overt pneumonia. ASSESSMENT: A 61-year-old with severe neurocognitive impairment with lactic acidosis, questionable sepsis, leukocytosis, metabolic encephalopathy, polypharmacy, fall risk, aspiration risk. PLAN: He has been started on antibiotics. We will reevaluate tomorrow and if he does not continue to have the appearance of sepsis, we will rapidly cut down on his antibiotics. field services manager for placement. ARNOLD AYON DO DR: OLMAN/pily JOB#: [id number] / [id number]
--- NOTE | 2016-09-16 20:24 | NUR ---
Patient assessed, care plan reviewed, continue to monitor.
[2016-09-16] MEDS ORDERED: ARIPiprazole 5 MG TABLET PEG SCH (21:00)
[2016-09-16] MEDS: VALPROATE ACID 250 MG/5 ML ORAL SOLUTION PEG SCH (21:09)
[2016-09-16] MEDS: MIRTAZAPINE 7.5 MG TABLET. PEG SCH (21:09)
[2016-09-16] MEDS: risperiDONE 0.25 MG TABLET. PEG SCH (21:10)
[2016-09-16] MEDS: FAMOTIDINE 20 MG TABLET PEG SCH (21:11)
[2016-09-16] MEDS: INSULIN DETEMIR 300 UNITS/3 ML INSULN.PEN. SQ SCH (21:37)
[2016-09-17] VITALS (19 sets, daily range): BP systolic 85–141; BP diastolic 49–74
[2016-09-17] MEDS: PIPERACILLIN/TAZOBACTAM 3.375 GM in IV NORMAL SALINE 50ML 50 ML IV SCH (04:28)
[2016-09-17] MEDS: VANCOMYCIN 1 GM in IV NORMAL SALINE 250ML 250 ML IV SCH (05:17)
[2016-09-17] MEDS: LEVOTHYROXINE 25 MCG TABLET. PEG SCH (05:19)
[2016-09-17 06:14] LABS: BASO % 1 % (0-3); EOS # 0.2 x10^3/uL (0.0-0.7); EOS % 3 % (0-3); HEMATOCRIT 40.3 % (39.0-53.0); HEMOGLOBIN 13.4 g/dL (13.0-17.5); LYMPH # 1.4 x10^3/uL (1.0-4.8); LYMPH % 24 % (24-48); MEAN CORPUSCULAR HEMOGLOBIN 31 pg (25-35); MEAN CORPUSCULAR HGB CONC 33 g/dL (31-37); MEAN CORPUSCULAR VOLUME 94 fL (79-100); MONO # 0.4 x10^3/uL (0.0-1.1); MONO % 8 % (0-9); NEUT # 3.8 x10^3uL (1.8-7.7); NEUT % 65 % (31-73); PLATELET COUNT 133 x10^3/uL (140-400); RED CELL DISTRIBUTION WIDTH 13.7 % (11.5-14.5); WHITE BLOOD COUNT 5.9 x10^3/uL (4.0-11.0)
[2016-09-17 06:47] LABS: ALBUMIN 2.5 g/dL (3.4-5.0); ALBUMIN/GLOBULIN RATIO 0.7 (1.0-1.7); CALCIUM 8.7 mg/dL (8.5-10.1); CREATININE 0.7 mg/dL (0.7-1.3); GFR 115.4; MAGNESIUM 1.8 mg/dL (1.8-2.4); POTASSIUM 3.2 mmol/L (3.5-5.1); TOTAL BILIRUBIN 0.6 mg/dL (0.2-1.0); TOTAL PROTEIN 6.3 g/dL (6.4-8.2)
[2016-09-17] MEDS: INSULIN ASPART 300 UNITS/3 ML INSULN.PEN SQ SCH ×3 (07:30→17:16)
[2016-09-17] MEDS ORDERED: DEXTROSE 50% 25 GM / 50ML DISP.SYRIN. IV ONE (07:45)
[2016-09-17] MEDS: VALPROATE ACID 250 MG/5 ML ORAL SOLUTION PEG SCH (08:12)
[2016-09-17] MEDS: FAMOTIDINE 20 MG TABLET PEG SCH ×2 (08:13→20:30)
[2016-09-17] MEDS: POTASSIUM CHLORIDE 20 MEQ/15 ML ORAL LIQUID. PEG SCH ×2 (08:13→20:31)
[2016-09-17] MEDS ORDERED: POTASSIUM CHLORIDE 20 MEQ/15 ML ORAL LIQUID. PEG SCH (09:00)
--- NOTE | 2016-09-17 09:15 | NUR ---
0815 Pt placed in high-fowlers position and assessed for tube feeding, no residual, tube feeding amount: 500ml (2 cartons) of diabetisource, flushed with 150ml water after each bottle, procedure well-tolerated by pt, pt remained in high-fowlers position for and additional 45 minutes after tube feeding to prevent aspiration, will continue to monitor pt
--- NOTE | 2016-09-17 10:24 | ACF ---
Admission Criteria Forms SEPSIS and OTHER FEBRILE ILLNESS, W/O FOCAL INFECTION Clinical Indications for Admission to Inpatient Care ( Place 'X' for any and all applicable criteria): Admission is indicated for ANY ONE of the following (1)(2)(3)(4): [ ] I. Bacteremia [ ]II. Suspected or identified specific infection requiring hospitalization (eg, meningitis, endocarditis) [ ]III. Hemodynamic instability [ ]IV. Altered mental status [X]V. Failure or unavailability of outpatient antimicrobial treatment [ ]. Hypoxemia [ ]VII. Seizures [ ]VIII. High-risk febrile neutropenia [ ]IX. Need for parenteral antibiotic in patient who is likely to abuse vascular access device (eg, injection drug user) [A](7) [ ]X. Temperature greater than 104.9 degrees F (40.5 degrees C) (oral) [ ]XI. Inpatient admission required rather than observation care because of ANY ONE of the following: [ ]1) Specific infection identified that is too severe for outpatient treatment or observation care trial [ ]2) Metabolic disorder (eg, hypoglycemia, hyperglycemia, metabolic acidosis) that is severe or persistent [ ]3) Temperature greater than 103.1 degrees F (39.5 degrees C) ( oral) that is not responsive to observation care treatment [ ]4) IV fluid to replace significant ongoing (eg, for over 24 hours) losses (> 3 L/m2 per day) [ ]5) Supplemental oxygen or respiratory treatments for over 24 hours that is performable only in acute inpatient setting [ ]6) Parenteral nutrition regimen need that must be implemented on inpatient basis [ ]7) Strict or protective (eg, laminar flow) isolation [ ]8) Other condition, treatment or monitoring requiring inpatient admission Extended stay beyond goal length of stay may be needed for(1)(3) [ ]a) Sepsis or septic shock(22) [ ]b) Positive blood cultures [ ]c) Insufficient oral intake [ ]d) High-risk febrile neutropenia(29)(30) [ ]e) Continued fever and clinical instability [ ]f) Clinically active comorbid illness (e.g,heart failure, renal failure , diabetes) The original [employer] content created by [employer] has been revised. The portions of the content which have been revised are identified through the use of italic text or in bold, and [employer] has neither reviewed nor approved the modified material. All other unmodified content is copyright [facility]. Please see references footnoted in the original [facility] edition 2016 Admission Criteria Met?: Yes MATHEW BARKER September 17, 2016 10:24
--- NOTE | 2016-09-17 13:05 | NUR ---
1230 pt placed in high-fowlers position and assessed for tube feeding, no residual, tube feeding amount:1 carton Diabetisource 250ml, flused with 15 ml water after feeding, pt remained in high-fowlers for an additional half-hour to prevent aspiration, will continue to monitor this pt.
[2016-09-17 16:52] LABS: VANC TR 10.5 mcg/mL (10.0-20.0)
[2016-09-17] MEDS: ESCITALOPRAM 10 MG TABLET. PEG SCH (17:18)
[2016-09-17] MEDS: MIRTAZAPINE 7.5 MG TABLET. PEG SCH (20:30)
[2016-09-17] MEDS: risperiDONE 0.25 MG TABLET. PEG SCH (20:30)
[2016-09-17] MEDS: INSULIN DETEMIR 300 UNITS/3 ML INSULN.PEN. SQ SCH (20:35)
[2016-09-17 20:45] LABS: VAL ACID 44 mcg/mL (50-100)
[2016-09-18 05:31] VITALS: BP 140/78
[2016-09-18] MEDS: LEVOTHYROXINE 25 MCG TABLET. PEG SCH (05:45)
[2016-09-18] MEDS: INSULIN ASPART 300 UNITS/3 ML INSULN.PEN SQ SCH (07:30)
--- NOTE | 2016-09-18 08:15 | NUR ---
0815 Dr. Martins on unit and notified of pt blood glucose 47, pt asymptomatic- orders to go ahead with scheduled tube feeding with juice- orders initiated
[2016-09-18] MEDS: FAMOTIDINE 20 MG TABLET PEG SCH (08:22)
[2016-09-18] MEDS: POTASSIUM CHLORIDE 20 MEQ/15 ML ORAL LIQUID. PEG SCH (08:23)
[2016-09-18 09:00] VITALS: BP 133/64
--- NOTE | 2016-09-18 09:00 | NUR ---
0815 Pt put in high-fowlers position for tube feeding, verified feeding tube placement via ascultation, tube feeding amount: 500ml Diabetisource (2 cartons), 300ml of water, procedure well-tolerated by pt, pt left in high-fowlers position for 45 minutes after feeding to prevent aspiration, will continue to monitor this pt.
--- NOTE | 2016-09-18 09:18 | NUR ---
attempted to contact pt's son-DPOA and sister to notify family that pt is being discharged to [facility] in [place], [place]- unable to make contact with either at this time.
--- NOTE | 2016-09-18 10:06 | NUR ---
Report called to CAMRYN Solorzano at [facility] ref pt's feeding tube and feeding instructions, tendency to aspirate,hypotension and low morning blood sugars, pt's feeding tube extension and extra cartons of diabetisource sent with pt. pt d/c'd Alert to self, pt taken in bed via ambulance, escorted by certified driver examiner and RN to [facility] for transport Addendum: 09/18/16 at 1016 by LALI THOMAS RN All of pt's belongings sent with pt to [facility].
[2016-09-18] MEDS ORDERED: LORazepam TOPICAL 0.5 MG/ML GEL TP PRN (12:45)
--- NOTE | 2016-09-18 19:00 | DS ---
DATE OF DISCHARGE: 09/18/2016 DISPOSITION: [facility] in [place], [place]. DISCHARGE DIAGNOSES: 1. Drug-induced hypotension. 2. Hypoglycemia secondary to feeding tube schedule. 3. Lactic acidosis without sepsis. 4. Type 2 diabetes. 5. Chronic aspiration. 6. Dementia with behavior disturbance. HOSPITAL COURSE: This is a 61-year-old male who was transferred down from the [facility] with hypotension, tachycardia, and elevated white count. Did have an elevated white count on the admission to [facility]. Subsequent workup was completely negative and on chart review, it was discovered that the valproic acid, both by itself in the morning and in combination with other antipsychotics were giving him this profound hypotension. In consultation with Dr. Luu, the psychiatrist, his Depakote was discontinued as well as his Abilify. Blood pressures are better. He did have some hypoglycemia and his Levemir was decreased as well as the feeding tubes will be adjusted when he goes back to the long-term. He may also benefit from continuous tube feeding rather than scheduled. He has not had any behaviors down here or the [facility]. He has been ambulated by physical therapy and occupational therapy. PHYSICAL EXAMINATION: VITAL SIGNS: On day of discharge, blood pressure 133/64, pulse 77, respirations 20, pulse ox 100% on room air. GENERAL: The patient is alert and at the present time, his blood sugars 47, but he is asymptomatic. PLAN: Discharged to [facility]. Medications have been reconciled. Written instructions by myself was also done and the nurse will advise to schedule his feeding tube later on in the evening to avoid hypoglycemia in the morning. ARNOLD AYON DO DR: OLMAN/pily JOB#: [id number] / [id number]
[2016-10-16] MEDS ORDERED: ERGOCALCIFEROL (VITAMIN D2) 50,000 UNIT CAPSULE PEG SCH (09:00)
== END 2016-09-18 10:05 | DRG 70 ==
LOC: ICU 03:51
PROVIDERS: ADMIT Internal Medicine; ATTEND Internal Medicine
DX: G93.41 Metabolic encephalopathy (principal); E43 Unspecified severe protein-calorie malnutrition; F01.51 Vascular dementia, unspecified severity, with behavioral disturbance; E87.2 Acidosis; I95.2 Hypotension due to drugs; G40.909 Epilepsy, unspecified, not intractable, without status epilepticus; E78.5 Hyperlipidemia, unspecified; E11.649 Type 2 diabetes mellitus with hypoglycemia without coma; F22 Delusional disorders; K21.9 Gastro-esophageal reflux disease without esophagitis; N40.0 Benign prostatic hyperplasia without lower urinary tract symptoms; R00.0 Tachycardia, unspecified; F32.9 Major depressive disorder, single episode, unspecified; F41.9 Anxiety disorder, unspecified; F63.9 Impulse disorder, unspecified; Z86.73 Personal history of transient ischemic attack (TIA), and cerebral infarction without residual deficits; Z93.1 Gastrostomy status; T42.6X5A Adverse effect of other antiepileptic and sedative-hypnotic drugs, initial encounter
CPT/HCPCS: 36415; 80053; 80164; 80202; 82553; 82947; 83605; 83735; 85027; 87641; J1815; J1956; J2543; J3370; J7050; J7030

== ENCOUNTER 2019-01-23 15:19 | Emergency (ER) | payer MEDICARE, MEDICAID ==
[~2019-01-23] VITALS: Ht 175.3 cm; Wt 90.7 kg
[~2019-01-23 15:19] MED LIST changes: -ESCI10TA PEG; +ESCITALOPRAM OX10 MG PEG; +HYDR-3165 PEG; -HYDR-971 PEG; +RANI-376 PEG; -RANI150T6 PEG; +TRAZ-86 PEG; -TRAZ-90 PEG
[2019-01-23 15:20] VITALS: BP 133/77
--- NOTE | 2019-01-23 15:46 | EKG ---
[address] [address] Test Date: 2019-01-23 Test Time: 15:44:52 Pat Name: BROOKLYN ARGUETA Department: Room: Gender: M Yard Hostler: KARENA : 1955 Requested By: ALFREDO PELAEZ Order Number: [id number] Reading MD: Measurements Intervals [place] Rate: 74 P: 38 MD: 180 QRS: -6 QRSD: 84 T: 40 QT: 374 QTc: 420 Interpretive Statements SINUS RHYTHM LEFTWARD AXIS NO SPECIFIC ECG ABNORMALITIES RI6.01 Compared to ECG 08/08/2016 22:33:22 Left-axis deviation now present
[2019-01-23 15:54] LABS: BASO # 0.1 x10^3/uL (0.0-0.2); BASO % 1 % (0-3); EOS # 0.3 x10^3/uL (0.0-0.7); EOS % 4 % (0-3); HEMATOCRIT 41.8 % (39.0-53.0); HEMOGLOBIN 14.2 g/dL (13.0-17.5); LYMPH # 1.6 x10^3/uL (1.0-4.8); LYMPH % 23 % (24-48); MEAN CORPUSCULAR HEMOGLOBIN 31 pg (25-35); MEAN CORPUSCULAR HGB CONC 34 g/dL (31-37); MEAN CORPUSCULAR VOLUME 92 fL (79-100); MONO # 0.6 x10^3/uL (0.0-1.1); MONO % 9 % (0-9); NEUT # 4.5 x10^3uL (1.8-7.7); NEUT % 64 % (31-73); PLATELET COUNT 147 x10^3/uL (140-400); RED BLOOD COUNT 4.52 x10^6/uL (4.30-5.70); RED CELL DISTRIBUTION WIDTH 13.8 % (11.5-14.5); WHITE BLOOD COUNT 7.1 x10^3/uL (4.0-11.0)
[2019-01-23 16:04] LABS: ALBUMIN 3.8 g/dL (3.4-5.0); CREATININE 1.1 mg/dL (0.7-1.3); GFR 68.1; POTASSIUM 4.1 mmol/L (3.5-5.1); TOTAL BILIRUBIN 0.3 mg/dL (0.2-1.0); TOTAL PROTEIN 7.7 g/dL (6.4-8.2)
[2019-01-23 16:53] LABS: BACTERIA,URINE MANY /HPF (0-FEW); BILIRUBIN,URINE NEG (NEG); CLARITY,URINE CLOUDY; COLOR,URINE YELLOW; GLUCOSE,URINE >=1000 mg/dL (NEG); HYALINE CASTS, URINE FEW /HPF; NITRITE,URINE POS (NEG); SQUAMOUS EPITHELIAL CELL,UR OCC /LPF; UROBILINOGEN,URINE 0.2 mg/dL (0.2 mg/dL)
[2019-01-23 16:58] LABS: BARBITURATES NEG (NEG); BENZODIAZEPINES NEG (NEG); CANNABINOIDS NEG (NEG); COCAINE NEG (NEG); METHADONE NEG (NEG); OPIATES NEG (NEG); PHENCYCLIDINE NEG (NEG)
[2019-01-23 16:59] LABS: AMPHETAMINE/METHAMPHETAMINE NEG (NEG)
[2019-01-23] MEDS ORDERED: CEPHALEXIN 250 MG CAPSULE PO ONE (17:15)
--- NOTE | 2019-01-23 17:42 | ED.ADGEN ---
Past History Past Medical History: CVA, Dementia, Depression, Diabetes, Hypertension, Seizure, Other Additional Past Medical Histor: MAJOR NEUROCOGNITIVE DISORDER (ALFREDO PELAEZ DO) Past Surgical History: Other Additional Past Surgical Histo: UNKNOWN SURGICAL HX (ALFREDO PELAEZ DO) Alcohol Use: None Drug Use: None (ALFREDO PELAEZ DO) Adult General Chief Complaint Chief Complaint Patient is a 63[facility] patient with history of severe neurocognitive and behavioral health issues who presents with aggressive behavior towards staff members. Patient reportedly became upset at staff members and through his walker towards them. No report of SI or HI. Patient does have hi story of psychosis with delusions. Patient sent to the ED for medical screening evaluation. Patient alert, nonverbal with incoherent speech which is baseline according to family members are present. History is limited based upon the patient's presentation. (ALFREDO PELAEZ DO) Review of Systems Review of Systems Review symptoms as per history of present illness. Amended. (ALFREDO PELAEZ DO) Current Medications Current Medications Current Medications Medications (Trade) Dose Ordered Sig/Darrion Start Time Stop Time Status Last Admin Dose Admin Cephalexin HCl (Keflex) 250 mg 1X ONCE 01/23/19 17:15 01/23/19 17:39 DC 01/23/19 17:51 250 MG Lorazepam (Ativan) 2 mg 1X ONCE 01/23/19 18:45 01/23/19 18:51 DC 01/23/19 18:56 2 MG (GIOVANI MCINTYRE MD) Allergies Allergies Allergies Coded Allergies Type Severity Reaction Last Updated Verified No Known Drug Allergies 08/08/16 No (GIOVANI MCINTYRE MD) Physical Exam Physical Exam Constitutional: Well developed, well nourished, no acute distress, non-toxic appearance. [] HENT: Normocephalic, atraumatic, bilateral external ears normal, oropharynx moist,eyes mucous membranes, nose normal. [] Eyes: PERRLA, EOMI, conjunctiva normal, no discharge. [] Neck: Normal range of motion, no tenderness, supple, no stridor. [] Cardiovascular:Heart rate regular rhythm, no murmur [] Lungs & Thorax: Bilateral breath sounds clear to auscultation [] Back: No tenderness, no CVA tenderness. [] Extremities: No tenderness, no cyanosis, no clubbing, ROM intact, no edema. [] Neurologic: Alert and oriented to person,, normal motor function, normal sensory function, no focal deficits noted. [] Psychologic: Affect normal, judgement normal, mood normal. [] (ALFREDO PELAEZ DO) Current Patient Data Vital Signs Vital Signs Date Time Temp Pulse Resp B/P (MAP) Pulse Ox O2 Delivery O2 Flow Rate FiO2 01/23/19 15:20 98.1 77 20 97 Room Air (GIOVANI MCINTYRE MD) Lab Results Laboratory Tests Test 01/23/19 15:30 01/23/19 16:34 White Blood Count 7.1 x10^3/uL (4.0-11.0) Red Blood Count 4.52 x10^6/uL (4.30-5.70) Hemoglobin 14.2 g/dL (13.0-17.5) Hematocrit 41.8 % (39.0-53.0) Mean Corpuscular Volume 92 fL (79-100) Mean Corpuscular Hemoglobin 31 pg (25-35) Mean Corpuscular Hemoglobin Concent 34 g/dL (31-37) Red Cell Distribution Width 13.8 % (11.5-14.5) Platelet Count 147 x10^3/uL (140-400) Neutrophils (%) (Auto) 64 % (31-73) Lymphocytes (%) (Auto) 23 % (24-48) L Monocytes (%) (Auto) 9 % (0-9) Eosinophils (%) (Auto) 4 % (0-3) H Basophils (%) (Auto) 1 % (0-3) Neutrophils # (Auto) 4.5 x10^3uL (1.8-7.7) Lymphocytes # (Auto) 1.6 x10^3/uL (1.0-4.8) Monocytes # (Auto) 0.6 x10^3/uL (0.0-1.1) Eosinophils # (Auto) 0.3 x10^3/uL (0.0-0.7) Basophils # (Auto) 0.1 x10^3/uL (0.0-0.2) Sodium Level 137 mmol/L (136-145) Potassium Level 4.1 mmol/L (3.5-5.1) Chloride Level 101 mmol/L (98-107) Carbon Dioxide Level 27 mmol/L (21-32) Anion Gap 9 (6-14) Blood Urea Nitrogen 17 mg/dL (8-26) Creatinine 1.1 mg/dL (0.7-1.3) Estimated GFR (Cockcroft-Gault) 68.1 BUN/Creatinine Ratio 15 (6-20) Glucose Level 316 mg/dL (70-99) H Calcium Level 9.0 mg/dL (8.5-10.1) Magnesium Level 2.0 mg/dL (1.8-2.4) Total Bilirubin 0.3 mg/dL (0.2-1.0) Aspartate Amino Transferase (AST) 53 U/L (15-37) H Alanine Aminotransferase (ALT) 72 U/L (16-63) H Alkaline Phosphatase 104 U/L (46-116) Total Protein 7.7 g/dL (6.4-8.2) Albumin 3.8 g/dL (3.4-5.0) Albumin/Globulin Ratio 1.0 (1.0-1.7) Ethyl Alcohol Level < 10 mg/dL (0-10) Urine Collection Type Unknown Urine Color Yellow Urine Clarity Cloudy Urine pH 5.5 Urine Specific [place] 1.015 Urine Protein Neg (NEG-TRACE) Urine Glucose (UA) >=1000 mg/dL (NEG) Urine Ketones (Stick) Neg mg/dL (NEG) Urine Blood Trace (NEG) Urine Nitrite Pos (NEG) Urine Bilirubin Neg (NEG) Urine Urobilinogen Dipstick 0.2 mg/dL (0.2 mg/dL) Urine Leukocyte Esterase Neg (NEG) Urine RBC 1-2 /HPF (0-2) Urine WBC 1-4 /HPF (0-4) Urine Squamous Epithelial Cells Occ /LPF Urine Bacteria Many /HPF (0-FEW) Urine Hyaline Casts Few /HPF Urine Opiates Screen Neg (NEG) Urine Methadone Screen Neg (NEG) Urine Barbiturates Neg (NEG) Urine Phencyclidine Screen Neg (NEG) Urine Amphetamine/Methamphetamine Neg (NEG) Urine Benzodiazepines Screen Neg (NEG) Urine Cocaine Screen Neg (NEG) Urine Cannabinoids Screen Neg (NEG) Urine Ethyl Alcohol Neg (NEG) (GIOVANI MCINTYRE MD) EKG EKG [EKG:: Normal sinus rhythm, no acute ST-T wave changes.] (ALFREDO PELAEZ DO) Radiology/Procedures Radiology/Procedures [] (ALFREDO PELAEZ DO) Course & Med Decision Making Course & Med Decision Making Pertinent Labs and Imaging studies reviewed. (See chart for details) [Patient medically stable. Oral and buttocks given for treatment of urinary tract infection. Telemetry psych consult requested for mental health screening. Evaluation is pending at time of shift change. Care endorsed to oncoming ERP with disposition pending psychiatric screening recommendations.] (ALFREDO PELAEZ DO) Course & Med Decision Making Awaiting Tele. Psych /Counselor blessing. 1830. Talking with relatives and staf f. Tele. Psych. [facility] to [facility]. This plan was agreeable to the family.. Patient also given a prescription for urinary tract infection Keflex 3 times a day. Return if any concerns. (GIOVANI MCINTYRE MD) Final Impression Final Impression [#1 encounter medical screening exam #2 Urinary tract infection #3 Neurocognitive disorder] (ALFREDO PELAEZ DO) Final Impression 1. Dementia 2. UTI 3. Behavioral issues (GIOVANI MCINTYRE MD) Dragon Disclaimer Dragon Disclaimer This electronic medical record was generated, in whole or in part, using a voice recognition dictation system. (ALFREDO PELAEZ DO) Dragon Disclaimer This chart was dictated in whole or in part using Voice Recognition software in a busy, high-work load, and often noisy Emergency Department environment. It may contain unintended and wholly unrecognized errors or omissions. (GIOVANI MCINTYRE MD) ALFREDO PELAEZ DO Jan 23, 2019 17:42 GIOVANI MCINTYRE MD Jan 23, 2019 18:37
[2019-01-23] MEDS ORDERED: CEPH-263 PO (17:44)
[2019-01-23] MEDS ORDERED: LORazepam 1 MG TABLET PO ONE (18:45)
== END 2019-01-23 18:59 | disposition home or self-care (01) ==
LOC: ER 15:19
DX: F03.90 Unspecified dementia, unspecified severity, without behavioral disturbance, psychotic disturbance, mood disturbance, and anxiety (principal); N39.0 Urinary tract infection, site not specified; R41.9 Unspecified symptoms and signs involving cognitive functions and awareness; E11.9 Type 2 diabetes mellitus without complications; I10 Essential (primary) hypertension; Z86.73 Personal history of transient ischemic attack (TIA), and cerebral infarction without residual deficits
CPT/HCPCS: 36415; 80053; 80307; 81001; 83735; 84443; 85025; 87086; 93005; 99285; G0480; P9612